=== PATIENT | female | born 1960 | race Caucasian/White ===

== ENCOUNTER 2020-09-05 13:20 | Outpatient (REF) | payer OTHER, SELFPAY ==
[2020-09-05 13:47] LABS: COVID-19 Test Negative (Negative)
== END 2020-09-05 13:21 | disposition home or self-care (01) ==
LOC: HO.LAB 13:20
PROVIDERS: PCP Nurse Practitioner Family; Visit Provider Internal Medicine
DX: Z20.828 Contact with and (suspected) exposure to other viral communicable diseases (principal)
CPT/HCPCS: 87635

== ENCOUNTER 2020-09-11 11:42 | Outpatient (REF) | payer OTHER, SELFPAY ==
[2020-09-11 12:28] LABS: COVID-19 Test Negative (Negative)
== END 2020-09-11 11:43 | disposition home or self-care (01) ==
LOC: HO.LAB 11:42
PROVIDERS: PCP Nurse Practitioner Family; Visit Provider Internal Medicine
DX: Z20.828 Contact with and (suspected) exposure to other viral communicable diseases (principal)
CPT/HCPCS: 87635

== ENCOUNTER 2020-12-15 09:42 | Outpatient (REF) | payer OTHER, SELFPAY ==
[2020-12-15 09:59] LABS: COVID-19 Test Negative (Negative); IDNOW Serial# 55D5AD1C
== END 2020-12-15 09:43 | disposition home or self-care (01) ==
LOC: HO.EMPCOV 09:42
PROVIDERS: Visit Provider Internal Medicine
DX: Z20.822 Contact with and (suspected) exposure to COVID-19 (principal)
CPT/HCPCS: 36415; 87635; C9803

== ENCOUNTER 2021-01-01 16:02 | Outpatient (REF) | payer OTHER, SELFPAY ==
--- NOTE | ~2021-01-01 | MM_ITS ---
EXAMINATION: MM SCREENING DIGITAL BREAST TOMOSYNTHESIS, BILATERAL CLINICAL INFORMATION: Screening. Asymptomatic. The lifetime risk of breast cancer based on the Tyrer-Cuzick Model is 7%. COMPARISON: Mammography: 11/01/2019, 09/06/2018, 08/16/2017, 03/04/2016 TECHNIQUE: Digital breast tomosynthesis is performed in both the craniocaudal and mediolateral oblique views along with computer-aided detection (CAD). Synthesized 2D images are generated from the tomosynthesis. FINDINGS: There are scattered areas of fibroglandular density (ACR BI-RADS breast composition Category b). There are no significant masses, abnormal calcifications, or other abnormalities. Fine fibronodular pattern is similar to prior exams. No developing density. The axilla and skin contours are unremarkable. MM/MM tomosynthesis screening BI IMPRESSION: No mammographic evidence of malignancy. ASSESSMENT: BI-RADS 1: Negative RECOMMENDATION: Routine annual mammography screening. This patient's information was entered into a reminder system with a target due date for their next mammogram.
== END 2021-01-01 16:03 | disposition home or self-care (01) ==
LOC: HO.MAMMO 16:02
PROVIDERS: PCP Nurse Practitioner Family; Visit Provider Nurse Practitioner Family
DX: Z12.31 Encounter for screening mammogram for malignant neoplasm of breast (principal)
CPT/HCPCS: 77063; 77067

== ENCOUNTER → 2021-01-12 10:56 | Outpatient (BNVA) | payer OTHER, SELFPAY | PROVIDERS: PCP Nurse Practitioner Family; Visit Provider Internal Medicine Endocrinology, Diabetes & Metabolism ==

== ENCOUNTER 2021-01-27 16:35 | Outpatient (REF) | payer OTHER, SELFPAY ==
--- NOTE | ~2021-01-27 | US_ITS ---
EXAMINATION: US SOFT TISSUE NECK CLINICAL INFORMATION: History of malignant neoplasm of thyroid gland. Status post total thyroidectomy. Assess residual tissue and lymphadenopathy. COMPARISON: None. TECHNIQUE: Ultrasound of the neck soft tissues is performed with high- frequency greer-scale imaging and color Doppler. FINDINGS: THYROID BED: Prior thyroidectomy. No residual thyroid tissue demonstrated in the thyroid bed. No cystic or solid nodules demonstrated in the thyroid bed. RIGHT NECK SOFT TISSUES: Scattered architecturally normal nodes are present. The nodes show normal fatty hilus, normal cortical thickness, and no cystic change or calcification. No abnormal color flow. The largest nodes are as follows: Level right level 4: 2.0 x 0.5 x 1.0 cm. Normal jamir architecture. Level right level 5A: 1.2 x 0.4 x 1.0 cm. Normal jamir architecture. Level right level 5B: 1.9 x 0.4 x 0.83 cm. Normal jamir architecture. LEFT NECK SOFT TISSUES: Scattered architecturally normal nodes are present. The nodes show normal fatty hilus, normal cortical thickness, and no cystic change or calcification. No abnormal color flow. The largest nodes are as follows: Level left level 2: 1.0 x 0.4 x 0.83 cm. Normal jamir architecture. Level left level 4: 1.5 x 0.3 x 1.0 cm. Irregular margins. Absent central echogenicity at Abnormal jamir architecture. US/US soft tiss head and/or neck IMPRESSION: 1. No residual thyroid tissue is seen. There are normal bilateral neck lymph nodes except for one atypical-appearing lymph node which has absent central echogenic medulla. However, it appears to be normal size. 2. If clinically indicated further evaluation of the neck soft tissues and nodes may be performed with CT soft tissue neck with intravenous contrast.
== END 2021-01-27 16:36 | disposition home or self-care (01) ==
LOC: HO.US 16:35
PROVIDERS: Visit Provider Internal Medicine Endocrinology, Diabetes & Metabolism
DX: C73 Malignant neoplasm of thyroid gland (principal)
CPT/HCPCS: 76536

== ENCOUNTER 2021-02-27 07:59 | Outpatient (REF) | payer OTHER, SELFPAY ==
--- NOTE | ~2021-02-27 | XR_ITS ---
EXAMINATION: XR knee LT 2V, XR knee standing BI CLINICAL INFORMATION: Reason for Exam M25.562 - Pain in left knee COMPARISON: None available at the time of this dictation. TECHNIQUE: Bilateral frontal standing, left lateral and patella sunrise view. FINDINGS: BONES: No fracture or dislocation is present. JOINTS: Mild narrowing of joint spaces especially medial compartments suggest early degenerative osteoarthritis. There is mild lateral subluxation of the left patella. SOFT TISSUE: Normal XR/XR knee standing BI IMPRESSION: Mild degenerative osteoarthritis. Mild lateral subluxation of the patella.
--- NOTE | ~2021-02-27 | XR_ITS ---
EXAMINATION: XR knee LT 2V, XR knee standing BI CLINICAL INFORMATION: Reason for Exam M25.562 - Pain in left knee COMPARISON: None available at the time of this dictation. TECHNIQUE: Bilateral frontal standing, left lateral and patella sunrise view. FINDINGS: BONES: No fracture or dislocation is present. JOINTS: Mild narrowing of joint spaces especially medial compartments suggest early degenerative osteoarthritis. There is mild lateral subluxation of the left patella. SOFT TISSUE: Normal XR/XR knee LT 2V IMPRESSION: Mild degenerative osteoarthritis. Mild lateral subluxation of the patella.
== END 2021-02-27 08:00 | disposition home or self-care (01) ==
LOC: HO.HOSX 07:59
PROVIDERS: Visit Provider Orthopaedic Surgery
DX: M22.2X2 Patellofemoral disorders, left knee (principal); M70.62 Trochanteric bursitis, left hip
CPT/HCPCS: 73560; 73565; J1040

== ENCOUNTER 2021-04-21 08:12 | Outpatient (REF) | payer OTHER, SELFPAY ==
[2021-04-21 09:50] LABS: Hematocrit 46.5 % (37-47); Hemoglobin 15.5 g/dl (12.0-16.0); Mean Corpuscular HGB Conc 33.3 g/dl (31.0-35.0); Mean Corpuscular Hemoglobin 27.9 pg (27.0-33.0); Mean Corpuscular Volume 83.6 fL (80-98); Mean Platelet Volume 10.7 fL (9.4-12.3); Platelet Count 178 X10*3/uL (160-400); Red Blood Count 5.56 X10*6/uL (4.20-5.50); Red Cell Distribution Width 13.2 % (11.0-16.0); White Blood Count 9.2 X10*3/uL (4.8-10.8)
[2021-04-21 09:54] LABS: Estimated Average Glucose 126 mg/dL
[2021-04-21 10:06] LABS: Alanine Aminotransferase 26 U/L (0-31); Albumin Level 3.9 g/dL (3.5-5.0); Alkaline Phosphatase 82 U/L (39-117); Anion Gap 13 (12-20); Aspartate Amino Transferase 17 U/L (5-31); Bilirubin Total 0.6 mg/dL (0.0-1.0); Blood Urea Nitrogen 16 mg/dL (9-16); Calcium 9.3 mg/dL (8.4-10.2); Carbon Dioxide 25 mmol/L (22-29); Chloride 107 mmol/L (96-108); Cholesterol 214 mg/dL; Estimated Glomerular Filt Rate > 60; Glucose Fasting 122 mg/dL (60-99); HDL Cholesterol 36 mg/dL; LDL Cholesterol Calculated 141 mg/dl; Potassium 4.2 mmol/L (3.3-5.1); Sodium 141 mmol/L (135-145); Total Protein 6.2 g/dL (6.5-8.0); Triglycerides 187 mg/dL
[2021-04-21 10:17] LABS: Free T4 (Free Thyroxine) 1.41 ng/dL (0.71-1.85); Thyroid Stimulating Hormone 0.13 uIU/mL (0.32-4.0)
[2021-04-21 10:31] LABS: Vitamin B12 291 pg/mL (200-900)
[2021-04-22 18:31] LABS: LDL Cholesterol Direct 157 mg/dL (<100)
[2021-04-25 05:17] LABS: Thyroglobulin Antibody <1 IU/mL (<=1); Thyroglobulin Level <0.1 ng/mL
== END 2021-04-21 08:13 | disposition home or self-care (01) ==
LOC: HO.LAB 08:12
PROVIDERS: PCP Nurse Practitioner Family; Visit Provider Internal Medicine Endocrinology, Diabetes & Metabolism
DX: E11.65 Type 2 diabetes mellitus with hyperglycemia (principal); C73 Malignant neoplasm of thyroid gland
CPT/HCPCS: 36415; 80053; 80061; 82043; 82306; 82607; 83036; 83721; 84432; 84439; 84443; 85027; 86800

== ENCOUNTER 2021-04-29 16:00 | Outpatient (RCR) | payer OTHER, SELFPAY ==
--- NOTE | 2021-04-08 17:18 | MHC.PT.EP ---
[facility] [place] Office [place] Office [place] Office [address] [phone] F: [phone] F: [phone] F: [phone] F: [phone] Physical Therapy Plan of Care Date of Evaluation: Date of Surgery: NA Diagnosis: Patellofemoral disorder of L knee and hip Assessment: Milli is a 60 year old female referred to PT for patellofemoral disorder,L knee . Pt has h/o chronic hip pain for 10 years and knee pain for over 6 weeks. She denies any recent trauma or fall. On PT examination she presented with 5/10 pain in L knee and hip, decreased L hip and knee strength, decreased ROM, altered posture, gait and patellar mobility. She would benefit from skilled PT to address the aforementioned impairments to increase tolerance to standing, walking, stair negotiation and ADLs like cleaning, getting in and out of care and sleeping. Frequency and Duration: The patient will be seen 2/week for 6 weeks. Short Term Goals: 1. Pt will have 50% decrease in pain which will help her sleep through the night in 2 weeks. 2. Pt will be able to move her knee through fill range of motion with a pain no more than 2/10 which will ease her ability to get into the car in 3 weeks. Assisted Goals: 1. Pt will demonstrate an increase in muscle strength by 1 grade which will help improve her tolerance to standing, walking and stair negotiation in 5 weeks. 2. Pt will be independent with all HEPs for symptom management and maintenance following d/c in 6 weeks. Treatment Plan: Modalities to reduce pain, spasms and effusion. Manual therapy to restore motion and function. Therapeutic exercise to improve strength and flexibility. Neuromuscular re-education for posture and balance. Therapeutic activities to return to functional activities of daily living. Electronically signed by: Yaa Vanessa PT DPT Please sign and return to therapist. Thank you for your referral.
--- NOTE | 2021-04-29 17:02 | MHC.PT.DC ---
[facility] [place] Office [place] Office [place] Office [address] Tiana Anthony 140 [facility] [phone] F: [phone] F: [phone] F: [phone] F: [phone] Physical Therapy Discharge Report Diagnosis: Patellofemoral disorder of L knee and hip Date of Surgery: NA Date of Evaluation: 04/08/21 Date of Discharge: 04/29/21 Treatments to Date: 2 Cancellations to Date: 0 No Shows to Date: 0 Discharge Status: Patient Elected to Stop Discharge Summary: 04/29/21- Guadalupe has completed 2 PT visits. She arrived to her second visit stating she was very sore and had a lot of pain. Per Milli the 2 exercises she was given in her eval 3 weeks back- LAQ and IT band stretch was making her pain worse. Supine quad exercises and seated hamstring exercises were therefore trialed. She did not want to perform more than 10 reps of each exercises stating I am done . She was unable to tolerate exercises in sitting, standing or supine lying After a few exercises she sat up frustrated stating PT has not been helping her and she believes she needs to have a MRI done before continuing PT. Something is wrong with my knee and I might need surgery is what pt stated at the end of the session. Guadalupe is not motivated to trial PT. This was her second visit and she does not wish to come any more. She has therefore been discharged from therapy today and was advised to follow up with ortho. Pt educated to return to therapy when she is able to participate in therapy. Electronically signed by: Yaa Vanessa PT DPT Please sign and return to therapist. Thank you for your referral.
== END 2021-04-29 17:07 | disposition other institution (70) ==
LOC: HO.PT 16:00
PROVIDERS: PCP Nurse Practitioner Family; Visit Provider Orthopaedic Surgery
DX: M22.2X2 Patellofemoral disorders, left knee (principal)
CPT/HCPCS: 97110; 97112; 97161

== ENCOUNTER → 2021-05-08 08:02 | Outpatient (BNVA) | payer OTHER, SELFPAY | PROVIDERS: PCP Nurse Practitioner Family; Visit Provider Orthopaedic Surgery ==

== ENCOUNTER 2021-05-14 09:28 | Outpatient (REF) | payer OTHER, SELFPAY ==
[2021-05-14 14:07] LABS: Free T4 (Free Thyroxine) 1.34 ng/dL (0.71-1.85); Thyroid Stimulating Hormone 0.08 uIU/mL (0.32-4.0)
== END 2021-05-14 09:29 | disposition home or self-care (01) ==
LOC: HO.LAB 09:28
PROVIDERS: PCP Nurse Practitioner Family; Visit Provider Internal Medicine Endocrinology, Diabetes & Metabolism
DX: E89.0 Postprocedural hypothyroidism (principal)
CPT/HCPCS: 36415; 84439; 84443

== ENCOUNTER 2021-05-21 07:29 | Day surgery (SDC) | payer OTHER, SELFPAY ==
[2021-05-13 14:56] VITALS: BMI 42.3
--- NOTE | 2021-05-20 08:30 | HO.ANESPROP2 ---
Documented by User: Mary Lou Grace 05/20/21 08:35 HPI - Anesthesia Eval Consult details Narrative: 60yo F for Left Knee Arthroscopy Lateral Retinacular *Mult med allergies* PMFSH Active Problems Active Problems: All Active Problems (Updated 05/13/21 @ 14:56 by Nan Preciado) Bronchitis with acute wheezing (Acute) Cat bite (Acute) Patellofemoral pain syndrome of left knee (Acute) Trochanteric bursitis, left hip (Acute) Dyslipidemia (Acute) Morbid obesity (Acute) Vitamin D deficiency (Acute) Primary thyroid cancer (Acute) Diabetes type 2, uncontrolled (Acute) Post-surgical hypothyroidism (Acute) Past Medical History Medical History COVID-19 vaccine series completed Diabetes type 2, uncontrolled Dyslipidemia History of lupus Morbid obesity LILLI (obstructive sleep apnea) Post-surgical hypothyroidism Primary thyroid cancer Vitamin D deficiency Family History Family History Father Diabetes Hypertension Mother Hypertension Thyroid disease Bile duct carcinoma Surgical History Surgical History History of carpal tunnel release of both wrists History of foot surgery History of thumb surgery Hx of arthroscopy of right knee Hx of cholecystectomy Hx of colonoscopy Hx of thyroidectomy Social History Social History Are you a primary hearing care practitioner to a significant other at home: No Do you presently have visiting nurse or other home services: No Patient Tobacco Use Status: Former Tobacco user Quit Date: 5 years ago- occasionally has 1 from Tobacco use type: Cigarette Second Hand Smoke Exposure: Yes Use of substances other than those prescribed or required for medical reasons: No Have you been hit, kicked, punched, or otherwise hurt by someone within the past year? If so, by whom?: No Are you DNR?: No Advance Directives: No Advance Directives Information Provided: No Advance Directives on File: No Recently lost weight without trying: No Eating poorly because of decreased appetite: No Nutrition Risks: No Nutritional Risk Current occupational status: employed Current occupation: 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 Meds Allergies Allergy/AdvReac Type Severity Reaction Status Date / Time vancomycin [Vancomycin] Allergy Intermediate SWELLING/HIVES/THROAT Verified 05/13/21 14:37 CLOSING SENSATION codeine [Codeine] Allergy Mild HIVES Verified 05/13/21 14:37 Penicillins Allergy Mild HIVES Verified 05/13/21 14:37 prednisone [Prednisone] Allergy Mild RASH,DIFF. Verified 05/13/21 14:37 BREATHING propoxyphene [From Darvon] Allergy Mild FELT LIKE Verified 05/13/21 14:37 CHEST CLOSING UP / HIVES Sulfa (Sulfonamide Allergy Mild HIVES Verified 05/13/21 14:37 Antibiotics) [Sulfa (Sulfonamides)] dexamethasone Allergy Unknown muscle Verified 05/13/21 14:37 aches hydroxychloroquine Allergy Unknown hair loss Verified 05/13/21 14:37 [Plaquenil] moxifloxacin [From AVELOX] Allergy Unknown PINS AND Verified 05/13/21 14:37 NEEDLE FEET AND PALMS- SWELLING oxycodone [Percocet] Allergy Unknown Unknown Verified 05/13/21 14:37 Exam Exam Date and Time: May 20, 2021 0830 Height,Weight and Vital Signs: Height 5 ft 7 in Weight 122.47 kg Pertinent Lab Results Pertinent Lab Results: Laboratory Tests 04/21/21 04/21/21 08:45 08:45 WBC 9.2 Hgb 15.5 Hct 46.5 Plt Count 178 Sodium 141 Potassium 4.2 Chloride 107 Carbon Dioxide 25 BUN 16 Creatinine 0.75 Assessment and Plan Assessment Anesthesia Assessment: Chart Reviewed Documented by User: Nancy Xiao 05/21/21 09:17 [facility] Past Medical History Medical History COVID-19 vaccine series completed Diabetes type 2, uncontrolled Dyslipidemia History of lupus Morbid obesity LILLI (obstructive sleep apnea) Post-surgical hypothyroidism Primary thyroid cancer Vitamin D deficiency Family History Family History Father Diabetes Hypertension Mother Hypertension Thyroid disease Bile duct carcinoma Surgical History Surgical History History of carpal tunnel release of both wrists History of foot surgery History of thumb surgery Hx of arthroscopy of right knee Hx of cholecystectomy Hx of colonoscopy Hx of thyroidectomy Social History Social History Are you a primary hearing care practitioner to a significant other at home: No Do you presently have visiting nurse or other home services: No Patient Tobacco Use Status: Former Tobacco user Quit Date: 5 years ago- occasionally has 1 from Tobacco use type: Cigarette Second Hand Smoke Exposure: Yes Use of substances other than those prescribed or required for medical reasons: No Have you been hit, kicked, punched, or otherwise hurt by someone within the past year? 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 Verified 05/13/21 14:37 BREATHING propoxyphene [From Darvon] Allergy Mild FELT LIKE Verified 05/13/21 14:37 CHEST CLOSING UP / HIVES Sulfa (Sulfonamide Allergy Mild HIVES Verified 05/13/21 14:37 Antibiotics) [Sulfa (Sulfonamides)] dexamethasone Allergy Unknown muscle Verified 05/13/21 14:37 aches hydroxychloroquine Allergy Unknown hair loss Verified 05/13/21 14:37 [Plaquenil] moxifloxacin [From AVELOX] Allergy Unknown PINS AND Verified 05/13/21 14:37 NEEDLE FEET AND PALMS- SWELLING oxycodone [Percocet] Allergy Unknown Unknown Verified 05/13/21 14:37 Exam Airway Mallampati Class: II TM Dist: >3cm Neck ROM: Full Assessment and Plan Assessment Anesthesia Assessment: Anesthesia Plan Discussed and Chart Reviewed Final Anesthetic Review NPO: Yes ASA Class: III Final Preanesthetic Review: No Changes in Pt Med Stat, Meds/Allgs Chart Reviewed, Consent Obtained/Reviewed and Anes Risks/Benef Reviewed Patient Risk: Intermediate Procedure Risk: Low Assessment/Block/Sedation in SS: Assess/Block/Sedation-SS Anesthetic Plan Anesthetic Plan: GA Disposition: Standard PACU
[2021-05-21] VITALS (11 sets, daily range): BP systolic 113–171; BP diastolic 58–80; PULSE 67–86; RESP 16; TEMP 36.1–36.9; O2SAT 93–98
--- NOTE | 2021-05-21 07:23 | MHC.SHP ---
Pre-Procedural Eval Section A Date of Service: 05/21/21 Changes since office visit: No Cold of Flu in the past 2 weeks, No New Medical Problems, No Changes in Medication and No Patient answered all questions The History & Physical has been completed within 30 days and I have reviewed it.: Yes Section B Chief Complaint: Patellofemoral Disorders, Left Knee Allergies: Allergies Allergy/AdvReac Type Severity Reaction Status Date / Time vancomycin [Vancomycin] Allergy Intermediate SWELLING/HIVES/THROAT Verified 05/13/21 14:37 CLOSING SENSATION codeine [Codeine] Allergy Mild HIVES Verified 05/13/21 14:37 Penicillins Allergy Mild HIVES Verified 05/13/21 14:37 prednisone [Prednisone] Allergy Mild RASH,DIFF. Verified 05/13/21 14:37 BREATHING propoxyphene [From Darvon] Allergy Mild FELT LIKE Verified 05/13/21 14:37 CHEST CLOSING UP / HIVES Sulfa (Sulfonamide Allergy Mild HIVES Verified 05/13/21 14:37 Antibiotics) [Sulfa (Sulfonamides)] dexamethasone Allergy Unknown muscle Verified 05/13/21 14:37 aches hydroxychloroquine Allergy Unknown hair loss Verified 05/13/21 14:37 [Plaquenil] moxifloxacin [From AVELOX] Allergy Unknown PINS AND Verified 05/13/21 14:37 NEEDLE FEET AND PALMS- SWELLING oxycodone [Percocet] Allergy Unknown Unknown Verified 05/13/21 14:37 Plan I have reviewed the history and physical and performed a pertinent physical examination on my patient. No changes have occurred unless specified.
[2021-05-21 08:07] LABS: Glucose, Whole Blood 144 mg/dL (60-115)
[2021-05-21] MEDS: Lactated Ringers 1,000 ML 100 ML IVCONT (08:12)
--- NOTE | 2021-05-21 10:10 | P.OP_ITS ---
Operative Note Operative Note Date of Service: 05/21/21 Narrative: ARTHROSCOPIC SURGERY NOTE SURGEON: Dr Payne ([place]) Instr[employer]: none PREOP DIAGNOSIS: patellofemoral pain syndrome left knee POSTOP DIAGNOSIS: same with lateral meniscal tear left knee OPERATIVE PROCEDURE: 1. partial lateral meniscectomy left knee 2. Arthroscopic lateral retinacular release left knee CLINICAL NOTE: this lady is a on the problem patellofemoral syndrome involving her left knee. Her investigation could she demonstrated that she had a patellar malalignment with lateral tilt and translation. Therefore after explaining the risks benefits and alternatives and answering all her questions it was mutually agreed upon to carry out the following procedure MOTION: Full range of motion STABILITY: Cruciate and collateral ligaments intact OPERATIVE DETAILS PREPARATION: GA, STANDARD TECHNIQUE, tourniquet E to 300 mm of mercury for 17 minutes SURGICAL TIME-OUT: Patient identified; procedure confirmed; site confirmed. Medical and allergy history reviewed. No preoperative antibiotics. No DVT prophylaxis. All other items discussed and agreed upon. INCISIONS: Superolateral, inferolateral, inferomedial stab incisions SYNOVIUM: Normal SYNOVIAL FLUID: Clear MEDIAL COMPARTMENT: medial meniscus , tibial and femoral articular surfaces all stable and intact INTERCONDYLAR NOTCH: ACL visualized palpated intact. PCL intact. LATERAL COMPARTMENT: There was complex inner edge tearing of the middle to posterior horn Of the meniscus. This was resected using power shaver. The tibial and femoral articular surfaces popliteal tendon were intact. ANTERIOR COMPARTMENT: Medial lateral gutters clear suprapatellar pouch clear the patella demonstrated some grade 2-3 wear on the lateral facet. The femoral sulcus was intact. At this point using the ArthroCare a lateral retinacular release was carried out. This was successfully performed CLOSURE: 30 cc of 0.25% Marcaine with epinephrine injected in the knee. Steri- Strips and sterile dressing then applied. RECOMMENDATIONS: 1)Knee placed in brace locked straight to be worn in this manner at all times. May fully weightbear. 2)Resume activities as tolerated 3)Discharge today with prescription for analgesic 4)Follow up in the office in 10-14 days
[2021-05-21] MEDS: ondansetron HCL 4 MG/2 ML VIAL IVPUSH (11:03)
[2021-05-21] MEDS: fentaNYL citrate/PF 100 MCG/2 ML VIAL 50 MCG IVPUSH (11:07)
[2021-05-21] MEDS: HYDROmorphone HCl 2 MG TABLET PO (11:41)
== END 2021-05-21 12:43 | disposition home or self-care (01) ==
PROVIDERS: PCP Nurse Practitioner Family; Visit Provider Orthopaedic Surgery
PROC: (CPT 29870; principal; 2021-05-21 09:20)
DX: M22.2X2 Patellofemoral disorders, left knee (principal); M22.42 Chondromalacia patellae, left knee; S83.272A Complex tear of lateral meniscus, current injury, left knee, initial encounter; X58.XXXA Exposure to other specified factors, initial encounter; Y93.9 Activity, unspecified; Y92.9 Unspecified place or not applicable; Y99.8 Other external cause status; E11.9 Type 2 diabetes mellitus without complications; E55.9 Vitamin D deficiency, unspecified; E78.5 Hyperlipidemia, unspecified; E89.0 Postprocedural hypothyroidism; Z85.850 Personal history of malignant neoplasm of thyroid; Z79.84 Long term (current) use of oral hypoglycemic drugs; Z79.899 Other long term (current) drug therapy; F17.200 Nicotine dependence, unspecified, uncomplicated; Z88.0 Allergy status to penicillin; Z88.1 Allergy status to other antibiotic agents; Z88.2 Allergy status to sulfonamides; Z88.8 Allergy status to other drugs, medicaments and biological substances
CPT/HCPCS: 29881; 29873; 82947; J0131; J2250; J2405; J3010

== ENCOUNTER → 2021-06-02 10:18 | Outpatient (BNVA) | payer OTHER, SELFPAY | PROVIDERS: Visit Provider Physician Assistant ==

== ENCOUNTER → 2021-06-30 10:30 | Outpatient (BNVA) | payer OTHER, SELFPAY | PROVIDERS: Visit Provider Orthopaedic Surgery ==

== ENCOUNTER 2021-07-13 10:42 | Outpatient (REF) | payer OTHER, SELFPAY ==
[2021-07-13 13:56] LABS: Free T4 (Free Thyroxine) 1.11 ng/dL (0.71-1.85); Thyroid Stimulating Hormone 9.71 uIU/mL (0.32-4.0)
== END 2021-07-13 10:43 | disposition home or self-care (01) ==
LOC: HO.LAB 10:42
PROVIDERS: PCP Nurse Practitioner Family; Visit Provider Internal Medicine Endocrinology, Diabetes & Metabolism
DX: E89.0 Postprocedural hypothyroidism (principal)
CPT/HCPCS: 36415; 84439; 84443

== ENCOUNTER → 2021-07-27 13:32 | Outpatient (BNVA) | payer OTHER, SELFPAY | PROVIDERS: Visit Provider Physician Assistant ==

== ENCOUNTER → 2021-08-14 10:28 | Outpatient (BNVA) | payer OTHER, SELFPAY | PROVIDERS: Visit Provider Orthopaedic Surgery ==

== ENCOUNTER 2021-08-17 11:00 | Outpatient (RCR) | payer OTHER, SELFPAY ==
--- NOTE | 2021-07-13 12:45 | MHC.PT.EP ---
[facility] [place] Office [place] Office [place] Office [address] Tiana Anthony [address] [phone] F: [phone] F: [phone] F: [phone] F: [phone] Physical Therapy Plan of Care Date of Evaluation: Date of Surgery: 05/21/21 L LAT RETINACULAR RELEASE AND LAT MENISCECTOMY Diagnosis: PATELLOFEMORAL DISORDERS L KNEE Assessment: Pt IS 60 YO F REFERRED TO PT FROM ORTHO S/P L LATERAL RETINACULAR RELEASE AND MENISCECTOMY ON 05/21/21. PER ORTHO ORDER, NWB ROM FOR WEEK 1 THEN LE STRENGTHENING FOR PROGRESSION IN UNLOCKING BRACE FOR GT. TO SEE ORTHO 07/28 FOR FU WITH POSSIBLE RTW. PRESENTS WITH LIMITED L KNEE ROM AND DECREASED L LE STRENGTH WITH PAIN AND LIMITED GT. IS OOW (MRI HERE AT [facility] [place]). Pt WITH L GLUT PAIN ALSO (?COMPENSETORY FROM GT PATTERN). GOOD PT CANDIDATE TO ADDRESS THESE ISSUES. Frequency and Duration: The patient will be seen 2X/WK X 6 WKS Short Term Goals: 1. I HEP WITH DC EX PLAN 2. L KNEE ROM 0-120 3. RTW Prison Goals: 1. L KNEE ROM 0-130 2. NORMALIZED GT WITHOUT BRACE 3. L LE STRENGTH AT LEAST 4/5 T/O 4. DECREASED L KNEE PAIN AT LEAST 50% WITH ADLS Treatment Plan: Modalities to reduce pain, spasms and effusion. Manual therapy to restore motion and function. Therapeutic exercise to improve strength and flexibility. Neuromuscular re-education for posture and balance. Therapeutic activities to return to functional activities of daily living. Electronically signed by: KEN LOZADA PT Please sign and return to therapist. Thank you for your referral.
--- NOTE | 2021-09-18 10:53 | MHC.PT.DC ---
[facility] [place] Office [place] Office [place] Office [address] Tiana Anthony [address] [phone] F: [phone] F: [phone] F: [phone] F: [phone] Physical Therapy Discharge Report Diagnosis: S/P L LATERAL RETINACULAR RELEASE 05/21/21 Date of Surgery: 05/21/21 L LAT RETINACULAR RELEASE AND LAT MENISCECTOMY Date of Evaluation: 07/13/21 Date of Discharge: 09/18/21 Treatments to Date: 9 Cancellations to Date: 4 No Shows to Date: Discharge Status: Improved Function Independent with HEP Patient Elected to Stop Discharge Summary: PER ASSESSMENT AT LAST SESSION ON 08/17/21:CHALLENGED WITH PROP WORK. Pt TO START BACK TO [place] [place] DURING HER LUNCH, SO APPTS WILL BE SHORTENED. FOCUS ON FUNCTIONAL ACTIVITY/PROP WORK (LUNGES STEPS ETC) SPOKE WITH Pt ON 09/18/21 AND SHE AGREES WITH DC FROM PT. SAYS WORKING ON EXS AT HOME. FU WITH ORTHO IF NEEDED [ End ] Electronically signed by: KEN LOZADA PT Please sign and return to therapist. Thank you for your referral.
== END 2021-09-18 10:53 | disposition home or self-care (01) ==
LOC: HO.PT 11:00
PROVIDERS: Visit Provider Orthopaedic Surgery
DX: M22.2X2 Patellofemoral disorders, left knee (principal)
CPT/HCPCS: 97110; 97140; 97162; 97530

== ENCOUNTER 2021-08-26 09:38 | Outpatient (REF) | payer OTHER, SELFPAY ==
[2021-08-26 10:54] LABS: Free T4 (Free Thyroxine) 1.21 ng/dL (0.71-1.85); Thyroid Stimulating Hormone 1.66 uIU/mL (0.32-4.0)
[2021-08-27 08:27] LABS: Thyroglobulin 0.2 ng/mL; Thyroglobulin Antibodies <1 IU/mL (< or = 1)
[2021-08-27 20:27] LABS: Triiodothyronine T3 Total 97 ng/dL (76-181)
== END 2021-08-26 09:39 | disposition home or self-care (01) ==
LOC: HO.LAB 09:38
PROVIDERS: PCP Nurse Practitioner Family; Visit Provider Internal Medicine
DX: C73 Malignant neoplasm of thyroid gland (principal)
CPT/HCPCS: 36415; 84432; 84439; 84443; 84480; 86800

== ENCOUNTER → 2021-10-26 15:11 | Outpatient (BNVA) | payer OTHER, SELFPAY | PROVIDERS: PCP Nurse Practitioner Family; Visit Provider Physician Assistant ==

== ENCOUNTER 2021-10-27 08:59 | Outpatient (REF) | payer OTHER, SELFPAY ==
--- NOTE | ~2021-10-27 | MR_ITS ---
EXAMINATION: MR KNEE WITHOUT CONTRAST, LEFT CLINICAL INFORMATION: Unilateral primary osteoarthritis of the left knee. COMPARISON: 02/27/2021 TECHNIQUE: MRI of the knee without contrast was performed using routine sequences on a high-field scanner. FINDINGS: MENISCI: Medial Meniscus: Mild undersurface fraying at the posterior horn. No tears. Lateral Meniscus: A horizontal undersurface flap tear is present at the posterior horn and body with peripheral extrusion of an undersurface flap toward the meniscotibial recess. There is significant associated free edge fraying at the posterior horn. Degenerative intrasubstance signal is present in the anterior horn. LIGAMENTS: Cruciate: Intact. Collateral: Intact. EXTENSOR MECHANISM: Intact. ARTICULAR CARTILAGE/BONE: Patellofemoral Compartment: At the superior third of the patellar articular surface, there is a broad area of moderate nonuniform articular cartilage loss measuring 2.2 x 1.2 cm with full-thickness chondral fissuring and delamination as well as underlying articular cortical irregularity, marginal osteophytes, and subchondral edema. Trochlear cartilage appears relatively well preserved by comparison. Medial Compartment: There is a chronic subarticular infarct at the medial femoral condyle posteriorly, deep to the posterior nonweightbearing surface. There is mild chondral fissuring and surface irregularity at the overlying articular cartilage without significant osteochondral fragmentation. Weightbearing surfaces are unremarkable. Patchy signal abnormalities in the tibial plateau also likely correspond to chronic changes of a prior medullary infarct. Lateral Compartment: Tiny marginal osteophytes. Articular cartilage appears relatively well preserved. JOINT FLUID AND BURSAE: Moderate-sized joint effusion. Trace Styles's cyst. MR/MR knee LT wo con IMPRESSION: 1. Horizontal undersurface flap tear at the junction of the posterior horn and body of the lateral meniscus. 2. Mild patellofemoral compartment osteoarthritis, characterized primarily by trochlear chondromalacia. 3. 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 4. Moderate-sized joint effusion and trace Styles's cyst.
== END 2021-10-27 09:00 | disposition home or self-care (01) ==
LOC: HO.MRI 08:59
PROVIDERS: Visit Provider Physician Assistant
DX: M17.12 Unilateral primary osteoarthritis, left knee (principal); M25.462 Effusion, left knee
CPT/HCPCS: 73721

== ENCOUNTER 2022-01-19 08:12 | Outpatient (REF) | payer OTHER, SELFPAY ==
--- NOTE | ~2022-01-19 | MM_ITS ---
EXAMINATION: MM SCREENING DIGITAL BREAST TOMOSYNTHESIS, BILATERAL CLINICAL INFORMATION: Screening. Asymptomatic. The lifetime risk of breast cancer based on the Tyrer-Cuzick Model is 7%. COMPARISON: Mammography: 01/01/2021, 11/01/2019, 09/06/2018 TECHNIQUE: Digital breast tomosynthesis is performed in both the craniocaudal and mediolateral oblique views along with computer-aided detection (CAD). Synthesized 2D images are generated from the tomosynthesis. FINDINGS: There are scattered areas of fibroglandular density (ACR BI-RADS breast composition Category b). There are no significant masses, abnormal calcifications, or other abnormalities. Parenchymal pattern is similar to prior studies. There are no significant changes. MM/MM tomosynthesis screening BI IMPRESSION: No mammographic evidence of malignancy. ASSESSMENT: BI-RADS 1: Negative RECOMMENDATION: Routine annual mammography screening. This patient's information was entered into a reminder system with a target due date for their next mammogram.
== END 2022-01-19 08:13 | disposition home or self-care (01) ==
LOC: HO.MAMMO 08:12
PROVIDERS: PCP Nurse Practitioner Family; Visit Provider Nurse Practitioner Family
DX: Z12.31 Encounter for screening mammogram for malignant neoplasm of breast (principal)
CPT/HCPCS: 77063; 77067

== ENCOUNTER → 2022-03-30 08:02 | Outpatient (BNVA) | payer OTHER, SELFPAY | PROVIDERS: PCP Nurse Practitioner Family; Visit Provider Internal Medicine Rheumatology | DX: M25.50 Pain in unspecified joint (principal) ==

== ENCOUNTER → 2022-04-13 14:01 | Outpatient (BNVA) | payer OTHER, SELFPAY | PROVIDERS: PCP Nurse Practitioner Family; Visit Provider Internal Medicine Endocrinology, Diabetes & Metabolism | DX: E11.9 Type 2 diabetes mellitus without complications (principal); C73 Malignant neoplasm of thyroid gland; Z79.84 Long term (current) use of oral hypoglycemic drugs | CPT/HCPCS: 82947; 83036 ==

== ENCOUNTER 2022-04-15 10:49 | Outpatient (REF) | payer OTHER, SELFPAY ==
[2022-04-15 11:42] LABS: MANUAL DIFF FLAG NO
[2022-04-15 12:57] LABS: Basophils Absolute Auto 0.1 X10*3/uL (0.0-0.2); Basophils Percent Auto 0.7 % (0-2); Eosinophils Absolute Auto 0.2 X10*3/uL (0.0-0.4); Eosinophils Percent Auto 2.6 % (0-4); Hematocrit 46.5 % (37.0-47.0); Hemoglobin 15.8 g/dl (12.0-16.0); Imm Gran Abs Auto 0.02 X10*3/uL (0.00-0.03); Imm Gran Pct Auto 0.3 % (0.0-0.4); Lymphocytes Absolute Auto 1.8 X10*3/uL (1.2-4.9); Lymphocytes Percent Auto 24.8 % (20-40); Mean Corpuscular Volume 85.3 fL (80.0-98.0); Mean Platelet Volume 10.8 fL (9.4-12.3); Monocytes Absolute Auto 0.4 X10*3/uL (0.1-1.2); Monocytes Percent Auto 5.5 % (2-11); Neutrophils Absolute Auto 4.7 x10*3/uL (2.0-8.3); Neutrophils Percent Auto 66.1 % (45-73); Platelet Count 185 X10*3/uL (160-400); Red Blood Count 5.45 X10*6/uL (4.20-5.50); Red Cell Distribution Width 13.3 % (11.0-16.0); White Blood Count 7.1 X10*3/uL (4.8-10.8)
[2022-04-15 13:24] LABS: Anion Gap 12 (12-20); Blood Urea Nitrogen 13 mg/dL (9-16); C Reactive Protein 0.83 mg/dL (< or = 0.50); Calcium 9.7 mg/dL (8.4-10.2); Carbon Dioxide 26 mmol/L (22-29); Chloride 106 mmol/L (96-108); Estimated Glomerular Filt Rate > 60; Glucose Random 114 mg/dL (60-115); Potassium 4.5 mmol/L (3.3-5.1); Sodium 139 mmol/L (135-145)
[2022-04-15 13:34] LABS: Thyroid Stimulating Hormone 2.17 uIU/mL (0.32-4.0)
[2022-04-15 13:38] LABS: Erythrocyte Sedimentation Rate 4 MM/HR (0-20)
[2022-04-15 13:47] LABS: Appearance Urine CLEAR; Color Urine YELLOW; Glucose Urine UA NEG (NEG); Leukocyte Esterase Urine NEG (NEG); Nitrite Urine NEG (NEG); PH 5.5 (5.0-8.0); Urine Blood NEG (NEG); Urine Ketones NEG (NEG); Urine Protein NEG (NEG-TRACE)
[2022-04-15 13:52] LABS: Creatinine Urine 80.13 mg/dL; Microalbum/Creatinine Ratio Ur 6.2 ug/mg cr
[2022-04-17 01:42] LABS: Thyroglobulin <0.1 ng/mL
== END 2022-04-15 10:50 | disposition home or self-care (01) ==
LOC: HO.LAB 10:49
PROVIDERS: PCP Nurse Practitioner Family; Referring Provider Internal Medicine Endocrinology, Diabetes & Metabolism; Visit Provider Internal Medicine Rheumatology
DX: C73 Malignant neoplasm of thyroid gland (principal); E11.9 Type 2 diabetes mellitus without complications; R76.8 Other specified abnormal immunological findings in serum; M25.50 Pain in unspecified joint
CPT/HCPCS: 36415; 80048; 81003; 82043; 84432; 84439; 84443; 85025; 85652; 86140

== ENCOUNTER 2022-04-23 10:22 | Outpatient (REF) | payer OTHER, SELFPAY ==
--- NOTE | ~2022-04-23 | XR_ITS ---
EXAMINATION: XR HIP, LEFT CLINICAL INFORMATION: Pain COMPARISON: None TECHNIQUE: Two views of the left hip. FINDINGS: Bone alignment is normal. No fracture or dislocation is seen. There are small acetabular osteophytes. There is soft tissue calcification or ossification adjacent to the superior lateral left hip joint. There is a faint soft tissue calcification adjacent to the greater trochanter. XR/XR hip LT min 2V IMPRESSION: Mild degenerative changes.
== END 2022-04-23 10:23 | disposition home or self-care (01) ==
LOC: HO.XRAY 10:22
PROVIDERS: Visit Provider Internal Medicine Rheumatology
DX: M25.50 Pain in unspecified joint (principal); R76.8 Other specified abnormal immunological findings in serum
CPT/HCPCS: 73502

== ENCOUNTER 2022-09-13 13:01 | Outpatient (REF) | payer OTHER, SELFPAY ==
--- NOTE | ~2022-09-13 | US_ITS ---
EXAMINATION: US SOFT TISSUE NECK CLINICAL INFORMATION: Status post total thyroidectomy. COMPARISON: 01/27/2021 and 01/24/2018. TECHNIQUE: Ultrasound of the neck soft tissues is performed with high- frequency greer-scale imaging and color Doppler. FINDINGS: THYROID BED: Prior thyroidectomy. No residual thyroid tissue demonstrated in the thyroid bed. No cystic or solid nodules demonstrated in the thyroid bed. RIGHT NECK SOFT TISSUES: Scattered architecturally normal nodes are present. The nodes show normal fatty hilus, normal cortical thickness without lobulation, and no cystic change or calcification. No abnormal color flow. The largest nodes are as follows: Level 2: 0.9 x 0.5 x 0.6 cm. Normal jamir architecture. Level 3: 1.1 x 0.5 x 0.7 cm. Normal jamir architecture. Level 5A: 1.0 x 0.5 x 0.7 cm. Normal jamir architecture. Level 5B: 1.1 x 0.5 x 0.9 cm. Normal jamir architecture. LEFT NECK SOFT TISSUES: Scattered architecturally normal nodes are present. The nodes show normal fatty hilus, normal cortical thickness, and no cystic change or calcification. No abnormal color flow. The largest nodes are as follows: Level 2: 0.4 x 0.4 x 0.6 cm. Normal jamir architecture. Level 5B: 1.4 x 0.5 x 1.1 cm. Normal jamir architecture. Level 1B: 0.6 x 0.4 x 1.0 cm. Normal jamir architecture. US/US soft tiss head and/or neck IMPRESSION: Status post total thyroidectomy without abnormality seen within the thyroid bed and with normal-appearing neck lymph nodes as described.
== END 2022-09-13 13:02 | disposition home or self-care (01) ==
LOC: HO.US 13:01
PROVIDERS: PCP Nurse Practitioner Family; Visit Provider Internal Medicine Endocrinology, Diabetes & Metabolism
DX: C73 Malignant neoplasm of thyroid gland (principal); E89.0 Postprocedural hypothyroidism
CPT/HCPCS: 76536

== ENCOUNTER 2022-11-05 08:01 | Outpatient (REF) | payer OTHER, SELFPAY ==
[2022-11-05 08:13] LABS: MANUAL DIFF FLAG NO
[2022-11-05 08:55] LABS: Basophils Absolute Auto 0.1 X10*3/uL (0.0-0.2); Basophils Percent Auto 0.8 % (0-2); Eosinophils Absolute Auto 0.2 X10*3/uL (0.0-0.4); Eosinophils Percent Auto 2.3 % (0-4); Hematocrit 49.7 % (37.0-47.0); Hemoglobin 16.3 g/dl (12.0-16.0); Imm Gran Abs Auto 0.04 X10*3/uL (0.00-0.03); Imm Gran Pct Auto 0.5 % (0.0-0.4); Lymphocytes Percent Auto 24.8 % (20-40); Mean Corpuscular HGB Conc 32.8 g/dl (31.0-35.0); Mean Corpuscular Hemoglobin 27.9 pg (27.0-33.0); Mean Corpuscular Volume 85.1 fL (80.0-98.0); Monocytes Absolute Auto 0.5 X10*3/uL (0.1-1.2); Monocytes Percent Auto 5.7 % (2-11); Neutrophils Absolute Auto 5.2 x10*3/uL (2.0-8.3); Neutrophils Percent Auto 65.9 % (45-73); Platelet Count 192 X10*3/uL (160-400); Red Blood Count 5.84 X10*6/uL (4.20-5.50); Red Cell Distribution Width 13.5 % (11.0-16.0); White Blood Count 7.9 X10*3/uL (4.8-10.8)
[2022-11-05 09:47] LABS: Alanine Aminotransferase 25 U/L (0-31); Albumin Level 4.2 g/dL (3.5-5.0); Alkaline Phosphatase 77 U/L (39-117); Anion Gap 17 (12-20); Aspartate Amino Transferase 15 U/L (5-31); Bilirubin Total 0.4 mg/dL (0.0-1.0); Blood Urea Nitrogen 17 mg/dL (9-16); Calcium 9.7 mg/dL (8.4-10.2); Carbon Dioxide 23 mmol/L (22-29); Chloride 107 mmol/L (96-108); Cholesterol 228 mg/dL; Estimated Glomerular Filt Rate > 60; Glucose Fasting 128 mg/dL (60-99); HDL Cholesterol 39 mg/dL; LDL Cholesterol Calculated 158 mg/dl; Magnesium 1.8 mg/dL (1.6-2.6); Potassium 4.7 mmol/L (3.3-5.1); Sodium 142 mmol/L (135-145); TSH reflex Free T4 5.15 uIU/mL (0.32-4.0); Total Protein 6.6 g/dL (6.5-8.0); Triglycerides 157 mg/dL
[2022-11-05 10:01] LABS: Folate 9.7 ng/mL (> or = 4.0); Vitamin B12 338 pg/mL (200-900)
[2022-11-05 10:50] LABS: Free T4 (Free Thyroxine) 1.23 ng/dL (0.71-1.85)
[2022-11-05 14:15] LABS: Appearance Urine Cloudy; Color Urine Yellow; Glucose Urine UA Negative (Negative); Leukocyte Esterase Urine Trace (Negative); Nitrite Urine Negative (Negative); PH 5.5 (5.0-9.0); Specific Gravity - Urine 1.025 (1.005-1.025); UMIC TRIGGER UACC YES; Urine Blood Negative (Negative); Urine Ketones Negative (Negative); Urine Protein Negative (Neg-Trace)
[2022-11-05 14:21] LABS: Bacteria Urine 3+ (None Seen); RBC Urine 0-2 /HPF (0-2); WBC Urine 0-5 /HPF (0-5)
== END 2022-11-05 08:02 | disposition home or self-care (01) ==
LOC: HO.US 08:01
PROVIDERS: PCP Nurse Practitioner Family; Visit Provider Nurse Practitioner Family
DX: M79.661 Pain in right lower leg (principal); M79.662 Pain in left lower leg; R25.2 Cramp and spasm
CPT/HCPCS: 36415; 80053; 80061; 81001; 82607; 82746; 83735; 84439; 84443; 85025; 93970

== ENCOUNTER 2022-11-19 13:07 | Outpatient (REF) | payer OTHER, SELFPAY ==
--- NOTE | ~2022-11-19 | US_ITS ---
EXAMINATION: ULTRASOUND ARTERIAL DUPLEX LOWER EXTREMITY BILATERAL CLINICAL INFORMATION: Peripheral vascular disease. COMPARISON: None TECHNIQUE: Duplex Doppler interrogation of the bilateral lower extremities showed normal tri and biphasic arterial waveforms. Arterial peak systolic velocities are as follows: FINDINGS: Right: Common femoral: 227 cm/sec Profunda femoral: 102 cm/sec Superficial femoral proximal: 22 cm/sec Superficial femoral mid: No detectable arterial waveforms. Superficial femoral distal: 32 cm/sec Popliteal: 59 cm/sec. Peroneal: 21 cm/sec Posterior tibial (prox/mid/distal): 12/75/64cm/sec Left: Common femoral: 167 cm/sec Profunda femoral: 106 cm/sec Superficial femoral proximal: 9 cm/sec Superficial femoral mid: 54 cm/sec. Superficial femoral distal: 45 cm/sec Popliteal: 67 cm/sec. Posterior tibial (prox/mid/distal): 53/52/37cm/sec US/US arterial duplex LE BI IMPRESSION: 1. No detectable arterial waveforms in the mid right superficial femoral artery suggesting high-grade stenosis of this arterial segment. Arterial waveforms are detected distal to this segment suggesting reconstitution. Generalized diminished central waveforms in the superficial femoral arteries bilaterally.
== END 2022-11-19 13:08 | disposition home or self-care (01) ==
LOC: HO.US 13:07
PROVIDERS: Visit Provider Nurse Practitioner Family
DX: I73.9 Peripheral vascular disease, unspecified (principal)
CPT/HCPCS: 93925

== ENCOUNTER → 2022-12-02 13:14 | Outpatient (BNVA) | payer OTHER, SELFPAY | PROVIDERS: PCP Nurse Practitioner Family; Visit Provider Surgery Vascular Surgery | DX: Z13.89 Encounter for screening for other disorder (principal) ==

== ENCOUNTER 2022-12-10 08:32 | Outpatient (REF) | payer OTHER, SELFPAY ==
--- NOTE | ~2022-12-10 | CT_ITS ---
EXAMINATION: CTA ABDOMEN, PELVIS AND LOWER EXTREMITY RUNOFF WITH CONTRAST HISTORY: Peripheral vascular disease. DESCRIPTION: Routine abdominal aorta and lower extremity runoff CTA protocol with contrast was performed. 350 mL of Omnipaque was administered. 3D POSTPROCESSING: Multiple 3-D angiographic images were processed from the initial data set by the [facility] under concurrent physician supervision. This CT examination was performed using dose optimization techniques as appropriate, variously including the following: *Automated exposure control *Adjustment of mA and/or kV according to patient size (this includes techniques or standardized protocols for targeted exams where dose is matched to indication/reason for exam; i.e. extremities or head) *Use of iterative reconstruction technique DLP: 953 mGy-cm. COMPARISON: Arterial duplex 11/19/2022. FINDINGS: VASCULAR: ABDOMINAL AORTA: [id number] atherosclerotic disease in the infrarenal aorta without evidence of aneurysm, dissection or significant stenosis. RIGHT LOWER EXTREMITY: Common Iliac Artery: Mild disease without significant stenosis. Internal Iliac Artery: Mild disease but patent. External Iliac Artery: Normal. Common Femoral Artery: There is calcified and noncalcified plaque present without significant stenosis. Profunda Femoral Artery: Widely patent. Superficial Femoral Artery: Very faint opacification and poorly evaluated. No significant calcific plaque is present. Popliteal Artery: No plaque is present. Poorly opacified. Tibioperoneal Trunk: Poorly opacified and not adequately evaluated. Posterior Tibial Artery: Poorly opacified and not adequately evaluated. Peroneal Artery: Poorly opacified and not adequately evaluated. Anterior Tibial Artery: Poorly opacified and not adequately evaluated. LEFT LOWER EXTREMITY: Common Iliac Artery: Mild disease without significant stenosis. Internal Iliac Artery: Mild disease but patent. External Iliac Artery: Mild calcific plaque without stenosis. Common Femoral Artery: There is calcified and noncalcified plaque present without significant stenosis. Profunda Femoral Artery: Widely patent. Superficial Femoral Artery: Moderate disease is present especially at the level of the adductor canal with areas of tight stenosis. Popliteal Artery: No stenosis seen. Tibioperoneal Trunk: Patent. Posterior Tibial Artery: Not optimally opacified but the vessel appears to be patent. Peroneal Artery: Poorly opacified and not adequately evaluated. Anterior Tibial Artery: Patent without significant stenosis. CELIOMESENTERIC ARTERIES: All patent. RENAL ARTERIES: 2 renal arteries present on each side which are patent. NONVASCULAR: LUNG BASES: The visualized lung bases are unremarkable. LIVER, GALLBLADDER AND BILIARY TREE: The liver is normal in size, shape, and attenuation. No focal hepatic lesion or biliary ductal dilatation is present. Status post cholecystectomy. PANCREAS: Unremarkable. SPLEEN: Unremarkable. ADRENAL GLANDS: Unremarkable. KIDNEYS AND URETERS: The kidneys are normal in size, shape, and attenuation. No hydronephrosis, hydroureter, or calculi seen. No perinephric stranding. BLADDER: Unremarkable. GASTROINTESTINAL TRACT: The small and large bowel are unremarkable aside from colonic diverticula without diverticulitis. The appendix is unremarkable. ABDOMINAL WALL: No significant hernia is appreciated. LYMPH NODES: No retroperitoneal lymphadenopathy. PELVIC VISCERA: The uterus and adnexa are unremarkable. OSSEOUS STRUCTURES: Mild degenerative changes are present. No bony destructive lesions. CT/CT angio abd aorta runoff IMPRESSION: 1. No evidence of aortoiliac inflow disease. 2. On the right, the SFA is poorly opacified and cannot be adequately evaluated as are the runoff vessels in the calf. 3. On the left, there is moderate disease at the adductor canal with three-vessel runoff as described above. 4. Nonvascular findings significant for cholecystectomy, colonic diverticulosis and other findings described above.
[2022-12-10] MEDS: iohexoL 350 MG/ML 100 ML INFUS..BTL 85 ML IV (11:49)
[2022-12-27 11:07] LABS: Creatinine POC 0.9 mg/dL (0.5-1.4); GFR POC > 60
== END 2022-12-10 08:33 | disposition home or self-care (01) ==
LOC: HO.CT 08:32
PROVIDERS: PCP Nurse Practitioner Family; Visit Provider Surgery Vascular Surgery
DX: I70.213 Atherosclerosis of native arteries of extremities with intermittent claudication, bilateral legs (principal)
CPT/HCPCS: 75635; 82565; Q9967

== ENCOUNTER → 2022-12-21 10:52 | Outpatient (BNVA) | payer OTHER, SELFPAY | PROVIDERS: PCP Nurse Practitioner Family; Visit Provider Surgery Vascular Surgery | DX: Z13.89 Encounter for screening for other disorder (principal) ==

== ENCOUNTER 2023-01-05 06:09 | Day surgery (SDC) | payer OTHER, SELFPAY ==
[2023-01-05] VITALS (17 sets, daily range): BP systolic 77–146; BP diastolic 38–69; PULSE 70–87; RESP 16–20; TEMP 36.3; O2SAT 95–98; BMI 44.0
[2023-01-05 06:41] LABS: MANUAL DIFF FLAG NO
[2023-01-05 06:52] LABS: Basophils Percent Auto 0.4 % (0-2); Eosinophils Percent Auto 0.2 % (0-4); Hematocrit 48.5 % (37.0-47.0); Hemoglobin 16.3 g/dl (12.0-16.0); Imm Gran Abs Auto 0.05 X10*3/uL (0.00-0.03); Imm Gran Pct Auto 0.5 % (0.0-0.4); Lymphocytes Percent Auto 10.8 % (20-40); Mean Corpuscular HGB Conc 33.6 g/dl (31.0-35.0); Mean Corpuscular Hemoglobin 28.2 pg (27.0-33.0); Mean Corpuscular Volume 83.8 fL (80.0-98.0); Mean Platelet Volume 10.5 fL (9.4-12.3); Monocytes Absolute Auto 0.4 X10*3/uL (0.1-1.2); Monocytes Percent Auto 4.2 % (2-11); Neutrophils Absolute Auto 7.8 x10*3/uL (2.0-8.3); Neutrophils Percent Auto 83.9 % (45-73); Platelet Count 241 X10*3/uL (160-400); Red Blood Count 5.79 X10*6/uL (4.20-5.50); Red Cell Distribution Width 12.9 % (11.0-16.0); White Blood Count 9.3 X10*3/uL (4.8-10.8)
[2023-01-05 06:53] LABS: Glucose, Whole Blood 164 mg/dL (60-115)
[2023-01-05 06:57] LABS: Blood Urea Nitrogen 15 mg/dL (9-16); Estimated Glomerular Filt Rate > 60
[2023-01-05] MEDS: 0.9 % Sodium Chloride 1,000 ML 100 ML IVCONT (07:14)
--- NOTE | 2023-01-05 09:47 | W.PM.OPN ---
Operative Note Operative Note Date of Service: 01/05/23 Narrative: Angiogram report from [facility] Preoperative diagnosis: Atherosclerosis of left lower extremity with activity limiting claudication Postoperative diagnosis: Same Procedure: 1. Ultrasound-guided right common femoral access 2. Aortogram with left lower extremity runoff 3. Left SFA atherectomy and plasty Surgeon:Gil Tan M.D., FACS, RPVI Registered Nurse Hh Case Manager:None Anesthesia: Local with moderate conscious sedation. Total intraservice moderate sedation time was 70 minutes. I monitored the patient's level of consciousness and physiologic status continuously throughout the procedure. Specimens:none Drains:none Estimated blood loss: Less than 10 ml Implant: Medtronic Impact DCB 6 x 120 Indications: 62-year-old female with a history of severe activity limiting claudication now presents for endovascular intervention. The patient has signed the informed consent after reviewing risks, complications, benefits, and alternatives previously discussed with the patient. The patient was given the opportunity to ask any additional questions or voice any concerns. All questions were answered to the patient's satisfaction. Procedure in detail: Patient was brought to the angiography suite prior to which a time-out was called for patient identification and site verification. Bilateral groins were prepped and draped in the standard surgical fashion. Under ultrasound guidance right common femoral was punctured with micro puncture needle and wire. Subsequently a precision 4 Sammarinese sheath was then placed. Bentson wire was advanced to the level of the aorta. 4 Sammarinese Flush catheter was brought up and parked at the level of the renal arteries. Aortogram was then undertaken. Catheter was brought down to the level of the iliac bifurcation. Iliacs were subsequently imaged. Catheter was then brought in up and over to the left side SFA. Runoff study was then undertaken. There was a proximal SFA high-grade stenosis. At this time 8000 units of systemic heparin was administered after 5 minutes of circulation time up and over 6 Sammarinese sheath was then placed. Once this was accomplished we then was easily able to traverse this lesion with an 035 glidewire Advantage. Once across we used a now be cross catheter to confirmed true lumen. We then exchanged out for 6 Sammarinese spider wire. Over this we performed a Hawk 1 atherectomy in the proximal left SFA. Multiple unidirectional passes were then undertaken. Once this was accomplished it was recognized there was residual stenosis. We then brought in a 6 x 120 drug coated balloon. This was brought into position in under 3 minutes and insufflated for 3 minutes in duration. Completion angiogram demonstrated excellent result. Catheter wire sheath was brought back to the ipsilateral side. StarClose closure device was then deployed. Patient tolerated the procedure well returned to recovery with stable vitals. Interpretation of films: 1. Ultrasound demonstrates appropriate femoral puncture. Image of which was saved. 2. Aortogram demonstrates appropriate caliber aorta. Minimal disease. Appropriate take-off of the renals. 3. Iliac images demonstrate small in caliber no significant disease. Mild to moderate disease at the aortic horn 4. Left Leg Common femoral artery: No significant disease Profundus Femoris: No significant disease Superficial femoral artery: Origin was patent but in the proximal 1/3 high-grade stenosis. Immediate reconstitution good flow through the rest of the SFA Popliteal artery (p1,p2,p3): Patent Anterior tibial artery: Patent and dominant runoff Peroneal artery: Patent but diminutive Posterior tibial artery: Patent Dorsalis pedis/plantar arch: Incomplete Conclusion: 1. Successful left leg atherectomy and plasty 2. Anticoagulation status: Will require 6 months of aspirin and Plavix This note is constructed using voice recognition software. While every effort has been made to ensure accuracy, railway signal operator errors may have been included. Thank you for allowing me to participate in the care of your patient. Yours sincerely, Gil Tan MD, FACS, R.P.V.I.
[2023-01-05] MEDS: Clopidogrel Bisulfate 300 MG TABLET PO (10:06)
[2023-01-05 11:50] LABS: Glucose, Whole Blood 178 mg/dL (60-115)
[2023-01-05] MEDS: Morphine Sulfate 4 MG/ML CARTRIDGE IVPUSH (13:04)
== END 2023-01-05 13:50 | disposition home or self-care (01) ==
PROVIDERS: PCP Nurse Practitioner Family; Visit Provider Surgery Vascular Surgery
DX: E11.51 Type 2 diabetes mellitus with diabetic peripheral angiopathy without gangrene (principal); E11.65 Type 2 diabetes mellitus with hyperglycemia; I70.212 Atherosclerosis of native arteries of extremities with intermittent claudication, left leg; R76.0 Raised antibody titer; M35.3 Polymyalgia rheumatica; G47.33 Obstructive sleep apnea (adult) (pediatric); M32.9 Systemic lupus erythematosus, unspecified; E66.01 Morbid (severe) obesity due to excess calories; Z68.41 Body mass index [BMI] 40.0-44.9, adult; C73 Malignant neoplasm of thyroid gland; E89.0 Postprocedural hypothyroidism; E78.5 Hyperlipidemia, unspecified; E55.9 Vitamin D deficiency, unspecified; Z79.84 Long term (current) use of oral hypoglycemic drugs; Z79.899 Other long term (current) drug therapy; Z88.0 Allergy status to penicillin; Z88.1 Allergy status to other antibiotic agents; Z88.2 Allergy status to sulfonamides; Z88.8 Allergy status to other drugs, medicaments and biological substances; Z98.890 Other specified postprocedural states; Z87.891 Personal history of nicotine dependence
CPT/HCPCS: 36415; 37225; 76937; 82565; 82947; 84520; 85025; 99152; 99153; C1714; C1725; C1760; C1769; C1884; C1887; J1643; J2250; J2270; J3010; Q9967

== ENCOUNTER 2023-01-19 10:42 | Outpatient (REF) | payer OTHER, SELFPAY ==
[2023-01-19 11:35] LABS: MANUAL DIFF FLAG NO
[2023-01-19 12:12] LABS: Basophils Absolute Auto 0.1 X10*3/uL (0.0-0.2); Eosinophils Absolute Auto 0.3 X10*3/uL (0.0-0.4); Eosinophils Percent Auto 3.5 % (0-4); Hematocrit 43.5 % (37.0-47.0); Hemoglobin 14.6 g/dl (12.0-16.0); Imm Gran Abs Auto 0.03 X10*3/uL (0.00-0.03); Imm Gran Pct Auto 0.4 % (0.0-0.4); Lymphocytes Absolute Auto 1.9 X10*3/uL (1.2-4.9); Mean Corpuscular HGB Conc 33.6 g/dl (31.0-35.0); Mean Corpuscular Hemoglobin 28.6 pg (27.0-33.0); Mean Corpuscular Volume 85.1 fL (80.0-98.0); Mean Platelet Volume 10.4 fL (9.4-12.3); Monocytes Absolute Auto 0.4 X10*3/uL (0.1-1.2); Monocytes Percent Auto 4.9 % (2-11); Neutrophils Percent Auto 65.2 % (45-73); Platelet Count 209 X10*3/uL (160-400); Red Blood Count 5.11 X10*6/uL (4.20-5.50); Red Cell Distribution Width 13.5 % (11.0-16.0); White Blood Count 7.7 X10*3/uL (4.8-10.8)
[2023-01-19 12:37] LABS: Blood Urea Nitrogen 19 mg/dL (9-16)
[2023-01-19 12:53] LABS: Free T4 (Free Thyroxine) 1.24 ng/dL (0.71-1.85)
== END 2023-01-19 10:43 | disposition home or self-care (01) ==
LOC: HO.LAB 10:42
PROVIDERS: PCP Nurse Practitioner Family; Visit Provider Internal Medicine Endocrinology, Diabetes & Metabolism
DX: E89.0 Postprocedural hypothyroidism (principal); D75.1 Secondary polycythemia; I73.9 Peripheral vascular disease, unspecified
CPT/HCPCS: 36415; 84439; 84443; 84520; 85025

== ENCOUNTER → 2023-01-20 14:41 | Outpatient (BNVA) | payer OTHER, SELFPAY | PROVIDERS: PCP Nurse Practitioner Family; Visit Provider Surgery Vascular Surgery | DX: Z13.89 Encounter for screening for other disorder (principal) ==

== ENCOUNTER 2023-01-25 07:55 | Outpatient (REF) | payer OTHER, SELFPAY ==
--- NOTE | ~2023-01-25 | MM_ITS ---
EXAMINATION: MM SCREENING DIGITAL BREAST TOMOSYNTHESIS, BILATERAL CLINICAL INFORMATION: Screening. Asymptomatic. The lifetime risk of breast cancer based on the Tyrer-Cuzick Model is 7.4%. COMPARISON: Mammography: January 19, 2022 and studies dating back to March 04, 2016 TECHNIQUE: Digital breast tomosynthesis is performed in both the craniocaudal and mediolateral oblique views along with computer-aided detection (CAD). Synthesized 2D images are generated from the tomosynthesis. FINDINGS: There are scattered areas of fibroglandular density (ACR BI-RADS breast composition Category b). There are no significant masses, abnormal calcifications, or other abnormalities. MM/MM tomosynthesis screening BI IMPRESSION: No significant changes from prior exam. ASSESSMENT: BI-RADS 1: Negative RECOMMENDATION: Routine annual mammography screening. This patient's information was entered into a reminder system with a target due date for their next mammogram.
== END 2023-01-25 07:56 | disposition home or self-care (01) ==
LOC: HO.MAMMO 07:55
PROVIDERS: PCP Nurse Practitioner Family; Visit Provider Nurse Practitioner Family
DX: Z12.31 Encounter for screening mammogram for malignant neoplasm of breast (principal)
CPT/HCPCS: 77063; 77067

== ENCOUNTER → 2023-02-08 09:00 | Outpatient (BNVA) | payer OTHER, SELFPAY | PROVIDERS: PCP Nurse Practitioner Family; Visit Provider Surgery Vascular Surgery | DX: Z13.89 Encounter for screening for other disorder (principal) ==

== ENCOUNTER → 2023-03-08 16:15 | Outpatient (BNVA) | payer OTHER, SELFPAY | PROVIDERS: PCP Nurse Practitioner Family; Visit Provider Internal Medicine Endocrinology, Diabetes & Metabolism | DX: C73 Malignant neoplasm of thyroid gland (principal) ==

== ENCOUNTER 2023-06-21 08:23 | Outpatient (REF) | payer OTHER, SELFPAY ==
--- NOTE | ~2023-06-21 | US_ITS ---
EXAMINATION: NONINVASIVE ASSESSMENT OF THE ARTERIES OF BOTH LOWER EXTREMITIES WITH PVR EXAM AND BILATERAL LOWER EXTREMITY DUPLEX Lisa Ko MD CLINICAL INFORMATION: Peripheral vascular disease TECHNIQUE: Ankle pulse volume recordings, ankle pressure measurements and ankle brachial indices were obtained of the lower extremity arterial system bilaterally in addition to duplex Doppler techniques with wave form analysis and measurement of velocities in the common femoral, profunda femoral, superficial femoral, popliteal and tibial arteries. The study was performed only at rest. COMPARISON: Arterial duplex ultrasound 11/19/2022 FINDINGS: a) AT REST: RIGHT LE. The right ankle-brachial index is: 0.70 * >0.97-1.25 = normal - no significant arterial disease * 0.75-0.96 = mild peripheral arterial disease * 0.5-0.74 = moderate peripheral arterial disease * <0.50 = severe peripheral arterial disease 2. Right ankle pressure: Abnormal 3. Right ankle PVR waveform: Abnormal 4. Right direct duplex Doppler findings: Common femoral artery: 204 cm/s, Multiphasic Profunda femoris artery: 277 cm/s, Multiphasic Superficial femoral artery (proximal): Occluded Superficial femoral artery (mid): Occluded Superficial femoral artery (distal): 48 cm/s, monophasic Proximal Popliteal artery: 35 cm/s, monophasic Mid posterior tibial artery: 41 cm/s, monophasic LEFT LE. The left ankle-brachial index is: 1.06 * >0.97-1.25 = normal - no significant arterial disease * 0.75-0.96 = mild peripheral arterial disease * 0.5-0.74 = moderate peripheral arterial disease * <0.50 = severe peripheral arterial disease 2. Left ankle pressure: Normal 3. Left ankle PVR waveform: Abnormal 4. Left direct duplex Doppler findings: Common femoral artery: 148 cm/s, Multiphasic Profunda femoris artery: 80 cm/s, monophasic Superficial femoral artery (proximal): 76 cm/s, Multiphasic Superficial femoral artery (mid): 215 cm/s, Multiphasic Superficial femoral artery (distal): 110 cm/s, Multiphasic Proximal Popliteal artery: 66 cm/s, Multiphasic Mid posterior tibial artery: 65 cm/s, Multiphasic US/US arterial duplex LE BI IMPRESSION: RIGHT LEG: Evidence of moderate peripheral arterial disease with occlusion of the proximal and mid superficial femoral artery. The distal SFA is reconstituted via collaterals and there is monophasic flow throughout the right lower extremity. LEFT LEG: Mild peripheral arterial disease with multiphasic flow throughout the left lower extremity.
== END 2023-06-21 08:24 | disposition home or self-care (01) ==
LOC: HO.US 08:23
PROVIDERS: PCP Nurse Practitioner Family; Visit Provider Surgery Vascular Surgery
DX: I70.213 Atherosclerosis of native arteries of extremities with intermittent claudication, bilateral legs (principal)
CPT/HCPCS: 93923; 93925

== ENCOUNTER 2023-09-12 09:42 | Outpatient (AMB) | payer OTHER, SELFPAY ==
[2023-09-12 09:49] VITALS: BP 144/72; PULSE 95; O2SAT 98; BMI 42.9
--- NOTE | 2023-09-12 09:49 | MHC.PC.OV ---
Vital Signs 09/12/23 09:49 Height 5 ft 6 in Weight 266 lb BMI 42.9 BP 144/72 H Blood Pressure Location Lt brachial Position Sitting Pulse 95 Pulse Source Pulse Oximeter Pulse Oximetry (%) 98 Oxygen Delivery Method Room Air Intake Visit Reasons: Follow up Allergies moxifloxacin [From AVELOX] Allergy (Severe, Verified 09/12/23 09:49) PINS AND NEEDLE FEET AND PALMS- SWELLING oxycodone [Percocet] Allergy (Intermediate, Verified 09/12/23 09:49) Vomiting vancomycin [Vancomycin] Allergy (Intermediate, Verified 09/12/23 09:49) SWELLING/HIVES/THROAT CLOSING SENSATION codeine [Codeine] Allergy (Mild, Verified 09/12/23 09:49) HIVES Penicillins Allergy (Mild, Verified 09/12/23 09:49) HIVES propoxyphene [From Darvon] Allergy (Mild, Verified 09/12/23 09:49) FELT LIKE CHEST CLOSING UP / HIVES Sulfa (Sulfonamide Antibiotics) [Sulfa (Sulfonamides)] Allergy (Mild, Verified 09/12/23 09:49) HIVES dexamethasone Adverse Reaction (Intermediate, Verified 09/12/23 09:49) muscle aches hydroxychloroquine [Plaquenil] Adverse Reaction (Mild, Verified 09/12/23 09:49) hair loss Iodinated Contrast Media [IV Contrast Dye] Adverse Reaction (Verified 09/12/23 09:49) Hives Medication List - Last Reconciled 09/12/23 by Christian Robertson, TELEPHONE AD TAKER-BC albuterol sulfate 90 mcg/actuation 2 puffs inhalation Q4-6H PRN amoxicillin-pot clavulanate 875-125 mg 1 tab PO BID 10 days aspirin 325 mg PO DAILY levothyroxine 200 mcg PO DAILY metformin ER 500 mg PO DAILY naproxen sodium (Aleve) 440 mg PO DAILY PRN OneTouch Verio Meter (blood-glucose meter) TID testing NS tramadol 50 mg PO BID PRN 10 days Tobacco use date assessed: 09/12/23 Dental Screening Dental Screen Date: 09/12/23 Did you have a dental visit in the last 12 months?: Yes Did you have a dental problem in the last 6 months where you did not have access to dental care?: No Was dental information given to patient?: Patient has dentist HPI Follow up HPI Details Pt is a diabetic. Due for A1C and microalbumin. Denies polyuria, polydipsia, and neuropathy. Pt denies any signs and symptoms of hypoglycemia and does know how to correct it. Pt needs a new meter and supplies, will send. Pt c/o cough, congestion, and intermittent fever for 2 weeks. Pt has taken COVID tests at home and they were negative. Will swab for COVID/flu/RSV. Will also order chest XR. Denies chills, chest pain, and shortness of breath. Will send prednisone and augmentin (penicillin allergy listed, though pt reports this is old and she does not have a reaction anymore). [facility] Medical History (Updated 09/12/23 @ 10:08 by ANITRA Rojas) SLE (systemic lupus erythematosus) PMR (polymyalgia rheumatica) Osteoarthritis of knees, bilateral Lichen planus Psoriasis Polyarthralgia NEELAM positive COVID-19 vaccine series completed History of lupus LILLI (obstructive sleep apnea) Dyslipidemia Morbid obesity Vitamin D deficiency Primary thyroid cancer Diabetes type 2, uncontrolled Post-surgical hypothyroidism Surgical History History of carpal tunnel release of both wrists History of foot surgery History of medial meniscus repair of left knee History of thumb surgery Hx of arthroscopy of right knee Hx of cholecystectomy Hx of colonoscopy Hx of knee surgery Hx of thyroidectomy Hx of vascular surgery Family History Father Diabetes Hypertension Mother Hypertension Thyroid disease Bile duct carcinoma Social History Housing: House Are you a primary healthcare administration internship to a significant other at home: No Do you presently have visiting nurse or other home services: No Patient Tobacco Use Status: Current someday Tobacco user Tobacco use type: Cigarette Cigarettes Per Day: 1 Years Smoked: 5 years ago e-Cigarette/Vaping Use: Never Used Second Hand Smoke Exposure: Yes Current occupational status: employed 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 How often do you have a drink containing alcohol?: Monthly or less 2. How many drinks containing alcohol do you have on a typical day when you are drinking?: 1 or 2 3. How often do you have six or more drinks on one occasion?: Never Total Score: 1 JADYN-7 AMB Questionnaire JADYN-7 Date JADYN - 7 assessed: 11/03/22 Source: Developed by Drs. Jef Cardona, Priscilla Stallings, Tito Lyons and colleagues, with an educational srinath from [employer]. Review of Systems Const Reports as per HPI Physical exam (Primary Care) Vital Signs: Last Vital Signs Pulse 95 09/12/23 09:49 BP 144/72 H 09/12/23 09:49 Pulse Ox 98 09/12/23 09:49 Oxygen Delivery Method Room Air 09/12/23 09:49 BMI result Body Mass Index 42.9 Tobacco/Smoking Status: Tobacco use Status Tobacco use date assessed 09/12/23 09/12/23 09:54 Patient Tobacco Use Status Current someday Tobacco 09/12/23 09:54 Tobacco use type Cigarette 09/12/23 09:54 e-Cigarette/Vaping Use Never Used 09/12/23 09:54 Thrive Assessment: Date of Thrive Assessment Date Thrive assessed 11/03/22 09/12/23 09:54 Const General: cooperative Nutritional Appearance: obese morbidly obese Orientation/consciousness: patient oriented x3 Resp Other: lungs fairly clear Effort & Inspection: normal respiratory effort and Actively coughing Cardio Rate: regular rate Rhythm: regular rhythm Heart sounds: S1 normal heart sound present and S2 normal heart sound present Neuro General: patient oriented x3 Extrem Other: bilat feet: + sensation with use of monofilament Psych Appearance: grossly normal Mental Status: mental status grossly normal Speech and movement: Normal speech and movement present Affect: normal affect Attitude: cooperative Thought process: Normal thought process present Thought content: Normal thought content present Insight: Good insight present (Psych) Judgement: Good judgement present (Psych) Assessment and Plan Assessment & Plan (1) Respiratory illness: Code(s): J98.9 - Respiratory disorder, unspecified Plan: Swabbed for COVID/flu/RSV, chest XR ordered, augmentin sent (2) Diabetes: Code(s): E11.9 - Type 2 diabetes mellitus without complications Plan: Labs ordered Plan The patient agreed to the use of a curator medical museum for this encounter. Scribed for Christian Robertson, TELEPHONE AD TAKER- by Maryjane Valdivia, curator medical museum, on 09/12/2023 at 10:00 EST. Orders: Orders Complete Blood Count Auto Diff Today E11.9 - Type 2 diabetes mellitus without complications Comprehensive [place]. Panel Fast Today E11.9 - Type 2 diabetes mellitus without complications TSH reflex Free T4 Today E11.9 - Type 2 diabetes mellitus without complications Hemoglobin A1c Today E11.9 - Type 2 diabetes mellitus without complications XR chest 2V Today J98.9 - Respiratory disorder, unspecified UA CC w/rflx Micro + Cult Today E11.9 - Type 2 diabetes mellitus without complications Microalbumin, Random (w Creat) Today E11.9 - Type 2 diabetes mellitus without complications SARS-CoV2/FLU/RSV Today J98.9 - Respiratory disorder, unspecified Medications: New amoxicillin-pot clavulanate 875-125 mg 1 tab PO BID 10 days 20 tabs 0RF prednisone 50 mg PO DAILY 6 days 6 tabs 0RF ibuprofen 800 mg PO BID 30 days PRN 60 tabs 0RF fever or pain Refilled tramadol 50 mg PO BID 10 days PRN 20 tabs 0RF pain albuterol sulfate 90 mcg/actuation 2 puffs inhalation Q4-6H PRN 6.7 grams 3RF shortness of breath or wheezing J40 - Bronchitis, not specified as acute or chronic, R05 - Cough Coding Level of Care Code Est Pt Level 3 (39886) Diagnoses Respiratory illness J98.9 Diabetes E11.9
== END 2023-09-12 10:18 | disposition home or self-care (01) ==
PROVIDERS: PCP Nurse Practitioner Family; Visit Provider Nurse Practitioner Family
DX: J98.9 Respiratory disorder, unspecified (principal); E11.9 Type 2 diabetes mellitus without complications
CPT/HCPCS: 99213

== ENCOUNTER 2023-09-12 10:22 | Outpatient (REF) | payer OTHER, SELFPAY ==
--- NOTE | ~2023-09-12 | XR_ITS ---
EXAMINATION: XR CHEST CLINICAL INFORMATION: Respiratory disorder COMPARISON: Previous chest x-ray December 2018 TECHNIQUE: 2 views of the chest were obtained. FINDINGS: The cardiac and mediastinal contours are normal. The lungs are clear. No pleural effusion or pneumothorax. Degenerative changes of the spine. Surgical clips in the lower midline neck XR/XR chest 2V IMPRESSION: No evidence for acute disease in the chest.
[2023-09-12 12:58] LABS: Influenza A PCR NEGATIVE (Negative); Influenza B PCR NEGATIVE (Negative); Resp Syncy Virus RNA Qual PCR NEGATIVE (Negative); SARS COV2 PCR INHOUSE NEGATIVE (Negative)
== END 2023-09-12 10:23 | disposition home or self-care (01) ==
LOC: HO.HMGCX 10:22
PROVIDERS: PCP Nurse Practitioner Family; Visit Provider Nurse Practitioner Family
DX: Z11.52 Encounter for screening for COVID-19 (principal); Z20.822 Contact with and (suspected) exposure to COVID-19; J98.9 Respiratory disorder, unspecified
CPT/HCPCS: 0241U; 71046

== ENCOUNTER 2024-01-17 13:14 | Outpatient (AMB) | payer OTHER, SELFPAY ==
[2024-01-17 13:15] VITALS: BP 170/100; PULSE 81; TEMP 36.4; O2SAT 99; BMI 41.5
--- NOTE | 2024-01-17 13:15 | MHC.OFFWIV ---
Intake Vital Signs 01/17/24 13:15 Height 5 ft 6 in Weight 257 lb BMI 41.5 BP 170/100 H Blood Pressure Location Lt brachial Position Sitting Pulse 81 Pulse Source Pulse Oximeter Temp 97.6 F Temp Source Temporal Artery Scan Pulse Oximetry (%) 99 Oxygen Delivery Method Room Air Intake Visit Reasons: EP dizzy heart palpitations Intake Note: pt is here today for dizzy heart palpitations started yesterday Patient Tobacco Use Status: Current someday Tobacco user Allergies moxifloxacin [From AVELOX] Allergy (Severe, Verified 01/17/24 13:16) PINS AND NEEDLE FEET AND PALMS- SWELLING oxycodone [Percocet] Allergy (Intermediate, Verified 01/17/24 13:16) Vomiting vancomycin [Vancomycin] Allergy (Intermediate, Verified 01/17/24 13:16) SWELLING/HIVES/THROAT CLOSING SENSATION codeine [Codeine] Allergy (Mild, Verified 01/17/24 13:16) HIVES Penicillins Allergy (Mild, Verified 01/17/24 13:16) HIVES propoxyphene [From Darvon] Allergy (Mild, Verified 01/17/24 13:16) FELT LIKE CHEST CLOSING UP / HIVES Sulfa (Sulfonamide Antibiotics) [Sulfa (Sulfonamides)] Allergy (Mild, Verified 01/17/24 13:16) HIVES dexamethasone Adverse Reaction (Intermediate, Verified 01/17/24 13:16) muscle aches hydroxychloroquine [Plaquenil] Adverse Reaction (Mild, Verified 01/17/24 13:16) hair loss Iodinated Contrast Media [IV Contrast Dye] Adverse Reaction (Verified 01/17/24 13:16) Hives Do you need a note to return to daycare/school/sports/work: No HPI EP dizzy heart palpitations HPI Details 63 yr old female presents to the office for a sick visit. Patient is reporting sx of dizziness since yesterday. Constantly present , worse with changing posture. No LOC. Sx present even while sleeping when changing position. To day she reports palpitations. They are regular and fast. Again, no chest pain or shortness of breath. Family member brought her to the clinic. [facility] Medical History SLE (systemic lupus erythematosus) PMR (polymyalgia rheumatica) Osteoarthritis of knees, bilateral Lichen planus Psoriasis Polyarthralgia NEELAM positive COVID-19 vaccine series completed History of lupus LILLI (obstructive sleep apnea) Dyslipidemia Morbid obesity Vitamin D deficiency Primary thyroid cancer Diabetes type 2, uncontrolled Post-surgical hypothyroidism Surgical History Hx of vascular surgery Hx of knee surgery History of medial meniscus repair of left knee History of thumb surgery History of foot surgery Hx of colonoscopy Hx of arthroscopy of right knee Hx of thyroidectomy Hx of cholecystectomy History of carpal tunnel release of both wrists Family History Father Diabetes Hypertension Mother Hypertension Thyroid disease Bile duct carcinoma Social History Housing: House Are you a primary healthcare or medical to a significant other at home: No Do you presently have visiting nurse or other home services: No Patient Tobacco Use Status: Current someday Tobacco user Tobacco use type: Cigarette Cigarettes Per Day: 1 Years Smoked: 5 years ago e-Cigarette/Vaping Use: Never Used Second Hand Smoke Exposure: Yes Current occupational status: employed Current [place] [employer] 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 Cognitive needs: No Hearing needs: No Vision needs: No Physical Exam Vital Signs: Last Vital Signs Temp 97.6 F 01/17/24 13:15 Pulse 81 01/17/24 13:15 BP 170/100 H 01/17/24 13:15 Pulse Ox 99 01/17/24 13:15 Oxygen Delivery Method Room Air 01/17/24 13:15 BMI result Body Mass Index 41.5 Const Other: Anxious General: cooperative and healthy appearing Nutritional Appearance: well nourished Orientation/consciousness: patient oriented x3 Limitations: no limitations HEENT Head: Yes normal to inspection Eyes Other: Minimal horizontal nystagmus General: appearance normal, both eyes and all related structures Neck Neck: Yes normal visual inspection Chest Chest palpation & inspection: normal palpation of entire chest wall Resp Effort & Inspection: normal respiratory effort Neuro General: patient oriented x3 Office Procedures EKG Details: NSR 38101-[id number], Complete Results AMB Fasting Glucose AMB Fasting Glucose 107 mg/dL Last Edit by Delmy Randhawa on 01/17/24 14:09 Results Reviewed Results Reviewed: Laboratory Last Values Fast Glucose (Clinic) 107 mg/dL 01/17/24 14:07 Assessment & Plan Assessment & Plan (1) Palpitations: Code(s): R00.2 - Palpitations Plan: EKG was unremarkable. Her BP has been consistently elevated. BS was in range. Mostly her sx are due to labrynthitis and hypertension. Norvasc has been started. If sx do not improve to follow up with her PCP Orders: Orders AMB EKG-In Office 01/17/24 R00.2 - Palpitations Medications: New meclizine 25 mg PO DAILY PRN 30 tabs 0RF motion sickness amlodipine 5 mg PO DAILY 30 tabs 1RF Coding Level of Care Code Est Pt Level 4 (15518) Diagnoses Palpitations R00.2 CPT Codes EKG - CPT: 29439-Fciyxphoeicehrxro, Complete ([id number])
== END 2024-01-17 14:35 | disposition home or self-care (01) ==
PROVIDERS: PCP Nurse Practitioner Family; Visit Provider Internal Medicine
DX: R00.2 Palpitations (principal)
CPT/HCPCS: 93000; 99214

== ENCOUNTER → 2024-02-03 08:00 | Outpatient (BNV) | payer OTHER, SELFPAY | PROVIDERS: PCP Nurse Practitioner Family; Visit Provider Radiology Diagnostic Radiology | DX: Z12.31 Encounter for screening mammogram for malignant neoplasm of breast (principal) | CPT/HCPCS: 77063; 77067 ==

== ENCOUNTER 2024-02-03 08:02 | Outpatient (REF) | payer OTHER, SELFPAY ==
--- NOTE | ~2024-02-03 | MM_ITS ---
EXAMINATION: BONE DENSITOMETRY CLINICAL INDICATION: Vitamin D deficiency, unspecified. COMPARISON: Baseline BD dated 09/22/2018. TECHNIQUE: Using a NORCAT DXA System (software version: 13.1) manufactured by [employer], dual-energy x-ray absorptiometry was performed of the lumbar spine and left hip. The images are of good technical quality. Summary results are attached. FINDINGS: AP SPINE L1-L4: Current: BMD 1.251 g/cm2, Z-score 0.8, T-score 0.6, normal, 4.2% increase from baseline (<5% change is not significant). Baseline: BMD 1.201 g/cm2. LEFT FEMUR, NECK: Current: BMD 1.025 g/cm2, Z-score 0.5, T-score -0.1, normal. Baseline: BMD 1.071 g/cm2. LEFT FEMUR, TOTAL: Current: BMD 1.203 g/cm2, Z-score 1.8, T-score 1.6, normal, 3.1% decrease from baseline (<5% change is not significant). Baseline: BMD 1.242 g/cm2. IDENTIFIED RISK FACTORS: Menopause. Chronic glucocorticoids. HISTORY OF FRACTURE: None listed. MEDICATIONS: None listed. MM/XR DEXA axial skeleton IMPRESSION: 1. DIAGNOSIS: Normal bone density based on the lowest T-score value of -0.1 in the femoral neck applying World Health Organization criteria. 2. 10-YEAR FRACTURE RISK PREDICTION, FRAX: According to the guidelines, FRAX calculation should only be performed on patients in the osteopenia bone density category.?Therefore, FRAX was not performed on this patient.? 3. Treatment Recommendations: NOF guidelines recommend consideration for treatment in postmenopausal women and men age 50 and older presenting with the following: -A hip or vertebral (clinical or morphometric) fracture. -T-score less than or equal to -2.5 at the femoral neck or spine after appropriate evaluation to exclude secondary causes. -Low bone mass at the hip or spine and a 10-year fracture probability by FRAX of greater than or equal to 3% for hip fracture or greater than or equal to 20% for major osteoporotic fracture based on the [place] adapted WHO algorithm. 4. Other Recommendations: All treatment decisions require clinical judgment and consideration of individual patient factors, including patient preferences, comorbidities, previous drug use, risk factors not captured in the FRAX model (e.g. frailty, falls, vitamin D deficiency, increased bone turnover, interval significant decline in bone density) and possible under or overestimation of fracture risk by FRAX. FUTURE SCAN RECOMMENDATION: People with diagnosed cases of osteoporosis or at high risk for fracture should have regular bone mineral density tests. For patients eligible for Medicare, routine testing is allowed once every 2 years. The testing frequency can be increased to one year for patients who have rapidly progressing disease, those who are receiving or discontinuing medical therapy to restore bone mass, or have additional risk factors.
--- NOTE | ~2024-02-03 | MM_ITS ---
EXAMINATION: MM SCREENING DIGITAL BREAST TOMOSYNTHESIS, BILATERAL CLINICAL INFORMATION: Screening. Asymptomatic. Patient has history of right benign breast excisional biopsy at age 27. COMPARISON: Mammography: 01/25/2023, 01/19/2022, and dating back to 03/04/2016. TECHNIQUE: Digital breast tomosynthesis is performed in both the craniocaudal and mediolateral oblique views along with computer-aided detection (CAD). Synthesized 2D images are generated from the tomosynthesis. FINDINGS: There are scattered areas of fibroglandular density (ACR BI-RADS breast composition Category b). There are no suspicious masses, suspicious grouped calcifications, or areas of architectural distortion in either breast. There are a minor dystrophic calcifications in both breasts. The parenchymal pattern is stable from prior exams. There are no skin or axillary abnormalities. MM/MM tomosynthesis screening BI IMPRESSION: No mammographic evidence of malignancy. ASSESSMENT: BI-RADS BI-RADS 1 - Negative RECOMMENDATION: Routine annual mammography screening. 1 year F/U This examination should not preclude the clinical evaluation of a suspicious palpable abnormality. This patient's information was entered into a reminder system with a target due date for their next mammogram.
== END 2024-02-03 08:03 | disposition home or self-care (01) ==
LOC: HO.MAMMO 08:02
PROVIDERS: PCP Nurse Practitioner Family; Visit Provider Nurse Practitioner Family
DX: Z12.31 Encounter for screening mammogram for malignant neoplasm of breast (principal); Z13.820 Encounter for screening for osteoporosis; Z78.0 Asymptomatic menopausal state; E55.9 Vitamin D deficiency, unspecified
CPT/HCPCS: 77063; 77067; 77080

== ENCOUNTER 2024-03-15 07:38 | Outpatient (REF) | payer OTHER, SELFPAY ==
[2024-03-15 07:52] LABS: MANUAL DIFF FLAG NO
[2024-03-15 08:22] LABS: Basophils Percent Auto 0.6 % (0-2); Eosinophils Absolute Auto 0.1 X10*3/uL (0.0-0.4); Eosinophils Percent Auto 1.9 % (0-4); Hematocrit 48.9 % (37.0-47.0); Hemoglobin 16.6 g/dl (12.0-16.0); Imm Gran Abs Auto 0.02 X10*3/uL (0.00-0.03); Imm Gran Pct Auto 0.4 % (0.0-0.4); Lymphocytes Absolute Auto 0.9 X10*3/uL (1.2-4.9); Mean Corpuscular HGB Conc 33.9 g/dl (31.0-35.0); Mean Corpuscular Hemoglobin 27.7 pg (27.0-33.0); Mean Corpuscular Volume 81.6 fL (80.0-98.0); Mean Platelet Volume 10.6 fL (9.4-12.3); Monocytes Absolute Auto 0.4 X10*3/uL (0.1-1.2); Monocytes Percent Auto 8.6 % (2-11); Neutrophils Absolute Auto 3.7 x10*3/uL (2.0-8.3); Neutrophils Percent Auto 71.5 % (45-73); Platelet Count 162 X10*3/uL (160-400); Red Blood Count 5.99 X10*6/uL (4.20-5.50); Red Cell Distribution Width 13.1 % (11.0-16.0); White Blood Count 5.1 X10*3/uL (4.8-10.8)
[2024-03-15 08:36] LABS: Estimated Average Glucose 120 mg/dL; Hemoglobin A1c % 5.8 % (<6.0)
[2024-03-15 09:08] LABS: TSH reflex Free T4 0.27 uIU/mL (0.32-4.0); Thyroid Stimulating Hormone 0.27 uIU/mL (0.32-4.0)
[2024-03-15 09:14] LABS: Free T4 (Free Thyroxine) 1.51 ng/dL (0.71-1.85)
[2024-03-15 09:20] LABS: Alanine Aminotransferase 26 U/L (0-31); Albumin Level 4.2 g/dL (3.5-5.0); Alkaline Phosphatase 80 U/L (39-117); Anion Gap 16 (12-20); Aspartate Amino Transferase 18 U/L (5-31); Bilirubin Total 0.5 mg/dL (0.0-1.0); Blood Urea Nitrogen 11 mg/dL (9-16); Calcium 9.9 mg/dL (8.4-10.2); Carbon Dioxide 21 mmol/L (22-29); Chloride 106 mmol/L (96-108); Estimated Glomerular Filt Rate > 60; Glucose Fasting 135 mg/dL (60-99); Potassium 3.8 mmol/L (3.3-5.1); Sodium 139 mmol/L (135-145); Total Protein 7.2 g/dL (6.5-8.0)
[2024-03-15 09:46] LABS: Appearance Urine Cloudy; Color Urine Dark Yellow; Glucose Urine UA Negative (Negative); Leukocyte Esterase Urine Trace (Negative); Nitrite Urine Negative (Negative); PH 5.5 (5.0-9.0); Specific Gravity - Urine 1.025 (1.005-1.025); UMIC TRIGGER UACC YES; Urine Blood Negative (Negative); Urine Ketones Trace mg/dL (Negative); Urine Protein 100 (2+) mg/dL (Neg-Trace)
[2024-03-15 10:00] LABS: Bacteria Urine 2+ (None Seen); Hyaline Casts Urine 0-2 /LPF (0-2); RBC Urine 0-2 /HPF (0-2); WBC Urine 0-5 /HPF (0-5)
[2024-03-15 10:13] LABS: Microalbum/Creatinine Ratio Ur 51.1 ug/mg cr (<30)
[2024-03-21 04:08] LABS: Thyroglobulin Antibody <1 IU/mL (<=1); Thyroglobulin Level <0.1 ng/mL
== END 2024-03-15 07:39 | disposition home or self-care (01) ==
LOC: HO.LAB 07:38
PROVIDERS: Absent Provider Internal Medicine Endocrinology, Diabetes & Metabolism; PCP Nurse Practitioner Family; Visit Provider Nurse Practitioner Family
DX: E11.9 Type 2 diabetes mellitus without complications (principal); E55.9 Vitamin D deficiency, unspecified; C73 Malignant neoplasm of thyroid gland
CPT/HCPCS: 36415; 80053; 81001; 82043; 82306; 82570; 83036; 84432; 84439; 84443; 85025; 86800

== ENCOUNTER 2024-03-20 07:57 | Outpatient (AMB) | payer OTHER, SELFPAY ==
--- NOTE | 2024-03-20 08:01 | A.OFFPC_ITS ---
Vital Signs 03/20/24 08:04 Height 5 ft 6 in Weight 254 lb BMI 41.0 BP 130/80 Blood Pressure Location Rt brachial Position Sitting Pulse 78 Pulse Source Pulse Oximeter Pulse Oximetry (%) 98 Oxygen Delivery Method Room Air Intake Visit Reasons: PE Intake Note: patient here for physical exam last colon: 2019 due 2024 Mammo: 2023 due 2024 Allergies moxifloxacin [From AVELOX] Allergy (Severe, Verified 03/20/24 09:07) PINS AND NEEDLE FEET AND PALMS- SWELLING oxycodone [Percocet] Allergy (Intermediate, Verified 03/20/24 09:07) Vomiting vancomycin [Vancomycin] Allergy (Intermediate, Verified 03/20/24 09:07) SWELLING/HIVES/THROAT CLOSING SENSATION codeine [Codeine] Allergy (Mild, Verified 03/20/24 09:07) HIVES Penicillins Allergy (Mild, Verified 03/20/24 09:07) HIVES propoxyphene [From Darvon] Allergy (Mild, Verified 03/20/24 09:07) FELT LIKE CHEST CLOSING UP / HIVES Sulfa (Sulfonamide Antibiotics) [Sulfa (Sulfonamides)] Allergy (Mild, Verified 03/20/24 09:07) HIVES dexamethasone Adverse Reaction (Intermediate, Verified 03/20/24 09:07) muscle aches hydroxychloroquine [Plaquenil] Adverse Reaction (Mild, Verified 03/20/24 09:07) hair loss Iodinated Contrast Media [IV Contrast Dye] Adverse Reaction (Verified 03/20/24 09:07) Hives Medication List - Last Reconciled 03/20/24 by MARIE Rojas- albuterol sulfate 90 mcg/actuation 2 puffs inhalation Q4-6H PRN amlodipine 5 mg PO DAILY azithromycin For 250 mg dose pack: take 500 mg today (day 1), then 250 mg for 4 days (days 2-5) PO cholecalciferol (vitamin D3) 50 mcg PO DAILY ibuprofen 800 mg PO BID PRN 30 days lancets (OneTouch Delica Plus Lancet) Test blood sugar 3 times per day levothyroxine 200 mcg PO DAILY losartan 25 mg PO DAILY 90 days metformin ER 500 mg PO DAILY naproxen sodium (Aleve) 440 mg PO DAILY PRN OneTouch Verio Flex meter (blood-glucose meter) As directed NS OneTouch Verio Meter (blood-glucose meter) TID testing NS OneTouch Verio test strips (blood sugar diagnostic) Test blood sugar 3 times per day NS Tobacco use date assessed: 03/20/24 Dental Screening Dental Screen Date: 03/20/24 Did you have a dental visit in the last 12 months?: Yes Did you have a dental problem in the last 6 months where you did not have access to dental care?: No Was dental information given to patient?: Patient has dentist HPI PE HPI Details Pt is here for a PE. Labs were already performed. Colon screen is up to date. Mammo is up to date. Bone density is up to date. Pt is a diabetic. Last A1C was 5.8, microalbumin is up to date. Denies polyuria, polydipsia, and neuropathy. Will start low-dose losartan for renal protection. Microalbuminuria noted, will refer to nephrology. Pt denies any signs and symptoms of hypoglycemia and does know how to correct it. Pt is following up with endo due to thyroid cancer. Pt has a hx of erythrocytosis. She saw hematology for this back in 2019, pt apparently never followed up. This was believed to be due to p. vera or smoking. Pt hasn't smoked in quite some time, will think about a low dose CT scan (smoked up to pack a day at one point). Pt is following up with rheumatology. ongoing aches and pains, tramadol does help, especially on the really bad days, will send a new script. Pt reports cold symptoms for several weeks. She does have a left ear effusion. Will send azithromycin. She does report some chest tightness. She describes this as burning. Will order echo and stress test. Will do an EKG in office. [facility] Medical History SLE (systemic lupus erythematosus) PMR (polymyalgia rheumatica) Osteoarthritis of knees, bilateral Lichen planus Psoriasis Polyarthralgia NEELAM positive COVID-19 vaccine series completed History of lupus LILLI (obstructive sleep apnea) Dyslipidemia Morbid obesity Vitamin D deficiency Primary thyroid cancer Diabetes type 2, uncontrolled Post-surgical hypothyroidism Surgical History Hx of vascular surgery Hx of knee surgery History of medial meniscus repair of left knee History of thumb surgery History of foot surgery Hx of colonoscopy Hx of arthroscopy of right knee Hx of thyroidectomy Hx of cholecystectomy History of carpal tunnel release of both wrists Family History Father Diabetes Hypertension Mother Hypertension Thyroid disease Bile duct carcinoma Social History Housing: House Are you a primary care process manager to a significant other at home: No Do you presently have visiting nurse or other home services: No Patient Tobacco Use Status: Former Tobacco user Quit Date: 5 years ago- occasionally has 1 from Tobacco use type: Cigarette Cigarettes Per Day: 1 Years Smoked: 5 years ago e-Cigarette/Vaping Use: Never Used Second Hand Smoke Exposure: Yes Current occupational status: employed 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 How often do you have a drink containing alcohol?: Never 3. How often do you have six or more drinks on one occasion?: Never Total Score: 0 Score Reviewed/Action Taken: No JADYN-7 AMB Questionnaire JADYN-7 Date JADYN - 7 assessed: 11/03/22 Source: Developed by Drs. Jef Cardona, Priscilla Stallings, Tito Lyons and colleagues, with an educational srinath from [employer]. Review of Systems Const Denies chills and Denies fever(s) Eyes Denies blurry vision ENT Denies vertigo, Denies dizziness and Denies sore throat Card Reports chest pain, Denies diaphoresis, Denies dyspnea and Denies dyspnea on exertion Resp Denies dyspnea, Denies dyspnea on exertion and Denies wheezing GI Denies abdominal pain, Denies melena, Denies hematochezia, Denies constipation, Denies diarrhea and Denies loose stools Denies hematuria Musc Denies numbness and Denies tingling Skin/Breast Denies lesions Neuro Denies vertigo, Denies dizziness, Denies numbness and Denies tingling Psych Denies anxiety, Denies depression, Denies homicidal ideation, Denies suicidal ideation and Denies other (substance abuse) Aller/Immun Denies wheezing Physical exam (Primary Care) Vital Signs: Last Vital Signs Pulse 78 03/20/24 08:04 BP 130/80 03/20/24 08:04 Pulse Ox 98 03/20/24 08:04 Oxygen Delivery Method Room Air 03/20/24 08:04 BMI result Body Mass Index 41.0 Tobacco/Smoking Status: Tobacco use Status Tobacco use date assessed 03/20/24 03/20/24 08:08 Patient Tobacco Use Status Former Tobacco user 03/20/24 08:08 Tobacco use type Cigarette 03/20/24 08:01 e-Cigarette/Vaping Use Never Used 03/20/24 08:01 Thrive Assessment: Date of Thrive Assessment Date Thrive assessed 11/03/22 03/20/24 08:01 Const General: cooperative Nutritional Appearance: obese morbidly obese Orientation/consciousness: patient oriented x3 HENMT Other: left ear effusion Head: Yes normal to inspection, Yes normocephalic and Yes atraumatic Eyes General: appearance normal, both eyes and all related structures Alignment and Position: alignment normal and position normal Neck Neck: Yes normal visual inspection and Yes no lymphadenopathy Thyroid: Thyroid normal Resp Effort & Inspection: normal respiratory effort Auscultation: clear to auscultation bilaterally and diminished lung sounds Cardio Rate: regular rate Rhythm: regular rhythm Heart sounds: S1 normal heart sound present, S2 normal heart sound present and no murmurs GI Palpation (GI): Soft to palpation and nontender Auscultation: normal bowel sounds Skin Rashes: no rashes Neuro General: patient oriented x3, moves all extremities, no focal motor deficits and deep tendon reflexes 2+ bilaterally Romberg Test: Negative Psych Appearance: grossly normal Mental Status: mental status grossly normal Speech and movement: Normal speech and movement present Affect: normal affect Attitude: cooperative Thought process: Normal thought process present Thought content: Normal thought content present Insight: Good insight present (Psych) Judgement: Good judgement present (Psych) Assessment and Plan Assessment & Plan (1) Erythrocytosis: Code(s): D75.1 - Secondary polycythemia Plan: Labs ordered, referred back to hematology (2) Chest discomfort: Code(s): R07.89 - Other chest pain Plan: EKG done in office, echo and stress test ordered (3) Microalbuminuria: Code(s): R80.9 - Proteinuria, unspecified Plan: Referred to nephrology, started arb (4) Chest discomfort: Code(s): R07.89 - Other chest pain Plan: EKG is office was NSR. with get a stress test and echo (5) Encounter for routine adult physical exam with abnormal findings: Code(s): Z00.01 - Encounter for general adult medical examination with abnormal findings Plan The patient agreed to the use of a internist medical doctor md for this encounter. Scribed for MARIE Reyes-BC by Maryjane Valdivia internist medical doctor md, on 03/20/2024 at 08:10 EST. Orders: Orders CA stress test Today R07.89 - Other chest pain AMB EKG-In Office Today R07.89 - Other chest pain Lipid Panel Today E78.5 - Hyperlipidemia, unspecified Comprehensive [place]. Panel Fast Today E11.9 - Type 2 diabetes mellitus without complications NM cardiolite stress test Today R07.89 - Other chest pain CA echo transthoracic complete Today R07.89 - Other chest pain Referrals Nephrology Referral R80.9 - Proteinuria, unspecified Hematology & Oncology Referral D75.1 - Secondary polycythemia Medications: New losartan 25 mg PO DAILY 90 days 90 tabs 0RF tramadol 50 mg PO DAILY 20 days PRN 20 tabs 0RF pain azithromycin For 250 mg dose pack: take 500 mg today (day 1), then 250 mg for 4 days (days 2-5) PO 6 tabs 0RF Coding Level of Care Code Est Pt Prev Care 40-64y(65472) Diagnoses Erythrocytosis D75.1 Chest discomfort R07.89 Microalbuminuria R80.9 Encounter for routine adult physical exam with abnormal findings Z00.01
[2024-03-20 08:04] VITALS: BP 130/80; PULSE 78; O2SAT 98; BMI 41.0
== END 2024-03-20 08:53 | disposition home or self-care (01) ==
LOC: HO.HMGC 07:57
PROVIDERS: PCP Nurse Practitioner Family; Visit Provider Nurse Practitioner Family
DX: Z00.01 Encounter for general adult medical examination with abnormal findings (principal); D75.1 Secondary polycythemia; R07.89 Other chest pain; R80.9 Proteinuria, unspecified
CPT/HCPCS: 93000; 99214; 99396

== ENCOUNTER 2024-03-26 15:34 | Outpatient (AMB) | payer OTHER, SELFPAY ==
--- NOTE | 2024-03-26 15:41 | A.OFFVIS_ITS ---
Vital Signs 03/26/24 15:43 Height 5 ft 6 in Weight 255 lb 4.725 oz BMI 41.2 BP 154/70 H Blood Pressure Location Rt brachial Position Sitting Pulse 74 Pulse Oximetry (%) 96 Oxygen Delivery Method Room Air Intake Visit Reasons: joint pain Intake Note: Patient last seen by Dr Rodriguez 03/30/22 presents today with complaints of joint pain and swelling Worse in knees, hands, and hips. 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 Required: No Accompanied by: Self / Same As Patient Allergies moxifloxacin [From AVELOX] Allergy (Severe, Verified 03/26/24 15:44) PINS AND NEEDLE FEET AND PALMS- SWELLING oxycodone [Percocet] Allergy (Intermediate, Verified 03/26/24 15:44) Vomiting vancomycin [Vancomycin] Allergy (Intermediate, Verified 03/26/24 15:44) SWELLING/HIVES/THROAT CLOSING SENSATION codeine [Codeine] Allergy (Mild, Verified 03/26/24 15:44) HIVES Penicillins Allergy (Mild, Verified 03/26/24 15:44) HIVES propoxyphene [From Darvon] Allergy (Mild, Verified 03/26/24 15:44) FELT LIKE CHEST CLOSING UP / HIVES Sulfa (Sulfonamide Antibiotics) [Sulfa (Sulfonamides)] Allergy (Mild, Verified 03/26/24 15:44) HIVES dexamethasone Adverse Reaction (Intermediate, Verified 03/26/24 15:44) muscle aches hydroxychloroquine [Plaquenil] Adverse Reaction (Mild, Verified 03/26/24 15:44) hair loss Iodinated Contrast Media [IV Contrast Dye] Adverse Reaction (Verified 03/26/24 15:44) Hives Medication List - Last Reconciled 03/26/24 by Arie Foley MD albuterol sulfate 90 mcg/actuation 2 puffs inhalation Q4-6H PRN amlodipine 5 mg PO DAILY cholecalciferol (vitamin D3) 50 mcg PO DAILY lancets (OneTouch Delica Plus Lancet) Test blood sugar 3 times per day levothyroxine 200 mcg PO DAILY losartan 25 mg PO DAILY 90 days metformin ER 500 mg PO DAILY naproxen sodium (Aleve) 440 mg PO DAILY PRN OneTouch Verio Flex meter (blood-glucose meter) As directed NS OneTouch Verio Meter (blood-glucose meter) TID testing NS OneTouch Verio test strips (blood sugar diagnostic) Test blood sugar 3 times per day NS tramadol 50 mg PO DAILY PRN 20 days HPI Comments Details: This is a 63-year-old female who presents for evaluation multiple joint pain. Stated that he was evaluated before by multiple digging machine operator. She states that Dr. Kenny told her she has a four-month inflammatory arthritis such as lupus or PMR. Was not hydroxychloroquine for approximately 1 year which was not helpful except for hair loss. She took dexamethasone which was quite helpful for approximately 3 months but she stopped it due to weight gain and crampy muscular pain. She does not recall being on any other DMARDs. She was evaluated by Dr. Rodriguez 03/2022 and name not to have an inflammatory arthritis. She has a positive NEELAM. She stated that she has biopsy proven psoriasis. Uses creams as needed for her psoriasis. He states that he has pain and swelling in her hands, especially the right ring finger which does and locks in the morning. It improves with hot water. She takes a hot shower every day. Morning stiffness improved after about 45 minutes. She also complains of bilateral ankle pain and swelling, today her left ankle is worse. Started on amlodipine 2 months ago but the ankle swelling predates that. She does not believe that the ankle swelling worsened when she was started on amlodipine. She also states that she had left patellar rupture which was atraumatic. She is also s/p meniscus repair right knee. Her right knee is generally better than her left knee. She takes naproxen 440 mg daily for her generalized joint pains. She also takes tramadol about once weekly. [facility] Medical History SLE (systemic lupus erythematosus) PMR (polymyalgia rheumatica) Osteoarthritis of knees, bilateral Lichen planus Psoriasis Polyarthralgia NEELAM positive COVID-19 vaccine series completed History of lupus LILLI (obstructive sleep apnea) Dyslipidemia Morbid obesity Vitamin D deficiency Primary thyroid cancer Diabetes type 2, uncontrolled Post-surgical hypothyroidism Surgical History Hx of vascular surgery Hx of knee surgery History of medial meniscus repair of left knee History of thumb surgery History of foot surgery Hx of colonoscopy Hx of arthroscopy of right knee Hx of thyroidectomy Hx of cholecystectomy History of carpal tunnel release of both wrists Family History Father Diabetes Hypertension Colon cancer Mother Hypertension Thyroid disease Bile duct carcinoma Social History Housing: House Are you a primary health care liaison to a significant other at home: No Do you presently have visiting nurse or other home services: No Patient Tobacco Use Status: Former Tobacco user Quit Date: 5 years ago- occasionally has 1 from Tobacco use type: Cigarette Cigarettes Per Day: 1 Years Smoked: 5 years ago e-Cigarette/Vaping Use: Never Used Second Hand Smoke Exposure: Yes Current occupational status: employed 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[place], [place]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 Cognitive needs: No Hearing needs: No Vision needs: No Review of Systems Musc Reports arthralgias and Reports joint swelling Skin/Breast Reports lesions and Reports rash Physical Exam Vital Signs: Last Vital Signs Pulse 74 03/26/24 15:43 BP 154/70 H 03/26/24 15:43 Pulse Ox 96 03/26/24 15:43 Oxygen Delivery Method Room Air 03/26/24 15:43 BMI result Body Mass Index 41.2 Const General: cooperative, healthy appearing and comfortable Nutritional Appearance: obese morbidly obese Orientation/consciousness: patient oriented x3 Limitations: no limitations HEENT Head: Yes normocephalic and Yes atraumatic Mouth: moist mucous membranes Resp Effort & Inspection: normal respiratory effort and able to speak in complete sentences Auscultation: clear to auscultation bilaterally Cardio Rate: regular rate Rhythm: regular rhythm Neuro General: patient oriented x3 Extrem Other: Right wrist tenderness and pain with flexion and extension Right 4th MCP and PIP tenderness Normal range of motion of elbows bilaterally Positive empty can test and Speed's test on the right Left ankle swelling, minimal warmth and tenderness Assessment & Plan Assessment & Plan (1) Polyarthralgia: Code(s): M25.50 - Pain in unspecified joint Category: Medical Plan: This is a 63-year-old female who presents for evaluation of polyarthralgia. Patient has seen a number of rheumatologists in the past. There was suspicion of lupus. She has history of a positive NEELAM with negative ANH, she was on hydroxychloroquine for 1 year without much improvement. She took dexamethasone for 3 months for suspected PMR with improvement of her arthritic symptoms but she developed multiple side effects such as weight gain and muscle cramping. On exam there is some suspicion of inflammatory arthritis. Will repeat comprehensive serology for underlying autoimmune rheumatic disease. Check x- rays of involved joints. Follow-up in 5-6 weeks Plan I spent 47 minutes reviewing patient's chart, evaluating patient, ordering diagnostic workup, counseling patient and documenting in the chart Orders: Orders Complement C3 Today M32.9 - Systemic lupus erythematosus, unspecified DNA Double Stranded-Crithidia Today M32.9 - Systemic lupus erythematosus, unspecified Erythrocyte Sedimentation Rate Today M32.9 - Systemic lupus erythematosus, unspecified Sjogren's Antibodies Today M32.9 - Systemic lupus erythematosus, unspecified Beta-2 Glycoprotein Antibody Today D68.61 - Antiphospholipid syndrome Cardiolipin Antibodies Today D68.61 - Antiphospholipid syndrome Scleroderma 12 Panel Today M34.9 - Systemic sclerosis, unspecified Complete Blood Count Auto Diff Today M32.9 - Systemic lupus erythematosus, unspecified Immunofixation Pnl, Serum Today M32.9 - Systemic lupus erythematosus, unspecifi ed Protein Electrophoresis, Serum Today M32.9 - Systemic lupus erythematosus, unspecified T Spot TB Today Z11.7 - Encounter for testing for latent tuberculosis infection XR foot LT min 3V Today M25.50 - Pain in unspecified joint XR hand wrist RT Today M25.50 - Pain in unspecified joint XR elbow LT min 3V Today M25.50 - Pain in unspecified joint XR elbow RT min 3V Today M25.50 - Pain in unspecified joint NEELAM Reflex Titer and Pattern Today M32.9 - Systemic lupus erythematosus, unspecified Anti Extractable Nuclear Ag Today M32.9 - Systemic lupus erythematosus, unspecified Anti DNA DS Antibody Today M32.9 - Systemic lupus erythematosus, unspecified Complement C4 Today M32.9 - Systemic lupus erythematosus, unspecified C Reactive Protein Today M32.9 - Systemic lupus erythematosus, unspecified Protein Creatinine Ratio, Ur Today M32.9 - Systemic lupus erythematosus, unspe cified UA w Microscopic Today M32.9 - Systemic lupus erythematosus, unspecified Lupus Anticoagulant Panel Today D68.61 - Antiphospholipid syndrome HLA B27 Today M45.9 - Ankylosing spondylitis of unspecified sites in spine Comprehensive Met. Panel Today M32.9 - Systemic lupus erythematosus, u nspecified Angiotensin Converting Enzyme Today M32.9 - Systemic lupus erythematosus, unspecified Creatine Kinase Total Today M32.9 - Systemic lupus erythematosus, unspecified Hepatitis A,B,C Profile Today Z11.59 - Encounter for screening for other viral diseases XR ankle LT min 3V Today M25.50 - Pain in unspecified joint XR ankle RT min 3V Today M25.50 - Pain in unspecified joint XR foot RT min 3V Today M25.50 - Pain in unspecified joint XR hand wrist LT Today M25.50 - Pain in unspecified joint XR shoulder LT min 2V Today M25.50 - Pain in unspecified joint XR shoulder RT min 2V Today M25.50 - Pain in unspecified joint Coding Level of Care Code Est Pt Level 4 (03163) Diagnoses Polyarthralgia M25.50
[2024-03-26 15:43] VITALS: BP 154/70; PULSE 74; O2SAT 96; BMI 41.2
== END 2024-03-26 16:20 | disposition home or self-care (01) ==
PROVIDERS: PCP Nurse Practitioner Family; Visit Provider Student in an Organized Health Care Education/Training Program
DX: M25.50 Pain in unspecified joint (principal)
CPT/HCPCS: 99214

== ENCOUNTER → 2024-03-26 15:34 | Outpatient (BNVA) | payer OTHER, SELFPAY | PROVIDERS: PCP Nurse Practitioner Family; Visit Provider Student in an Organized Health Care Education/Training Program ==

== ENCOUNTER → 2024-04-02 08:06 | Outpatient (REF) | payer OTHER, SELFPAY ==
--- NOTE | 2024-04-02 08:10 | CA_ITS ---
Transthoracic Echocardiogram Patient (Last, First, Middle): Gudaalupe Hook, Gender: Female Date of : 1960 Age: 63 Procedure Date: 04/02/2024 Procedure Type: Transthoracic Echocardiogram Location: OP Height: 167.64 cm Weight: 114.76 kg BSA: 2.21 m2 Heart Rate: bpm BP: 130 / 80 mmHg Auto Electrical Technician: LEVI Referring MD: Christian Robertson [facility] Symptoms: R07.89 - Other chest pain Study Quality: Fair ECG Rhythm: Sinus Conclusions: - The left ventricular systolic function is normal. The visually estimated ejection fraction is between 60-65%. - There is moderate septal asymmetric hypertrophy. - There is moderate mitral annular calcification. - There is mild dilatation of the ascending aorta measuring 3.70 cm. Findings Procedure Information The patient declines contrast. Left Ventricle Normal left ventricular cavity size. There is mildly increased left ventricular wall thickness. The left ventricular systolic function is normal. The visually estimated ejection fraction is between 60-65%. There is no evidence of regional wall motion abnormalities. Evidence suggests grade I (mild) diastolic dysfunction. There is moderate septal asymmetric hypertrophy. Right Ventricle Normal right ventricular cavity size and systolic function. Atria Both atria are normal in size. Aortic Valve There is a normal trileaflet aortic valve. There is mild calcification of the aortic valve. There is no aortic valve stenosis. There is no aortic valve regurgitation. Mitral Valve There is moderate mitral annular calcification. There is trace mitral valve regurgitation. There is no mitral valve stenosis. Pulmonic Valve The pulmonic valve is likely normal. Tricuspid Valve There is trace tricuspid valve regurgitation. There is no evidence of pulmonary hypertension. Great Vessels There is mild dilatation of the ascending aorta measuring 3.70 cm. Venous The inferior vena cava is normal in size and collapses greater than 50% with inspiration. Pericardium/Pleural There is no evidence of pericardial effusion. Prior Study Comparison Changes noted compared to prior study dated: 01/12/2019. Increase in ascending aortic size. Measurements 2D Linear Measurements IVSd: 1.27 0.6-0.9/0.6-1.0 cm LVIDd: 3.91 3.9-5.3/4.2-5.9 cm LVIDd Index: 1.77 2.4-3.2/2.2-3.1 cm/m2 LVIDs: 2.23 2.0-3.6 cm LVPWd: 1.09 0.7-1.1 cm LA Diam: 4.20 2.7-3.8/3.0-4.0 cm LAIDs Index: 1.90 1.5-2.3 cm/m2 LV Mass: 194.18 67-162/88-224 g LV Mass Index: 87.87 43-95/49-115 g/m2 LVOT Diam: 2.00 3.0+(-)1.3 cm Mitral Valve MV Pk E: 0.87 MV PK A: 1.08 MV Decel Time: 226.00 E/A: 0.80 E'Lateral: 8.27 E'Medial: 7.40 E/E' Med: 11.70 E/E' Lat: 10.50 PHT: 66.00 MVA PHT: 3.33 Decel Yellow Medicine: 3.84 Aortic Valve AoV Pk Richie: 1.58 AoV Mn Richie: 1.07 AoV VTI: 0.36 AoV Pk Grad: 10.00 Aov Mn Grad: 5.00 SHU Cont.VTI: 2.01 LVOT LVOT Pk Richie: 1.25 LVOT Mn Richie: 0.77 LVOT VTI: 0.23 LVOT Pk Grad: 6.00 LVOT Mn Grad: 3.00 LVOT Diam: 2.00 LVOT Area: 3.14 Diastolic Function MV Pk E: 0.87 MV Pk A: 1.08 E/A: 0.80 E'Medial: 7.40 E/E' Med: 11.70 E' Laterial: 8.27 E/E' Lat: 10.50 Right Ventricle TAPSE (mm): 26.70 TVS' Richie: 13.60 Tricuspid Valve RA Press: 3.00 Great Vessels Aorta Sinus of Valsalva: 3.21 2.0-3.[address] [place]: 2.81 1.7-3.4 cm Ao Asc: 3.70 2.1-3.4 cm Updated in Other Vendor System with Status of Final Aries Phillips MD electronically signed on 04/02/2024 10:14:56 AM with status of Final
== END ==
LOC: HO.CARD 08:06
PROVIDERS: PCP Nurse Practitioner Family; Visit Provider Nurse Practitioner Family
DX: R07.89 Other chest pain (principal)
CPT/HCPCS: 93306

== ENCOUNTER → 2024-04-02 08:10 | Outpatient (BNV) | payer OTHER, SELFPAY | PROVIDERS: PCP Nurse Practitioner Family; Visit Provider Internal Medicine | DX: I34.81 Nonrheumatic mitral (valve) annulus calcification (principal); I35.8 Other nonrheumatic aortic valve disorders | CPT/HCPCS: 93306 ==

== ENCOUNTER → 2024-04-05 08:16 | Outpatient (BNV) | payer OTHER, SELFPAY | PROVIDERS: PCP Nurse Practitioner Family; Referring Provider Nurse Practitioner Family; Visit Provider Internal Medicine Medical Oncology | DX: D75.0 Familial erythrocytosis (principal) | CPT/HCPCS: 99204; 99213 ==

== ENCOUNTER 2024-04-05 08:50 | Outpatient (REF) | payer OTHER, SELFPAY ==
[2024-04-05 10:44] LABS: MANUAL DIFF FLAG NO
[2024-04-05 10:53] LABS: Alanine Aminotransferase 23 U/L (0-31); Albumin Level 4.3 g/dL (3.5-5.0); Alkaline Phosphatase 76 U/L (39-117); Anion Gap 15 (12-20); Aspartate Amino Transferase 16 U/L (5-31); Bilirubin Total 0.5 mg/dL (0.0-1.0); Blood Urea Nitrogen 12 mg/dL (9-16); C Reactive Protein 0.62 mg/dL (< or = 0.50); Calcium 10.1 mg/dL (8.4-10.2); Carbon Dioxide 24 mmol/L (22-29); Chloride 107 mmol/L (96-108); Estimated Glomerular Filt Rate > 60; Glucose Random 112 mg/dL (60-115); Potassium 4.3 mmol/L (3.3-5.1); Sodium 142 mmol/L (135-145); Total Protein 7.2 g/dL (6.5-8.0)
[2024-04-05 11:05] LABS: HBS Num1 70.67 mIU/mL (0-7.99); HBsAGNum1 0.23 S/CO (0.00-0.99); Hepatitis B Core Antibody Nonreactive (Nonreactive); Hepatitis B Surface Antigen Negative (Negative); ~HepC Num1 0.06 S/CO (0.00-0.79); ~Hepatitis A Antibody IgM Nonreactive (Nonreactive); ~Hepatitis B Surface Antibody REACTIVE (Nonreactive); ~Hepatitis C Antibody Nonreactive (Nonreactive)
[2024-04-05 11:13] LABS: Appearance Urine Clear; Color Urine Yellow; Glucose Urine UA Negative (Negative); Leukocyte Esterase Urine Trace (Negative); Nitrite Urine Negative (Negative); PH 5.5 (5.0-9.0); UMIC TRIGGER UA YES; Urine Blood Negative (Negative); Urine Ketones Negative (Negative); Urine Protein Negative (Neg-Trace)
[2024-04-05 11:15] LABS: Bacteria Urine Trace (None Seen); Hyaline Casts Urine 0-2 /LPF (0-2); RBC Urine 0-2 /HPF (0-2); WBC Urine 0-5 /HPF (0-5)
[2024-04-05 11:46] LABS: Erythrocyte Sedimentation Rate 5 MM/HR (0-20)
[2024-04-05 11:58] LABS: Creatinine Urine 121.22 mg/dL; Protein/Creatinine Ratio, Ur 0.07 (<0.2); Total Protein Urine Random 9 mg/dL (<12)
[2024-04-05 22:32] LABS: Basophils Absolute Auto 0.1 X10*3/uL (0.0-0.2); Basophils Percent Auto 1.1 % (0-2); Eosinophils Absolute Auto 0.2 X10*3/uL (0.0-0.4); Eosinophils Percent Auto 2.2 % (0-4); Hematocrit 47.9 % (37.0-47.0); Hemoglobin 16.4 g/dl (12.0-16.0); Imm Gran Abs Auto 0.02 X10*3/uL (0.00-0.03); Imm Gran Pct Auto 0.3 % (0.0-0.4); Lymphocytes Absolute Auto 1.7 X10*3/uL (1.2-4.9); Lymphocytes Percent Auto 23.4 % (20-40); Mean Corpuscular HGB Conc 34.2 g/dl (31.0-35.0); Mean Corpuscular Hemoglobin 27.9 pg (27.0-33.0); Mean Corpuscular Volume 81.6 fL (80.0-98.0); Mean Platelet Volume 10.8 fL (9.4-12.3); Monocytes Absolute Auto 0.4 X10*3/uL (0.1-1.2); Monocytes Percent Auto 5.6 % (2-11); Neutrophils Absolute Auto 4.9 x10*3/uL (2.0-8.3); Neutrophils Percent Auto 67.4 % (45-73); Platelet Count 227 X10*3/uL (160-400); Red Blood Count 5.87 X10*6/uL (4.20-5.50); Red Cell Distribution Width 13.3 % (11.0-16.0); White Blood Count 7.3 X10*3/uL (4.8-10.8)
[2024-04-06 14:54] LABS: Anti DNA DS Antibody <1 IU/mL; Antibody to SS-A Antigen <1.0 NEG AI (<1.0 NEG); Antibody to SS-B Antigen <1.0 NEG AI (<1.0 NEG); SM/Ribonucleoprotein Ab <1.0 NEG AI (<1.0 NEG); Smith Protein <1.0 NEG AI (<1.0 NEG)
[2024-04-06 19:13] LABS: Complement C3 162 mg/dL (83-193)
[2024-04-06 21:09] LABS: Cardiolipin IgG Ab 2.4 GPL-U/mL
[2024-04-06 22:28] LABS: Prot Elec - Albumin 4.2 g/dL (3.8-4.8); Prot Elec - Alpha1 0.3 g/dL (0.2-0.3); Prot Elec - Alpha2 0.8 g/dL (0.5-0.9); Prot Elec - Beta 1 0.4 g/dL (0.4-0.6); Prot Elec - Beta 2 0.3 g/dL (0.2-0.5); Prot Elec - Gamma 0.7 g/dL (0.8-1.7); Prot Elec - Total Protein 6.7 g/dL (6.1-8.1)
[2024-04-08 03:49] LABS: TS Negative Control Passed; TS Panel A 0; TS Panel B 0; TS Positive Control Passed; TSpotTB Negative (Negative)
[2024-04-09 04:15] LABS: Angiotensin Converting Enzyme 46 U/L (9-67)
[2024-04-10 14:48] LABS: IgA 78 mg/dL (70-320); IgG 733 mg/dL (600-1540); IgM 153 mg/dL (50-300)
[2024-04-10 15:28] LABS: Anti Nuclear Antibody Screen POSITIVE (NEGATIVE)
[2024-04-11 07:43] LABS: PTT (LAC) Screen 40 sec (<=40)
[2024-04-11 14:13] LABS: DNAds, Crithidia Antibody Negative (Negative)
[2024-04-12 04:59] LABS: Beta-2 Glycoprotein IgA 9.7 U/mL (<20.0); Beta-2 Glycoprotein IgG 5.6 U/mL (<20.0)
[2024-04-12 17:33] LABS: HLA B27 Negative (Negative)
[2024-04-17 12:09] LABS: Centromere Protein A Ab <11 SI (<11); Centromere Protein B Ab <11 SI (<11); Fibrillarin Ab <11 SI (<11); PM SCL 100 Ab <11 SI (<11); PM SCL 75 Ab <11 SI (<11); RNA Polymerase III RP11 Ab <11 SI (<11); RNA Polymerase III RP155 Ab <11 SI (<11); SCL-70 Extractable Nuclear Ab <11 SI (<11); Th-To Ab <11 SI (<11); U1 SNRNP RNP 70KD <11 SI (<11); U1 SNRNP RNP A <11 SI (<11); U1 SNRNP RNP C <11 SI (<11)
== END 2024-04-05 08:51 | disposition home or self-care (01) ==
LOC: HO.LAB 08:50
PROVIDERS: PCP Family Medicine; Visit Provider Student in an Organized Health Care Education/Training Program
DX: Z11.7 Encounter for testing for latent tuberculosis infection (principal); Z11.59 Encounter for screening for other viral diseases; M32.9 Systemic lupus erythematosus, unspecified; D68.61 Antiphospholipid syndrome; M45.9 Ankylosing spondylitis of unspecified sites in spine; M34.9 Systemic sclerosis, unspecified; Z72.89 Other problems related to lifestyle
CPT/HCPCS: 36415; 80053; 81001; 82164; 82550; 82570; 82784; 84156; 84165; 84182; 85025; 85597; 85598; 85613; 85652; 85730; 86038; 86039; 86140; 86146; 86147; 86160; 86225; 86235; 86255; 86334; 86481; 86704; 86706; 86709; 86803; 86812; 87340

== ENCOUNTER → 2024-04-10 10:01 | Outpatient (REF) | payer OTHER, SELFPAY ==
--- NOTE | ~2024-04-10 | NM_ITS ---
Lexiscan Myocardial perfusion study Indication: Chest pain, for coronary disease and ischemia Technique: The patient was brought in for a Lexiscan perfusion study on 04/10/2024 and was injected 0.4 mg of Lexiscan intravenously. Within a minute of this injection 40 mCi of sestamibi was given intravenously. Images were obtained using the SPECT gamma camera interlaced with the gating device. Images were obtained in supine position. Resting perfusion study was performed on 04/12/2024. Patient was administered 30 mCi of sestamibi intravenously at rest. Images were then obtained in supine position. Images were processed with the software and compared side to side in short axis, horizontal long axis and vertical long axis views. Findings: Raw acquisition reviewed. Stress perfusion shows mildly reduced tracer uptake along the inferior wall. There is improvement with CT attenuation correction suggestive of diaphragmatic attenuation artifact. The gated study shows normal LV systolic function with calculated LVEF of 59%. LV cavity is normal in size. The gated study shows normal wall thickening and contraction of segments. Resting study shows mildly reduced tracer uptake along the inferior wall. There is improvement with CT attenuation correction suggestive of diaphragmatic attenuation artifact. Gating at rest reveals normal wall motion with ejection fraction at 55%. The findings are consistent with fixed inferior perfusion defect. No clear reversible defects. NM/NM cardiolite stress test Impression: 1. Myocardial perfusion imaging study shows probably normal myocardial perfusion. 2. Gated LVEF is 59% during stress and 55% during rest. 3. Transient ischemic dilatation not present. EKG component of the test reported separately.
--- NOTE | 2024-04-10 10:05 | CA_ITS ---
Acquisition Time: 2024-04-10 10:32:10 Total Exercise Time: 00:01:53 Test Indications: CHEST DISCOMFORT Medications: Protocol: SANTINO Max HR: 115 BPM 72% of Pred: 158 BPM Max BP: 160/080 mmHG Max Work Load: 4.3 METS Exercise stress test exercise 1 min 53 sec of Santino protocol 72% , with request to stop due to hip pain, withoiut anginal symptoms, without arrhythmais, with normotensive reponse to exercise, with nondiagnsoitic EKGs. Test changed to pharmacoligical stress test with Lexiscan injeciton while sitting and kicking her legs, without anginal symptoms, without arrhythmias, with normotensive response to injeciton, with nondiagnoisitic EKGs. Aminophylline 75mg IVP given to reverse Lexiscan. Nuclear images pending. Test reviewed with Dr. Phillips. Referred By: Christian Robertson Overread By: Sarai Abraham
== END ==
LOC: HO.CARD 10:01
PROVIDERS: PCP Nurse Practitioner Family; Visit Provider Nurse Practitioner Family
DX: R07.89 Other chest pain (principal)
CPT/HCPCS: 78452; 93017; A9500; J0280; J2785

== ENCOUNTER → 2024-04-10 10:05 | Outpatient (BNV) | payer OTHER, SELFPAY | PROVIDERS: PCP Nurse Practitioner Family; Visit Provider Nurse Practitioner | DX: R07.9 Chest pain, unspecified (principal) | CPT/HCPCS: 78452; 93016; 93018 ==

== ENCOUNTER 2024-04-17 08:10 | Outpatient (REF) | payer OTHER, SELFPAY | END 2024-04-17 08:11 | disposition home or self-care (01) | LOC: HO.BBR 08:10 | PROVIDERS: PCP Nurse Practitioner Family; Visit Provider Internal Medicine Medical Oncology | DX: D75.1 Secondary polycythemia (principal) | CPT/HCPCS: 85014; 85018; 99195 ==

== ENCOUNTER 2024-04-18 15:05 | Outpatient (AMB) | payer OTHER, SELFPAY ==
--- NOTE | 2024-04-18 15:10 | HO.NEPHOV_ITS ---
Vital Signs 04/18/24 15:11 Height 5 ft 6 in Weight 251 lb 6 oz BMI 40.6 BP 150/68 H Blood Pressure Location Lt brachial Position Sitting Pulse 81 Pulse Source Pulse Oximeter Pulse Oximetry (%) 97 Oxygen Delivery Method Room Air Intake Visit Reasons: Proteinuria/ LVM Ward Nurse Required: No Accompanied by: Self / Same As Patient Allergies moxifloxacin [From AVELOX] Allergy (Severe, Verified 04/18/24 15:14) PINS AND NEEDLE FEET AND PALMS- SWELLING oxycodone [Percocet] Allergy (Intermediate, Verified 04/18/24 15:14) Vomiting vancomycin [Vancomycin] Allergy (Intermediate, Verified 04/18/24 15:14) SWELLING/HIVES/THROAT CLOSING SENSATION codeine [Codeine] Allergy (Mild, Verified 04/18/24 15:14) HIVES Penicillins Allergy (Mild, Verified 04/18/24 15:14) HIVES propoxyphene [From Darvon] Allergy (Mild, Verified 04/18/24 15:14) FELT LIKE CHEST CLOSING UP / HIVES Sulfa (Sulfonamide Antibiotics) [Sulfa (Sulfonamides)] Allergy (Mild, Verified 04/18/24 15:14) HIVES dexamethasone Adverse Reaction (Intermediate, Verified 04/18/24 15:14) muscle aches hydroxychloroquine [Plaquenil] Adverse Reaction (Mild, Verified 04/18/24 15:14) hair loss Iodinated Contrast Media [IV Contrast Dye] Adverse Reaction (Verified 04/18/24 15:14) Hives HPI Comments Details: I had the delight of seeing Milli who is a 63-year-old female, 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 She has history of polyarthralgia and had been evaluated by multiple structural steel painter. She was on hydroxychloroquine for approximately 1 year which was not helpful as per the patient. She took dexamethasone which was quite helpful for approximately 3 months but she stopped it due to weight gain and crampy muscular pain. She does not recall being on any other DMARDs. She has a positive NEELAM. She states that he has pain and swelling in her hands, especially the right ring finger which does and locks in the morning. It improves with hot water. She takes a hot shower every day. Morning stiffness improves after about 45 minutes. She also complains of bilateral ankle pain and swelling, today her left ankle is worse. Started on amlodipine 2 months ago but the ankle swelling predates that. She does not believe that the ankle swelling worsened when she was started on amlodipine. She takes naproxen 440 mg daily for her generalized joint pains. She also takes tramadol about once weekly.Pt is a diabetic. Last A1C was 5.8. Recently she was found to have some proteinuria but does not have any retinopathy. She has history of thyroid cancer. Pt is following up with rheumatology. Her renal functions have been normal. She recently had been s tarted on losartan which she discontinued due to subjective cramps she has been having. [facility] Medical History (Updated 04/19/24 @ 07:18 by Italo Sanchez MD) Ascending aorta dilatation SLE (systemic lupus erythematosus) PMR (polymyalgia rheumatica) Osteoarthritis of knees, bilateral Lichen planus Psoriasis Polyarthralgia NEELAM positive COVID-19 vaccine series completed History of lupus LILLI (obstructive sleep apnea) Dyslipidemia Morbid obesity Vitamin D deficiency Primary thyroid cancer Diabetes type 2, uncontrolled Post-surgical hypothyroidism Surgical History Hx of vascular surgery Hx of knee surgery History of medial meniscus repair of left knee History of thumb surgery History of foot surgery Hx of colonoscopy Hx of arthroscopy of right knee Hx of thyroidectomy Hx of cholecystectomy History of carpal tunnel release of both wrists Family History Father Diabetes Hypertension Colon cancer Mother Hypertension Thyroid disease Bile duct carcinoma Social History Housing: House Are you a primary career technical education teacher to a significant other at home: No Do you presently have visiting nurse or other home services: No Patient Tobacco Use Status: Former Tobacco user Tobacco use type: Cigarette Years Smoked: 5 years ago e-Cigarette/Vaping Use: Never Used Second Hand Smoke Exposure: Yes service: No Current occupational status: employed 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 Cognitive needs: No Hearing needs: No Vision needs: No Physical Exam Vital Signs: Last Vital Signs Pulse 81 04/18/24 15:11 BP 150/68 H 04/18/24 15:11 Pulse Ox 97 04/18/24 15:11 Oxygen Delivery Method Room Air 04/18/24 15:11 BMI result Body Mass Index 40.6 Const General: comfortable and no acute distress Orientation/consciousness: patient oriented x3 HEENT Head: Yes normocephalic Mouth: Normal oral and palatal mucosa present Eyes EOM: EOMs intact bilaterally Neck Neck: Yes supple Resp Auscultation: clear to auscultation bilaterally Cardio Jugular venous distension: no JVD Rate: regular rate GI Palpation (GI): Soft to palpation Auscultation: normal bowel sounds General: Yes no CVA tenderness Back/Spine/Pelvis Back: no CVA tenderness Skin General skin exam: no rashes or lesions noted Neuro General: patient oriented x3 and moves all extremities Results Reviewed Nephrology Results: Hgb 16.4 g/dl (12.0-16.0) H 04/05/24 WBC 7.3 X10*3/uL (4.8-10.8) 04/05/24 Plt Count 227 X10*3/uL (160-400) 04/05/24 Sodium 142 mmol/L (135-145) 04/05/24 Potassium 4.3 mmol/L (3.3-5.1) 04/05/24 Chloride 107 mmol/L (96-108) 04/05/24 Carbon Dioxide 24 mmol/L (22-29) 04/05/24 BUN 12 mg/dL (9-16) 04/05/24 Creatinine 0.70 mg/dL (0.5-1.4) 04/05/24 Calcium 10.1 mg/dL (8.4-10.2) 04/05/24 Urine Protein Negative mg/dL (Neg-Trace) 04/05/24 Urine Creatinine 121.22 mg/dL 04/05/24 Protein/Creatinin Ratio 0.07 (<0.2) 04/05/24 Assessment & Plan Assessment & Plan (1) Proteinuria: Code(s): R80.9 - Proteinuria, unspecified Category: Medical Qualifiers: Proteinuria type: unspecified Qualified Code(s): R80.9 - Proteinuria, unspecified (2) Ascending aorta dilatation: Code(s): I77.810 - Thoracic aortic ectasia Category: Medical (3) HTN (hypertension): Code(s): I10 - Essential (primary) hypertension Category: Medical Qualifiers: Hypertension type: primary hypertension Qualified Code(s): I10 - Essential (primary) hypertension Plan Milli has incidental finding of mild proteinuria. She has rheumatological disorder as well as diabetes, high BMI, vascular disease. She regularly takes nonsteroidal anti-inflammatories. Her renal functions are normal. She was prescribed losartan which she discontinued due to cramping feelings in her legs. She is on amlodipine which is keeping her blood pressure at goal. I ordered a 24 hour urine collection for protein. If she has significant protein in the 24 hour urine collection I will investigate it further. If her edema persists we may have to switch her from amlodipine as some of her lower extremity swelling is also contributed by her vascular issues. She should lose weight and cut back sodium in the diet. I had not make any medication changes today. More than 50% time utilized to discuss all these issues. Answered all questions & follow-up appointment given Orders: Orders Protein, 24 Hr Urine Group 04/18/24 R80.9 - Proteinuria, unspecified Coding Level of Care Code New Pt Level 4 (95349) Diagnoses Proteinuria, unspecified type R80.9 Proteinuria type: unspecified Ascending aorta dilatation I77.810 Primary hypertension I10 Hypertension type: primary hypertension
[2024-04-18 15:11] VITALS: BP 150/68; PULSE 81; O2SAT 97; BMI 40.6
== END 2024-04-18 15:38 | disposition home or self-care (01) ==
PROVIDERS: PCP Nurse Practitioner Family; Referring Provider Nurse Practitioner Family; Visit Provider Internal Medicine Nephrology
DX: R80.9 Proteinuria, unspecified (principal); I77.810 Thoracic aortic ectasia; I10 Essential (primary) hypertension
CPT/HCPCS: 99204

== ENCOUNTER → 2024-04-18 15:05 | Outpatient (BNVA) | payer OTHER, SELFPAY | PROVIDERS: PCP Nurse Practitioner Family; Referring Provider Nurse Practitioner Family; Visit Provider Internal Medicine Nephrology ==

== ENCOUNTER 2024-04-19 16:08 | Outpatient (AMB) | payer OTHER, SELFPAY ==
--- NOTE | 2024-04-19 16:11 | MHC.OFFVIS ---
Vital Signs 04/19/24 16:12 Height 5 ft 6 in Weight 253 lb 8.505 oz BMI 40.9 BP 144/60 H Blood Pressure Location Lt brachial Position Sitting Pulse 80 Pulse Source Pulse Oximeter Intake Visit Reasons: f/u thyroid cancer-lvm Intake Note: Patient present today for Thyroid cancer follow up visit. 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 Accompanied by: Self / Same As Patient Allergies moxifloxacin [From AVELOX] Allergy (Severe, Verified 04/19/24 16:14) PINS AND NEEDLE FEET AND PALMS- SWELLING oxycodone [Percocet] Allergy (Intermediate, Verified 04/19/24 16:14) Vomiting vancomycin [Vancomycin] Allergy (Intermediate, Verified 04/19/24 16:14) SWELLING/HIVES/THROAT CLOSING SENSATION codeine [Codeine] Allergy (Mild, Verified 04/19/24 16:14) HIVES Penicillins Allergy (Mild, Verified 04/19/24 16:14) HIVES propoxyphene [From Darvon] Allergy (Mild, Verified 04/19/24 16:14) FELT LIKE CHEST CLOSING UP / HIVES Sulfa (Sulfonamide Antibiotics) [Sulfa (Sulfonamides)] Allergy (Mild, Verified 04/19/24 16:14) HIVES dexamethasone Adverse Reaction (Intermediate, Verified 04/19/24 16:14) muscle aches hydroxychloroquine [Plaquenil] Adverse Reaction (Mild, Verified 04/19/24 16:14) hair loss Iodinated Contrast Media [IV Contrast Dye] Adverse Reaction (Verified 04/19/24 16:14) Hives Medication List - Last Reconciled 04/19/24 by Jef Palomino MD albuterol sulfate 90 mcg/actuation 2 puffs inhalation Q4-6H PRN amlodipine 5 mg PO DAILY cholecalciferol (vitamin D3) 50 mcg PO DAILY lancets (OneTouch Delica Plus Lancet) Test blood sugar 3 times per day levothyroxine 200 mcg PO DAILY metformin ER 500 mg PO DAILY OneTouch Verio Flex meter (blood-glucose meter) As directed NS OneTouch Verio Meter (blood-glucose meter) TID testing NS OneTouch Verio test strips (blood sugar diagnostic) Test blood sugar 3 times per day NS tramadol 50 mg PO DAILY PRN 20 days HPI Comments Details: 63 yo female today for fup visit, she was last seen on01/12/21 for PTC post surgical hypothyroidism. For diabetes she is on metformin 500 mg at night only. denies nervousness, no insomnia, weight stable, heat intolerance, sweating. She has very rarely nocturia, denies polydipsia, denies polyuria. 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 She has other PMH of non-positional vertigo, IBS, vitamin D deficiency, obesity, SLE. She had US guided FNA on 06/05/15. The left lobe nodule cytology was FLUS, She had total thyroidectomy on 09/02/15, surgery was performed by Dr. Caruso. 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 The tumor measured 1.38 cm in greatest dimension. tumor present in right lobe, Capsular invasion Is Absent. Lymphovascular invasion is absent. There is no extrathyroidal extension identified. She was been fup By Dr Sellers, last seen 04/18/17 She has had negative antibodies and TG level less than 1. She is currently on LT 4 200 mcg daily. 100 % compliant, good method of administration. 01/24/18 US neck, no residual tissue or LN. 12/06/18 TSH 1.57 miu/ml Vit D 29.5 ng/dl. Last year, thyroid ultrasound showed except for abnormal left level 4. Last year, thyroglobulin was detectabbut low aboratory Tests. repeat neck ultrasound showed normal lymph nodes 07/13/19 07/13/19 07/13/19 08:23 09:30 10:30 Hgb Hct Sodium Potassium BUN Creatinine Est GFR (Non-Af Amer) POC Glucose Random Glucose Fasting Glucose Glucose 1 Hour 317 Glucose 2 Hour 295 Estimat Average Glucose 160 Hemoglobin A1c 7.2 Calcium AST ALT Albumin Triglycerides Cholesterol LDL Cholesterol Direct LDL Cholesterol, Calc HDL Cholesterol Vitamin B12 Free T4 Thyroglobulin TSH 3rd Generation Ur Random Microalbumin Microalb/Creat Ratio Thyroglobulin Antibody 08/30/19 08/30/19 08/30/19 08:04 08:10 08:10 Hgb Hct Sodium Potassium BUN Creatinine Est GFR (Non-Af Amer) POC Glucose Random Glucose Fasting Glucose Glucose 1 Hour Glucose 2 Hour Estimat Average Glucose Hemoglobin A1c Calcium AST ALT Albumin Triglycerides 195 D Cholesterol 224 LDL Cholesterol Direct LDL Cholesterol, Calc 146 HDL Cholesterol 39 D Vitamin B12 322 Free T4 Thyroglobulin TSH 3rd Generation Ur Random Microalbumin 8.0 Microalb/Creat Ratio 6.4 Thyroglobulin Antibody 08/30/19 09/13/19 09/13/19 08:10 08:20 08:20 Hgb 15.9 Hct 48.0 H Sodium Potassium BUN Creatinine Est GFR (Non-Af Amer) POC Glucose Random Glucose 144 H D Fasting Glucose Glucose 1 Hour Glucose 2 Hour Estimat Average Glucose Hemoglobin A1c Calcium AST 19 ALT 32 H Albumin 4.1 Triglycerides Cholesterol LDL Cholesterol Direct 172 H LDL Cholesterol, Calc HDL Cholesterol Vitamin B12 Free T4 Thyroglobulin TSH 3rd Generation Ur Random Microalbumin Microalb/Creat Ratio Thyroglobulin Antibody 12/20/19 12/20/19 01/04/20 09:06 09:06 09:05 Hgb Hct Sodium 139 Potassium 4.6 BUN 17 H Creatinine 0.73 Est GFR (Non-Af Amer) > 60 POC Glucose 157 H Random Glucose Fasting Glucose 114 H D Glucose 1 Hour Glucose 2 Hour Estimat Average Glucose Hemoglobin A1c Calcium 9.2 AST ALT Albumin Triglycerides Cholesterol LDL Cholesterol Direct LDL Cholesterol, Calc HDL Cholesterol Vitamin B12 Free T4 1.23 Thyroglobulin <0.1 TSH 3rd Generation 0.68 Ur Random Microalbumin Microalb/Creat Ratio Thyroglobulin Antibody <1 PFSH Medical History (Updated 04/19/24 @ 07:18 by Italo Sanchez MD) Ascending aorta dilatation SLE (systemic lupus erythematosus) PMR (polymyalgia rheumatica) Osteoarthritis of knees, bilateral Lichen planus Psoriasis Polyarthralgia NEELAM positive COVID-19 vaccine series completed History of lupus LILLI (obstructive sleep apnea) Dyslipidemia Morbid obesity Vitamin D deficiency Primary thyroid cancer Diabetes type 2, uncontrolled Post-surgical hypothyroidism Surgical History Hx of vascular surgery Hx of knee surgery History of medial meniscus repair of left knee History of thumb surgery History of foot surgery Hx of colonoscopy Hx of arthroscopy of right knee Hx of thyroidectomy Hx of cholecystectomy History of carpal tunnel release of both wrists Family History Father Diabetes Hypertension Colon cancer Mother Hypertension Thyroid disease Bile duct carcinoma Social History (Reviewed 04/19/24 @ 16:14 by CAS Mann Housing: House Are you a primary career development associate to a significant other at home: No Do you presently have visiting nurse or other home services: No Patient Tobacco Use Status: Former Tobacco user Tobacco use type: Cigarette Years Smoked: 5 years ago e-Cigarette/Vaping Use: Never Used Second Hand Smoke Exposure: Yes service: No Current occupational status: employed Current occupation: [employer] 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 Cognitive needs: No Hearing needs: No Vision needs: No Physical Exam Vital Signs: BMI result Body Mass Index 40.9 Const Other: healed scar status post thyroidectomy . there is no cervical adenopathy palpated Assessment & Plan Assessment & Plan (1) Primary thyroid cancer: Code(s): C73 - Malignant neoplasm of thyroid gland Category: Medical Plan: Status post total thyroidectomy with radioactive iodine therapy. Currently be replaced on 200 mcg levothyroxine. Neck ultrasound last year showed abnormal left level 3 lymph node repeat ultrasound showed normal lymph nodes. thyroglobulin levels undetectable. Patient appears to be clinically euthyroid but has a slightly suppressed TSH level Plan is to decrease levothyroxine to 175 mcg and change to branded Synthroid recheck TSH and free T4 in 6 weeks Orders: Orders Free T4 (Free Thyroxine) 6 Weeks C73 - Malignant neoplasm of thyroid gland Thyroid Stimulating Hormone 6 Weeks C73 - Malignant neoplasm of thyroid gland Medications: New Synthroid (levothyroxine) 175 mcg PO DAILY 30 tabs 5RF NS Discontinued levothyroxine Discontinued Reason: Doctor's Order 200 mcg PO DAILY 30 tabs 5RF Coding Level of Care Code Est Pt Level 3 (90954) Diagnoses Primary thyroid cancer C73
[2024-04-19 16:12] VITALS: BP 144/60; PULSE 80; BMI 40.9
== END 2024-04-19 16:32 | disposition home or self-care (01) ==
PROVIDERS: PCP Nurse Practitioner Family; Visit Provider Internal Medicine Endocrinology, Diabetes & Metabolism
DX: C73 Malignant neoplasm of thyroid gland (principal)
CPT/HCPCS: 99213

== ENCOUNTER → 2024-04-19 16:08 | Outpatient (BNVA) | payer OTHER, SELFPAY | PROVIDERS: PCP Nurse Practitioner Family; Visit Provider Internal Medicine Endocrinology, Diabetes & Metabolism ==

== ENCOUNTER 2024-04-30 15:41 | Outpatient (REF) | payer OTHER, SELFPAY ==
--- NOTE | ~2024-04-30 | XR_ITS ---
EXAMINATION: XR ANKLE, LEFT CLINICAL INFORMATION: Pain in left ankle COMPARISON: None available. TECHNIQUE: AP, lateral, and mortise views of the left ankle. FINDINGS: No fracture. Alignment is anatomic. No erosions. Joint spaces are maintained. Soft tissues are normal. XR/XR ankle LT min 3V IMPRESSION: Normal left ankle.
--- NOTE | ~2024-04-30 | XR_ITS ---
EXAMINATION: XR HAND/WRIST, LEFT CLINICAL INFORMATION: Left hand COMPARISON: 04/05/2017 TECHNIQUE: PA, lateral, and oblique views of the left hand and wrist. FINDINGS: Patient is status post surgical resection of left trapezium with hardware in place. There is no evidence of fractures or osseous destruction or evidence of osteoarthritis soft tissues are unremarkable. XR/XR hand wrist LT IMPRESSION: No acute abnormalities in the right hand
--- NOTE | ~2024-04-30 | XR_ITS ---
EXAMINATION: XR FOOT, RIGHT CLINICAL INFORMATION: Pain COMPARISON: None available. TECHNIQUE: AP, lateral, and oblique views of the right foot. FINDINGS: The bones and soft tissues are normal. No fracture. Alignment is anatomic. Joint spaces are maintained. There is small posterior calcaneal spur XR/XR foot RT min 3V IMPRESSION: Normal right foot.
--- NOTE | ~2024-04-30 | XR_ITS ---
EXAMINATION: XR SHOULDER, RIGHT CLINICAL INFORMATION: Right shoulder pain COMPARISON: None available. TECHNIQUE: AP external rotation, Grashey, scapular Y, and axillary views of the right shoulder. FINDINGS: The bones and soft tissues are normal. No fracture. Glenohumeral and acromioclavicular alignment is anatomic with normal joint space. No abnormal soft tissue calcifications. XR/XR shoulder RT min 2V IMPRESSION: Normal right shoulder.
--- NOTE | ~2024-04-30 | XR_ITS ---
EXAMINATION: XR ELBOW, RIGHT CLINICAL INFORMATION: Right elbow pain COMPARISON: None available. TECHNIQUE: AP, lateral, and oblique views of the right elbow. FINDINGS: There is minimal marginal spurring. The medial and lateral epicondyles suggestive for chronic epicondylitis. There is no fracture seen there is no joint effusion or soft tissue abnormalities. XR/XR elbow RT min 3V IMPRESSION: Most likely chronic medial and lateral epicondylitis
--- NOTE | ~2024-04-30 | XR_ITS ---
EXAMINATION: XR ELBOW, LEFT CLINICAL INFORMATION: Elbow pain COMPARISON: None available. TECHNIQUE: AP, lateral, and oblique views of the left elbow. FINDINGS: The bones and soft tissues are normal. No fracture or joint effusion. Alignment is anatomic. Joint spaces are maintained. XR/XR elbow LT min 3V IMPRESSION: Normal left elbow.
--- NOTE | ~2024-04-30 | XR_ITS ---
EXAMINATION: XR CHEST CLINICAL INFORMATION: Chest COMPARISON: 09/12/2023 TECHNIQUE: 2 views of the chest were obtained. FINDINGS: There is shallow inspiration with low lung volume bilaterally but no infiltrates nodules or pleural effusions seen.. Cardiomediastinal silhouette is normal and osseous structures are unremarkable XR/XR chest 2V IMPRESSION: No active cardiopulmonary disease
--- NOTE | ~2024-04-30 | XR_ITS ---
EXAMINATION: XR FOOT, LEFT CLINICAL INFORMATION: Pain in left foot COMPARISON: None available. TECHNIQUE: AP, lateral, and oblique views of the left foot. FINDINGS: There is flattening and deformity of second distal metadiaphysis of proximal phalanx of second toe suggestive for Freiberg's infraction and mild narrowing of interphalangeal joint. There is small posterior calcaneal spurring. 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
--- NOTE | ~2024-04-30 | XR_ITS ---
EXAMINATION: XR ANKLE, RIGHT CLINICAL INFORMATION: Pain in the right ankle COMPARISON: None available. TECHNIQUE: AP, lateral, and mortise views of the right ankle. FINDINGS: No fracture. Alignment is anatomic. No erosions. Joint spaces are maintained. Soft tissues are normal. XR/XR ankle RT min 3V IMPRESSION: Normal right ankle.
--- NOTE | ~2024-04-30 | XR_ITS ---
EXAMINATION: XR HAND/WRIST, RIGHT CLINICAL INFORMATION: Right hand pain COMPARISON: 02/03/2017 TECHNIQUE: PA, lateral, and oblique views of the right hand and wrist. FINDINGS: The bones and soft tissues are normal. No fracture. Alignment is anatomic. Joint spaces are maintained. No erosions or soft tissue calcifications. XR/XR hand wrist RT IMPRESSION: Normal radiographs of the hand and wrist.
--- NOTE | ~2024-04-30 | XR_ITS ---
EXAMINATION: XR SHOULDER, LEFT CLINICAL INFORMATION: Left shoulder pain COMPARISON: None available. TECHNIQUE: AP external rotation, Grashey, scapular Y, and axillary views of the left shoulder. FINDINGS: The bones and soft tissues are normal. No fracture. Glenohumeral and acromioclavicular alignment is anatomic with normal joint space. No abnormal soft tissue calcifications. XR/XR shoulder LT min 2V IMPRESSION: Normal left shoulder.
== END 2024-04-30 15:42 | disposition home or self-care (01) ==
LOC: HO.XRAY 15:41
PROVIDERS: Visit Provider Student in an Organized Health Care Education/Training Program
DX: R07.89 Other chest pain (principal); M79.642 Pain in left hand; M79.641 Pain in right hand; M79.672 Pain in left foot; M79.671 Pain in right foot; M25.512 Pain in left shoulder; M25.511 Pain in right shoulder; M25.522 Pain in left elbow; M25.521 Pain in right elbow; M25.532 Pain in left wrist; M25.531 Pain in right wrist; M25.572 Pain in left ankle and joints of left foot; M25.571 Pain in right ankle and joints of right foot
CPT/HCPCS: 71046; 73030; 73080; 73110; 73130; 73610; 73630

== ENCOUNTER 2024-06-06 08:03 | Outpatient (REF) | payer OTHER, SELFPAY | END 2024-06-06 08:04 | disposition home or self-care (01) | LOC: HO.BBR 08:03 | PROVIDERS: PCP Nurse Practitioner Family; Visit Provider Internal Medicine Medical Oncology | DX: D75.1 Secondary polycythemia (principal) | CPT/HCPCS: 85018; 99195 ==

== ENCOUNTER 2024-06-12 09:00 | Outpatient (REF) | payer OTHER, SELFPAY ==
--- NOTE | ~2024-06-12 | CT_ITS ---
EXAMINATION: CT CHEST WITHOUT CONTRAST CLINICAL INFORMATION: 63-year-old female, Nicotine dependence, chest discomfort with burning. COMPARISON: No prior recent chest CT available. Chest CT dated 11/05/2008. Chest x-ray 04/30/2024 TECHNIQUE: Multidetector volumetric CT imaging of the chest was done. Axial MIP volume rendering provided. Sagittal and coronal reformatted images were obtained. This CT examination was performed using dose optimization techniques as appropriate, variously including the following: *Automated exposure control *Adjustment of mA and/or kV according to patient size (this includes techniques or standardized protocols for targeted exams where dose is matched to indication/reason for exam; i.e. extremities or head) *Use of iterative reconstruction technique DLP: 203 mGy-cm FINDINGS: PULMONARY NODULES: -There are a few tiny scattered calcified granulomata. -There is a 2 mm nodule in the superior left upper lobe, lateral aspect (series 5, image 136). -There are no suspicious lung nodules identified. LUNGS: -There is mild to moderate predominantly paraseptal emphysema. -Mild subpleural reticular changes are present in both lower lobes, most likely dependent microatelectasis although early interstitial lung disease is not excluded. No consolidations or groundglass opacities. Mild mosaic attenuation in the lower lobe distribution, most likely air trapping. -Small airways demonstrate mild thickening throughout suggesting chronic bronchitis. No bronchiectasis or endobronchial filling defects. The trachea and main bronchi are patent. MEDIASTINUM: -Thyroid gland has been removed. -Aorta is normal in caliber with mild calcification. Two-vessel branching pattern. -Main pulmonary artery is normal in caliber. -No abnormal lymphadenopathy is present in the mediastinum or hilar regions. -Heart size is normal. There are heavy mitral annular calcifications. There is no pericardial effusion. -Esophagus is normal in appearance. CORONARY ARTERY CALCIFICATION: Moderate to heavy three-vessel coronary calcification is present. PLEURA: There is no pleural effusion. No pleural mass or thickening. AXILLA/CHEST WALL: No lymphadenopathy or masses. UPPER ABDOMEN: -There is hepatomegaly. There is no discrete focal abnormality on this noncontrast examination. Numerous surgical clips are seen in the gallbladder fossa. -The spleen is normal in size. -The pancreas, adrenal glands, and imaged bowel structures appear normal. OSSEOUS STRUCTURES: No suspicious lytic or blastic bone lesions. Mild to moderate degenerative changes throughout the thoracic spine, with anterior flowing disc osteophytes spanning T4-T11, findings suggestive of DISH. Minimal wedging of T11 is noted, which appears chronic. CT/CT chest wo IV con IMPRESSION: 1. No definite active pulmonary disease. Mild to moderate paraseptal emphysematous changes present. Subpleural reticular changes in the lower lobes dependently most likely is related to minor dependent atelectasis. If there is suspicion for early interstitial lung disease, high-resolution scan with prone imaging should be considered. 2. No suspicious pulmonary nodules identified. 2 mm nodule in the superior left upper lobe lateral aspect. One-year follow-up is suggested as per Fleischner guidelines. 3. Diffuse mild small airway thickening suggestive of chronic bronchitis. 4. Hepatomegaly incidentally noted. Cholecystectomy. 5. The thyroid is surgically absent. 6. Findings suggestive of DISH involving the thoracic spine. 7. Additional ancillary findings as discussed in the body of the report. Fleischner guidelines were followed.
== END 2024-06-12 09:01 | disposition home or self-care (01) ==
LOC: HO.CT 09:00
PROVIDERS: PCP Nurse Practitioner Family; Visit Provider Nurse Practitioner Family
DX: R07.89 Other chest pain (principal); F17.200 Nicotine dependence, unspecified, uncomplicated
CPT/HCPCS: 71250

== ENCOUNTER → 2024-06-12 09:02 | Outpatient (BNV) | payer OTHER, SELFPAY | PROVIDERS: PCP Nurse Practitioner Family; Visit Provider Radiology Diagnostic Radiology | DX: R07.89 Other chest pain (principal) | CPT/HCPCS: 71250 ==

== ENCOUNTER 2024-06-27 07:47 | Outpatient (AMB) | payer OTHER, SELFPAY ==
--- NOTE | 2024-06-27 07:11 | A.OFFPC_ITS ---
Intake Visit Reasons: [id number] Allergies moxifloxacin [From AVELOX] Allergy (Severe, Verified 04/19/24 16:14) PINS AND NEEDLE FEET AND PALMS- SWELLING oxycodone [Percocet] Allergy (Intermediate, Verified 04/19/24 16:14) Vomiting vancomycin [Vancomycin] Allergy (Intermediate, Verified 04/19/24 16:14) SWELLING/HIVES/THROAT CLOSING SENSATION codeine [Codeine] Allergy (Mild, Verified 04/19/24 16:14) HIVES Penicillins Allergy (Mild, Verified 04/19/24 16:14) HIVES propoxyphene [From Darvon] Allergy (Mild, Verified 04/19/24 16:14) FELT LIKE CHEST CLOSING UP / HIVES Sulfa (Sulfonamide Antibiotics) [Sulfa (Sulfonamides)] Allergy (Mild, Verified 04/19/24 16:14) HIVES dexamethasone Adverse Reaction (Intermediate, Verified 04/19/24 16:14) muscle aches hydroxychloroquine [Plaquenil] Adverse Reaction (Mild, Verified 04/19/24 16:14) hair loss Iodinated Contrast Media [IV Contrast Dye] Adverse Reaction (Verified 04/19/24 16:14) Hives Tobacco use date assessed: 03/20/24 Dental Screening Dental Screen Date: 03/20/24 HPI [id number] HPI Details Pt had a recent chest CT which showed no definite active pulmonary disease. Mild to moderate paraseptal emphysematous changes present. Subpleural reticular changes in the lower lobes dependently most likely is related to minor dependent atelectasis. If there is suspicion for early interstitial lung disease, high-resolution scan with prone imaging should be considered. No suspicious pulmonary nodules identified. 2 mm nodule in the superior left upper lobe lateral aspect. One-year follow-up is suggested as per Fleischner guidelines. Diffuse mild small airway thickening suggestive of chronic bronchitis. Will refer to pulmonology. Pt does report a cough (non productive) with pain to her right lower lobe area. Pt did smoke for quite some time, started in teens-twentys, off and on, up to a pack a day. Denies fever, chills, and shortness of breath. [facility] Medical History (Updated 06/27/24 @ 07:26 by MARIE Rojas-) Ascending aorta dilatation SLE (systemic lupus erythematosus) PMR (polymyalgia rheumatica) Osteoarthritis of knees, bilateral Lichen planus Psoriasis Polyarthralgia NEELAM positive COVID-19 vaccine series completed History of lupus LILLI (obstructive sleep apnea) Dyslipidemia Morbid obesity Vitamin D deficiency Primary thyroid cancer Diabetes type 2, uncontrolled Post-surgical hypothyroidism Surgical History Hx of vascular surgery Hx of knee surgery History of medial meniscus repair of left knee History of thumb surgery History of foot surgery Hx of colonoscopy Hx of arthroscopy of right knee Hx of thyroidectomy Hx of cholecystectomy History of carpal tunnel release of both wrists Family History Father Diabetes Hypertension Colon cancer Mother Hypertension Thyroid disease Bile duct carcinoma Social History Housing: House Are you a primary career guidance counselor to a significant other at home: No Do you presently have visiting nurse or other home services: No Patient Tobacco Use Status: Former Tobacco user Tobacco use type: Cigarette Years Smoked: 5 years ago e-Cigarette/Vaping Use: Never Used Second Hand Smoke Exposure: Yes service: No Current occupational status: employed 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 Jef Cardona, Priscilla Stallings, Tito Lyons and colleagues, with an educational srinath from [employer]. Review of Systems Const Reports as per HPI Physical exam (Primary Care) Tobacco/Smoking Status: Tobacco use Status Tobacco use date assessed 03/20/24 06/27/24 07:11 Patient Tobacco Use Status Former Tobacco user 06/27/24 07:11 Tobacco use type Cigarette 06/27/24 07:11 e-Cigarette/Vaping Use Never Used 06/27/24 07:11 Thrive Assessment: Date of Thrive Assessment Date Thrive assessed 11/03/22 06/27/24 07:11 Const General: cooperative Orientation/consciousness: patient oriented x3 Neuro General: patient oriented x3 Psych Appearance: grossly normal Mental Status: mental status grossly normal Speech and movement: Clear speech present Affect: normal affect Attitude: cooperative Thought process: Normal thought process present Thought content: Normal thought content present Insight: Good insight present (Psych) Judgement: Good judgement present (Psych) Telehealth Telehealth Telehealth Platform: [email or web address] Location of provider rendering services: practice address Location of patient: address on file Patient Identification confirmed using: Name, : Yes Telehealth method: video Patient verbally consented to treatment: Yes Patient verbally consented to billing insurance company: Yes Patient informed of any privacy concerns related to visit: Yes Minutes spent on Phone/Video with Pt.: 10 Assessment and Plan Assessment & Plan (1) Interstitial lung disease: Code(s): J84.9 - Interstitial pulmonary disease, unspecified Plan: Referred to pulmonology (2) Respiratory illness: Code(s): J98.9 - Respiratory disorder, unspecified Plan: Referred to pulmonology (3) Cough: Code(s): R05.9 - Cough, unspecified Plan: Referred to pulmonology Plan The patient agreed to the use of a director global medical affairs for this encounter. Scribed for ANITRA Reyes by Maryjane Valdivia director global medical affairs, on 06/27/2024 at 07:10 EST. Orders: Referrals Pulmonology Referral J84.9 - Interstitial pulmonary disease, unspecified Coding Level of Care Code Tele Est Pt Level 3 (25961) Diagnoses Interstitial lung disease J84.9 Respiratory illness J98.9 Cough R05.9
== END 2024-06-27 07:52 | disposition home or self-care (01) ==
LOC: HO.HMGC 07:47
PROVIDERS: PCP Nurse Practitioner Family; Visit Provider Nurse Practitioner Family
DX: J84.9 Interstitial pulmonary disease, unspecified (principal); J98.9 Respiratory disorder, unspecified; R05.9 Cough, unspecified
CPT/HCPCS: 99213

== ENCOUNTER 2024-07-11 08:02 | Outpatient (REF) | payer OTHER, SELFPAY | END 2024-07-11 08:03 | disposition home or self-care (01) | LOC: HO.BBR 08:02 | PROVIDERS: PCP Nurse Practitioner Family; Visit Provider Internal Medicine Medical Oncology | DX: D75.1 Secondary polycythemia (principal) | CPT/HCPCS: 85018; 99195 ==

== ENCOUNTER 2024-07-19 08:27 | Emergency (ER) | payer OTHER, SELFPAY ==
--- NOTE | 2024-07-19 | ECG_ITS ---
Test Reason : cp Blood Pressure : / mmHG Vent. Rate : 066 BPM Atrial Rate : 066 BPM P-R Int : 170 ms QRS Dur : 098 ms QT Int : 402 ms P-R-T Axes : 040 034 068 degrees QTc Int : 421 ms Normal sinus rhythm ST elevation consider inferior injury or acute infarct ACUTE ME / STEMI Consider right ventricular involvement in acute inferior infarct Abnormal ECG When compared with ECG of 08-JAN-2019 15:05, ST more elevated in Inferior leads Referred By: Generic ED Physician Electronically Signed By:SHIRA BARNES
[2024-07-19 08:40] VITALS: BMI 43.2
[2024-07-19 08:43] VITALS: BMI 40.6
--- NOTE | 2024-07-19 08:43 | ED_ITS ---
HPI - Chest Pain General Stated Complaint: [id number] Time Seen by Provider: 07/19/24 08:37 Source: patient and old records reviewed Mode of arrival: ambulatory Limitations: no limitations History of Present Illness ED Provider: NONI MACK narrative: 64 yo female with PMH of lupus, HTN, DM, hypothyroidism, mild ascending aorta dilations 3.7 on ECHO in March 2024, stress test in 2023 - nondiagnostic EKG, not on blood thinners notes on and off upper chest pain at rest for 4 months. Last night worse and different. She felt more pressure across the chest no radiation into the back. She was short of breath with nausea and sweats. She states it won't go away. She has no known CAD or no prior cath. She took no medications prior to arrival. She has taken aleve in the past when she has this pain but today was much worse. MD complaint: chest pain Onset (ago): day(s) (started last night making dinner) Timing of current episode: constant and increasing Prior episodes: Yes Onset: during rest Pain location: substernal, left chest and right chest Pain radiation: none Severity: moderate Quality: other (pressure) Relieving factors: nothing Exacerbating factors: exertion and movement Associated symptoms: nausea, diaphoresis and dyspnea Treatment prior to arrival: none Related Data Previous Rx's ?Medication ?Instructions ?Recorded OneTouch Verio Meter #1 ea 11/03/22 (blood-glucose meter) albuterol sulfate 90 mcg/actuation 2 puff inhalation Q4-6H PRN 09/12/23 aerosol inhaler shortness of breath or wheezing #6.7 grams OneTouch Verio Flex meter #1 ea 09/23/23 (blood-glucose meter) OneTouch Verio test strips (blood #300 ea 09/23/23 sugar diagnostic) lancets 33 gauge (OneTouch Delica #300 ea 09/23/23 Plus Lancet) cholecalciferol (vitamin D3) 50 50 mcg PO DAILY #30 caps 03/15/24 mcg (2,000 unit) capsule Unithroid 175 mcg tablet 175 mcg PO DAILY #30 tabs 04/25/24 (levothyroxine) lorazepam 0.5 mg tablet 0.5 mg PO DAILY PRN anxiety 2 days 05/02/24 #2 tabs amlodipine 5 mg tablet 5 mg PO DAILY #90 tabs 05/25/24 metformin 500 mg tablet,extended 500 mg PO DAILY #90 tabs 05/29/24 release 24 hr tramadol 50 mg tablet 50 mg PO DAILY PRN pain 20 days 07/02/24 #20 tabs Allergies Allergy/AdvReac Type Severity Reaction Status Date / Time moxifloxacin [From AVELOX] Allergy Severe PINS AND Verified 07/19/24 08:43 NEEDLE FEET AND PALMS- SWELLING oxycodone [Percocet] Allergy Intermediate Vomiting Verified 07/19/24 08:43 vancomycin [Vancomycin] Allergy Intermediate SWELLING/HIVES/THROAT Verified 07/19/24 08:43 CLOSING SENSATION codeine [Codeine] Allergy Mild HIVES Verified 07/19/24 08:43 Penicillins Allergy Mild HIVES Verified 07/19/24 08:43 propoxyphene [From Darvon] Allergy Mild FELT LIKE Verified 07/19/24 08:43 CHEST CLOSING UP / HIVES Sulfa (Sulfonamide Allergy Mild HIVES Verified 07/19/24 08:43 Antibiotics) [Sulfa (Sulfonamides)] dexamethasone AdvReac Intermediate muscle Verified 07/19/24 08:43 aches hydroxychloroquine AdvReac Mild hair loss Verified 07/19/24 08:43 [Plaquenil] Iodinated Contrast Media AdvReac Hives Verified 07/19/24 08:43 [IV Contrast Dye] Review of Systems Review of Systems: Constitutional : No Weight loss, No Fever, No Chills, pos sweats ENT/Mouth : No sore throat, No Rhinorrhea Eyes: No Eye Pain, No Swelling Cardiovascular : pos Chest Pain, pos SOB, no Dyspnea on Exertion, No Orthopnea, No Edema, No Palpitations Respiratory : No Cough, No Sputum Gastrointestinal : pos Nausea, No Vomiting, No Diarrhea, No abdominal Pain, No Hematochezia, No Melena Genitourinary : No Dysuria, No Urinary Frequency Musculoskeletal : No joint pain, No Myalgias, No Joint Swelling Skin : No Skin Lesions, No rash Neuro : No Weakness, No Numbness, No Dizziness, No Headache All other systems reviewed and are negative [facility] Past Medical History Attestation statement: The following information was validated with the patient. Source: old records reviewed Medical History Ascending aorta dilatation SLE (systemic lupus erythematosus) PMR (polymyalgia rheumatica) Osteoarthritis of knees, bilateral Lichen planus Psoriasis Polyarthralgia NEELAM positive COVID-19 vaccine series completed History of lupus LILLI (obstructive sleep apnea) Dyslipidemia Morbid obesity Vitamin D deficiency Primary thyroid cancer Diabetes type 2, uncontrolled Post-surgical hypothyroidism Surgical History Hx of vascular surgery Hx of knee surgery History of medial meniscus repair of left knee History of thumb surgery History of foot surgery Hx of colonoscopy Hx of arthroscopy of right knee Hx of thyroidectomy Hx of cholecystectomy History of carpal tunnel release of both wrists Family History Family History Father Diabetes Hypertension Colon cancer Mother Hypertension Thyroid disease Bile duct carcinoma Social History Social History Housing: House Are you a primary pet caretaker to a significant other at home: No Do you presently have visiting nurse or other home services: No Patient Tobacco Use Status: Former Tobacco user Tobacco use type: Cigarette Years Smoked: 5 years ago e-Cigarette/Vaping Use: Never Used Second Hand Smoke Exposure: Yes service: No Current occupational status: employed 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 Oriented X3. In pain moderate acute distress. Eyes: Pupils equal, round and reactive to light. ENT: Pharynx normal. Neck: Normal inspection. Neck supple. CVS: Normal heart rate and rhythm. Pulses normal. Respiratory: No respiratory distress. Breath sounds normal. Abdomen: Soft and nontender. Skin: Skin warm and clammy pale skin color. Normal skin turgor. Extremities: No lower extremity edema. Neuro: Oriented X 3. No motor deficit. No sensory deficit. Course Course Course Narrative: call for ambulance [id number] call for interventional cardiology on accepted under Dr. Ge 854am discussed with fellow Medical Decision Making Medical Decision Making MDM Narrative: 64 yo female with PMH of lupus, HTN, DM, hypothyroidism, mild ascending aorta dilations 3.7 on ECHO in March 2024, stress test in 2023 here with chest pain, dyspnea, diaphoresis - stat call to STEMI standby on arrival and IR cardiology - start on aspirin, statin, heparin, brilinta - IVF, IV fentanyl for pain - STEMI Differential Diagnosis Differential Diagnoses: The differential diagnosis associated with the presentation includes STEMI no tearing of pain pulses intact doubt dissection Admission/Observation Consideration of admission/observation: Escalation of care including admission/observation 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 Independent Interpretation I performed an independent interpretation of an: EKG Interpretation: Rate: 66 Rhythm: NSR [place]: Normal P waves. Normal DAVIN. Normal QRS complex. ST T wave : qTC: prior studies: The study has been interpreted contemporaneously by me. . Independent Historian Clinical information obtained from an independent historian. History obtained from or confirmed by: Spouse External Record Review External record reviewed: Office record Discharge Plan Discharge Clinical Impression: ST elevation (STEMI) myocardial infarction Patient Disposition: er [facility] Hospital Transfer Details: [facility] Prescriptions: No Action (DME) blood-glucose meter [OneTouch Verio Flex meter] Misc See Rx Instructions .Route Qty: 1 0RF Rx Instructions: As directed (DME) lancets [OneTouch Delica Plus Lancet] 33 gauge misc See Rx Instructions .Route Qty: 300 1RF Rx Instructions: Test blood sugar 3 times per day (DME) OneTouch Verio test strips Strip See Rx Instructions .Route Qty: 300 1RF Rx Instructions: Test blood sugar 3 times per day cholecalciferol (vitamin D3) 50 mcg (2,000 unit) capsule 50 mcg PO DAILY Qty: 30 4RF levothyroxine [Unithroid] 175 mcg tablet 175 mcg PO DAILY Qty: 30 5RF lorazepam 0.5 mg tablet 0.5 mg PO DAILY PRN (Reason: anxiety) 2 Days Qty: 2 0RF amlodipine 5 mg tablet 5 mg PO DAILY Qty: 90 1RF metformin 500 mg tablet extended release 24 hr 500 mg PO DAILY Qty: 90 1RF tramadol 50 mg tablet 50 mg PO DAILY PRN (Reason: pain) 20 Days Qty: 20 0RF (DME) blood-glucose meter [OneTouch Verio Meter] Misc See Rx Instructions .Route Qty: 1 0RF Rx Instructions: TID testing albuterol sulfate 90 mcg/actuation HFA aerosol inhaler 2 puff inhalation Q4-6H PRN (Reason: shortness of breath or wheezing) Qty: 6.7 3RF Print Language: Polish
[2024-07-19] MEDS: 0.9 % Sodium Chloride 500 ML IV (08:44)
[2024-07-19] MEDS: Ticagrelor 90 MG TABLET 180 MG PO (08:45)
[2024-07-19] MEDS: Aspirin 81 MG TAB.CHEW 324 MG PO (08:45)
[2024-07-19] MEDS: Atorvastatin Calcium 80 MG TABLET PO (08:46)
[2024-07-19] MEDS: Heparin Sodium,Porcine 5,000 UNIT/ML VIAL 4000 UNIT IVPUSH (08:46)
[2024-07-19 08:48] LABS: MANUAL DIFF FLAG NO
[2024-07-19] MEDS: fentaNYL citrate/PF 100 MCG/2 ML VIAL 50 MCG IVPUSH ×2 (08:48→09:16)
[2024-07-19 08:50] VITALS: BP 147/48; PULSE 67; RESP 13; TEMP 36.4; O2SAT 99
[2024-07-19] MEDS: ondansetron HCL 4 MG/2 ML VIAL IVPUSH (08:53)
[2024-07-19 08:54] VITALS: BP 138/50; PULSE 68; RESP 15; O2SAT 100
[2024-07-19 08:57] LABS: Basophils Absolute Auto 0.1 X10*3/uL (0.0-0.2); Basophils Percent Auto 0.8 % (0-2); Eosinophils Absolute Auto 0.2 X10*3/uL (0.0-0.4); Hematocrit 43.3 % (37.0-47.0); Hemoglobin 14.4 g/dl (12.0-16.0); Imm Gran Abs Auto 0.04 X10*3/uL (0.00-0.03); Imm Gran Pct Auto 0.4 % (0.0-0.4); Lymphocytes Absolute Auto 2.5 X10*3/uL (1.2-4.9); Lymphocytes Percent Auto 24.5 % (20-40); Mean Corpuscular HGB Conc 33.3 g/dl (31.0-35.0); Mean Corpuscular Hemoglobin 26.2 pg (27.0-33.0); Mean Corpuscular Volume 78.7 fL (80.0-98.0); Mean Platelet Volume 9.7 fL (9.4-12.3); Monocytes Absolute Auto 0.6 X10*3/uL (0.1-1.2); Monocytes Percent Auto 5.7 % (2-11); Neutrophils Absolute Auto 6.7 x10*3/uL (2.0-8.3); Neutrophils Percent Auto 66.6 % (45-73); Platelet Count 282 X10*3/uL (160-400); Red Cell Distribution Width 13.6 % (11.0-16.0); White Blood Count 10.1 X10*3/uL (4.8-10.8)
[2024-07-19 08:58] LABS: INTERNATIONAL NORM RATIO 0.9 (0.9-1.1)
--- NOTE | 2024-07-19 09:01 | PC.NURSE ---
Samaria on scene to take pt to [facility]
[2024-07-19 09:02] VITALS: BP 153/63; PULSE 64; RESP 13; O2SAT 100
[2024-07-19 09:09] LABS: Alanine Aminotransferase 24 U/L (0-31); Albumin Level 4.1 g/dL (3.5-5.0); Alkaline Phosphatase 80 U/L (39-117); Anion Gap 14 (12-20); Aspartate Amino Transferase 17 U/L (5-31); Bilirubin Direct 0.1 mg/dL (0.0-0.5); Bilirubin Total 0.4 mg/dL (0.0-1.0); Blood Urea Nitrogen 12 mg/dL (9-16); Calcium 10.2 mg/dL (8.4-10.2); Carbon Dioxide 22 mmol/L (22-29); Chloride 108 mmol/L (96-108); Creatinine Clr Calc Pharmacy 92.3; Estimated Glomerular Filt Rate > 60; Glucose Random 172 mg/dL (60-115); Sodium 140 mmol/L (135-145); Total Protein 6.9 g/dL (6.5-8.0)
--- NOTE | 2024-07-19 09:10 | PC.NURSE ---
0910 ryder leaving to [facility]
[2024-07-19] MEDS: 0.9 % Sodium Chloride 1,000 ML 999 ML IV (09:17)
[2024-07-19 09:18] VITALS: BP 153/63; PULSE 64; RESP 13; TEMP 36.4; O2SAT 100
[2024-07-19 09:19] LABS: Troponin-I High Sensitivity 62.2 ng/L (<3.5-17.0)
[2024-07-19 09:22] LABS: COVID-19 Test Negative (Negative); IDNOW Serial# 152EDE1D
== END 2024-07-19 09:19 | disposition short-term general hospital (02) ==
PROVIDERS: Emergency Provider Emergency Medicine; PCP Nurse Practitioner Family
DX: I21.3 ST elevation (STEMI) myocardial infarction of unspecified site (principal); R06.02 Shortness of breath; Z11.52 Encounter for screening for COVID-19; E11.9 Type 2 diabetes mellitus without complications; I10 Essential (primary) hypertension; E78.5 Hyperlipidemia, unspecified; Z87.891 Personal history of nicotine dependence; Z79.84 Long term (current) use of oral hypoglycemic drugs; Z79.899 Other long term (current) drug therapy
CPT/HCPCS: 36415; 80048; 80076; 83735; 84484; 85025; 85610; 87635; 93005; 96374; 96375; 96376; 99285; J1644; J2405; J3010

== ENCOUNTER 2024-07-26 10:25 | Outpatient (AMB) | payer OTHER, SELFPAY ==
--- NOTE | 2024-07-26 10:26 | MHC.PC.OV ---
Vital Signs 07/26/24 10:27 Height 5 ft 6 in Weight 249 lb 2 oz BMI 40.2 BP 130/80 Blood Pressure Location Rt brachial Position Sitting Pulse 78 Pulse Source Pulse Oximeter Pulse Oximetry (%) 98 Oxygen Delivery Method Room Air Intake Visit Reasons: ED follow up Heart attack Intake Note: pt is here for ED follow up regarding heart attack Hourly Shift Required: No Accompanied by: Self / Same As Patient Allergies moxifloxacin [From AVELOX] Allergy (Severe, Verified 07/26/24 14:44) PINS AND NEEDLE FEET AND PALMS- SWELLING oxycodone [Percocet] Allergy (Intermediate, Verified 07/26/24 14:44) Vomiting vancomycin [Vancomycin] Allergy (Intermediate, Verified 07/26/24 14:44) SWELLING/HIVES/THROAT CLOSING SENSATION codeine [Codeine] Allergy (Mild, Verified 07/26/24 14:44) HIVES Penicillins Allergy (Mild, Verified 07/26/24 14:44) HIVES propoxyphene [From Darvon] Allergy (Mild, Verified 07/26/24 14:44) FELT LIKE CHEST CLOSING UP / HIVES Sulfa (Sulfonamide Antibiotics) [Sulfa (Sulfonamides)] Allergy (Mild, Verified 07/26/24 14:44) HIVES dexamethasone Adverse Reaction (Intermediate, Verified 07/26/24 14:44) muscle aches hydroxychloroquine [Plaquenil] Adverse Reaction (Mild, Verified 07/26/24 14:44) hair loss Iodinated Contrast Media [IV Contrast Dye] Adverse Reaction (Verified 07/26/24 14:44) Hives Medication List - Last Reconciled 07/26/24 by MARIE Rojas-DANIEL albuterol sulfate 90 mcg/actuation 2 puffs inhalation Q4-6H PRN aspirin (Adult Low Dose Aspirin) 81 mg PO DAILY atorvastatin 40 mg PO DAILY carvedilol 3.125 mg PO BID cholecalciferol (vitamin D3) 50 mcg PO DAILY lancets (RevstrTouch Delica Plus Lancet) Test blood sugar 3 times per day lorazepam 0.5 mg PO DAILY PRN 2 days metformin ER 500 mg PO DAILY OneTouch Verio Flex meter (blood-glucose meter) As directed NS OneTouch Verio Meter (blood-glucose meter) TID testing NS OneTouch Verio test strips (blood sugar diagnostic) Test blood sugar 3 times per day NS ticagrelor 60 mg PO BID tramadol 50 mg PO DAILY PRN 20 days Unithroid (levothyroxine) 175 mcg PO DAILY NS Tobacco use date assessed: 03/20/24 Dental Screening Dental Screen Date: 03/20/24 HPI ED follow up Heart attack HPI Details Pt was seen in the ER on 07/19 c/o chest pain. EKG showed acute STEMI. She was transferred to [facility]. Pt underwent a cardiac cath on 07/19 and RORY to mid and ditsal RCA as well as mid LAD. Repeat EKGs were reassuring. Pt was monitored on telemetry and did not have concerning signs or symptoms. Pt reports doing better today. She does report some residual weakness. She is following up with cardiology on 07/30. Pt reports intermittent chest flutters. Will do an EKG in office. Denies chest pain, shortness of breath, and dizziness. Pt will be starting cardiac rehab as well. She should not be working currently. [facility] Medical History Ascending aorta dilatation SLE (systemic lupus erythematosus) PMR (polymyalgia rheumatica) Osteoarthritis of knees, bilateral Lichen planus Psoriasis Polyarthralgia NEELAM positive COVID-19 vaccine series completed History of lupus LILLI (obstructive sleep apnea) Dyslipidemia Morbid obesity Vitamin D deficiency Primary thyroid cancer Diabetes type 2, uncontrolled Post-surgical hypothyroidism Surgical History Hx of vascular surgery Hx of knee surgery History of medial meniscus repair of left knee History of thumb surgery History of foot surgery Hx of colonoscopy Hx of arthroscopy of right knee Hx of thyroidectomy Hx of cholecystectomy History of carpal tunnel release of both wrists Family History Father Diabetes Hypertension Colon cancer Mother Hypertension Thyroid disease Bile duct carcinoma Social History Housing: House Are you a primary group care worker to a significant other at home: No Do you presently have visiting nurse or other home services: No Patient Tobacco Use Status: Former Tobacco user Tobacco use type: Cigarette Years Smoked: 5 years ago e-Cigarette/Vaping Use: Never Used Second Hand Smoke Exposure: Yes service: No Current occupational status: employed 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 [id number] - PHQ-9 Billing: Patient declined-do not bill Source: Developed by Drs. Jef Cardona, Priscilla Stallings, Tito Lyons and colleagues, with an educational srinath from [employer]. Thrive Questionnaire Date Thrive assessed: 07/26/24 I am a: Patient What is your living situation today?: I have a steady place to live Within the past 12 months, did the food you bought not last and you didn't have the money to get more?: Never true Within the past 12 months, did you worry whether your food would run out before you got money to buy more?: Never true Do you have trouble paying for medicines?: No Do you have trouble getting transportation to medical appointments?: No Do you have trouble paying your heating and electricity bill?: No Do you have trouble taking care of your child, family member or friend?: No Do you have trouble with day-to-day activities such as bathing, preparing meals, shopping, managing finances, etc.?: No Are you currently unemployed and looking for a job?: No Are you interested in more education?: No Please select the resources that you would like help with: None Currently or been in a relationship where the following occur: No concerns reported THRIVE Score: 0 JADYN-7 AMB Questionnaire JADYN-7 Date JADYN - 7 assessed: 07/26/24 Source: Developed by Drs. Jef Cardona, Priscilla Stallings, Tito Lyons and colleagues, with an educational srinath from [employer]. JADYN-7 Assessment Billing JADYN-7 Assessment Tool: pt declined-do not bill Review of Systems Const Reports as per HPI Physical exam (Primary Care) Vital Signs: Last Vital Signs Pulse 78 07/26/24 10:27 BP 130/80 07/26/24 10:27 Pulse Ox 98 07/26/24 10:27 Oxygen Delivery Method Room Air 07/26/24 10:27 BMI result Body Mass Index 40.2 Tobacco/Smoking Status: Tobacco use Status Tobacco use date assessed 03/20/24 07/26/24 10:32 Patient Tobacco Use Status Former Tobacco user 07/26/24 10:32 Tobacco use type Cigarette 07/26/24 10:32 e-Cigarette/Vaping Use Never Used 07/26/24 10:32 Thrive Assessment: Date of Thrive Assessment Date Thrive assessed 07/26/24 07/26/24 10:32 Currently or been in a relationship where the following occur: No concerns reported Const General: cooperative Nutritional Appearance: obese morbidly obese Orientation/consciousness: patient oriented x3 Resp Other: lungs fairly clear Effort & Inspection: normal respiratory effort Cardio Rate: regular rate Rhythm: regular rhythm Heart sounds: S1 normal heart sound present, S2 normal heart sound present and Murmur heart sound present systolic (faint) Neuro General: patient oriented x3 Extrem Right lower extremity: no edema Left lower extremity: no edema Psych Appearance: grossly normal Mental Status: mental status grossly normal Speech and movement: Normal speech and movement present Affect: normal affect Attitude: cooperative Thought process: Normal thought process present Thought content: Normal thought content present Insight: Good insight present (Psych) Judgement: Good judgement present (Psych) Assessment and Plan Assessment & Plan (1) S/P coronary artery stent placement: Code(s): Z95.5 - Presence of coronary angioplasty implant and graft (2) ST elevation (STEMI) myocardial infarction: Code(s): I21.3 - ST elevation (STEMI) myocardial infarction of unspecified site Qualifiers: Involved coronary artery: unspecified coronary artery Qualified Code(s): I21.3 - ST elevation (STEMI) myocardial infarction of unspecified site Plan: following up with cardiology in 4 days. Doing well overall, taking all meds as prescribed. Plan The patient agreed to the use of a medical records assistant for this encounter. Scribed for ANITRA Reyes by Maryjane Valdivia medical records assistant, on 07/26/2024 at 10:40 EST. Medications: New trazodone 50 mg PO BEDTIME PRN 30 tabs 0RF sleep Coding Level of Care Code Est Pt Level 3 (74791) Diagnoses S/P coronary artery stent placement Z95.5 ST elevation (STEMI) myocardial infarction I21.3 Involved coronary artery: unspecified coronary artery
[2024-07-26 10:27] VITALS: BP 130/80; PULSE 78; O2SAT 98; BMI 40.2
== END 2024-07-26 11:26 | disposition home or self-care (01) ==
PROVIDERS: PCP Nurse Practitioner Family; Visit Provider Nurse Practitioner Family
DX: I25.2 Old myocardial infarction (principal); Z95.5 Presence of coronary angioplasty implant and graft
CPT/HCPCS: 99213

== ENCOUNTER 2024-07-30 13:58 | Outpatient (AMB) | payer OTHER, SELFPAY ==
--- NOTE | 2024-07-30 14:00 | A.OFFVIS_ITS ---
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/ [place] Allergies moxifloxacin [From AVELOX] Allergy (Severe, Verified 07/26/24 14:44) PINS AND NEEDLE FEET AND PALMS- SWELLING oxycodone [Percocet] Allergy (Intermediate, Verified 07/26/24 14:44) Vomiting vancomycin [Vancomycin] Allergy (Intermediate, Verified 07/26/24 14:44) SWELLING/HIVES/THROAT CLOSING SENSATION codeine [Codeine] Allergy (Mild, Verified 07/26/24 14:44) HIVES Penicillins Allergy (Mild, Verified 07/26/24 14:44) HIVES propoxyphene [From Darvon] Allergy (Mild, Verified 07/26/24 14:44) FELT LIKE CHEST CLOSING UP / HIVES Sulfa (Sulfonamide Antibiotics) [Sulfa (Sulfonamides)] Allergy (Mild, Verified 07/26/24 14:44) HIVES dexamethasone Adverse Reaction (Intermediate, Verified 07/26/24 14:44) muscle aches hydroxychloroquine [Plaquenil] Adverse Reaction (Mild, Verified 07/26/24 14:44) hair loss Iodinated Contrast Media [IV Contrast Dye] Adverse Reaction (Verified 07/26/24 14:44) Hives Medication List - Last Reconciled 07/30/24 by Aries Phillips MD albuterol sulfate 90 mcg/actuation 2 puffs inhalation Q4-6H PRN aspirin (Adult Low Dose Aspirin) 81 mg PO DAILY atorvastatin 40 mg PO DAILY carvedilol 3.125 mg PO BID lancets ([employer] InternationalTouch Delica Plus Lancet) Test blood sugar 3 times per day lorazepam 0.5 mg PO DAILY PRN 2 days metformin ER 500 mg PO DAILY OneTouch Verio Flex meter (blood-glucose meter) As directed NS OneTouch Verio Meter (blood-glucose meter) TID testing NS OneTouch Verio test strips (blood sugar diagnostic) Test blood sugar 3 times per day NS ticagrelor (Brilinta) 90 mg PO BID trazodone 50 mg PO BEDTIME PRN Unithroid (levothyroxine) 175 mcg PO DAILY NS HPI Comments Details: Guadalupe is here for cardiology consultation. She recently came to [place] ER with chest discomfort. Found to have inferior STEMI. Then sent to [facility]- underwent PCI to RCA/LAD. After that, she states she is essentially back to normal self. Otherwise, she states she has had chest pains for the last few months but she related that to taking NSAIDs. She thought it was something esophageal in nature. Any case, after the hospitalization, she states she is feeling fine. No further chest pains. History of obesity, diabetes, hypertension. [facility] Medical History Ascending aorta dilatation SLE (systemic lupus erythematosus) PMR (polymyalgia rheumatica) Osteoarthritis of knees, bilateral Lichen planus Psoriasis Polyarthralgia NEELAM positive COVID-19 vaccine series completed History of lupus LILLI (obstructive sleep apnea) Dyslipidemia Morbid obesity Vitamin D deficiency Primary thyroid cancer Diabetes type 2, uncontrolled Post-surgical hypothyroidism Surgical History Hx of vascular surgery Hx of knee surgery History of medial meniscus repair of left knee History of thumb surgery History of foot surgery Hx of colonoscopy Hx of arthroscopy of right knee Hx of thyroidectomy Hx of cholecystectomy History of carpal tunnel release of both wrists Family History Father Diabetes Hypertension Colon cancer Mother Hypertension Thyroid disease Bile duct carcinoma Social History (Updated 07/30/24 @ 14:06 by Oliva Shepard) Housing: House Are you a primary career services officer to a significant other at home: No Do you presently have visiting nurse or other home services: No Alcohol intake: never Patient Tobacco Use Status: Former Tobacco user Tobacco use type: Cigarette Years Smoked: 5 years ago e-Cigarette/Vaping Use: Never Used Second Hand Smoke Exposure: Yes service: No Current occupational status: employed 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 Cognitive needs: No Hearing needs: No Vision needs: No Review of Systems Const Denies weakness ENT Denies dizziness Card Denies chest pain, Denies chest pain with activity, Denies syncope, Denies rapid heart rate, Denies pedal edema, Denies edema, Denies leg edema, Denies lightheadedness, Reports palpitations, Reports dyspnea, Reports dyspnea on exertion and Denies orthopnea Resp Denies cough, Reports dyspnea and Reports dyspnea on exertion GI Denies hematochezia and Denies change in stool character Musc Denies abnormal gait, Denies muscle cramps, Denies muscle weakness, Denies numbness, Denies radiating pain into limb and Denies tingling Neuro Denies abnormal gait, Denies dizziness, Denies syncope, Denies numbness, Denies tingling and Denies weakness Endo Reports palpitations Physical Exam Vital Signs: Last Vital Signs Pulse 80 07/30/24 14:01 BP 138/62 07/30/24 14:01 BMI result Body Mass Index 39.8 Const General: comfortable and no acute distress Orientation/consciousness: patient oriented x3 HEENT Other: Unremarkable Head: Yes normal to inspection Neck Neck: Yes normal visual inspection Chest Chest palpation & inspection: normal inspection of the chest Resp Auscultation: clear to auscultation bilaterally Cardio Palpation: normal PMI Heart sounds: S1 normal heart sound present, S2 normal heart sound present, no gallops, no murmurs and no rubs GI Palpation (GI): Soft to palpation Back/Spine/Pelvis Other: unremarkable Skin General skin exam: no rashes or lesions noted Neuro General: patient oriented x3 Extrem General: Yes normal to inspection Psych Mental Status: mental status grossly normal Assessment & Plan Assessment & Plan (1) Atherosclerotic cardiovascular disease: Code(s): I25.10 - Atherosclerotic heart disease of [place] coronary artery without angina pectoris Category: Medical (2) ST elevation myocardial infarction (STEMI) of inferior wall: Code(s): I21.19 - ST elevation (STEMI) myocardial infarction involving other coronary artery of inferior wall Category: Medical Plan Recent EKG shows evidence of inferior STEMI. ST-elevation inferior leads. Echocardiogram with LVEF of 60-65%; basal inferior/inferolateral akinesis. Moderate mitral annular calcification. Cardiac catheterization showed acute thrombotic occlusion of the mid RCA; severe mid LAD stenosis. Status post PCI of RCA as culprit for STEMI and PCI of severe LAD with drug-eluting stents. Continue dual antiplatelet therapy. Aspirin/ticagrelor. Continue beta-blockers and statins. Check lipids in a few weeks' time. If still abnormal, we can go up on the atorvastatin dose to 80 mg daily. Otherwise, recommend cardiac rehabilitation. She states there is already an order from [facility]. Follow-up in 2-3 months or so. Orders: Orders Lipid Panel 2 Months E78.5 - Hyperlipidemia, unspecified Liver Panel 2 Months I25.10 - Atherosclerotic heart disease of [place] coronary artery without angina pectoris Coding Level of Care Code New Pt Level 4 (44811) Diagnoses Atherosclerotic cardiovascular disease I25.10 ST elevation myocardial infarction (STEMI) of inferior wall I21.19
[2024-07-30 14:01] VITALS: BP 138/62; PULSE 80; BMI 39.8
== END 2024-07-30 14:32 | disposition home or self-care (01) ==
PROVIDERS: PCP Nurse Practitioner Family; Visit Provider Internal Medicine
DX: I21.19 ST elevation (STEMI) myocardial infarction involving other coronary artery of inferior wall (principal); I25.10 Atherosclerotic heart disease of native coronary artery without angina pectoris
CPT/HCPCS: 99214

== ENCOUNTER → 2024-07-30 13:58 | Outpatient (BNVA) | payer OTHER, SELFPAY | PROVIDERS: PCP Nurse Practitioner Family; Visit Provider Internal Medicine ==

== ENCOUNTER 2024-08-22 10:00 | Outpatient (RCR) | payer OTHER, SELFPAY | END 2024-09-12 13:56 | disposition home or self-care (01) | LOC: HO.CR 10:00 | PROVIDERS: PCP Nurse Practitioner Family; Visit Provider Internal Medicine | DX: Z95.5 Presence of coronary angioplasty implant and graft (principal) | CPT/HCPCS: 93798 ==

== ENCOUNTER 2024-08-25 21:50 | Observation (INO) | payer OTHER, SELFPAY ==
--- NOTE | 2024-08-25 21:51 | ECG_ITS ---
Test Reason : PALPITATIONS Blood Pressure : / mmHG Vent. Rate : 139 BPM Atrial Rate : 000 BPM P-R Int : 000 ms QRS Dur : 090 ms QT Int : 306 ms P-R-T Axes : 000 020 -27 degrees QTc Int : 465 ms Atrial fibrillation with rapid ventricular response Possible Inferior infarct , age undetermined Abnormal ECG When compared with ECG of 19-JUL-2024 08:29, Atrial fibrillation has replaced Sinus rhythm Vent. rate has increased BY 73 BPM Borderline criteria for Inferior infarct are now Present ST now depressed in Anterolateral leads T wave inversion now evident in Inferior leads Referred By: Generic ED Physician Electronically Signed By:EMILIANA ALDRIDGE MD
[2024-08-25 22:01] VITALS: BP 100/52; PULSE 137; RESP 18; TEMP 36.6; O2SAT 98; BMI 38.7
--- NOTE | 2024-08-25 22:16 | ED.ARRPALP ---
HPI - Arrhythmia/Palpitations General Chief Complaint: Arrhythmia/Palpitations Stated Complaint: chest pain Time Seen by Provider: 08/25/24 22:13 Source: patient Mode of arrival: ambulatory Limitations: no limitations History of Present Illness ED Provider: papi MACK narrative: Patient's history of coronary artery disease status post PCI to RCA/LAD 07/19/2024 on Brilinta with history of diabetes and history of lupus comes here for sudden onset of palpitation episode prior to arrival was feeling lightheaded heart rate was very rapid then when she came to the ER it was in 140s patient has denied any chest pain no recent intake of caffeine never had similar symptoms in the past Related Data Home Medications ?Medication ?Instructions ?Recorded ?Confirmed aspirin 81 mg tablet,delayed 81 mg PO DAILY 07/26/24 07/30/24 release (Adult Low Dose Aspirin) atorvastatin 40 mg tablet 40 mg PO DAILY 07/26/24 07/30/24 carvedilol 3.125 mg tablet 3.125 mg PO BID 07/26/24 07/30/24 ticagrelor 90 mg tablet (Brilinta) 90 mg PO BID 07/30/24 07/30/24 Previous Rx's ?Medication ?Instructions ?Recorded OneTouch Verio Meter #1 ea 11/03/22 (blood-glucose meter) albuterol sulfate 90 mcg/actuation 2 puff inhalation Q4-6H PRN 09/12/23 aerosol inhaler shortness of breath or wheezing #6.7 grams OneTouch Verio Flex meter #1 ea 09/23/23 (blood-glucose meter) OneTouch Verio test strips (blood #300 ea 09/23/23 sugar diagnostic) lancets 33 gauge (OneTouch Delica #300 ea 09/23/23 Plus Lancet) Unithroid 175 mcg tablet 175 mcg PO DAILY #30 tabs 04/25/24 (levothyroxine) lorazepam 0.5 mg tablet 0.5 mg PO DAILY PRN anxiety 2 days 05/02/24 #2 tabs metformin 500 mg tablet,extended 500 mg PO DAILY #90 tabs 05/29/24 release 24 hr trazodone 50 mg tablet 50 mg PO BEDTIME PRN sleep #30 tabs 07/26/24 Allergies Allergy/AdvReac Type Severity Reaction Status Date / Time moxifloxacin [From AVELOX] Allergy Severe PINS AND Verified 08/25/24 22:03 NEEDLE FEET AND PALMS- SWELLING oxycodone [Percocet] Allergy Intermediate Vomiting Verified 08/25/24 22:03 vancomycin [Vancomycin] Allergy Intermediate SWELLING/HIVES/THROAT Verified 08/25/24 22:03 CLOSING SENSATION codeine [Codeine] Allergy Mild HIVES Verified 08/25/24 22:03 Penicillins Allergy Mild HIVES Verified 08/25/24 22:03 propoxyphene [From Darvon] Allergy Mild FELT LIKE Verified 08/25/24 22:03 CHEST CLOSING UP / HIVES Sulfa (Sulfonamide Allergy Mild HIVES Verified 08/25/24 22:03 Antibiotics) [Sulfa (Sulfonamides)] dexamethasone AdvReac Intermediate muscle Verified 08/25/24 22:03 aches hydroxychloroquine AdvReac Mild hair loss Verified 08/25/24 22:03 [Plaquenil] Iodinated Contrast Media AdvReac Hives Verified 08/25/24 22:03 [IV Contrast Dye] Review of Systems Review of Systems: Yes all other systems are reviewed and are negative PMFSH Past Medical History Medical History Ascending aorta dilatation SLE (systemic lupus erythematosus) PMR (polymyalgia rheumatica) Osteoarthritis of knees, bilateral Lichen planus Psoriasis Polyarthralgia NEELAM positive COVID-19 vaccine series completed History of lupus LILLI (obstructive sleep apnea) Dyslipidemia Morbid obesity Vitamin D deficiency Primary thyroid cancer Diabetes type 2, uncontrolled Post-surgical hypothyroidism Surgical History Hx of vascular surgery Hx of knee surgery History of medial meniscus repair of left knee History of thumb surgery History of foot surgery Hx of colonoscopy Hx of arthroscopy of right knee Hx of thyroidectomy Hx of cholecystectomy History of carpal tunnel release of both wrists Family History Family History Father Diabetes Hypertension Colon cancer Mother Hypertension Thyroid disease Bile duct carcinoma Social History Social History Housing: House Are you a primary career technical education instructor to a significant other at home: No Do you presently have visiting nurse or other home services: No Alcohol intake: never Patient Tobacco Use Status: Former Tobacco user Tobacco use type: Cigarette Years Smoked: 5 years ago e-Cigarette/Vaping Use: Never Used Second Hand Smoke Exposure: Yes service: No Current occupational status: employed 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 Oriented X3. No acute distress. Eyes: No pallor or icterus ENT: Pharynx normal. Oral Mucosa moist Neck: Normal inspection. Neck supple. CVS: Irregularly irregular rapid heart rate no murmur. Pulses normal. Respiratory: No respiratory distress. Equal air entry bilateral, no wheezing/rales/rhonchi Abdomen: Soft and nontender. Bowel sounds are present, no mass palpable, no CVA tenderness Skin: Skin warm and dry. Normal skin color. Normal skin turgor. Extremities: No lower extremity edema. No calf tenderness Neuro: Oriented X 3. No motor deficit. Medications Administered Generic Name Dose Route Start Last Admin Trade Name Freq PRN Reason Stop Dose Admin Enoxaparin Sodium 40 mg 08/26/24 02:00 08/26/24 02:22 Enoxaparin Sodium 40 Mg/0.4 Ml Syringe SUBCUT Not Given Q24H BRADEN Discontinued Medications Generic Name Dose Route Start Last Admin Trade Name Freq PRN Reason Stop Dose Admin Diltiazem HCl 10 mg 08/25/24 22:17 08/25/24 22:19 Diltiazem Hcl 50 Mg/10 Ml Vial IVPUSH 08/25/24 22:18 10 mg STAT STA Administration Diltiazem HCl 10 mg 08/25/24 23:11 08/25/24 23:14 Diltiazem Hcl 50 Mg/10 Ml Vial IVPUSH 08/25/24 23:12 10 mg STAT STA Administration Sodium Chloride 1,000 mls @ 999 mls/hr 08/26/24 00:45 08/26/24 01:52 Ns IV 08/26/24 01:45 Infused .Q1H1M BRADEN Infusion Medical Decision Making Medical Decision Making [facility] Narrative: Patient has new onset AFib with rapid ventricular rate will admit to hospitalist service patient is on Brilinta and aspirin started on Cardizem rate control At 03:00 patient felt better analytical lead showed normal sinus rhythm already admitted to the service Differential Diagnosis Differential Diagnoses: The differential diagnosis associated with the presentation includes SVT/AFib/atrial flutter Admission/Observation Consideration of admission/observation: Escalation of care including admission/observation considered Consult Healthcare Provider Management of the patient was discussed with: Hospitalist Lab Data [facility] Lab Attestation statement: I reviewed the patient's lab results. 08/26/24 06:53 08/25/24 22:16 Labs: Lab Results 08/25/24 Range/Units 22:16 WBC 8.2 (4.8-10.8) X10*3/uL RBC 5.01 (4.20-5.50) X10*6/uL Hgb 12.6 (12.0-16.0) g/dl Hct 37.9 (37.0-47.0) % MCV 75.6 L (80.0-98.0) fL MCH 25.1 L (27.0-33.0) pg MCHC 33.2 (31.0-35.0) g/dl RDW 14.5 (11.0-16.0) % Plt Count 225 (160-400) X10*3/uL MPV 9.7 (9.4-12.3) fL Immature Gran % (Auto) 0.1 (0.0-0.4) % Neut % (Auto) 65.7 (45-73) % Lymph % (Auto) 25.5 (20-40) % [place] % (Auto) 5.9 (2-11) % Eos % (Auto) 2.1 (0-4) % Baso % (Auto) 0.7 (0-2) % Lymph # (Auto) 2.1 (1.2-4.9) X10*3/uL [place] # (Auto) 0.5 (0.1-1.2) X10*3/uL Eos # (Auto) 0.2 (0.0-0.4) X10*3/uL Baso # (Auto) 0.1 (0.0-0.2) X10*3/uL Abs Immat Gran (auto) 0.01 (0.00-0.03) X10*3/uL Absolute Neuts (auto) 5.4 (2.0-8.3) x10*3/uL Absolute Nucleated RBC 0.000 (0.0-0.012) X10*3/uL Nucleated RBC % (auto) 0.0 (0.0-0.2) /100WBC Sodium 141 (135-145) mmol/L Potassium 3.7 (3.3-5.1) mmol/L Chloride 109 H (96-108) mmol/L Carbon Dioxide 22 (22-29) mmol/L Anion Gap 14 (12-20) BUN 13 (9-16) mg/dL Creatinine 0.82 (0.5-1.4) mg/dL Estim Creat Clear Calc 87.6 Estimated GFR > 60 Random Glucose 138 H (60-115) mg/dL Calcium 9.8 (8.4-10.2) mg/dL Troponin I High Sens 7.4 D (<3.5-17.0) ng/L Independent Interpretation I performed an independent interpretation of an: EKG Interpretation: Atrial fibrillation with ventricular rate of [address]-T changes no acute ischemia Discharge Plan Discharge Clinical Impression: Atrial fibrillation with rapid ventricular response Patient Disposition: Admitted As Inpatient Interventions: Admission Worksheet (ED) Last Done: 08/26/24 02:14 Discharge Date/Time: 08/26/24 03:44
[2024-08-25 22:19] VITALS: BP 118/84; PULSE 145
[2024-08-25] MEDS: dilTIAZem HCL 50 MG/10 ML VIAL 10 MG IVPUSH ×2 (22:19→23:14)
[2024-08-25 22:21] VITALS: BP 117/79; PULSE 113; RESP 15; O2SAT 97
[2024-08-25 22:22] LABS: Basophils Absolute Auto 0.1 X10*3/uL (0.0-0.2); Basophils Percent Auto 0.7 % (0-2); Eosinophils Absolute Auto 0.2 X10*3/uL (0.0-0.4); Eosinophils Percent Auto 2.1 % (0-4); Hematocrit 37.9 % (37.0-47.0); Hemoglobin 12.6 g/dl (12.0-16.0); Imm Gran Abs Auto 0.01 X10*3/uL (0.00-0.03); Imm Gran Pct Auto 0.1 % (0.0-0.4); Lymphocytes Absolute Auto 2.1 X10*3/uL (1.2-4.9); Lymphocytes Percent Auto 25.5 % (20-40); MANUAL DIFF FLAG NO; Mean Corpuscular HGB Conc 33.2 g/dl (31.0-35.0); Mean Corpuscular Hemoglobin 25.1 pg (27.0-33.0); Mean Corpuscular Volume 75.6 fL (80.0-98.0); Mean Platelet Volume 9.7 fL (9.4-12.3); Monocytes Absolute Auto 0.5 X10*3/uL (0.1-1.2); Monocytes Percent Auto 5.9 % (2-11); Neutrophils Absolute Auto 5.4 x10*3/uL (2.0-8.3); Neutrophils Percent Auto 65.7 % (45-73); Platelet Count 225 X10*3/uL (160-400); Red Blood Count 5.01 X10*6/uL (4.20-5.50); Red Cell Distribution Width 14.5 % (11.0-16.0); White Blood Count 8.2 X10*3/uL (4.8-10.8)
[2024-08-25 22:23] VITALS: PULSE 104; RESP 13; O2SAT 98
--- NOTE | 2024-08-25 22:34 | PC.NURSE ---
this rn assumed care of pt, pt brought from waiting room to room. pt reporting onset of sudden heart palpitations, reports hx of a heart attack 2 weeks ago. pt on arrival into room, pt in rapid afib on tele, 130-140s. pt denies chest pain. called to bedside, pt medicated per jan, pt heart rate decreased to 115/120bpm. pt refused IV in upper arm, 22G placed in left hand.
[2024-08-25 22:40] LABS: Anion Gap 14 (12-20); Blood Urea Nitrogen 13 mg/dL (9-16); Calcium 9.8 mg/dL (8.4-10.2); Carbon Dioxide 22 mmol/L (22-29); Chloride 109 mmol/L (96-108); Creatinine Clr Calc Pharmacy 87.6; Estimated Glomerular Filt Rate > 60; Glucose Random 138 mg/dL (60-115); Potassium 3.7 mmol/L (3.3-5.1); Sodium 141 mmol/L (135-145)
[2024-08-25 22:42] LABS: Troponin-I High Sensitivity 7.4 ng/L (<3.5-17.0)
[2024-08-25 23:14] VITALS: BP 113/53; PULSE 114
--- NOTE | 2024-08-25 23:16 | PC.NURSE ---
pt heart rate noted to be 115-125bpm. pt given second dose of medication. pt noted to be 91-94bpm
[2024-08-26] MEDS: 0.9 % Sodium Chloride 1,000 ML 999 ML IV (00:48)
[2024-08-26 01:07] VITALS: BP 94/54; PULSE 88; RESP 16; O2SAT 98
--- NOTE | 2024-08-26 01:39 | P.HPHOSP_ITS ---
History of Present Illness Date of Service: 08/26/24 Chief Complaint: Palpitations This is a 64-year-old female with pertinent history of CAD status post stent x4, iatrogenic hypothyroidism, SLE, polymyalgia rheumatica, LILLI not on CPAP, [id number] diabetes mellitus who presents to the emergency department for evaluation of palpitations. Patient states she had sudden onset of palpitations while she was getting ready to go to bed. She was resting at the time of palpitations. This has never happened before. It lasted till the patient came to the ER. She is compliant with her thyroid supplementation. No chest pain or shortness of breath. Patient underwent a stent placement on July 19 and has been on dual antiplatelet therapy since. No fever, chills, abdominal pain, nausea, vomiting, changes in urinary or bowel habits. In the emergency department, patient was found to be in AFib with RVR and given IV diltiazem. [facility] Medical History Ascending aorta dilatation SLE (systemic lupus erythematosus) PMR (polymyalgia rheumatica) Osteoarthritis of knees, bilateral Lichen planus Psoriasis Polyarthralgia NEELAM positive COVID-19 vaccine series completed History of lupus LILLI (obstructive sleep apnea) Dyslipidemia Morbid obesity Vitamin D deficiency Primary thyroid cancer Diabetes type 2, uncontrolled Post-surgical hypothyroidism Family History Father Diabetes Hypertension Colon cancer Mother Hypertension Thyroid disease Bile duct carcinoma Surgical History Hx of vascular surgery Hx of knee surgery History of medial meniscus repair of left knee History of thumb surgery History of foot surgery Hx of colonoscopy Hx of arthroscopy of right knee Hx of thyroidectomy Hx of cholecystectomy History of carpal tunnel release of both wrists Social History Housing: House Are you a primary auto care center manager to a significant other at home: No Do you presently have visiting nurse or other home services: No Alcohol intake: never Patient Tobacco Use Status: Former Tobacco user Tobacco use type: Cigarette Years Smoked: 5 years ago Smoked in Last 30 Days: No e-Cigarette/Vaping Use: Never Used Second Hand Smoke Exposure: Yes Use of substances other than those prescribed or required for medical reasons: No Advance Directives: No Advance Directives Information Provided: No Patient : No service: No Current occupational status: employed Current occupation: [employer] 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 Cognitive needs: No Hearing needs: No Vision needs: No Meds Allergies Allergy/AdvReac Type Severity Reaction Status Date / Time moxifloxacin [From AVELOX] Allergy Severe PINS AND Verified 08/25/24 22:03 NEEDLE FEET AND PALMS- SWELLING oxycodone [Percocet] Allergy Intermediate Vomiting Verified 08/25/24 22:03 vancomycin [Vancomycin] Allergy Intermediate SWELLING/HIVES/THROAT Verified 08/25/24 22:03 CLOSING SENSATION codeine [Codeine] Allergy Mild HIVES Verified 08/25/24 22:03 Penicillins Allergy Mild HIVES Verified 08/25/24 22:03 propoxyphene [From Darvon] Allergy Mild FELT LIKE Verified 08/25/24 22:03 CHEST CLOSING UP / HIVES Sulfa (Sulfonamide Allergy Mild HIVES Verified 08/25/24 22:03 Antibiotics) [Sulfa (Sulfonamides)] dexamethasone AdvReac Intermediate muscle Verified 08/25/24 22:03 aches hydroxychloroquine AdvReac Mild hair loss Verified 08/25/24 22:03 [Plaquenil] Iodinated Contrast Media AdvReac Hives Verified 08/25/24 22:03 [IV Contrast Dye] Active Medications: Current Medications Acetaminophen (Acetaminophen 325 Mg Tablet) 650 mg PO Q6H PRN PRN Reason: Pain, Mild (Pain Scale 1-3), fever or headache Calcium Carbonate (Calcium Carbonate 750 Mg Tab.Chew) 750 mg PO Q4H PRN PRN Reason: Heartburn Enoxaparin Sodium (Enoxaparin Sodium 40 Mg/0.4 Ml Syringe) 40 mg SUBCUT Q24H BRADEN Sodium Chloride (Ns) 1,000 mls @ 999 mls/hr IV .Q1H1M BRADEN Stop: 08/26/24 01:45 Last Admin: 08/26/24 00:48 Dose: 999 mls/hr Diltiazem HCl 125 mg/ Sodium (Chloride) 125 mls @ 0 mls/hr IVCONT .Q0M BRADEN; Protocol Magnesium Hydroxide (Milk Of Magnesia 30 Ml Oral.Susp) 30 ml PO DAILY PRN PRN Reason: Constipation Melatonin (Melatonin 3 Mg Tablet) 6 mg PO BEDTIME PRN PRN Reason: Insomnia Ondansetron HCl (Ondansetron Hcl 4 Mg/2 Ml Vial) 4 mg IVPUSH Q8H PRN PRN Reason: Nausea and Vomiting Sodium Chloride (0.9 % Sodium Chloride Flush 3 Ml Syringe) [facility] Medications ?Medication ?Instructions ?Recorded ?Confirmed ?Last Taken ?Type aspirin 81 mg tablet,delayed 81 mg PO DAILY 07/26/24 07/30/24 Unknown History release (Adult Low Dose Aspirin) atorvastatin 40 mg tablet 40 mg PO DAILY 07/26/24 07/30/24 Unknown History carvedilol 3.125 mg tablet 3.125 mg PO BID 07/26/24 07/30/24 Unknown History ticagrelor 90 mg tablet (Brilinta) 90 mg PO BID 07/30/24 07/30/24 Unknown History Physical Exam 2 Vital Signs and Narrative: Vital Signs: Last Vital Signs Temp 97.8 F 08/25/24 22:01 Pulse 88 08/26/24 01:07 Resp 16 08/26/24 01:07 BP 94/54 L 08/26/24 01:07 Pulse Ox 98 08/26/24 01:07 O2 Del Method Room Air 08/26/24 01:07 BMI result Body Mass Index 38.7 Middle-aged female lying in bed in no distress Neck supple, no JVD Irregularly irregular, S1-S2 heard Regular breath sounds bilaterally, no wheezing or crackles appreciated Abdomen soft nontender, no guarding, no rigidity Patient is awake, alert and oriented to self, place, time and person ; no focal motor deficit Psych: Normal mood No pedal edema Results Labs 08/25/24 22:16 08/25/24 22:16 Labs: Laboratory Results - last 24 hr 08/25/24 22:16 MCV 75.6 L MCH 25.1 L MCHC 33.2 RDW 14.5 Plt Count 225 MPV 9.7 Immature Gran % (Auto) 0.1 Neut % (Auto) 65.7 Lymph % (Auto) 25.5 [place] % (Auto) 5.9 Eos % (Auto) 2.1 Baso % (Auto) 0.7 Lymph # (Auto) 2.1 [place] # (Auto) 0.5 Eos # (Auto) 0.2 Baso # (Auto) 0.1 Abs Immat Gran (auto) 0.01 Absolute Neuts (auto) 5.4 Absolute Nucleated RBC 0.000 Nucleated RBC % (auto) 0.0 Anion Gap 14 Estim Creat Clear Calc 87.6 Estimated GFR > 60 Random Glucose 138 H Calcium 9.8 Troponin I High Sens 7.4 D Assessment and Plan (1) Atrial fibrillation with RVR: Status: Acute Plan This is a 64-year-old female with pertinent history of CAD status post stent x4, iatrogenic hypothyroidism, SLE, polymyalgia rheumatica, LILLI not on CPAP, [id number] diabetes mellitus who presents to the emergency department for evaluation of palpitations. #. AFib with RVR: New onset. Will admit patient with cardiac monitoring. Obtaining TSH and echocardiogram. Rate controlled with IV diltiazem in the ER. Appreciate cardiology. Chads Vasc score 3, will benefit from anticoagulation #. CAD status post stent: On dual antiplatelet therapy and high-intensity statin #. Iatrogenic hypothyroidism: On thyroid supplementation #. Pag-[id number] diabetes mellitus: Initiating Accu-Cheks with sliding scale insulin before meals and at bedtime #. Obesity: Counseled regarding diet and exercise Med rec pending DVT prophylaxis: Lovenox Full code Quality Stroke Does the patient have a stroke diagnosis?: No VTE Prior VTE?: No VTE Risk Level:: Medical - moderate - high VTE Device Contraindication: Treatment Not Indicated VTE Drug Contraindication: N/A - Med Ordered
--- NOTE | 2024-08-26 03:24 | ECG_ITS ---
Test Reason : REPEAT Blood Pressure : / mmHG Vent. Rate : 075 BPM Atrial Rate : 075 BPM P-R Int : 160 ms QRS Dur : 088 ms QT Int : 374 ms P-R-T Axes : 052 006 008 degrees QTc Int : 417 ms Normal sinus rhythm Inferior infarct (cited on or before 19-JUL-2024) Abnormal ECG When compared with ECG of 25-AUG-2024 21:51, Sinus rhythm has replaced Atrial fibrillation Vent. rate has decreased BY [address] elevation has replaced ST depression in Lateral leads Referred By: Justice Torres Electronically Signed By:EMILIANA ALDRIDGE MD
[2024-08-26 03:52] VITALS: BMI 40.7
[2024-08-26 04:00] VITALS: BP 107/57; PULSE 70; RESP 20; TEMP 36.4; O2SAT 99
[2024-08-26 07:18] LABS: MANUAL DIFF FLAG NO
[2024-08-26 07:40] LABS: Basophils Percent Auto 0.6 % (0-2); Eosinophils Absolute Auto 0.1 X10*3/uL (0.0-0.4); Eosinophils Percent Auto 2.6 % (0-4); Hematocrit 34.2 % (37.0-47.0); Imm Gran Abs Auto 0.02 X10*3/uL (0.00-0.03); Imm Gran Pct Auto 0.4 % (0.0-0.4); Lymphocytes Absolute Auto 1.6 X10*3/uL (1.2-4.9); Lymphocytes Percent Auto 29.1 % (20-40); Mean Corpuscular HGB Conc 32.2 g/dl (31.0-35.0); Mean Corpuscular Hemoglobin 24.9 pg (27.0-33.0); Mean Corpuscular Volume 77.6 fL (80.0-98.0); Mean Platelet Volume 10.1 fL (9.4-12.3); Monocytes Absolute Auto 0.3 X10*3/uL (0.1-1.2); Monocytes Percent Auto 6.3 % (2-11); Neutrophils Absolute Auto 3.3 x10*3/uL (2.0-8.3); Platelet Count 174 X10*3/uL (160-400); Red Blood Count 4.41 X10*6/uL (4.20-5.50); Red Cell Distribution Width 14.5 % (11.0-16.0); White Blood Count 5.4 X10*3/uL (4.8-10.8)
[2024-08-26 07:57] LABS: Anion Gap 13 (12-20); Blood Urea Nitrogen 14 mg/dL (9-16); Calcium 8.8 mg/dL (8.4-10.2); Carbon Dioxide 23 mmol/L (22-29); Chloride 110 mmol/L (96-108); Creatinine Clr Calc Pharmacy 110.2; Estimated Glomerular Filt Rate > 60; Glucose Random 107 mg/dL (60-115); Potassium 3.8 mmol/L (3.3-5.1); Sodium 142 mmol/L (135-145)
[2024-08-26 08:00] VITALS: BP 122/58; PULSE 75; RESP 16; TEMP 36.2; O2SAT 99
[2024-08-26 08:05] LABS: Thyroid Stimulating Hormone 0.99 uIU/mL (0.32-4.0)
--- NOTE | 2024-08-26 08:19 | PHA.MEDREC ---
Pharmacy Consult ? Medication Reconciliation Pharmacy has completed the medication reconciliation. Spoke with patient to confirm medications. Pt is no longer on the albuterol inhaler.
[2024-08-26] MEDS: 0.9 % Sodium Chloride Flush 3 ML SYRINGE IVFLUSH (08:23)
[2024-08-26 08:26] LABS: Glucose, Whole Blood 112 mg/dL (60-115)
[2024-08-26] MEDS: Atorvastatin Calcium 40 MG TABLET PO (08:59)
[2024-08-26] MEDS: Aspirin Enteric Coated 81 MG TABLET.DR PO (08:59)
[2024-08-26] MEDS: carvediloL 3.125 MG TABLET PO (09:00)
[2024-08-26] MEDS: Levothyroxine Sodium 175 MCG TABLET PO (09:00)
[2024-08-26] MEDS: Apixaban 5 MG TABLET PO (09:01)
[2024-08-26] MEDS: Ticagrelor 90 MG TABLET PO (09:01)
--- NOTE | 2024-08-26 09:39 | P.PNIM_ITS ---
Subjective Subjective Date of Service: 08/26/24 Interval History: palpitations resolved Physical Exam 2 Vital Signs: Vital Signs: Last Vital Signs Temp 97.2 F 08/26/24 08:00 Pulse 75 08/26/24 08:00 Resp 16 08/26/24 08:00 BP 122/58 L 08/26/24 08:00 Pulse Ox 99 08/26/24 08:00 O2 Del Method Room Air 08/26/24 08:00 BMI result Body Mass Index 40.7 General: AO X 3, no acute distress Resp: CTA bilateral, no accessory muscles used CVS: S1,S2,RRR GI: soft, non tender, non distended Neuro: motor grossly intact, alert Psych: appropriate affect, appropriate insight Objective Data Active Medications Acetaminophen (Acetaminophen 325 Mg Tablet) 650 mg PO Q6H PRN PRN Reason: Pain, Mild (Pain Scale 1-3), fever or headache Apixaban (Apixaban 5 Mg Tablet) 5 mg PO BID [facility] Last Admin: 08/26/24 09:01 Dose: 5 mg Documented By: TOH Aspirin (Aspirin Enteric Coated 81 Mg Tablet.Dr) 81 mg PO DAILY [facility] Last Admin: 08/26/24 08:59 Dose: 81 mg Documented By: THO Atorvastatin Calcium (Atorvastatin Calcium 40 Mg Tablet) 40 mg PO DAILY [facility] Last Admin: 08/26/24 08:59 Dose: 40 mg Documented By: THO Calcium Carbonate (Calcium Carbonate 750 Mg Tab.Chew) 750 mg PO Q4H PRN PRN Reason: Heartburn Carvedilol (Carvedilol 3.125 Mg Tablet) 3.125 mg PO BID [facility]; Protocol Last Admin: 08/26/24 09:00 Dose: 3.125 mg Documented By: THO Glucose (Glucose Gel 15 Gm Gel..Gram.) 15 gm PO Q15M PRN; Protocol PRN Reason: per Hypoglycemia Standing Ord. Diltiazem HCl 125 mg/ Sodium (Chloride) 125 mls @ 0 mls/hr IVCONT .Q0M [facility]; Protocol Dextrose (D10) 250 mls @ 750 mls/hr IV Q15M PRN; Protocol PRN Reason: per Hypoglycemia Standing Ord. Insulin Human Lispro (Insulin Lispro 100 Unit/Ml 3 Ml Vial) 0 unit SUBCUT QIDACHS [facility]; Protocol Last Admin: 08/26/24 08:22 Dose: Not Given Documented By: THO Non-Admin Reason: poc= 112 Levothyroxine Sodium (Levothyroxine Sodium 175 Mcg Tablet) 175 mcg PO DAILY@0600 [facility] Last Admin: 08/26/24 09:00 Dose: 175 mcg Documented By: THO Lorazepam (Lorazepam 0.5 Mg Tablet) 0.5 mg PO DAILY PRN PRN Reason: anxiety Magnesium Hydroxide (Milk Of Magnesia 30 Ml Oral.Susp) 30 ml PO DAILY PRN PRN Reason: Constipation Melatonin (Melatonin 3 Mg Tablet) 6 mg PO BEDTIME PRN PRN Reason: Insomnia Ondansetron HCl (Ondansetron Hcl 4 Mg/2 Ml Vial) 4 mg IVPUSH Q8H PRN PRN Reason: Nausea and Vomiting Sodium Chloride (0.9 % Sodium Chloride Flush 3 Ml Syringe) 3 ml IVFLUSH QSHIFT [facility] Last Admin: 08/26/24 08:23 Dose: 3 ml Documented By: THO Ticagrelor (Ticagrelor 90 Mg Tablet) 90 mg PO BID [facility] Last Admin: 08/26/24 09:01 Dose: 90 mg Documented By: THO Trazodone HCl (Trazodone Hcl 50 Mg Tablet) 50 mg PO BEDTIME PRN PRN Reason: sleep Labs 08/26/24 06:53 08/26/24 06:53 Labs: Laboratory Results - last 24 hr 08/25/24 08/26/24 08/26/24 22:16 06:53 06:53 MCV 75.6 L 77.6 L MCH 25.1 L 24.9 L MCHC 33.2 32.2 RDW 14.5 14.5 Plt Count 225 174 MPV 9.7 10.1 Immature Gran % (Auto) 0.1 0.4 Neut % (Auto) 65.7 61.0 Lymph % (Auto) 25.5 29.1 [place] % (Auto) 5.9 6.3 Eos % (Auto) 2.1 2.6 Baso % (Auto) 0.7 0.6 Lymph # (Auto) 2.1 1.6 [place] # (Auto) 0.5 0.3 Eos # (Auto) 0.2 0.1 Baso # (Auto) 0.1 0.0 Abs Immat Gran (auto) 0.01 0.02 Absolute Neuts (auto) 5.4 3.3 Absolute Nucleated RBC 0.000 0.000 Nucleated RBC % (auto) 0.0 0.0 Anion Gap 14 13 Estim Creat Clear Calc 87.6 110.2 Estimated GFR > 60 > 60 POC Glucose Random Glucose 138 H 107 Calcium 9.8 8.8 D Troponin I High Sens 7.4 D TSH 0.99 Cancelled 08/26/24 08:11 MCV MCH MCHC RDW Plt Count MPV Immature Gran % (Auto) Neut % (Auto) Lymph % (Auto) [place] % (Auto) Eos % (Auto) Baso % (Auto) Lymph # (Auto) [place] # (Auto) Eos # (Auto) Baso # (Auto) Abs Immat Gran (auto) Absolute Neuts (auto) Absolute Nucleated RBC Nucleated RBC % (auto) Anion Gap Estim Creat Clear Calc Estimated GFR POC Glucose 112 Random Glucose Calcium Troponin I High Sens TSH Assessment and Plan (1) Atrial fibrillation with rapid ventricular response: Status: Acute Plan 64F PMH coronary disease status post STEMI 08/03/2024 with stent placement, thyroid CA status post thyroidectomy, SLE, PMR, LILLI not on CPAP, diabetes presented with palpitations found to be in AFib with RVR New onset AFib with RVR Now in normal sinus rhythm, continue carvedilol, started on Eliquis, follow up Cardiology Coronary artery disease Dual antiplatelet, statin Post thyroidectomy hypothyroidism Continue with levothyroxine Diabetes Insulin sliding scale Obesity Weight loss recommended DVT prophylaxis with Eliquis Full Code reason for continued hospitalization: Cardio eval Quality Stroke Does the patient have a stroke diagnosis?: No VTE Prior VTE?: No VTE Risk Level:: Medical - moderate - high VTE Device Contraindication: Treatment Not Indicated VTE Drug Contraindication: N/A - Med Ordered
--- NOTE | 2024-08-26 11:13 | P.DS_ITS ---
DS: Providers Provider Date of Service: 08/26/24 Date of admission: 08/26/24 01:33 Date of discharge: 08/26/24 Primary care physician: JONATHAN HernandezP- Consults: 08/26/24 01:38 Consult to Cardiology Routine Consulting Provider: [facility] [place] [facility] [place] [facility] Reason for consultation: new onset aib Has provider been notified: Yes DS: Diagnosis Discharge Diagnosis (1) Atrial fibrillation with rapid ventricular response: Status: Acute DS: Summary Hospital Course Hospital Course: from initial hpi: 64-year-old female with pertinent history of CAD status post stent x4, iatrogenic hypothyroidism, SLE, polymyalgia rheumatica, LILLI not on CPAP, [id number] diabetes mellitus who presents to the emergency department for evaluation of palpitations. Patient states she had sudden onset of palpitations while she was getting ready to go to bed. She was resting at the time of palpitations. This has never happened before. It lasted till the patient came to the ER. She is compliant with her thyroid supplementation. No chest pain or shortness of breath. Patient underwent a stent placement on July 19 and has been on dual antiplatelet therapy since. No fever, chills, abdominal pain, nausea, vomiting, changes in urinary or bowel habits. In the emergency department, patient was found to be in AFib with RVR and given IV diltiazem. hospital course: Patient was admitted for new onset atrial fibrillation with rapid ventricular response. Was initially put on diltiazem infusion and converted to normal sinus rhythm. Patient was seen by Cardiology who recommended increasing carvedilol to 6.25 mg b.i.d. and starting on apixaban. Her aspirin was discontinued. For coronary disease aspirin discontinued as mentioned will continue on Brilinta and apixaban started, will continue on statin. For post thyroidectomy hypothyroidism was continued on thyroid supplement, for diabetes was continued on insulin sliding scale. For obesity weight loss recommended. Patient is feeling better will be discharged home Time Attestation Discharge Coordination Time (in mins): 35 Quality: Safe Use of Opioids Does Pt have an Active Cancer Diagnosis on the Problem List?: No Quality: Stroke Does the patient have a stroke diagnosis?: No Physical Exam Vital Signs: Vital Signs: Last Vital Signs Temp 97.2 F 08/26/24 08:00 Pulse 75 08/26/24 08:00 Resp 16 08/26/24 08:00 BP 122/58 L 08/26/24 08:00 Pulse Ox 99 08/26/24 08:00 O2 Del Method Room Air 08/26/24 08:00 BMI result Body Mass Index 40.7 General: AO X 3, no acute distress Resp: CTA bilateral, no accessory muscles used CVS: S1,S2,RRR GI: soft, non tender, non distended Neuro: motor grossly intact, alert Psych: appropriate affect, appropriate insight DS: Data Data Completed and Pending Labs on day of discharge: Laboratory Results - last 24 hr 08/25/24 08/26/24 08/26/24 22:16 06:53 06:53 WBC 8.2 5.4 RBC 5.01 4.41 Hgb 12.6 11.0 L Hct 37.9 34.2 L MCV 75.6 L 77.6 L MCH 25.1 L 24.9 L MCHC 33.2 32.2 RDW 14.5 14.5 Plt Count 225 174 MPV 9.7 10.1 Immature Gran % (Auto) 0.1 0.4 Neut % (Auto) 65.7 61.0 Lymph % (Auto) 25.5 29.1 [place] % (Auto) 5.9 6.3 Eos % (Auto) 2.1 2.6 Baso % (Auto) 0.7 0.6 Lymph # (Auto) 2.1 1.6 [place] # (Auto) 0.5 0.3 Eos # (Auto) 0.2 0.1 Baso # (Auto) 0.1 0.0 Abs Immat Gran (auto) 0.01 0.02 Absolute Neuts (auto) 5.4 3.3 Absolute Nucleated RBC 0.000 0.000 Nucleated RBC % (auto) 0.0 0.0 Sodium 141 142 Potassium 3.7 3.8 Chloride 109 H 110 H Carbon Dioxide 22 23 Anion Gap 14 13 BUN 13 14 Creatinine 0.82 0.67 Estim Creat Clear Calc 87.6 110.2 Estimated GFR > 60 > 60 POC Glucose Random Glucose 138 H 107 Calcium 9.8 8.8 D Troponin I High Sens 7.4 D TSH 0.99 Cancelled 08/26/24 08:11 WBC RBC Hgb Hct MCV MCH MCHC RDW Plt Count MPV Immature Gran % (Auto) Neut % (Auto) Lymph % (Auto) [place] % (Auto) Eos % (Auto) Baso % (Auto) Lymph # (Auto) [place] # (Auto) Eos # (Auto) Baso # (Auto) Abs Immat Gran (auto) Absolute Neuts (auto) Absolute Nucleated RBC Nucleated RBC % (auto) Sodium Potassium Chloride Carbon Dioxide Anion Gap BUN Creatinine Estim Creat Clear Calc Estimated GFR POC Glucose 112 Random Glucose Calcium Troponin I High Sens TSH Discharge Plan Discharge Anticipated Discharge Date/Time: 08/26/24 11:05 Patient Disposition: Home, Self-Care Discharge Diagnosis: afib rvr Referrals: Christian Robertson, NURSING TECH-BC [Primary Care Provider] - 1 Week Discharge Medications: New Eliquis 5 mg Tablet 5 mg PO BID Qty: 180 0RF carvedilol 6.25 mg tablet 6.25 mg PO BID Qty: 180 0RF Rx Instructions: must administer with a meal/food Continued (DME) blood-glucose meter [OneTouch Verio Flex meter] Mis See Rx Instructions .Route Qty: 1 0RF Rx Instructions: As directed (DME) lancets [OneTouch Delica Plus Lancet] 33 gauge [facility] See Rx Instructions .Route Qty: 300 1RF Rx Instructions: Test blood sugar 3 times per day (DME) OneTouch Verio test strips Strip See Rx Instructions .Route Qty: 300 1RF Rx Instructions: Test blood sugar 3 times per day lorazepam 0.5 mg tablet 0.5 mg PO DAILY PRN (Reason: anxiety) 2 Days Qty: 2 0RF metformin 500 mg tablet extended release 24 hr 500 mg PO DAILY Qty: 90 1RF levothyroxine [Unithroid] 175 mcg tablet 175 mcg PO DAILY@0600 (DME) blood-glucose meter [OneTouch Verio Meter] [facility] See Rx Instructions .Route Qty: 1 0RF Rx Instructions: TID testing atorvastatin 40 mg tablet 40 mg PO DAILY trazodone 50 mg tablet 50 mg PO BEDTIME PRN (Reason: sleep) Qty: 30 0RF Brilinta 90 mg tablet 90 mg PO BID Discontinued aspirin [Adult Low Dose Aspirin] 81 mg tablet,delayed release (DR/EC) 81 mg PO DAILY carvedilol 3.125 mg tablet 3.125 mg PO BID Rx Instructions: must administer with a meal/food Discharge Orders: Discharge Order (Routine); Ordered 08/26/24 Ordered By: Todd Yuan Diet: Advance to usual diet Activity on Discharge: As tolerated Stand Alone Forms: Patient Portal Discharge page Print Language: Panamanian Care Plan Goals: Recovery Health Concerns: New AFib Plan of Treatment: Increase carvedilol to 6.25 mg twice daily, started on apixaban 5 mg twice daily, aspirin discontinued Assessment: See above
--- NOTE | 2024-08-26 11:13 | P.CONCA_ITS ---
History of Present Illness History of Present Illness Date of Service: 08/26/24 Requesting physician: Todd Yuan Consult reason: atrial fibrillation Chief complaint: palpitations Narrative: I was consulted to see Guadalupe in cardiology consultation today for new onset atrial fibrillation. She is a pleasant 63-year-old female with prior history of lupus, hypertension, recent inferior STEMI status post RCA and LAD drug-eluting stent. [facility]ocardiogram at [facility] showed preserved LV ejection fraction of 60 65% with basal inferior inferolateral wall motion abnormality persistent post stenting. Patient has been doing well and participate in cardiac rehab. Yesterday was in his usual state of health with no clear triggers started developing symptoms of palpitations while she was resting. Symptoms then persisted and she presented emergency room where she was noted to be in atrial fibrillation rapid ventricular response. She was then treated with rate control and converted back to sinus rhythm. Since then she has remained in sinus rhythm. Troponins are negative. Post EKG inferior Q-waves are noted with some ST elevation most likely suggestive of inferior basal aneurysmal change post [place]. she had no associated symptoms of lightheadedness, chest pain, shortness of breath. Many years ago she was told that she has sleep apnea but never received machine as per her. Review of Systems 2 Constitutional: Constitutional: Reports no additional constitutional complaints Cardiovascular: Cardiovascular: Denies chest pain, Denies leg edema, Denies lightheadedness, Denies Loss of Consciousness, Reports palpitations and Denies dyspnea Respiratory: Respiratory: Reports no additional respiratory complaints and Denies dyspnea Gastrointestinal: Gastrointestinal: Reports no additional gastrointestinal complaints Genitourinary: Genitourinary: Reports no additional female genitourinary complaints Musculoskeletal: Musculoskeletal: Reports no additional musculoskeletal complaints Neurologic: Reports system reviewed and no additional complaints, except as documented Psychiatric: Psychiatric: Reports anxiety Endocrine: Endocrine: Reports palpitations [facility] Past Medical History Medical History (Updated 08/26/24 @ 11:20 by Kimani Puente MD) Atrial fibrillation with RVR Ascending aorta dilatation SLE (systemic lupus erythematosus) PMR (polymyalgia rheumatica) Osteoarthritis of knees, bilateral Lichen planus Psoriasis Polyarthralgia NEELAM positive COVID-19 vaccine series completed History of lupus LILLI (obstructive sleep apnea) Dyslipidemia Morbid obesity Vitamin D deficiency Primary thyroid cancer Diabetes type 2, uncontrolled Post-surgical hypothyroidism Family History Family History Father Diabetes Hypertension Colon cancer Mother Hypertension Thyroid disease Bile duct carcinoma Surgical History Surgical History Hx of vascular surgery Hx of knee surgery History of medial meniscus repair of left knee History of thumb surgery History of foot surgery Hx of colonoscopy Hx of arthroscopy of right knee Hx of thyroidectomy Hx of cholecystectomy History of carpal tunnel release of both wrists Social History Social History Housing: House Are you a primary healthcare liaison to a significant other at home: No Do you presently have visiting nurse or other home services: No Alcohol intake: never Patient Tobacco Use Status: Former Tobacco user Tobacco use type: Cigarette Years Smoked: 5 years ago e-Cigarette/Vaping Use: Never Used Second Hand Smoke Exposure: Yes service: No Current occupational status: employed Current occupation: 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 Cognitive needs: No Hearing needs: No Vision needs: No Meds Allergies Allergy/AdvReac Type Severity Reaction Status Date / Time moxifloxacin [From AVELOX] Allergy Severe PINS AND Verified 08/25/24 22:03 NEEDLE FEET AND PALMS- SWELLING oxycodone [Percocet] Allergy Intermediate Vomiting Verified 08/25/24 22:03 vancomycin [Vancomycin] Allergy Intermediate SWELLING/HIVES/THROAT Verified 08/25/24 22:03 CLOSING SENSATION codeine [Codeine] Allergy Mild HIVES Verified 08/25/24 22:03 Penicillins Allergy Mild HIVES Verified 08/25/24 22:03 propoxyphene [From Darvon] Allergy Mild FELT LIKE Verified 08/25/24 22:03 CHEST CLOSING UP / HIVES Sulfa (Sulfonamide Allergy Mild HIVES Verified 08/25/24 22:03 Antibiotics) [Sulfa (Sulfonamides)] dexamethasone AdvReac Intermediate muscle Verified 08/25/24 22:03 aches hydroxychloroquine AdvReac Mild hair loss Verified 08/25/24 22:03 [Plaquenil] Iodinated Contrast Media AdvReac Hives Verified 08/25/24 22:03 [IV Contrast Dye] Active Medications: Current Medications Acetaminophen (Acetaminophen 325 Mg Tablet) 650 mg PO Q6H PRN PRN Reason: Pain, Mild (Pain Scale 1-3), fever or headache Apixaban (Apixaban 5 Mg Tablet) 5 mg PO BID [facility] Last Admin: 08/26/24 09:01 Dose: 5 mg Aspirin (Aspirin Enteric Coated 81 Mg Tablet.) 81 mg PO DAILY [facility] Last Admin: 08/26/24 08:59 Dose: 81 mg Atorvastatin Calcium (Atorvastatin Calcium 40 Mg Tablet) 40 mg PO DAILY [facility] Last Admin: 08/26/24 08:59 Dose: 40 mg Calcium Carbonate (Calcium Carbonate 750 Mg Tab.Chew) 750 mg PO Q4H PRN PRN Reason: Heartburn Carvedilol (Carvedilol 3.125 Mg Tablet) 3.125 mg PO BID [facility]; Protocol Last Admin: 08/26/24 09:00 Dose: 3.125 mg Glucose (Glucose Gel 15 Gm Gel..Gram.) 15 gm PO Q15M PRN; Protocol PRN Reason: per Hypoglycemia Standing Ord. Dextrose (D10) 250 mls @ 750 mls/hr IV Q15M PRN; Protocol PRN Reason: per Hypoglycemia Standing Ord. Insulin Human Lispro (Insulin Lispro 100 Unit/Ml 3 Ml Vial) 0 unit SUBCUT QIDACHS [facility]; Protocol Last Admin: 08/26/24 08:22 Dose: Not Given Levothyroxine Sodium (Levothyroxine Sodium 175 Mcg Tablet) 175 mcg PO DAILY@0600 [facility] Last Admin: 08/26/24 09:00 Dose: 175 mcg Lorazepam (Lorazepam 0.5 Mg Tablet) 0.5 mg PO DAILY PRN PRN Reason: anxiety Magnesium Hydroxide (Milk Of Magnesia 30 Ml Oral.Susp) 30 ml PO DAILY PRN PRN Reason: Constipation Melatonin (Melatonin 3 Mg Tablet) 6 mg PO BEDTIME PRN PRN Reason: Insomnia Ondansetron HCl (Ondansetron Hcl 4 Mg/2 Ml Vial) 4 mg IVPUSH Q8H PRN PRN Reason: Nausea and Vomiting Sodium Chloride (0.9 % Sodium Chloride Flush 3 Ml Syringe) 3 ml IVFLUSH QSHIFT [facility] Last Admin: 08/26/24 08:23 Dose: 3 ml Ticagrelor (Ticagrelor 90 Mg Tablet) 90 mg PO BID [facility] Last Admin: 08/26/24 09:01 Dose: 90 mg Trazodone HCl (Trazodone Hcl 50 Mg Tablet) 50 mg PO BEDTIME PRN PRN Reason: sleep Home Medications ?Medication ?Instructions ?Recorded ?Confirmed ?Last Taken ?Type atorvastatin 40 mg tablet 40 mg PO DAILY 07/26/24 08/26/24 08/25/24 History ticagrelor 90 mg tablet (Brilinta) 90 mg PO BID 07/30/24 08/26/24 08/25/24 History levothyroxine 175 mcg tablet 175 mcg PO DAILY@0600 08/26/24 08/26/24 08/25/24 History (Unithroid) Physical Exam 2 Vital Signs: Vital Signs: Last Vital Signs Temp 97.2 F 08/26/24 08:00 Pulse 75 08/26/24 08:00 Resp 16 08/26/24 08:00 BP 122/58 L 08/26/24 08:00 Pulse Ox 99 08/26/24 08:00 O2 Del Method Room Air 08/26/24 08:00 BMI result Body Mass Index 40.7 Const: General: cooperative, comfortable, no acute distress, alert, awake and Physically active Nutritional Appearance: obese Orientation/consciousness: patient oriented x3 Limitations: no limitations HEENT: Head: Yes normocephalic and Yes atraumatic Neck: Neck: Yes trachea midline, Yes supple and Yes no JVD Resp: Effort & Inspection: normal respiratory effort Auscultation: clear to auscultation bilaterally Cardio: Jugular venous distension: no JVD Palpation: normal PMI Rate: r egular rate Rhythm: regular rhythm Heart sounds: S1 normal heart sound present, S2 normal heart sound present, no click, no gallops, no murmurs and no rubs GI: Auscultation: normal bowel sounds Skin: General skin exam: no rashes or lesions noted Neuro: General: patient oriented x3 and no focal motor deficits Extrem: General: Yes no clubbing, cyanosis or edema Objective Labs and Meds 08/26/24 06:53 08/26/24 06:53 Lab results: Laboratory Results - last 24 hr 08/25/24 08/26/24 08/26/24 22:16 06:53 06:53 WBC 8.2 5.4 RBC 5.01 4.41 Hgb 12.6 11.0 L Hct 37.9 34.2 L MCV 75.6 L 77.6 L MCH 25.1 L 24.9 L MCHC 33.2 32.2 RDW 14.5 14.5 Plt Count 225 174 MPV 9.7 10.1 Immature Gran % (Auto) 0.1 0.4 Neut % (Auto) 65.7 61.0 Lymph % (Auto) 25.5 29.1 [place] % (Auto) 5.9 6.3 Eos % (Auto) 2.1 2.6 Baso % (Auto) 0.7 0.6 Lymph # (Auto) 2.1 1.6 [place] # (Auto) 0.5 0.3 Eos # (Auto) 0.2 0.1 Baso # (Auto) 0.1 0.0 Abs Immat Gran (auto) 0.01 0.02 Absolute Neuts (auto) 5.4 3.3 Absolute Nucleated RBC 0.000 0.000 Nucleated RBC % (auto) 0.0 0.0 Sodium 141 142 Potassium 3.7 3.8 Chloride 109 H 110 H Carbon Dioxide 22 23 Anion Gap 14 13 BUN 13 14 Creatinine 0.82 0.67 Estim Creat Clear Calc 87.6 110.2 Estimated GFR > 60 > 60 POC Glucose Random Glucose 138 H 107 Calcium 9.8 8.8 D Troponin I High Sens 7.4 D TSH 0.99 Cancelled 08/26/24 08:11 WBC RBC Hgb Hct MCV MCH MCHC RDW Plt Count MPV Immature Gran % (Auto) Neut % (Auto) Lymph % (Auto) [place] % (Auto) Eos % (Auto) Baso % (Auto) Lymph # (Auto) [place] # (Auto) Eos # (Auto) Baso # (Auto) Abs Immat Gran (auto) Absolute Neuts (auto) Absolute Nucleated RBC Nucleated RBC % (auto) Sodium Potassium Chloride Carbon Dioxide Anion Gap BUN Creatinine Estim Creat Clear Calc Estimated GFR POC Glucose 112 Random Glucose Calcium Troponin I High Sens TSH Assessment and Plan (1) Paroxysmal atrial fibrillation: Status: Acute New onset symptomatic paroxysmal atrial fibrillation without any signs of cardiac decompensation or myocardial ischemia. Patient has converted to sinus rhythm with rate control. For now I had a very detailed discussion about management of atrial fibrillation. For now will managed with increasing carvedilol therapy. Have also advised her to invest in home EKG sensor that will help us manage her atrial fibrillation she was increasing burden. I would also start her on Eliquis 5 mg b.i.d. given her CHADSVASc score of 4. Would stop aspirin to avoid triple therapy, see below avoidance of stimulants was discussed. At stress mitigation strategies were discussed. Participate in aggressive weight loss program was discussed. She will require repeat workup for sleep apnea and that may need to be treated if she has significant sleep apnea. (2) CAD (coronary artery disease): Status: Acute CAD with recent inferior STEMI with no evidence of acute myocardial ischemia. She had recent drug-eluting stent to LAD and RCA. However given new onset atrial fibrillation need for oral anticoagulation therapy will stop aspirin to avoid triple therapy and reduce bleeding risk. Continue high-intensity statin therapy. Continue aggressive blood pressure control which is currently well optimized. Continue aggressive diabetes management goal hemoglobin A1c less than 7%. Continue to participate in phase 2 cardiac rehabilitation. Patient can be discharged home and will set up for follow-up in the near future. Procedures Date of Service Date of Service: 08/26/24
--- NOTE | 2024-08-26 13:20 | MHC.CM.PN ---
ASHISH 08/26. Pt self-care, lives at home with her and son. Pts son will transport her home. PCP: Dr. Christian Robertson
== END 2024-08-26 13:54 | disposition home or self-care (01) ==
LOC: HO.ED 22:32 → HO.EDOVER 08-26 01:42 → HO.IMC 08-26 02:25
PROVIDERS: Admitting Provider Student in an Organized Health Care Education/Training Program; Emergency Provider Internal Medicine; PCP Nurse Practitioner Family; Visit Provider Internal Medicine
DX: I48.20 Chronic atrial fibrillation, unspecified (principal); I25.10 Atherosclerotic heart disease of native coronary artery without angina pectoris; R00.2 Palpitations; M32.9 Systemic lupus erythematosus, unspecified; R42 Dizziness and giddiness; E03.2 Hypothyroidism due to medicaments and other exogenous substances; M35.3 Polymyalgia rheumatica; G47.33 Obstructive sleep apnea (adult) (pediatric); E11.9 Type 2 diabetes mellitus without complications; Z79.899 Other long term (current) drug therapy; Z79.4 Long term (current) use of insulin; Z99.89 Dependence on other enabling machines and devices; E66.9 Obesity, unspecified; Z68.38 Body mass index [BMI] 38.0-38.9, adult
CPT/HCPCS: 36415; 80048; 82947; 84443; 84484; 85025; 93005; 96361; 96374; 96376; 99222; 99285

== ENCOUNTER → 2024-08-25 21:51 | Outpatient (BNV) | payer OTHER, SELFPAY | PROVIDERS: Admitting Provider Student in an Organized Health Care Education/Training Program; Emergency Provider Internal Medicine; PCP Nurse Practitioner Family; Visit Provider Internal Medicine Cardiovascular Disease | DX: R94.31 Abnormal electrocardiogram [ECG] [EKG] (principal); I48.91 Unspecified atrial fibrillation | CPT/HCPCS: 93010 ==

== ENCOUNTER → 2024-08-26 01:33 | Outpatient (BNV) | payer OTHER, SELFPAY | PROVIDERS: Admitting Provider Student in an Organized Health Care Education/Training Program; Emergency Provider Internal Medicine; PCP Nurse Practitioner Family; Visit Provider Internal Medicine Cardiovascular Disease | DX: I48.0 Paroxysmal atrial fibrillation (principal); I25.10 Atherosclerotic heart disease of native coronary artery without angina pectoris | CPT/HCPCS: 93010; 99222 ==

== ENCOUNTER → 2024-08-26 01:33 | Outpatient (BNV) | payer OTHER, SELFPAY | PROVIDERS: Admitting Provider Student in an Organized Health Care Education/Training Program; Emergency Provider Internal Medicine; PCP Nurse Practitioner Family; Visit Provider Student in an Organized Health Care Education/Training Program | DX: I48.91 Unspecified atrial fibrillation (principal) | CPT/HCPCS: 99239; 99499 ==

== ENCOUNTER → 2024-08-29 11:33 | Outpatient (REF) | payer OTHER, SELFPAY ==
--- NOTE | 2024-08-29 11:35 | HM_ITS ---
* Total monitoring time 7 days. * Underlying rhythm is sinus with an average rate of 75/Min. * Rare supraventricular and ventricular ectopy. * No significant pauses or high-grade AV blocks. * No patient markers or diary events. MTDD
== END ==
LOC: HO.CARD 11:33
PROVIDERS: PCP Nurse Practitioner Family; Visit Provider Internal Medicine
DX: I48.0 Paroxysmal atrial fibrillation (principal)
CPT/HCPCS: 93242

== ENCOUNTER → 2024-08-29 11:35 | Outpatient (BNV) | payer OTHER, SELFPAY | PROVIDERS: PCP Nurse Practitioner Family; Visit Provider Internal Medicine | DX: I47.10 Supraventricular tachycardia, unspecified (principal) | CPT/HCPCS: 93244 ==

== ENCOUNTER 2024-09-04 09:04 | Outpatient (AMB) | payer OTHER, SELFPAY ==
[2024-09-04 09:07] VITALS: BP 138/82; PULSE 78; O2SAT 98; BMI 39.9
--- NOTE | 2024-09-04 09:07 | MHC.PC.OV ---
Vital Signs 09/04/24 09:07 Height 5 ft 6 in Weight 247 lb BMI 39.9 BP 138/82 Blood Pressure Location Rt brachial Position Sitting Pulse 78 Pulse Source Pulse Oximeter Pulse Oximetry (%) 98 Oxygen Delivery Method Room Air Intake Visit Reasons: 1.5m follow up Intake Note: pt is here for 1/5 month follow up Can Line Operator Required: No Accompanied by: Self / Same As Patient Allergies moxifloxacin [From AVELOX] Allergy (Severe, Verified 09/04/24 12:12) PINS AND NEEDLE FEET AND PALMS- SWELLING oxycodone [Percocet] Allergy (Intermediate, Verified 09/04/24 12:12) Vomiting vancomycin [Vancomycin] Allergy (Intermediate, Verified 09/04/24 12:12) SWELLING/HIVES/THROAT CLOSING SENSATION codeine [Codeine] Allergy (Mild, Verified 09/04/24 12:12) HIVES Penicillins Allergy (Mild, Verified 09/04/24 12:12) HIVES propoxyphene [From Darvon] Allergy (Mild, Verified 09/04/24 12:12) FELT LIKE CHEST CLOSING UP / HIVES Sulfa (Sulfonamide Antibiotics) [Sulfa (Sulfonamides)] Allergy (Mild, Verified 09/04/24 12:12) HIVES dexamethasone Adverse Reaction (Intermediate, Verified 09/04/24 12:12) muscle aches hydroxychloroquine [Plaquenil] Adverse Reaction (Mild, Verified 09/04/24 12:12) hair loss Iodinated Contrast Media [IV Contrast Dye] Adverse Reaction (Verified 09/04/24 12:12) Hives Medication List - Last Reconciled 09/04/24 by MARIE Rojas-BC apixaban (Eliquis) 5 mg PO BID atorvastatin 40 mg PO DAILY carvedilol 6.25 mg PO BID lancets (OneTouch Delica Plus Lancet) Test blood sugar 3 times per day levothyroxine (Unithroid) 175 mcg PO DAILY@0600 lorazepam 0.5 mg PO DAILY PRN 2 days metformin ER 500 mg PO DAILY OneTouch Verio Flex meter (blood-glucose meter) As directed NS OneTouch Verio Meter (blood-glucose meter) TID testing NS OneTouch Verio test strips (blood sugar diagnostic) Test blood sugar 3 times per day NS ticagrelor (Brilinta) 90 mg PO BID trazodone 50 mg PO BEDTIME PRN Tobacco use date assessed: 03/20/24 Dental Screening Dental Screen Date: 03/20/24 HPI 1.5m follow up HPI Details Pt was seen in the ER on 08/25 c/o palpitations. EKG showed new onset afib with RVR. Pt was given IV diltiazem and admitted. She was seen by cardiology who recommended increasing carvedilol to 6.25mg bid and starting apixaban. Pt's aspirin was stopped. She will be following up with cardiology and pulmonology. Pt currently has a holter monitor on currently (1 week total). She also has a sleep study scheduled. Pt reports some shortness of breath in the morning. Encouraged pt to speak with cardiology about this when she turns in her holter monitor, and to follow up with pulmonary. Denies fever, chills, and chest pain. [facility] Medical History Atrial fibrillation with RVR Ascending aorta dilatation SLE (systemic lupus erythematosus) PMR (polymyalgia rheumatica) Osteoarthritis of knees, bilateral Lichen planus Psoriasis Polyarthralgia NEELAM positive COVID-19 vaccine series completed History of lupus LILLI (obstructive sleep apnea) Dyslipidemia Morbid obesity Vitamin D deficiency Primary thyroid cancer Diabetes type 2, uncontrolled Post-surgical hypothyroidism Surgical History Hx of vascular surgery Hx of knee surgery History of medial meniscus repair of left knee History of thumb surgery History of foot surgery Hx of colonoscopy Hx of arthroscopy of right knee Hx of thyroidectomy Hx of cholecystectomy History of carpal tunnel release of both wrists Family History Father Diabetes Hypertension Colon cancer Mother Hypertension Thyroid disease Bile duct carcinoma Social History Housing: House Are you a primary child care aide to a significant other at home: No Do you presently have visiting nurse or other home services: No Alcohol intake: never Patient Tobacco Use Status: Former Tobacco user Tobacco use type: Cigarette Years Smoked: 5 years ago e-Cigarette/Vaping Use: Never Used Second Hand Smoke Exposure: Yes service: No Current occupational status: employed 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 1. Little interest or pleasure in doing things: not at all 2. Feeling down, depressed, or hopeless: not at all 3. Trouble falling or staying asleep, or sleeping too much: not at all 4. Feeling tired or having little energy: several days 5. Poor appetite or overeating: not at all 6. Feeling bad about yourself - or that you are a failure or have let yourself or your family down: not at all 7. Trouble concentrating on things, such as reading the newspaper or watching television: not at all 8. Moving or speaking so slowly that other people could have noticed. Or the opposite - being so fidgety or restless that you have been moving around a lot more than usual: not at all 9. Thoughts that you would be better off or of hurting yourself in some way: not at all Total score: 1 Depression Screening Interpretation: Negative Depression Screening Done: Yes 24090 - PHQ-9 Billing: Yes Source: Developed by Drs. Jef Cardona, Priscilla Stallings, Tito Lyons and colleagues, with an educational srinath from [employer]. Thrive Questionnaire Date Thrive assessed: 09/04/24 I am a: Patient What is your living situation today?: I have a steady place to live Within the past 12 months, did the food you bought not last and you didn't have the money to get more?: Never true Within the past 12 months, did you worry whether your food would run out before you got money to buy more?: Never true Do you have trouble paying for medicines?: No Do you have trouble getting transportation to medical appointments?: No Do you have trouble paying your heating and electricity bill?: No Do you have trouble taking care of your child, family member or friend?: No Do you have trouble with day-to-day activities such as bathing, preparing meals, shopping, managing finances, etc.?: No Are you currently unemployed and looking for a job?: No Are you interested in more education?: No Please select the resources that you would like help with: None Currently or been in a relationship where the following occur: No concerns reported THRIVE Score: 0 AUDIT C Alcohol Use Questionnaire (AUDIT-C) 1. How often do you have a drink containing alcohol?: Never 3. How often do you have six or more drinks on one occasion?: Never Total Score: 0 Score Reviewed/Action Taken: Yes JADYN-7 AMB Questionnaire JADYN-7 Date JADYN - 7 assessed: 09/04/24 Feeling nervous, anxious, or on edge: 0 = Not at all Not being able to stop or control worryin = Not at all Worrying too much about different things: 0 = Not at all Trouble relaxin = Not at all Being so restless that it is hard to sit still: 0 = Not at all Becoming easily annoyed or irritable: 0 = Not at all Feeling afraid as if something awful might happen: 0 = Not at all Total JADYN-7 score (0-4 normal; 5-9 mild; 10-14 moderate; 15-21 severe): 0 Source: Developed by Drs. Jef Cardona, Priscilla Stallings, Tito Lyons and colleagues, with an educational srinath from [employer]. JADYN-7 Assessment Billing JADYN-7 Assessment Tool: JADYN-7 Assessment 85858 Review of Systems Const Reports as per HPI Physical exam (Primary Care) Vital Signs: Last Vital Signs Pulse 78 09/04/24 09:07 BP 138/82 09/04/24 09:07 Pulse Ox 98 09/04/24 09:07 Oxygen Delivery Method Room Air 09/04/24 09:07 BMI result Body Mass Index 39.9 Tobacco/Smoking Status: Tobacco use Status Tobacco use date assessed 03/20/24 09/04/24 09:08 Patient Tobacco Use Status Former Tobacco user 09/04/24 09:08 Tobacco use type Cigarette 09/04/24 09:08 e-Cigarette/Vaping Use Never Used 09/04/24 09:08 PHQ-9: PHQ-9 Score PHQ-9: Total score 1 09/04/24 12:05 Depression Screening Interpretation: Negative Thrive Assessment: Date of Thrive Assessment Date Thrive assessed 09/04/24 09/04/24 09:08 Currently or been in a relationship where the following occur: No concerns reported Const General: cooperative Nutritional Appearance: obese Orientation/consciousness: patient oriented x3 Resp Effort & Inspection: normal respiratory effort Auscultation: clear to auscultation bilaterally Cardio Rate: regular rate Rhythm: regular rhythm Heart sounds: S1 normal heart sound present and S2 normal heart sound present Neuro General: patient oriented x3 Psych Appearance: grossly normal Mental Status: mental status grossly normal Speech and movement: Normal speech and movement present Affect: normal affect Attitude: cooperative Thought process: Normal thought process present Thought content: Normal thought content present Insight: Good insight present (Psych) Judgement: Good judgement present (Psych) Coding Level of Care Code Est Pt Level 3 (74523) Diagnoses S/P coronary artery stent placement Z95.5 ST elevation myocardial infarction (STEMI) of inferior wall I21.19 Atrial fibrillation with rapid ventricular response I48.91 CAD (coronary artery disease) I25.10 Atherosclerotic cardiovascular disease I25.10 Additional Codes JADYN-7 Assessment Billing - JADYN-7 Assessment Tool: JADYN-7 Assessment 81139 ([id number]) Assessment & Plan Assessment & Plan (1) S/P coronary artery stent placement: Code(s): Z95.5 - Presence of coronary angioplasty implant and graft Category: Surgical Plan: Following up with cardiology (2) ST elevation myocardial infarction (STEMI) of inferior wall: Code(s): I21.19 - ST elevation (STEMI) myocardial infarction involving other coronary artery of inferior wall Category: Medical Plan: Following up with cardiology (3) Atrial fibrillation with rapid ventricular response: Comment: Currently to sinus rhythm with rate control Code(s): I48.91 - Unspecified atrial fibrillation Category: Medical Plan: Following up with cardiology, on laly clinton BB (4) CAD (coronary artery disease): Code(s): I25.10 - Atherosclerotic heart disease of [place] coronary artery without angina pectoris Category: Medical Plan: Following up with cardiology (5) Atherosclerotic cardiovascular disease: Code(s): I25.10 - Atherosclerotic heart disease of [place] coronary artery without angina pectoris Category: Medical Plan: Following up with cardiology Plan The patient agreed to the use of a medical videographer for this encounter. Scribed for ANITRA Reyes by nicolette Quintana scribe, on 09/04/2024 at 09:40 EST. Orders: Orders Comprehensive [place]. Panel Fast Today I21.19 - ST elevation (STEMI) myocardial infarction involving other coronary artery of inferior wall, I48.91 - Unspecified atrial fibrillation, Z95.5 - Presence of coronary angioplasty implant and graft UA CC w/rflx Micro + Cult Today I21.19 - ST elevation (STEMI) myocardial infarction involving other coronary artery of inferior wall, I48.91 - Unspecified atrial fibrillation, Z95.5 - Presence of coronary angioplasty implant and graft Lipid Panel Today I21.19 - ST elevation (STEMI) myocardial infarction involving other coronary artery of inferior wall, I48.91 - Unspecified atrial fibrillation, Z95.5 - Presence of coronary angioplasty implant and graft Magnesium Today I21.19 - ST elevation (STEMI) myocardial infarction involving other coronary artery of inferior wall, I48.91 - Unspecified atrial fibrillation, Z95.5 - Presence of coronary angioplasty implant and graft Hemoglobin A1c Today I21.19 - ST elevation (STEMI) myocardial infarction involving other coronary artery of inferior wall, I48.91 - Unspecified atrial fibrillation, Z95.5 - Presence of coronary angioplasty implant and graft US carotid duplex BI Today I25.10 - Atherosclerotic heart disease of [place] coronary artery without angina pectoris Complete Blood Count Auto Diff Today I21.19 - ST elevation (STEMI) myocardial infarction involving other coronary artery of inferior wall, I48.91 - Unspecified atrial fibrillation, Z95.5 - Presence of coronary angioplasty implant and graft TSH reflex Free T4 Today I21.19 - ST elevation (STEMI) myocardial infarction involving other coronary artery of inferior wall, I48.91 - Unspecified atrial fibrillation, Z95.5 - Presence of coronary angioplasty implant and graft
== END 2024-09-04 10:13 | disposition home or self-care (01) ==
PROVIDERS: PCP Nurse Practitioner Family; Visit Provider Nurse Practitioner Family
DX: Z95.5 Presence of coronary angioplasty implant and graft (principal); I21.19 ST elevation (STEMI) myocardial infarction involving other coronary artery of inferior wall; I48.91 Unspecified atrial fibrillation; I25.10 Atherosclerotic heart disease of native coronary artery without angina pectoris

== ENCOUNTER → 2024-09-04 09:04 | Outpatient (BNVA) | payer OTHER, SELFPAY | PROVIDERS: PCP Nurse Practitioner Family; Visit Provider Nurse Practitioner Family | DX: I21.19 ST elevation (STEMI) myocardial infarction involving other coronary artery of inferior wall (principal); I48.91 Unspecified atrial fibrillation; I25.10 Atherosclerotic heart disease of native coronary artery without angina pectoris; Z79.01 Long term (current) use of anticoagulants; Z95.5 Presence of coronary angioplasty implant and graft | CPT/HCPCS: 96127 ==

== ENCOUNTER → 2024-09-06 20:30 | Outpatient (REF) | payer OTHER, SELFPAY | LOC: HO.SL 20:30 | PROVIDERS: PCP Nurse Practitioner Family; Visit Provider Nurse Practitioner Family | DX: I48.0 Paroxysmal atrial fibrillation (principal); G47.33 Obstructive sleep apnea (adult) (pediatric); R06.83 Snoring | CPT/HCPCS: 95810 ==

== ENCOUNTER → 2024-09-06 21:46 | Outpatient (BNV) | payer OTHER, SELFPAY | PROVIDERS: PCP Nurse Practitioner Family; Visit Provider Internal Medicine | DX: G47.33 Obstructive sleep apnea (adult) (pediatric) (principal) | CPT/HCPCS: 95810 ==

== ENCOUNTER 2024-09-07 06:46 | Outpatient (REF) | payer OTHER, SELFPAY ==
[2024-09-07 07:06] LABS: MANUAL DIFF FLAG NO
[2024-09-07 07:47] LABS: Appearance Urine Clear; Color Urine Yellow; Glucose Urine UA Negative (Negative); Leukocyte Esterase Urine Negative (Negative); Nitrite Urine Negative (Negative); PH 5.5 (5.0-9.0); Specific Gravity - Urine 1.015 (1.005-1.025); Urine Blood Negative (Negative); Urine Ketones Negative (Negative); Urine Protein Negative (Neg-Trace)
[2024-09-07 07:51] LABS: Basophils Absolute Auto 0.1 X10*3/uL (0.0-0.2); Basophils Percent Auto 0.8 % (0-2); Eosinophils Absolute Auto 0.2 X10*3/uL (0.0-0.4); Eosinophils Percent Auto 2.6 % (0-4); Hematocrit 39.1 % (37.0-47.0); Hemoglobin 12.3 g/dl (12.0-16.0); Imm Gran Abs Auto 0.03 X10*3/uL (0.00-0.03); Imm Gran Pct Auto 0.5 % (0.0-0.4); Lymphocytes Absolute Auto 1.4 X10*3/uL (1.2-4.9); Lymphocytes Percent Auto 21.8 % (20-40); Mean Corpuscular HGB Conc 31.5 g/dl (31.0-35.0); Mean Corpuscular Hemoglobin 24.4 pg (27.0-33.0); Mean Corpuscular Volume 77.6 fL (80.0-98.0); Mean Platelet Volume 10.4 fL (9.4-12.3); Monocytes Absolute Auto 0.4 X10*3/uL (0.1-1.2); Monocytes Percent Auto 5.3 % (2-11); Neutrophils Absolute Auto 4.5 x10*3/uL (2.0-8.3); Platelet Count 224 X10*3/uL (160-400); Red Blood Count 5.04 X10*6/uL (4.20-5.50); Red Cell Distribution Width 14.8 % (11.0-16.0); White Blood Count 6.6 X10*3/uL (4.8-10.8)
[2024-09-07 07:58] LABS: Estimated Average Glucose 117 mg/dL; Hemoglobin A1C 125.5743 umol/L; Hemoglobin A1c % 5.7 % (<6.0); Total Hemoglobin (HGBA1C) 3202.9263 umol/L
[2024-09-07 08:21] LABS: Alanine Aminotransferase 24 U/L (0-31); Albumin Level 3.8 g/dL (3.5-5.0); Alkaline Phosphatase 91 U/L (39-117); Anion Gap 12 (12-20); Aspartate Amino Transferase 20 U/L (5-31); Bilirubin Total 0.4 mg/dL (0.0-1.0); Blood Urea Nitrogen 13 mg/dL (9-16); Calcium 9.7 mg/dL (8.4-10.2); Carbon Dioxide 24 mmol/L (22-29); Chloride 108 mmol/L (96-108); Cholesterol 107 mg/dL (<200); Estimated Glomerular Filt Rate > 60; Glucose Fasting 111 mg/dL (60-99); HDL Cholesterol 36 mg/dL (>40); LDL Cholesterol Calculated 53 mg/dL (<100); Magnesium 1.8 mg/dL (1.6-2.6); Sodium 140 mmol/L (135-145); Total Protein 6.4 g/dL (6.5-8.0); Triglycerides 91 mg/dL (<150)
[2024-09-07 08:40] LABS: Thyroid Stimulating Hormone 1.17 uIU/mL (0.32-4.0); Vitamin D 25-OH Total 28.6 ng/mL (>30)
== END 2024-09-07 06:47 | disposition home or self-care (01) ==
LOC: HO.LAB 06:46
PROVIDERS: Internal Medicine Endocrinology, Diabetes & Metabolism; PCP Nurse Practitioner Family; Visit Provider Nurse Practitioner Family
DX: E55.9 Vitamin D deficiency, unspecified (principal); C73 Malignant neoplasm of thyroid gland; E11.9 Type 2 diabetes mellitus without complications; E78.5 Hyperlipidemia, unspecified; Z95.5 Presence of coronary angioplasty implant and graft; I21.19 ST elevation (STEMI) myocardial infarction involving other coronary artery of inferior wall; I48.91 Unspecified atrial fibrillation
CPT/HCPCS: 36415; 80053; 80061; 81003; 82306; 83036; 83735; 84439; 84443; 85025

== ENCOUNTER 2024-09-10 14:28 | Outpatient (REF) | payer OTHER, SELFPAY ==
--- NOTE | ~2024-09-10 | US_ITS ---
EXAMINATION: US EXTRACRANIAL CAROTID DUPLEX, BILATERAL CLINICAL INFORMATION: Atherosclerotic heart disease COMPARISON: Carotid duplex January 14, 2015 TECHNIQUE: Real-time ultrasound and Doppler techniques (integrating B-mode 2-D vascular images, Doppler spectral analysis and color-flow Doppler imaging) were utilized to interrogate the extracranial carotid arteries, the vertebral arteries and proximal subclavian arteries bilaterally. The degree of stenosis is determined by criteria similar to NASCET. FINDINGS: Right Side: 1. There is no atherosclerotic plaque seen in the bifurcation/proximal ICA region. 2. The common carotid artery PSV proximally is 95.1 cm/s and distally 78.9 cm/s. 3. The proximal internal carotid artery velocities are 63.9 cm/s systolic and 12.2 cm/s diastolic. 4. The proximal external carotid artery PSV is 128 cm/s. 5. The vertebral artery shows antegrade flow. 6. The subclavian artery waveforms are normal. Left Side: 1. There is mild atherosclerotic plaque seen in the bifurcation/proximal ICA region. 2. The common carotid artery PSV proximally is 102 cm/s and distally 67.5 cm/s. 3. The proximal internal carotid artery velocities are 83.9 cm/s systolic and 24.9 cm/s diastolic. 4. The proximal external carotid artery PSV is 105 cm/s. 5. The vertebral artery shows antegrade flow. 6. The subclavian artery waveforms are normal. US/US carotid duplex BI IMPRESSION: 1. RIGHT: Normal right internal carotid artery without atherosclerotic plaque or hemodynamically significant stenosis. 2. LEFT: Minimal, non-hemodynamically significant stenosis of the proximal left internal carotid artery corresponding to a 0-49% stenosis by velocity criteria. Electronically signed by: Miguel Craft MD 09/10/2024 03:46 PM EDT
== END 2024-09-10 14:29 | disposition home or self-care (01) ==
LOC: HO.US 14:28
PROVIDERS: PCP Nurse Practitioner Family; Visit Provider Nurse Practitioner Family
DX: I25.10 Atherosclerotic heart disease of native coronary artery without angina pectoris (principal); I65.22 Occlusion and stenosis of left carotid artery
CPT/HCPCS: 93880

== ENCOUNTER 2024-09-14 14:57 | Outpatient (AMB) | payer OTHER, SELFPAY ==
--- NOTE | 2024-09-14 15:07 | MHC.OFFVIS ---
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 Allergies moxifloxacin [From AVELOX] Allergy (Severe, Verified 09/14/24 15:13) PINS AND NEEDLE FEET AND PALMS- SWELLING oxycodone [Percocet] Allergy (Intermediate, Verified 09/14/24 15:13) Vomiting vancomycin [Vancomycin] Allergy (Intermediate, Verified 09/14/24 15:13) SWELLING/HIVES/THROAT CLOSING SENSATION codeine [Codeine] Allergy (Mild, Verified 09/14/24 15:13) HIVES Penicillins Allergy (Mild, Verified 09/14/24 15:13) HIVES propoxyphene [From Darvon] Allergy (Mild, Verified 09/14/24 15:13) FELT LIKE CHEST CLOSING UP / HIVES Sulfa (Sulfonamide Antibiotics) [Sulfa (Sulfonamides)] Allergy (Mild, Verified 09/14/24 15:13) HIVES dexamethasone Adverse Reaction (Intermediate, Verified 09/14/24 15:13) muscle aches hydroxychloroquine [Plaquenil] Adverse Reaction (Mild, Verified 09/14/24 15:13) hair loss Iodinated Contrast Media [IV Contrast Dye] Adverse Reaction (Verified 09/14/24 15:13) Hives HPI Comments Details: The patient is here for pulmonary evaluation. the patient is a 64 year woman with known history of lupus who apparently was in usual state health until recently started developing substernal chest discomfort. Initially she thought was related to her reflux. but, her symptoms worsened she was taken to the hospital. The ER she was found to have myocardial infarction. She was transferred to [facility] where she underwent a percutaneous coronary intervention placing 4 stents. Least from a cardiac standpoint the patient is feeling better. Back in May the patient did have a CT scan of the chest further addressing the abnormal symptoms she was having. I did personally review the CT scan with the patient. It does demonstrate some peripheral base reticular opacity suggesting pneumonitis or interstitial lung disease in the periphery. No evidence of any significant pulmonary fibrosis appreciated. She also has a minimal paraseptal emphysema. Patient feels otherwise okay denies any significant shortness of breath or any cough. Denies any wheezing. Although, since she had recent a Holter monitor placed she started developing or breaking out with a rash. The rash to her is very consistent with her lupus flares. She is requesting some prednisone for her rash. She does follow-up with Rheumatology. I did talk to the patient about the fact that the interstitial lung disease could be related to her underlying connective tissue disease. Specially if he is active. Prednisone also help her interstitial lung disease. At some point the patient needs to undergo additional blood work to further address the abnormal findings on CT scan. I am hopeful that do not progressive. It is reassuring that she feels well, without any dyspnea or cough. Will continue to monitor closely. [facility] Medical History (Updated 09/16/24 @ 19:42 by Epifanio Farfan MD) Pneumonitis Atrial fibrillation with RVR Ascending aorta dilatation SLE (systemic lupus erythematosus) PMR (polymyalgia rheumatica) Osteoarthritis of knees, bilateral Lichen planus Psoriasis Polyarthralgia NEELAM positive COVID-19 vaccine series completed History of lupus LILLI (obstructive sleep apnea) Dyslipidemia Morbid obesity Vitamin D deficiency Primary thyroid cancer Diabetes type 2, uncontrolled Post-surgical hypothyroidism Surgical History Hx of vascular surgery Hx of knee surgery History of medial meniscus repair of left knee History of thumb surgery History of foot surgery Hx of colonoscopy Hx of arthroscopy of right knee Hx of thyroidectomy Hx of cholecystectomy History of carpal tunnel release of both wrists Family History Father Diabetes Hypertension Colon cancer Mother Hypertension Thyroid disease Bile duct carcinoma Social History Housing: House Are you a primary respiratory care practitioner to a significant other at home: No Do you presently have visiting nurse or other home services: No Alcohol intake: never Patient Tobacco Use Status: Former Tobacco user Tobacco use type: Cigarette Years Smoked: 5 years ago e-Cigarette/Vaping Use: Never Used Second Hand Smoke Exposure: Yes service: No Current occupational status: employed Current occupation: [employer] [place] 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 Cognitive needs: No Hearing needs: No Vision needs: No Review of Systems Const Denies fever(s) and Denies headache(s) Eyes Reports no additional complaints ENT Denies headache(s) Card Denies chest pain, Denies dyspnea and Denies dyspnea on exertion Resp Denies cough, Denies dyspnea, Denies dyspnea on exertion and Denies wheezing GI Denies abdominal pain Musc Reports no additional complaints Skin/Breast Reports rash Neuro Denies headache(s) Gil/Lymph Reports no additional complaints Aller/Immun Denies wheezing Physical Exam Vital Signs: Last Vital Signs Pulse 78 09/14/24 15:08 BP 142/64 H 09/14/24 15:08 Pulse Ox 99 09/14/24 15:08 Oxygen Delivery Method Room Air 09/14/24 15:08 BMI result Body Mass Index 40.0 Const General: comfortable Orientation/consciousness: patient oriented x3 HEENT Head: Yes normocephalic Neck Neck: Yes supple Chest Chest palpation & inspection: normal inspection of the chest Resp Effort & Inspection: normal respiratory effort Auscultation: rales and diminished lung sounds Cardio Heart sounds: S1 normal heart sound present and S2 normal heart sound present GI Palpation (GI): Soft to palpation Skin Rashes: rashes noted (papular rash diffuse) Neuro General: patient oriented x3 Extrem General: Yes no clubbing, cyanosis or edema Results Reviewed Results Reviewed: [place] [address] CT Scan Report Signed Patient: Guadalupe Hook MR#: [id number] : 1960 Acct:[id number] Age/Sex: 63 / F ADM Date: 06/12/24 Loc: HO.CT Attending Dr: Christian WILSON Ordering Physician: Christian Robertson Date of Service: 06/12/24 Procedure(s): CT chest wo IV con Accession Number(s): [id number] cc: Christian Robertson~ EXAMINATION: CT CHEST WITHOUT CONTRAST CLINICAL INFORMATION: 63-year-old female, Nicotine dependence, chest discomfort with burning. COMPARISON: No prior recent chest CT available. Chest CT dated 11/05/2008. Chest x-ray 04/30/2024 TECHNIQUE: Multidetector volumetric CT imaging of the chest was done. Axial MIP volume rendering provided. Sagittal and coronal reformatted images were obtained. This CT examination was performed using dose optimization techniques as appropriate, variously including the following: *Automated exposure control *Adjustment of mA and/or kV according to patient size (this includes techniques or standardized protocols for targeted exams where dose is matched to indication/reason for exam; i.e. extremities or head) *Use of iterative reconstruction technique DLP: 203 mGy-cm FINDINGS: PULMONARY NODULES: -There are a few tiny scattered calcified granulomata. -There is a 2 mm nodule in the superior left upper lobe, lateral aspect (series 5, image 136). -There are no suspicious lung nodules identified. LUNGS: -There is mild to moderate predominantly paraseptal emphysema. -Mild subpleural reticular changes are present in both lower lobes, most likely dependent microatelectasis although early interstitial lung disease is not excluded. No consolidations or groundglass opacities. Mild mosaic attenuation in the lower lobe distribution, most likely air trapping. -Small airways demonstrate mild thickening throughout suggesting chronic bronchitis. No bronchiectasis or endobronchial filling defects. The trachea and main bronchi are patent. MEDIASTINUM: -Thyroid gland has been removed. -Aorta is normal in caliber with mild calcification. Two-vessel branching pattern. -Main pulmonary artery is normal in caliber. -No abnormal lymphadenopathy is present in the mediastinum or hilar regions. -Heart size is normal. There are heavy mitral annular calcifications. There is no pericardial effusion. -Esophagus is normal in appearance. CORONARY ARTERY CALCIFICATION: Moderate to heavy three-vessel coronary calcification is present. PLEURA: There is no pleural effusion. No pleural mass or thickening. AXILLA/CHEST WALL: No lymphadenopathy or masses. UPPER ABDOMEN: -There is hepatomegaly. There is no discrete focal abnormality on this noncontrast examination. Numerous surgical clips are seen in the gallbladder fossa. -The spleen is normal in size. -The pancreas, adrenal glands, and imaged bowel structures appear normal. OSSEOUS STRUCTURES: No suspicious lytic or blastic bone lesions. Mild to moderate degenerative changes throughout the thoracic spine, with anterior flowing disc osteophytes spanning T4-T11, findings suggestive of DISH. Minimal wedging of T11 is noted, which appears chronic. CT/CT chest wo IV con IMPRESSION: 1. No definite active pulmonary disease. Mild to moderate paraseptal emphysematous changes present. Subpleural reticular changes in the lower lobes dependently most likely is related to minor dependent atelectasis. If there is suspicion for early interstitial lung disease, high-resolution scan with prone imaging should be considered. 2. No suspicious pulmonary nodules identified. 2 mm nodule in the superior left upper lobe lateral aspect. One-year follow-up is suggested as per Fleischner guidelines. 3. Diffuse mild small airway thickening suggestive of chronic bronchitis. 4. Hepatomegaly incidentally noted. Cholecystectomy. 5. The thyroid is surgically absent. 6. Findings suggestive of DISH involving the thoracic spine. 7. Additional ancillary findings as discussed in the body of the report. Fleischner guidelines were followed. 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: Assessment & Plan Assessment & Plan (1) Interstitial lung disease: Code(s): J84.9 - Interstitial pulmonary disease, unspecified Category: Medical (2) NEELAM positive: Comment: 2018- :160, neg anti-ds DNA , ANH , sjogren's, C3 and C4 normal Code(s): R76.8 - Other specified abnormal immunological findings in serum Category: Medical (3) SLE (systemic lupus erythematosus): Code(s): M32.9 - Systemic lupus erythematosus, unspecified Category: Medical Qualifiers: Systemic lupus erythematosus type: unspecified Systemic lupus erythematosus organ involvement: unspecified Qualified Code(s): M32.9 - Systemic lupus erythematosus, unspecified Plan Bloodwork prednisone taper PFTs will need additoinal imaging studies to assess for progression F/U 2-3 months Orders: Orders Cyclic Citrullinated Peptide 09/14/24 J84.9 - Interstitial pulmonary disease, unspecified Complete Blood Count Auto Diff 09/14/24 J84.9 - Interstitial pulmonary disease, unspecified NEELAM Reflex Titer and Pattern 09/14/24 J84.9 - Interstitial pulmonary disease, unspecified Scleroderma 70 Antibody 09/14/24 J84.9 - Interstitial pulmonary disease, unspecified Hypersensitive Pneumonitis Prf 09/14/24 J84.9 - Interstitial pulmonary disease, unspecified, R91.8 - Other nonspecific abnormal finding of lung field PFT pulmonary function test Today J84.9 - Interstitial pulmonary disease, unspecified Anti DNA DS Antibody 09/14/24 J84.9 - Interstitial pulmonary disease, unspecified Erythrocyte Sedimentation Rate 09/14/24 J84.9 - Interstitial pulmonary disease, unspecified Medications: New prednisone PO daily; Take 2 tabs daily x 5 days, then 1 tablet daily x 5 days 10 days 15 tabs 0RF Coding Level of Care Code New Pt Level 4 (26378) Diagnoses Interstitial lung disease J84.9 NEELAM positive R76.8 Systemic lupus erythematosus, unspecified SLE type, unspecified organ involvement status M32.9 Systemic lupus erythematosus type: unspecified Systemic lupus erythematosus organ involvement: unspecified Time Spent (min) 40
[2024-09-14 15:08] VITALS: BP 142/64; PULSE 78; O2SAT 99; BMI 40.0
== END 2024-09-14 15:51 | disposition home or self-care (01) ==
LOC: HO.HPS 14:57
PROVIDERS: PCP Nurse Practitioner Family; Referring Provider Nurse Practitioner Family; Visit Provider Hospitalist
DX: J84.9 Interstitial pulmonary disease, unspecified (principal); R76.8 Other specified abnormal immunological findings in serum; M32.9 Systemic lupus erythematosus, unspecified
CPT/HCPCS: 99204

== ENCOUNTER → 2024-09-14 14:57 | Outpatient (BNVA) | payer OTHER, SELFPAY | PROVIDERS: PCP Nurse Practitioner Family; Referring Provider Nurse Practitioner Family; Visit Provider Hospitalist ==

== ENCOUNTER 2024-09-27 12:20 | Outpatient (AMB) | payer OTHER, SELFPAY ==
[2024-09-27 12:26] VITALS: BP 132/56; PULSE 85; O2SAT 98; BMI 39.7
--- NOTE | 2024-09-27 12:26 | MHC.PC.OV ---
Vital Signs 09/27/24 12:26 Height 5 ft 6 in Weight 246 lb BMI 39.7 BP 132/56 L Blood Pressure Location Rt brachial Position Sitting Pulse 85 Pulse Source Pulse Oximeter Pulse Oximetry (%) 98 Oxygen Delivery Method Room Air Intake Visit Reasons: 3 week follow up per Christian Fried moxifloxacin [From AVELOX] Allergy (Severe, Verified 09/27/24 17:27) PINS AND NEEDLE FEET AND PALMS- SWELLING oxycodone [Percocet] Allergy (Intermediate, Verified 09/27/24 17:27) Vomiting vancomycin [Vancomycin] Allergy (Intermediate, Verified 09/27/24 17:27) SWELLING/HIVES/THROAT CLOSING SENSATION codeine [Codeine] Allergy (Mild, Verified 09/27/24 17:27) HIVES Penicillins Allergy (Mild, Verified 09/27/24 17:27) HIVES propoxyphene [From Darvon] Allergy (Mild, Verified 09/27/24 17:27) FELT LIKE CHEST CLOSING UP / HIVES Sulfa (Sulfonamide Antibiotics) [Sulfa (Sulfonamides)] Allergy (Mild, Verified 09/27/24 17:27) HIVES dexamethasone Adverse Reaction (Intermediate, Verified 09/27/24 17:27) muscle aches hydroxychloroquine [Plaquenil] Adverse Reaction (Mild, Verified 09/27/24 17:27) hair loss Iodinated Contrast Media [IV Contrast Dye] Adverse Reaction (Verified 09/27/24 17:27) Hives Medication List - Last Reconciled 09/27/24 by Christian Robertson, [employer]- apixaban (Eliquis) 5 mg PO BID atorvastatin 40 mg PO DAILY carvedilol 6.25 mg PO BID lancets (BurstlyTouch Delica Plus Lancet) Test blood sugar 3 times per day lorazepam 0.5 mg PO DAILY PRN 2 days metformin ER 500 mg PO DAILY OneTouch Verio Flex meter (blood-glucose meter) As directed NS OneTouch Verio Meter (blood-glucose meter) TID testing NS OneTouch Verio test strips (blood sugar diagnostic) Test blood sugar 3 times per day NS ticagrelor (Brilinta) 90 mg PO BID trazodone 50 mg PO BEDTIME PRN Unithroid (levothyroxine) 175 mcg PO DAILY NS Tobacco use date assessed: 09/27/24 Dental Screening Dental Screen Date: 09/27/24 Did you have a dental visit in the last 12 months?: Yes Did you have a dental problem in the last 6 months where you did not have access to dental care?: No Was dental information given to patient?: Patient has dentist HPI 3 week follow up per Christian MACK Details Pt c/o ongoing shortness of breath only in the am for approx 5-10minutes. She reports, then it disipates, i'm then fine . Denies any CP, dizziness, GONG, orthopnea, palpitations, PND. She reports getting up during the middle of the night, i dont get it then . Recent holter returned, benign. Pt is seeing her [place] archeology professor on the . Pt is also seeing pulmonary. 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 Pt is currently also dealing with a lupus flare. [facility] Medical History Pneumonitis Atrial fibrillation with RVR Ascending aorta dilatation SLE (systemic lupus erythematosus) PMR (polymyalgia rheumatica) Osteoarthritis of knees, bilateral Lichen planus Psoriasis Polyarthralgia NEELAM positive COVID-19 vaccine series completed History of lupus LILLI (obstructive sleep apnea) Dyslipidemia Morbid obesity Vitamin D deficiency Primary thyroid cancer Diabetes type 2, uncontrolled Post-surgical hypothyroidism Surgical History Hx of vascular surgery Hx of knee surgery History of medial meniscus repair of left knee History of thumb surgery History of foot surgery Hx of colonoscopy Hx of arthroscopy of right knee Hx of thyroidectomy Hx of cholecystectomy History of carpal tunnel release of both wrists Family History Father Diabetes Hypertension Colon cancer Mother Hypertension Thyroid disease Bile duct carcinoma Social History Housing: House Are you a primary progressive care nurse to a significant other at home: No Do you presently have visiting nurse or other home services: No Alcohol intake: never Patient Tobacco Use Status: Former Tobacco user Tobacco use type: Cigarette Years Smoked: 5 years ago e-Cigarette/Vaping Use: Never Used Second Hand Smoke Exposure: Yes service: No Current occupational status: employed 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 Cognitive needs: No Hearing needs: No Vision needs: No Questionnaire Thrive Questionnaire Date Thrive assessed: 08/28/24 I am a: Patient What is your living situation today?: I have a steady place to live Within the past 12 months, did the food you bought not last and you didn't have the money to get more?: Never true Within the past 12 months, did you worry whether your food would run out before you got money to buy more?: Never true Do you have trouble paying for medicines?: No Do you have trouble getting transportation to medical appointments?: No Do you have trouble paying your heating and electricity bill?: No Do you have trouble taking care of your child, family member or friend?: No Do you have trouble with day-to-day activities such as bathing, preparing meals, shopping, managing finances, etc.?: No Are you currently unemployed and looking for a job?: No Are you interested in more education?: No Please select the resources that you would like help with: None Currently or been in a relationship where the following occur: No concerns reported THRIVE Score: 0 AUDIT C Alcohol Use Questionnaire (AUDIT-C) 1. How often do you have a drink containing alcohol?: Never 3. How often do you have six or more drinks on one occasion?: Never Total Score: 0 Score Reviewed/Action Taken: Yes JADYN-7 AMB Questionnaire JADYN-7 Date JADYN - 7 assessed: 09/04/24 Source: Developed by Drs. Jef Cardona, Priscilla Stallings, Tito Lyons and colleagues, with an educational srinath from [employer]. Review of Systems Const Reports as per HPI Physical exam (Primary Care) Vital Signs: Last Vital Signs Pulse 85 09/27/24 12:26 BP 132/56 L 09/27/24 12:26 Pulse Ox 98 09/27/24 12:26 Oxygen Delivery Method Room Air 09/27/24 12:26 BMI result Body Mass Index 39.7 Tobacco/Smoking Status: Tobacco use Status Tobacco use date assessed 09/27/24 09/27/24 12:29 Patient Tobacco Use Status Former Tobacco user 09/27/24 12:29 Tobacco use type Cigarette 09/27/24 12:29 e-Cigarette/Vaping Use Never Used 09/27/24 12:29 Thrive Assessment: Date of Thrive Assessment Date Thrive assessed 08/28/24 09/27/24 12:29 Currently or been in a relationship where the following occur: No concerns reported Const General: cooperative Nutritional Appearance: obese Orientation/consciousness: patient oriented x3 Resp Effort & Inspection: normal respiratory effort Auscultation: clear to auscultation bilaterally Cardio Rate: regular rate Rhythm: regular rhythm Heart sounds: S1 normal heart sound present and S2 normal heart sound present Neuro General: patient oriented x3 Psych Appearance: grossly normal Mental Status: mental status grossly normal Speech and movement: Normal speech and movement present Affect: normal affect Attitude: cooperative Thought process: Normal thought process present Thought content: Normal thought content present Insight: Good insight present (Psych) Judgement: Good judgement present (Psych) Coding Level of Care Code Est Pt Level 3 (67692) Diagnoses Systemic lupus erythematosus, unspecified SLE type, unspecified organ involvement status M32.9 Systemic lupus erythematosus organ involvement: unspecified Systemic lupus erythematosus type: unspecified ST elevation myocardial infarction (STEMI) of inferior wall I21.19 Atherosclerotic cardiovascular disease I25.10 Assessment & Plan Assessment & Plan (1) SLE (systemic lupus erythematosus): Code(s): M32.9 - Systemic lupus erythematosus, unspecified Category: Medical Qualifiers: Systemic lupus erythematosus organ involvement: unspecified Systemic lupus erythematosus type: unspecified Qualified Code(s): M32.9 - Systemic lupus erythematosus, unspecified Plan: seeing rheum (2) ST elevation myocardial infarction (STEMI) of inferior wall: Code(s): I21.19 - ST elevation (STEMI) myocardial infarction involving other coronary artery of inferior wall Category: Medical Plan: stable, no CP, no CP with exertion, dizziness, GONG. SOB when arising almost every morning, without any other symptoms, lasts up to 10 minutes. SOB does not stop her in her tracks. Following up with cardiology in a couple of weeks. Nows to go to the ER with any worsening symptoms. (3) Atherosclerotic cardiovascular disease: Code(s): I25.10 - Atherosclerotic heart disease of [place] coronary artery without angina pectoris Category: Medical Plan: on 2 blood thinners, recent Afib, holter was benign Plan The patient agreed to the use of a behavioral medical director for this encounter. Scribed for MARIE Reyes-BC by Maryjane Valdivia, behavioral medical director, on 09/27/2024 at 12:55 EST.
== END 2024-09-27 13:33 | disposition home or self-care (01) ==
PROVIDERS: PCP Nurse Practitioner Family; Visit Provider Nurse Practitioner Family
DX: M32.9 Systemic lupus erythematosus, unspecified (principal); I21.19 ST elevation (STEMI) myocardial infarction involving other coronary artery of inferior wall; I25.10 Atherosclerotic heart disease of native coronary artery without angina pectoris

== ENCOUNTER 2024-09-27 12:20 | Outpatient (REF) | payer OTHER, SELFPAY ==
[2024-09-27 14:00] LABS: MANUAL DIFF FLAG NO
[2024-09-27 14:50] LABS: Basophils Absolute Auto 0.1 X10*3/uL (0.0-0.2); Basophils Percent Auto 0.5 % (0-2); Eosinophils Absolute Auto 0.2 X10*3/uL (0.0-0.4); Eosinophils Percent Auto 2.2 % (0-4); Hematocrit 40.5 % (37.0-47.0); Hemoglobin 12.7 g/dl (12.0-16.0); Imm Gran Abs Auto 0.04 X10*3/uL (0.00-0.03); Imm Gran Pct Auto 0.4 % (0.0-0.4); Lymphocytes Absolute Auto 1.6 X10*3/uL (1.2-4.9); Lymphocytes Percent Auto 17.5 % (20-40); Mean Corpuscular HGB Conc 31.4 g/dl (31.0-35.0); Mean Corpuscular Hemoglobin 24.2 pg (27.0-33.0); Mean Corpuscular Volume 77.1 fL (80.0-98.0); Mean Platelet Volume 10.6 fL (9.4-12.3); Monocytes Absolute Auto 0.4 X10*3/uL (0.1-1.2); Monocytes Percent Auto 4.1 % (2-11); Neutrophils Absolute Auto 6.9 x10*3/uL (2.0-8.3); Neutrophils Percent Auto 75.3 % (45-73); Platelet Count 252 X10*3/uL (160-400); Red Blood Count 5.25 X10*6/uL (4.20-5.50); Red Cell Distribution Width 14.8 % (11.0-16.0); White Blood Count 9.2 X10*3/uL (4.8-10.8)
[2024-09-27 15:27] LABS: Erythrocyte Sedimentation Rate 16 MM/HR (0-20)
[2024-10-01 20:18] LABS: Anti DNA DS Antibody <1 IU/mL; Scleroderma 70 Antibody <1.0 NEG AI (<1.0 NEG)
[2024-10-01 21:43] LABS: Cyclic Citrullinated Peptide <16 UNITS
[2024-10-03 09:54] LABS: Anti Nuclear Antibody Pattern Nuclear, Nucleolar; Anti Nuclear Antibody Screen POSITIVE (NEGATIVE)
[2024-10-06 13:14] LABS: Asperg fumigatus Precip Abs NEGATIVE (NEGATIVE); Micropoly faeni Abs NEGATIVE (NEGATIVE); Pigeon serum Abs NEGATIVE (NEGATIVE); Saccharo pora viridis Abs NEGATIVE (NEGATIVE); Thermo candidus Abs NEGATIVE (NEGATIVE); Thermoa vulgaris #1 NEGATIVE (NEGATIVE)
== END 2024-09-27 12:21 | disposition home or self-care (01) ==
LOC: HO.LAB 12:20
PROVIDERS: Absent Provider Hospitalist; PCP Nurse Practitioner Family; Visit Provider Nurse Practitioner Family
DX: J84.9 Interstitial pulmonary disease, unspecified (principal); R91.8 Other nonspecific abnormal finding of lung field
CPT/HCPCS: 36415; 85025; 85652; 86038; 86039; 86200; 86225; 86235; 86331; 86606; 86609

== ENCOUNTER 2024-10-10 14:51 | Outpatient (AMB) | payer OTHER, SELFPAY ==
--- NOTE | 2024-10-10 14:53 | A.OFFVIS_ITS ---
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 Hand Required: No Accompanied by: Self / Same As Patient Allergies moxifloxacin [From AVELOX] Allergy (Severe, Verified 09/27/24 17:27) PINS AND NEEDLE FEET AND PALMS- SWELLING oxycodone [Percocet] Allergy (Intermediate, Verified 09/27/24 17:27) Vomiting vancomycin [Vancomycin] Allergy (Intermediate, Verified 09/27/24 17:27) SWELLING/HIVES/THROAT CLOSING SENSATION codeine [Codeine] Allergy (Mild, Verified 09/27/24 17:27) HIVES Penicillins Allergy (Mild, Verified 09/27/24 17:27) HIVES propoxyphene [From Darvon] Allergy (Mild, Verified 09/27/24 17:27) FELT LIKE CHEST CLOSING UP / HIVES Sulfa (Sulfonamide Antibiotics) [Sulfa (Sulfonamides)] Allergy (Mild, Verified 09/27/24 17:27) HIVES dexamethasone Adverse Reaction (Intermediate, Verified 09/27/24 17:27) muscle aches hydroxychloroquine [Plaquenil] Adverse Reaction (Mild, Verified 09/27/24 17:27) hair loss Iodinated Contrast Media [IV Contrast Dye] Adverse Reaction (Verified 09/27/24 17:27) Hives Medication List - Last Reconciled 10/10/24 by Aries Phillips MD apixaban (Eliquis) 5 mg PO BID atorvastatin 40 mg PO DAILY carvedilol 6.25 mg PO BID lancets (OneTouch Delica Plus Lancet) Test blood sugar 3 times per day lorazepam 0.5 mg PO DAILY PRN 2 days metformin ER 500 mg PO DAILY OneTouch Verio Flex meter (blood-glucose meter) As directed NS OneTouch Verio Meter (blood-glucose meter) TID testing NS OneTouch Verio test strips (blood sugar diagnostic) Test blood sugar 3 times per day NS ticagrelor (Brilinta) 90 mg PO BID trazodone 50 mg PO BEDTIME PRN Unithroid (levothyroxine) 175 mcg PO DAILY NS HPI Comments Details: Guadalupe returns for follow-up regarding her cardiac issues. To recall, she recently came to [place] [facility] with chest discomfort and diagnosed to have inferior STEMI. Sent to [facility]- underwent PCI to RCA/LAD. She was doing okay but she had a hospitalization to [place] with atrial fibrillation and rapid ventricular response. She converted to sinus rhythm and then her Coreg dose has been increased. She is also on anticoagulation. Overall, doing good. Would like to return back to work. History of obesity, diabetes, hypertension. [facility] Medical History Pneumonitis Atrial fibrillation with RVR Ascending aorta dilatation SLE (systemic lupus erythematosus) PMR (polymyalgia rheumatica) Osteoarthritis of knees, bilateral Lichen planus Psoriasis Polyarthralgia NEELAM positive COVID-19 vaccine series completed History of lupus LILLI (obstructive sleep apnea) Dyslipidemia Morbid obesity Vitamin D deficiency Primary thyroid cancer Diabetes type 2, uncontrolled Post-surgical hypothyroidism Surgical History Hx of vascular surgery Hx of knee surgery History of medial meniscus repair of left knee History of thumb surgery History of foot surgery Hx of colonoscopy Hx of arthroscopy of right knee Hx of thyroidectomy Hx of cholecystectomy History of carpal tunnel release of both wrists Family History Father Diabetes Hypertension Colon cancer Mother Hypertension Thyroid disease Bile duct carcinoma Social History Housing: House Are you a primary health care marketing manager to a significant other at home: No Do you presently have visiting nurse or other home services: No Alcohol intake: never Patient Tobacco Use Status: Former Tobacco user Tobacco use type: Cigarette Years Smoked: 5 years ago e-Cigarette/Vaping Use: Never Used Second Hand Smoke Exposure: Yes service: No Current occupational status: employed Current [place]: [employer] 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 Cognitive needs: No Hearing needs: No Vision needs: No Review of Systems Const Denies chills, Denies fatigue, Denies fever(s), Denies weight gain and Denies weight loss ENT Denies dizziness Card Denies chest pain, Reports pedal edema, Denies leg edema, Denies lightheadedness, Denies palpitations, Reports dyspnea, Denies dyspnea on exertion, Denies orthopnea and Denies other Resp Denies cough, Reports dyspnea and Denies dyspnea on exertion GI Denies hematochezia and Denies change in stool character Musc Denies abnormal gait, Denies muscle weakness, Denies numbness, Denies radiating pain into limb and Denies tingling Neuro Denies abnormal gait, Denies dizziness, Denies numbness and Denies tingling Endo Denies fatigue and Denies palpitations Physical Exam Vital Signs: Last Vital Signs Pulse 80 10/10/24 14:54 BP 154/70 H 10/10/24 14:54 BMI result Body Mass Index 39.6 Const General: comfortable and no acute distress Orientation/consciousness: patient oriented x3 HEENT Other: Unremarkable Head: Yes normal to inspection Neck Neck: Yes normal visual inspection Chest Chest palpation & inspection: normal inspection of the chest Resp Auscultation: clear to auscultation bilaterally Cardio Palpation: normal PMI Heart sounds: S1 normal heart sound present, S2 normal heart sound present, no gallops, no murmurs and no rubs GI Palpation (GI): Soft to palpation Back/Spine/Pelvis Other: unremarkable Skin General skin exam: no rashes or lesions noted Neuro General: patient oriented x3 Extrem General: Yes normal to inspection Psych Mental Status: mental status grossly normal Assessment & Plan Assessment & Plan (1) Atherosclerotic cardiovascular disease: Code(s): I25.10 - Atherosclerotic heart disease of [place] coronary artery without angina pectoris Category: Medical Plan: Recent EKG shows evidence of inferior STEMI. ST-elevation inferior leads. Echocardiogram with LVEF of 60-65%; basal inferior/inferolateral akinesis. Moderate mitral annular calcification. Cardiac catheterization showed acute thrombotic occlusion of the mid RCA; severe mid LAD stenosis. Status post PCI of RCA as culprit for STEMI and PCI of severe LAD with drug-eluting stents. She is free of angina. Continue Brilinta for 1 year. Aggressive risk factor modification. Continue statins. Last LDL cholesterol 53 mg/dL. (2) ST elevation myocardial infarction (STEMI) of inferior wall: Code(s): I21.19 - ST elevation (STEMI) myocardial infarction involving other coronary artery of inferior wall Category: Medical Plan: As above, recovered completely. Cardiac rehabilitation. (3) Paroxysmal atrial fibrillation: Code(s): I48.0 - Paroxysmal atrial fibrillation Category: Medical Plan: Holter shows underlying sinus rhythm without any atrial fibrillation. Beta- steve dose has been increased. Also on anticoagulation. Coding Level of Care Code Est Pt Level 4 (80939) Diagnoses Atherosclerotic cardiovascular disease I25.10 ST elevation myocardial infarction (STEMI) of inferior wall I21.19 Paroxysmal atrial fibrillation I48.0
[2024-10-10 14:54] VITALS: BP 154/70; PULSE 80; BMI 39.6
== END 2024-10-10 15:23 | disposition home or self-care (01) ==
PROVIDERS: PCP Nurse Practitioner Family; Visit Provider Internal Medicine
DX: I25.10 Atherosclerotic heart disease of native coronary artery without angina pectoris (principal); I21.19 ST elevation (STEMI) myocardial infarction involving other coronary artery of inferior wall; I48.0 Paroxysmal atrial fibrillation
CPT/HCPCS: 99214

== ENCOUNTER → 2024-10-10 14:51 | Outpatient (BNVA) | payer OTHER, SELFPAY | PROVIDERS: PCP Nurse Practitioner Family; Visit Provider Internal Medicine ==

== ENCOUNTER 2024-10-17 07:46 | Outpatient (AMB) | payer OTHER, SELFPAY ==
[2024-10-17 07:48] VITALS: BP 160/74; PULSE 88; O2SAT 97; BMI 39.9
--- NOTE | 2024-10-17 07:48 | MHC.PC.OV ---
Vital Signs 10/17/24 07:48 Height 5 ft 6 in Weight 247 lb BMI 39.9 BP 160/74 H Blood Pressure Location Rt brachial Position Sitting Pulse 88 Pulse Source Pulse Oximeter Pulse Oximetry (%) 97 Oxygen Delivery Method Room Air Intake Visit Reasons: 3 week follow up Intake Note: Pt is here today for her 3weeks f/u Allergies moxifloxacin [From AVELOX] Allergy (Severe, Verified 10/17/24 08:22) PINS AND NEEDLE FEET AND PALMS- SWELLING oxycodone [Percocet] Allergy (Intermediate, Verified 10/17/24 08:22) Vomiting vancomycin [Vancomycin] Allergy (Intermediate, Verified 10/17/24 08:22) SWELLING/HIVES/THROAT CLOSING SENSATION codeine [Codeine] Allergy (Mild, Verified 10/17/24 08:22) HIVES Penicillins Allergy (Mild, Verified 10/17/24 08:22) HIVES propoxyphene [From Darvon] Allergy (Mild, Verified 10/17/24 08:22) FELT LIKE CHEST CLOSING UP / HIVES Sulfa (Sulfonamide Antibiotics) [Sulfa (Sulfonamides)] Allergy (Mild, Verified 10/17/24 08:22) HIVES dexamethasone Adverse Reaction (Intermediate, Verified 10/17/24 08:22) muscle aches hydroxychloroquine [Plaquenil] Adverse Reaction (Mild, Verified 10/17/24 08:22) hair loss Iodinated Contrast Media [IV Contrast Dye] Adverse Reaction (Verified 10/17/24 08:22) Hives Medication List - Last Reconciled 10/17/24 by JONATHAN RojasP-BC apixaban (Eliquis) 5 mg PO BID atorvastatin 40 mg PO DAILY carvedilol 6.25 mg PO BID lancets (OneTouch Delica Plus Lancet) Test blood sugar 3 times per day lorazepam 0.5 mg PO DAILY PRN 2 days metformin ER 500 mg PO DAILY OneTouch Verio Flex meter (blood-glucose meter) As directed NS OneTouch Verio Meter (blood-glucose meter) TID testing NS OneTouch Verio test strips (blood sugar diagnostic) Test blood sugar 3 times per day NS ticagrelor (Brilinta) 90 mg PO BID trazodone 50 mg PO BEDTIME PRN Unithroid (levothyroxine) 175 mcg PO DAILY NS Tobacco use date assessed: 10/17/24 Dental Screening Dental Screen Date: 10/17/24 Did you have a dental visit in the last 12 months?: Yes Did you have a dental problem in the last 6 months where you did not have access to dental care?: Yes Was dental information given to patient?: Patient has dentist HPI 3 week follow up HPI Details History of Present Illness The patient is a 64-year-old female presenting with cramping in her feet and legs. She reported that the cramping started some time ago and has been persistent. She has not tried any medication for this issue, although it was suggested that magnesium might help alleviate the symptoms. Additionally, she has a history of positive NEELAM, although she has not been diagnosed with any specific condition related to this. Sleep disturbances, characterized by the ability to fall asleep but waking up after a few hours, have also been reported. The patient experiences sharp pains on the side of her head, which occurred before returning to work. This pain is described as a sharp, stabbing sensation that occurs intermittently (pointing to right temporal and parietal regions). Furthermore, she has a documented vitamin D deficiency, for which vitamin D supplementation has been recommended, but she has deferred consistent usage. Lastly, she has been diagnosed with sleep apnea, although symptoms are not severe. Pt is cleared to go back to work from my standpoint (recent stemi and afib) she was cleared by cardiology as well Social History Review of Systems - Neurological: Reports sharp, stabbing pain on the side of the head. - Musculoskeletal: Reports cramping in feet and legs. - Respiratory: Denies any symptoms apart from sleep apnea. - Psychiatric: Reports sleep disturbances and stress related to work. -denies any CP or SOB CN2-12 intact Physical Exam s1 s2 a+O lungs clear edema noted to BLE (L>R) Results Plan cont to follow up with cardiology, pulmonology, rheumatology, hematology CT scan ordered for head Patient was informed and verbally consented to the use of an ambient scribe for clinic note documentation during this visit. Discussion Notes Patient Instructions [facility] Medical History Pneumonitis Atrial fibrillation with RVR Ascending aorta dilatation SLE (systemic lupus erythematosus) PMR (polymyalgia rheumatica) Osteoarthritis of knees, bilateral Lichen planus Psoriasis Polyarthralgia NEELAM positive COVID-19 vaccine series completed History of lupus LILLI (obstructive sleep apnea) Dyslipidemia Morbid obesity Vitamin D deficiency Primary thyroid cancer Diabetes type 2, uncontrolled Post-surgical hypothyroidism Surgical History Hx of vascular surgery Hx of knee surgery History of medial meniscus repair of left knee History of thumb surgery History of foot surgery Hx of colonoscopy Hx of arthroscopy of right knee Hx of thyroidectomy Hx of cholecystectomy History of carpal tunnel release of both wrists Family History Father Diabetes Hypertension Colon cancer Mother Hypertension Thyroid disease Bile duct carcinoma Social History Housing: House Are you a primary managed care director to a significant other at home: No Do you presently have visiting nurse or other home services: No Alcohol intake: never Patient Tobacco Use Status: Former Tobacco user Tobacco use type: Cigarette Years Smoked: 5 years ago e-Cigarette/Vaping Use: Never Used Second Hand Smoke Exposure: Yes service: No Current occupational status: employed 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 Cognitive needs: No Hearing needs: No Vision needs: No Questionnaire Thrive Questionnaire Date Thrive assessed: 08/28/24 I am a: Patient What is your living situation today?: I have a steady place to live Within the past 12 months, did the food you bought not last and you didn't have the money to get more?: Never true Within the past 12 months, did you worry whether your food would run out before you got money to buy more?: Never true Do you have trouble paying for medicines?: No Do you have trouble getting transportation to medical appointments?: No Do you have trouble paying your heating and electricity bill?: No Do you have trouble taking care of your child, family member or friend?: No Do you have trouble with day-to-day activities such as bathing, preparing meals, shopping, managing finances, etc.?: No Are you currently unemployed and looking for a job?: No Are you interested in more education?: No Please select the resources that you would like help with: None Currently or been in a relationship where the following occur: No concerns reported THRIVE Score: 0 JADYN-7 AMB Questionnaire JADYN-7 Date JADYN - 7 assessed: 09/04/24 Source: Developed by Drs. Jef Cardona, Priscilla Stallings, Tito Lyons and colleagues, with an educational srinath from [employer]. Physical exam (Primary Care) Vital Signs: Last Vital Signs Pulse 88 10/17/24 07:48 BP 160/74 H 10/17/24 07:48 Pulse Ox 97 10/17/24 07:48 Oxygen Delivery Method Room Air 10/17/24 07:48 BMI result Body Mass Index 39.9 Tobacco/Smoking Status: Tobacco use Status Tobacco use date assessed 10/17/24 10/17/24 07:49 Patient Tobacco Use Status Former Tobacco user 10/17/24 07:49 Tobacco use type Cigarette 10/17/24 07:49 e-Cigarette/Vaping Use Never Used 10/17/24 07:49 Thrive Assessment: Date of Thrive Assessment Date Thrive assessed 08/28/24 10/17/24 07:49 Currently or been in a relationship where the following occur: No concerns reported Coding Level of Care Code Est Pt Level 3 (61851) Diagnoses Head pain R51.9 Assessment & Plan Assessment & Plan (1) Head pain: Code(s): R51.9 - Headache, unspecified Category: Medical Plan . Orders: Orders CT head/brain wo IV con Today R51.9 - Headache, unspecified
== END 2024-10-17 08:38 | disposition home or self-care (01) ==
PROVIDERS: PCP Nurse Practitioner Family; Visit Provider Nurse Practitioner Family
DX: R51.9 Headache, unspecified (principal)

== ENCOUNTER → 2024-10-17 07:46 | Outpatient (BNVA) | payer OTHER, SELFPAY | PROVIDERS: PCP Nurse Practitioner Family; Visit Provider Nurse Practitioner Family ==

== ENCOUNTER 2024-11-01 08:03 | Outpatient (REF) | payer OTHER, SELFPAY ==
--- NOTE | 2024-11-01 08:07 | PFT_ITS ---
Flows: FEV1: 96 % of predicted at 2.45 L FVC: 89 % of predicted at 2.93 L FEV1/FVC: 84 % Bronchodilator response: Not performed secondary to new onset AFib and patient complain of chest discomfort Volumes: Total lung capacity: 99 % of predicted at 5.37 L Residual volume: 91 % of predicted at 1.74 L Slow vital capacity: 103 % of predicted at 3.61 L Expiratory reserve volume: 75 % of predicted at 0.65 L Diffusion capacity: Mildly decreased Impression: No obstructive or restrictive ventilatory defect. Bronchodilator testing not performed secondary to recent onset of AFib and patient complaining of chest discomfort. Decreased diffusion capacity suggests emphysema. MTDD
[2024-11-01 10:34] VITALS: PULSE 98; O2SAT 98
== END 2024-11-01 08:04 | disposition home or self-care (01) ==
LOC: HO.RESP 08:03
PROVIDERS: PCP Nurse Practitioner Family; Visit Provider Hospitalist
DX: J84.9 Interstitial pulmonary disease, unspecified (principal)
CPT/HCPCS: 94010; 94640; 94727; 94729

== ENCOUNTER → 2024-11-01 08:07 | Outpatient (BNV) | payer OTHER, SELFPAY | PROVIDERS: PCP Nurse Practitioner Family; Visit Provider Internal Medicine Pulmonary Disease | DX: J84.9 Interstitial pulmonary disease, unspecified (principal) | CPT/HCPCS: 94060; 94727; 94729 ==

== ENCOUNTER 2024-11-03 11:25 | Emergency (ER) | payer OTHER, SELFPAY ==
--- NOTE | ~2024-11-03 | XR_ITS ---
EXAMINATION: XR CHEST CLINICAL INFORMATION: Chest pain, palpitations, rule out CHF, pneumonia COMPARISON: CT chest from 06/12/2024, chest radiograph from 04/30/2020 TECHNIQUE: 2 views of the chest were obtained. FINDINGS: Chronic emphysematous changes. No pneumothorax. Trachea is midline. Cardiac mediastinal silhouette is not enlarged. No large pleural effusion. Osseous structures are intact. Soft tissues are unremarkable. XR/XR chest 2V IMPRESSION: Chronic emphysematous changes. Electronically signed by: Shira Norris MD 11/03/2024 12:38 PM [facility]
--- NOTE | 2024-11-03 11:27 | ECG_ITS ---
Test Reason : CP Blood Pressure : / mmHG Vent. Rate : 088 BPM Atrial Rate : 088 BPM P-R Int : 152 ms QRS Dur : 084 ms QT Int : 338 ms P-R-T Axes : 053 010 031 degrees QTc Int : 408 ms Normal sinus rhythm Possible Inferior infarct (cited on or before 25-AUG-2024) Abnormal ECG When compared with ECG of 26-AUG-2024 03:23, No significant change was found Referred By: Generic ED Physician Electronically Signed By:BRANDON GARNER
[2024-11-03 11:45] VITALS: BP 152/73; PULSE 86; RESP 16; TEMP 36.4; O2SAT 98; BMI 39.3
--- NOTE | 2024-11-03 11:50 | PC.NURSE ---
Pt. is on registered nurse cardiac telemetry at this time.
--- NOTE | 2024-11-03 11:50 | ED.ARRPALP ---
HPI - Arrhythmia/Palpitations General Chief Complaint: Arrhythmia/Palpitations Stated Complaint: rapid heart beat Time Seen by Provider: 11/03/24 11:46 Source: patient Mode of arrival: ambulatory Limitations: no limitations History of Present Illness ED Provider: Dr. Deangelo Newman HPI narrative: 64-year-old female with NSTEMI 08/26/2024 secondary to acute thrombus mid RCA and RCA and mid LAD status post stenting at [facility], diabetes mellitus, hyperlipidemia, SLE, paroxysmal atrial fibrillation, interstitial lung disease, peripheral artery disease, hypothyroidism who presents emergency department for evaluation of intermittent chest heaviness and intermittent palpitations did patient states that she began to have fast and slow heart rates last night at around 18:30 hours. She states that she woke up from the heaviness in the center of her chest. She states this heaviness has been intermittent, last 15 minutes and she was had 5-6 episodes. The patient had no associated diaphoresis, lightheadedness, dizziness, neck, jaw, arm or back pain associated with her episodes of chest heaviness. Vomiting but did have intermittent nausea. She states that she continues to notice fluctuation in her heart rate ranging from 80-110 beats per minute. Patient states that she was not going to come to the emergency department but her son and insisted that she come in for evaluation. Patient states she has been having swelling in her left lower extremity greater than her right which has been going on for years. Obtain the following from the cardiology office note from 10/10/[address] Phillips. ?Recent EKG shows evidence of inferior STEMI. ST-elevation inferior leads. Echocardiogram with LVEF of 60-65%; basal inferior/inferolateral akinesis. Moderate mitral annular calcification. Cardiac catheterization showed acute thrombotic occlusion of the mid RCA; severe mid LAD stenosis. Status post PCI of RCA as culprit for STEMI and PCI of severe LAD with drug-eluting stents. She is free of angina the patient ? Related Data Home Medications ?Medication ?Instructions ?Recorded ?Confirmed atorvastatin 40 mg tablet 40 mg PO DAILY 07/26/24 10/17/24 ticagrelor 90 mg tablet (Brilinta) 90 mg PO BID 07/30/24 10/17/24 Previous Rx's ?Medication ?Instructions ?Recorded OneTouch Verio Meter #1 ea 11/03/22 (blood-glucose meter) OneTouch Verio Flex meter #1 ea 09/23/23 (blood-glucose meter) OneTouch Verio test strips (blood #300 ea 09/23/23 sugar diagnostic) lancets 33 gauge (OneTouch Delica #300 ea 09/23/23 Plus Lancet) lorazepam 0.5 mg tablet 0.5 mg PO DAILY PRN anxiety 2 days 05/02/24 #2 tabs metformin 500 mg tablet,extended 500 mg PO DAILY #90 tabs 05/29/24 release 24 hr trazodone 50 mg tablet 50 mg PO BEDTIME PRN sleep #30 tabs 07/26/24 apixaban 5 mg tablet (Eliquis) 5 mg PO BID #180 tabs 08/26/24 carvedilol 6.25 mg tablet 6.25 mg PO BID #180 tabs 08/26/24 Unithroid 175 mcg tablet 175 mcg PO DAILY #30 tabs 09/19/24 (levothyroxine) lorazepam 1 mg tablet (Ativan) 1 mg PO TID PRN anxiety #10 tabs 11/03/24 Allergies Allergy/AdvReac Type Severity Reaction Status Date / Time moxifloxacin [From AVELOX] Allergy Severe PINS AND Verified 11/03/24 11:49 NEEDLE FEET AND PALMS- SWELLING oxycodone [Percocet] Allergy Intermediate Vomiting Verified 11/03/24 11:49 vancomycin [Vancomycin] Allergy Intermediate SWELLING/HIVES/THROAT Verified 11/03/24 11:49 CLOSING SENSATION codeine [Codeine] Allergy Mild HIVES Verified 11/03/24 11:49 Penicillins Allergy Mild HIVES Verified 11/03/24 11:49 propoxyphene [From Darvon] Allergy Mild FELT LIKE Verified 11/03/24 11:49 CHEST CLOSING UP / HIVES Sulfa (Sulfonamide Allergy Mild HIVES Verified 11/03/24 11:49 Antibiotics) [Sulfa (Sulfonamides)] dexamethasone AdvReac Intermediate muscle Verified 11/03/24 11:49 aches hydroxychloroquine AdvReac Mild hair loss Verified 11/03/24 11:49 [Plaquenil] Iodinated Contrast Media AdvReac Hives Verified 11/03/24 11:49 [IV Contrast Dye] Review of Systems Review of Systems: Yes all other systems are reviewed and are negative [facility] Past Medical History [facility] Narrative: Social history: Patient continues to smoke 5-6 cigarettes per day on and off. She denies alcohol use. She denies tobacco use. She is in her is here in the emergency department. Her son who is a former accessibility lift technician at [employer] is also here in the emergency department with the patient Medical History Pneumonitis Atrial fibrillation with RVR Ascending aorta dilatation SLE (systemic lupus erythematosus) PMR (polymyalgia rheumatica) Osteoarthritis of knees, bilateral Lichen planus Psoriasis Polyarthralgia NEELAM positive COVID-19 vaccine series completed History of lupus LILLI (obstructive sleep apnea) Dyslipidemia Morbid obesity Vitamin D deficiency Primary thyroid cancer Diabetes type 2, uncontrolled Post-surgical hypothyroidism Surgical History Hx of vascular surgery Hx of knee surgery History of medial meniscus repair of left knee History of thumb surgery History of foot surgery Hx of colonoscopy Hx of arthroscopy of right knee Hx of thyroidectomy Hx of cholecystectomy History of carpal tunnel release of both wrists Family History Family History Father Diabetes Hypertension Colon cancer Mother Hypertension Thyroid disease Bile duct carcinoma Social History Social History Housing: House Are you a primary housekeeper caregiver to a significant other at home: No Do you presently have visiting nurse or other home services: No Alcohol intake: never Patient Tobacco Use Status: Former Tobacco user Tobacco use type: Cigarette Years Smoked: 5 years ago Smoked in Last 30 Days: Yes e-Cigarette/Vaping Use: Never Used Second Hand Smoke Exposure: Yes Use of substances other than those prescribed or required for medical reasons: No Advance Directives: No Advance Directives Information Provided: No Do you have a plan to hurt others: No Plan service: No Current occupational status: employed 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 Cognitive needs: No Hearing needs: No Vision needs: No Physical Exam Vital Signs: Vital Signs: Last Vital Signs Temp 97.9 F 11/03/24 15:01 Pulse 78 11/03/24 15:01 Resp 16 11/03/24 15:01 BP 111/66 11/03/24 15:01 Pulse Ox 98 11/03/24 15:01 O2 Del Method Room Air 11/03/24 15:01 BMI result Body Mass Index 39.3 Vital signs revealed an elevated blood pressure of 152/73 Exam: General: Awake, alert in no distress Head: Normocephalic, atraumatic EENT: PERRL, Lids normal, sclera normal, conjunctiva normal, nose normal , ears normal, throat without erythema or exudates Neck: Supple, no adenopathy Lung: breath sounds symmetric, no wheezing, rales or rhonchi Chest: symmetric movement, nontender Heart: regular rate and rhythm, normal S1, S2 no murmurs or rubs Abdomen: soft, non-tender, nondistended, normal bowel sounds Back: no vertebral tenderness, no CVAT Extremities: no deformities, moves all extremities symmetrically Neuro: Awake, alert, oriented, normal speech, cranial nerves intact, moves all extremities symmetrically Psych: Pleasant, cooperative Medical Decision Making Medical Decision Making MDM Narrative: 64-year-old female with NSTEMI 08/26/2024 secondary to acute thrombus mid RCA and RCA and mid LAD status post stenting of both artery at [facility], diabetes mellitus, hyperlipidemia, SLE, paroxysmal atrial fibrillation, interstitial lung disease, peripheral artery disease, hypothyroidism who presents emergency department for evaluation of intermittent chest heaviness lasting 15 minutes, proximally 5-6 episodes since 01:30 hours and intermittent palpitations since 18:30 hours yesterday. Patient had associated nausea with no other concerning symptoms. Vital signs revealed an elevated blood pressure. Physical examination was unremarkable Differential diagnosis: ?Includes but is not limited to myocardial ischemia, myocardial infarction, angina, palpitations, paroxysmal atrial fibrillation, hyperthyroidism, anemia, electrolyte abnormalities Following evaluation was ordered: CBC, BNP, liver panel, D-dimer, PT/INR, PTT, troponin now and 3 hour troponin, TSH with free T4, chest x-ray two view, EKG Patient was initially treated with the following: Cardiac monitoring, O2 saturation monitoring Course: 16:21 My interpretation patient's laboratory evaluation is as follows: CBC was normal. Glucose elevated 172. Times 0 troponin 13.1 and 3 hour troponin 8.8, this is reassuring and does not represent a greater than 50% change. Patient's D-dimer was below detectable limits. Chest x-ray revealed no acute disease. EKG was unchanged from the patient's previous EKG with no evidence for acute ischemia or infarction. At this time I do not have a clear etiology for the patient's chest heaviness but I do not think that it is related to your coronary artery disease. The patient does have paroxysmal atrial fibrillation but had no detectable arrhythmias while she was here in the emergency department over a 4 hour period. Also the patient is on Eliquis which reduces her risk of thrombotic stroke from paroxysmal atrial fibrillation. The patient may have a component of anxiety triggered by her chest pain and palpitations therefore she was prescribed Ativan 1 mg at night and 3 times a day as needed for anxiety, dispense 10 tablets. Patient was advised to follow-up with our cardiology group for re-evaluation determine if she needs any change in her medications. Admission/Observation Consideration of admission/observation: Escalation of care including admission/observation considered (Yes) Lab Data MDM Lab Attestation statement: I reviewed the patient's lab results. 11/03/24 11:58 11/03/24 11:58 Labs: Lab Results 11/03/24 11/03/24 11/03/24 Range/Units 11:58 12:11 15:00 WBC 7.0 (4.8-10.8) X10*3/uL RBC 5.27 (4.20-5.50) X10*6/uL Hgb 12.5 (12.0-16.0) g/dl Hct 39.1 (37.0-47.0) % MCV 74.2 L (80.0-98.0) fL MCH 23.7 L (27.0-33.0) pg MCHC 32.0 (31.0-35.0) g/dl RDW 15.7 (11.0-16.0) % Plt Count 248 (160-400) X10*3/uL MPV 9.8 (9.4-12.3) fL Immature Gran % (Auto) 0.3 (0.0-0.4) % Neut % (Auto) 68.2 (45-73) % Lymph % (Auto) 20.6 (20-40) % [place] % (Auto) 6.7 (2-11) % Eos % (Auto) 3.3 (0-4) % Baso % (Auto) 0.9 (0-2) % Lymph # (Auto) 1.4 (1.2-4.9) X10*3/uL [place] # (Auto) 0.5 (0.1-1.2) X10*3/uL Eos # (Auto) 0.2 (0.0-0.4) X10*3/uL Baso # (Auto) 0.1 (0.0-0.2) X10*3/uL Abs Immat Gran (auto) 0.02 (0.00-0.03) X10*3/uL Absolute Neuts (auto) 4.8 (2.0-8.3) x10*3/uL Absolute Nucleated RBC 0.000 (0.0-0.012) X10*3/uL Nucleated RBC % (auto) 0.0 (0.0-0.2) /100WBC PT 14.4 H (10.9-12.4) SEC INR 1.2 H (0.9-1.1) APTT 30.7 (26.0-36.8) SEC D-Dimer High Sensitivty < 150 NG/ML Sodium 140 (135-145) mmol/L Potassium 4.6 (3.3-5.1) mmol/L Chloride 110 H (96-108) mmol/L Carbon Dioxide 21 L (22-29) mmol/L Anion Gap 14 (12-20) BUN 16 (9-16) mg/dL Creatinine 0.78 (0.5-1.4) mg/dL Estim Creat Clear Calc 92.9 Estimated GFR > 60 Random Glucose 172 H (60-115) mg/dL Calcium 9.4 (8.4-10.2) mg/dL Total Bilirubin 0.4 (0.0-1.0) mg/dL Direct Bilirubin 0.2 (0.0-0.5) mg/dL AST 20 (5-31) U/L ALT 25 (0-31) U/L Alkaline Phosphatase 86 (39-117) U/L Troponin I High Sens 13.1 D 8.8 (<3.5-17.0) ng/L B-Natriuretic Peptide 69 (<100) pg/mL Total Protein 6.5 (6.5-8.0) g/dL Albumin 3.8 (3.5-5.0) g/dL TSH 0.63 (0.32-4.0) uIU/mL Independent Interpretation I performed an independent interpretation of an: EKG Interpretation: My independent interpretation patient's 12 EKG done at 11:36 hours is as follows: Normal sinus rhythm rate of 88, normal MA interval, normal QRS duration and QTC interval, less than [address] segment elevation in lead 2, Q-wave lead 2, 3 and AVF, inverted T-wave in V1, no ST segment depression, no PACs, no PVCs. Compared to EKG dated 08/26/2024 the Q-waves in 2, 3 and AVF are old, ST segment elevation lead to was present but more prominent on today's EKG, inverted T-wave in lead My independent interpretation patient's chest x-ray is as follows: No acute disease, no focal infiltrates, no CHF Radiology Impression Discussion of test interpretation with radiology: I have reviewed the radiologist's reading. Radiologist Impression: XR chest 2V IMPRESSION: Chronic emphysematous changes. Electronically signed by: Shira Norris MD 11/03/2024 12:38 PM [facility] [place] Dictated By: Shira Norris MD Independent Historian Clinical information obtained from an independent historian. History obtained from or confirmed by: Spouse and Other (Son) External Record Review External record reviewed: Inpatient record and Office record Prescription Management I considered prescription management with: Other (Anti anxiolytic-Ativan) Chronic Conditions Patient?s care impacted by: Diabetes Discharge Plan Discharge Clinical Impression: Chest pain, Palpitations Patient Disposition: Home, Self-Care Instructions: Heart Palpitations (ED) Additional Instructions: Your blood work today was unremarkable You had to troponin test done 3 hours apart which were normal which suggests that you chest heaviness is not due to a heart attack. This is reassuring. You are on the cardiac monitor technician while you were here in the emergency department and we did not detect any concerning arrhythmias. At this time I do not have a clear cause for the palpitations that you are experiencing. Continue taking your medications as prescribed. I want you to call our cardiology group on Tuesday morning to make a follow-up appointment for re-evaluation of your chest pain and your palpitations. Sometimes palpitations can make you anxious, cause you to release adrenal and and then make the palpitations worse. Therefore I am starting you on a medication for anxiety called Ativan. Take Ativan 1 mg pills, at night for anxiety and sleep. You can also take 1 pill every 6 hours (3 times a day) as needed for anxiety. ?This medication will make you sleepy, do not drive or work while taking this medication. ?This medication can be addicting, if your concerned about addiction you can ask the pharmacist for less medications or do not get the prescription filled. Follow-up with your doctor in 2 days. Please return to the emergency department if your symptoms get worse or if you develop any symptoms that are concerning to you. Prescriptions: New lorazepam [Ativan] 1 mg tablet 1 mg PO TID PRN (Reason: anxiety) Qty: 10 0RF Rx Instructions: Patient may request partial fill No Action (DME) blood-glucose meter [OneTouch Verio Flex meter] Misc See Rx Instructions .Route Qty: 1 0RF Rx Instructions: As directed (DME) lancets [OneTouch Delica Plus Lancet] 33 gauge misc See Rx Instructions .Route Qty: 300 1RF Rx Instructions: Test blood sugar 3 times per day (DME) OneTouch Verio test strips Strip See Rx Instructions .Route Qty: 300 1RF Rx Instructions: Test blood sugar 3 times per day lorazepam 0.5 mg tablet 0.5 mg PO DAILY PRN (Reason: anxiety) 2 Days Qty: 2 0RF metformin 500 mg tablet extended release 24 hr 500 mg PO DAILY Qty: 90 1RF levothyroxine [Unithroid] 175 mcg tablet 175 mcg PO DAILY Qty: 30 5RF Eliquis 5 mg Tablet 5 mg PO BID Qty: 180 0RF carvedilol 6.25 mg tablet 6.25 mg PO BID Qty: 180 0RF Rx Instructions: must administer with a meal/food (DME) blood-glucose meter [OneTouch Verio Meter] Misc See Rx Instructions .Route Qty: 1 0RF Rx Instructions: TID testing atorvastatin 40 mg tablet 40 mg PO DAILY trazodone 50 mg tablet 50 mg PO BEDTIME PRN (Reason: sleep) Qty: 30 0RF Brilinta 90 mg tablet 90 mg PO BID Referrals: Aries Phillips MD [Physician] - 2 weeks (Palpitations, chest heaviness. No a arrhythmias noted while on cardiac monitor technician in the emergency department. EKG unchanged from previous. Troponin negative x2 in ED.) Print Language: Citizen Of [place]
[2024-11-03 11:52] VITALS: BP 152/73; PULSE 86; PULSE 87; RESP 16; TEMP 36.4; O2SAT 98
[2024-11-03 12:03] LABS: MANUAL DIFF FLAG NO
[2024-11-03 12:05] LABS: Basophils Absolute Auto 0.1 X10*3/uL (0.0-0.2); Basophils Percent Auto 0.9 % (0-2); Eosinophils Absolute Auto 0.2 X10*3/uL (0.0-0.4); Eosinophils Percent Auto 3.3 % (0-4); Hematocrit 39.1 % (37.0-47.0); Hemoglobin 12.5 g/dl (12.0-16.0); Imm Gran Abs Auto 0.02 X10*3/uL (0.00-0.03); Imm Gran Pct Auto 0.3 % (0.0-0.4); Lymphocytes Absolute Auto 1.4 X10*3/uL (1.2-4.9); Lymphocytes Percent Auto 20.6 % (20-40); Mean Corpuscular Hemoglobin 23.7 pg (27.0-33.0); Mean Corpuscular Volume 74.2 fL (80.0-98.0); Mean Platelet Volume 9.8 fL (9.4-12.3); Monocytes Absolute Auto 0.5 X10*3/uL (0.1-1.2); Monocytes Percent Auto 6.7 % (2-11); Neutrophils Absolute Auto 4.8 x10*3/uL (2.0-8.3); Neutrophils Percent Auto 68.2 % (45-73); Platelet Count 248 X10*3/uL (160-400); Red Blood Count 5.27 X10*6/uL (4.20-5.50); Red Cell Distribution Width 15.7 % (11.0-16.0)
[2024-11-03 12:22] LABS: Anion Gap 14 (12-20); Blood Urea Nitrogen 16 mg/dL (9-16); Calcium 9.4 mg/dL (8.4-10.2); Carbon Dioxide 21 mmol/L (22-29); Chloride 110 mmol/L (96-108); Creatinine Clr Calc Pharmacy 92.9; Estimated Glomerular Filt Rate > 60; Glucose Random 172 mg/dL (60-115); Potassium 4.6 mmol/L (3.3-5.1); Sodium 140 mmol/L (135-145)
[2024-11-03 12:24] LABS: Troponin-I High Sensitivity 13.1 ng/L (<3.5-17.0)
[2024-11-03 12:34] LABS: INTERNATIONAL NORM RATIO 1.2 (0.9-1.1); Prothrombin Time 14.4 SEC (10.9-12.4)
[2024-11-03 12:37] LABS: Partial Thromboplastin Time 30.7 SEC (26.0-36.8)
[2024-11-03 12:39] LABS: D Dimer High Sensitivity < 150 NG/ML
[2024-11-03 12:44] LABS: Alanine Aminotransferase 25 U/L (0-31); Albumin Level 3.8 g/dL (3.5-5.0); Alkaline Phosphatase 86 U/L (39-117); Aspartate Amino Transferase 20 U/L (5-31); B Type Natriuretic Peptide 69 pg/mL (<100); Bilirubin Direct 0.2 mg/dL (0.0-0.5); Bilirubin Total 0.4 mg/dL (0.0-1.0); Total Protein 6.5 g/dL (6.5-8.0)
[2024-11-03 13:11] LABS: TSH reflex Free T4 0.63 uIU/mL (0.32-4.0)
[2024-11-03 13:15] VITALS: BP 123/63; PULSE 78; RESP 16; O2SAT 98
[2024-11-03 15:01] VITALS: BP 111/66; PULSE 78; RESP 16; TEMP 36.6; O2SAT 98
[2024-11-03 15:32] LABS: Troponin-I High Sensitivity 8.8 ng/L (<3.5-17.0)
[2024-11-03 16:29] VITALS: BP 110/60; PULSE 77; RESP 14; TEMP 36.8; O2SAT 98
== END 2024-11-03 16:29 | disposition home or self-care (01) ==
PROVIDERS: Emergency Provider Emergency Medicine Emergency Medical Services; PCP Nurse Practitioner Family
DX: R07.9 Chest pain, unspecified (principal); R00.2 Palpitations; E11.9 Type 2 diabetes mellitus without complications; I10 Essential (primary) hypertension; E78.5 Hyperlipidemia, unspecified; I48.0 Paroxysmal atrial fibrillation; E03.9 Hypothyroidism, unspecified; Z79.899 Other long term (current) drug therapy; Z79.84 Long term (current) use of oral hypoglycemic drugs; Z79.01 Long term (current) use of anticoagulants; Z79.02 Long term (current) use of antithrombotics/antiplatelets; Z87.891 Personal history of nicotine dependence
CPT/HCPCS: 36415; 71046; 80048; 80076; 83880; 84443; 84484; 85025; 85379; 85610; 85730; 93005; 99284; 99285

== ENCOUNTER → 2024-11-03 11:27 | Outpatient (BNV) | payer OTHER, SELFPAY | PROVIDERS: Emergency Provider Emergency Medicine Emergency Medical Services; PCP Nurse Practitioner Family; Visit Provider Internal Medicine | DX: R07.9 Chest pain, unspecified (principal); R94.31 Abnormal electrocardiogram [ECG] [EKG] | CPT/HCPCS: 93010 ==

== ENCOUNTER 2024-11-23 10:33 | Outpatient (REF) | payer OTHER, SELFPAY ==
--- NOTE | ~2024-11-23 | CT_ITS ---
EXAMINATION: CT HEAD WITHOUT CONTRAST CLINICAL INFORMATION: Headache COMPARISON: None available. TECHNIQUE: Contiguous axial imaging was performed from the skull base to vertex without intravenous administration of contrast. This CT examination was performed using dose optimization techniques as appropriate, variously including the following: *Automated exposure control *Adjustment of mA and/or kV according to patient size (this includes techniques or standardized protocols for targeted exams where dose is matched to indication/reason for exam; i.e. extremities or head) *Use of iterative reconstruction technique FINDINGS: No acute intra-axial, extra-axial bleed, masses or midline shift. There is no acute infarction evolution. There is no edema. The lovett to white matter differentiation is maintained normal. The lateral ventricles are symmetrical in size and configuration without enlargement. Bone windows reveal no calvarial abnormality. There is mild mucoperiosteal thickening bilateral maxillary sinuses. Rest of paranasal sinuses and mastoid air cells are well-aerated. CT/CT head/brain wo IV con IMPRESSION: No acute intracranial process seen. Minimal bilateral maxillary sinus inflammatory changes Electronically signed by: Hesham Castellano MD 11/23/2024 12:26 PM [facility]
== END 2024-11-23 10:34 | disposition home or self-care (01) ==
LOC: HO.CT 10:33
PROVIDERS: PCP Nurse Practitioner Family; Visit Provider Nurse Practitioner Family
DX: R51.9 Headache, unspecified (principal)
CPT/HCPCS: 70450

== ENCOUNTER → 2024-11-23 10:34 | Outpatient (BNV) | payer OTHER, SELFPAY | PROVIDERS: PCP Nurse Practitioner Family; Visit Provider Radiology Diagnostic Radiology | DX: R51.9 Headache, unspecified (principal) | CPT/HCPCS: 70450 ==

== ENCOUNTER 2025-02-20 10:31 | Outpatient (AMB) | payer OTHER, SELFPAY ==
[2025-02-20 10:45] VITALS: BP 136/60; PULSE 75
--- NOTE | 2025-02-20 10:45 | MHC.OFFVIS ---
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: No Accompanied by: Self / Same As Patient Allergies moxifloxacin [From AVELOX] Allergy (Severe, Verified 11/03/24 11:49) PINS AND NEEDLE FEET AND PALMS- SWELLING oxycodone [Percocet] Allergy (Intermediate, Verified 11/03/24 11:49) Vomiting vancomycin [Vancomycin] Allergy (Intermediate, Verified 11/03/24 11:49) SWELLING/HIVES/THROAT CLOSING SENSATION codeine [Codeine] Allergy (Mild, Verified 11/03/24 11:49) HIVES Penicillins Allergy (Mild, Verified 11/03/24 11:49) HIVES propoxyphene [From Darvon] Allergy (Mild, Verified 11/03/24 11:49) FELT LIKE CHEST CLOSING UP / HIVES Sulfa (Sulfonamide Antibiotics) [Sulfa (Sulfonamides)] Allergy (Mild, Verified 11/03/24 11:49) HIVES dexamethasone Adverse Reaction (Intermediate, Verified 11/03/24 11:49) muscle aches hydroxychloroquine [Plaquenil] Adverse Reaction (Mild, Verified 11/03/24 11:49) hair loss Iodinated Contrast Media [IV Contrast Dye] Adverse Reaction (Verified 11/03/24 11:49) Hives Medication List - Last Reconciled 02/20/25 by Aries Phillips MD apixaban (Eliquis) 5 mg PO BID atorvastatin 40 mg PO BEDTIME carvedilol 6.25 mg PO BID lancets (OneTouch Delica Plus Lancet) Test blood sugar 3 times per day metformin ER 500 mg PO DAILY OneTouch Verio Flex meter (blood-glucose meter) As directed NS OneTouch Verio Meter (blood-glucose meter) TID testing NS OneTouch Verio test strips (blood sugar diagnostic) Test blood sugar 3 times per day NS ticagrelor (Brilinta) 90 mg PO BID Unithroid (levothyroxine) 175 mcg PO DAILY NS HPI Comments Details: Guadalupe requested an urgent appointment today. She states that she has not been feeling good since last seen. Nonspecific complaints. When she woke up in the morning, she feels as though she is walking on one side. She feels dizzy. Has been having some back pain. However, not having any chest pain or left arm pain or jaw pain or anything along those lines. Somewhat sweaty. Breathing seems okay. She has no other complaints like slurring of speech, tingling, numbness, extremity weakness or any stroke sounding symptoms. To recall, she had inferior STEMI in 2023. Sent to [facility]- underwent PCI to RCA/LAD. She was doing okay, but she had a hospitalization to [place] with atrial fibrillation and rapid ventricular response. She converted to sinus rhythm and then her Coreg dose has been increased. She is also on anticoagulation. History of obesity, diabetes, hypertension. [facility] Medical History Pneumonitis Atrial fibrillation with RVR Ascending aorta dilatation SLE (systemic lupus erythematosus) PMR (polymyalgia rheumatica) Osteoarthritis of knees, bilateral Lichen planus Psoriasis Polyarthralgia NEELAM positive COVID-19 vaccine series completed History of lupus LILLI (obstructive sleep apnea) Dyslipidemia Morbid obesity Vitamin D deficiency Primary thyroid cancer Diabetes type 2, uncontrolled Post-surgical hypothyroidism Surgical History Hx of vascular surgery Hx of knee surgery History of medial meniscus repair of left knee History of thumb surgery History of foot surgery Hx of colonoscopy Hx of arthroscopy of right knee Hx of thyroidectomy Hx of cholecystectomy History of carpal tunnel release of both wrists Family History Father Diabetes Hypertension Colon cancer Mother Hypertension Thyroid disease Bile duct carcinoma Social History Housing: House Are you a primary career services assistant to a significant other at home: No Do you presently have visiting nurse or other home services: No Alcohol intake: never Patient Tobacco Use Status: Former Tobacco user Tobacco use type: Cigarette Years Smoked: 5 years ago e-Cigarette/Vaping Use: Never Used Second Hand Smoke Exposure: Yes service: No Current occupational status: employed 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 Cognitive needs: No Hearing needs: No Vision needs: No Review of Systems Const Denies chills, Denies fatigue, Denies fever(s), Denies weight gain and Denies weight loss ENT Reports dizziness Card Denies chest pain, Denies leg edema, Denies lightheadedness, Denies palpitations, Reports dyspnea, Denies dyspnea on exertion, Denies orthopnea and Denies other Resp Denies cough, Reports dyspnea and Denies dyspnea on exertion GI Denies hematochezia and Denies change in stool character Musc Denies abnormal gait, Reports back pain, Denies muscle weakness, Denies numbness, Denies radiating pain into limb and Denies tingling Neuro Denies abnormal gait, Reports dizziness, Denies numbness and Denies tingling Endo Denies fatigue and Denies palpitations Physical Exam Vital Signs: Last Vital Signs Pulse 75 02/20/25 10:45 BP 136/60 02/20/25 10:45 Const General: comfortable and no acute distress Orientation/consciousness: patient oriented x3 HEENT Other: Unremarkable Head: Yes normal to inspection Neck Neck: Yes normal visual inspection Chest Chest palpation & inspection: normal inspection of the chest Resp Auscultation: clear to auscultation bilaterally Cardio Palpation: normal PMI Heart sounds: S1 normal heart sound present, S2 normal heart sound present, no gallops, no murmurs and no rubs GI Palpation (GI): Soft to palpation Back/Spine/Pelvis Other: unremarkable Skin General skin exam: no rashes or lesions noted Neuro General: patient oriented x3 Extrem General: Yes normal to inspection Psych Mental Status: mental status grossly normal Office Procedures EKG Details: EKG with underlying sinus rhythm at 75/Min; very subtle ST elevation in the inferior and anterolateral leads. This is similar to the EKG at the time of AR. EKGs after that have shown subtle changes. [id number], Complete Assessment & Plan Assessment & Plan (1) Atherosclerotic cardiovascular disease: Code(s): I25.10 - Atherosclerotic heart disease of [place] coronary artery without angina pectoris Category: Medical Plan: At the current time, symptoms are very nonspecific and difficult to ascertain definitive etiology. We will do labs including CBC, CMP and troponin level. We discussed about ER evaluation but she would rather avoid that if possible. Advised her to rest further they and keep us posted of any changes in her symptoms and she agrees with that. She will take the rest of the day off. Prior cardiac studies- Echocardiogram with LVEF of 60-65%; basal inferior/inferolateral akinesis. Moderate mitral annular calcification. Cardiac catheterization showed acute thrombotic occlusion of the mid RCA; severe mid LAD stenosis. Status post PCI of RCA as culprit for STEMI and PCI of severe LAD with drug-eluting stents. She is free of angina. Continue Brilinta for 1 year. Continue statins. Last LDL cholesterol 53 mg/dL. (2) Paroxysmal atrial fibrillation: Code(s): I48.0 - Paroxysmal atrial fibrillation Category: Medical Plan: Last Holter shows underlying sinus rhythm without any atrial fibrillation. On beta-blockers and anticoagulation. Orders: Orders Complete Blood Count no Diff Today Z95.5 - Presence of coronary angioplasty implant and graft Comprehensive Met. Panel Today I48.0 - Paroxysmal atrial fibrillation, Z95.5 - Presence of coronary angioplasty implant and graft Troponin-I High Sensitivity Today Z95.5 - Presence of coronary angioplasty implant and graft Coding Level of Care Code Est Pt Level 4 (10307) Complex EM visit Add On G2211 Diagnoses Atherosclerotic cardiovascular disease I25.10 Paroxysmal atrial fibrillation I48.0 CPT Codes EKG - CPT: 78886-[id number], Complete ([id number])
== END 2025-02-20 11:03 | disposition home or self-care (01) ==
PROVIDERS: PCP Nurse Practitioner Family; Visit Provider Internal Medicine
DX: I25.10 Atherosclerotic heart disease of native coronary artery without angina pectoris (principal); I48.0 Paroxysmal atrial fibrillation
CPT/HCPCS: 93010; 99214

== ENCOUNTER 2025-02-20 10:31 | Outpatient (REF) | payer OTHER, SELFPAY ==
[2025-02-20 12:24] LABS: Hematocrit 36.9 % (37.0-47.0); Hemoglobin 11.4 g/dl (12.0-16.0); Mean Corpuscular HGB Conc 30.9 g/dl (31.0-35.0); Mean Corpuscular Hemoglobin 23.8 pg (27.0-33.0); Mean Platelet Volume 10.1 fL (9.4-12.3); Platelet Count 264 X10*3/uL (160-400); Red Blood Count 4.79 X10*6/uL (4.20-5.50); Red Cell Distribution Width 15.2 % (11.0-16.0); White Blood Count 7.6 X10*3/uL (4.8-10.8)
[2025-02-20 12:55] LABS: Troponin-I High Sensitivity 3.2 ng/L (<3.5-17.0)
[2025-02-20 12:56] LABS: Alanine Aminotransferase 29 U/L (0-31); Alkaline Phosphatase 90 U/L (39-117); Anion Gap 9 (12-20); Aspartate Amino Transferase 23 U/L (5-31); Bilirubin Direct 0.2 mg/dL (0.0-0.5); Bilirubin Total 0.4 mg/dL (0.0-1.0); Blood Urea Nitrogen 16 mg/dL (9-16); Calcium 9.6 mg/dL (8.4-10.2); Carbon Dioxide 23 mmol/L (22-29); Chloride 111 mmol/L (96-108); Cholesterol 116 mg/dL (<200); Estimated Glomerular Filt Rate > 60; Glucose Random 129 mg/dL (60-115); HDL Cholesterol 43 mg/dL (>40); LDL Cholesterol Calculated 48 mg/dL (<100); Potassium 4.1 mmol/L (3.3-5.1); Sodium 139 mmol/L (135-145); Total Protein 6.7 g/dL (6.5-8.0); Triglycerides 126 mg/dL (<150)
[2025-02-20 13:18] LABS: Free T4 (Free Thyroxine) 1.51 ng/dL (0.71-1.85); Thyroid Stimulating Hormone 0.49 uIU/mL (0.32-4.0)
[2025-02-21 06:22] LABS: Triiodothyronine T3 Free 2.8 pg/mL (2.3-4.2)
[2025-02-23 06:43] LABS: Thyroglobulin Antibody <1 IU/mL (<=1); Thyroglobulin Level <0.1 ng/mL
== END 2025-02-20 10:32 | disposition home or self-care (01) ==
LOC: HO.LAB 10:31
PROVIDERS: Absent Provider Internal Medicine Endocrinology, Diabetes & Metabolism; PCP Nurse Practitioner Family; Visit Provider Internal Medicine
DX: I48.0 Paroxysmal atrial fibrillation (principal); E78.5 Hyperlipidemia, unspecified; Z95.5 Presence of coronary angioplasty implant and graft; I25.10 Atherosclerotic heart disease of native coronary artery without angina pectoris; C73 Malignant neoplasm of thyroid gland
CPT/HCPCS: 36415; 80053; 80061; 82248; 84432; 84439; 84443; 84481; 84484; 85027; 86800; 93005

== ENCOUNTER 2025-03-29 15:28 | Outpatient (REF) | payer OTHER, SELFPAY | END 2025-03-29 15:29 | disposition home or self-care (01) | LOC: HO.BBR 15:28 | PROVIDERS: PCP Nurse Practitioner Family; Visit Provider Internal Medicine Medical Oncology | DX: D75.1 Secondary polycythemia (principal) | CPT/HCPCS: 85014; 85018; 99195 ==

== ENCOUNTER → 2025-04-04 08:03 | Outpatient (REF) | payer OTHER, SELFPAY ==
--- NOTE | 2025-04-04 08:36 | CA_ITS ---
Transthoracic Echocardiogram Patient (Last, First, Middle): Guadalupe Hook, Gender: Female Date of : 1960 Age: 64 Procedure Date: 04/04/2025 Procedure Type: Transthoracic Echocardiogram Location: OP Height: 167.64 cm Weight: 112.95 kg BSA: 2.20 m2 Heart Rate: bpm BP: 120 / 68 mmHg Ammonia Still Operator: TO Referring MD: Aries Phillips MD Electronics Recycler: Kimani Puente MD Symptoms: I48.91 - Unspecified atrial fibrillation Study Quality: Fair, pt declines contrast ECG Rhythm: Sinus Conclusions: - 1. Normal LV ejection fraction 55-60% with impaired relaxation filling pattern 2. Moderate mitral annular calcification with normal cardiac valvular Doppler 3. No gross pericardial effusion Findings Procedure Information The patient declines contrast. Left Ventricle Normal left ventricular size, thickness, and systolic function. The visually estimated ejection fraction is between 55-60%. Spectral Doppler is indicative of an impaired relaxation filling pattern. E/E prime ratio is between 8 and 15 consistent with indeterminate filling pressures. There is mild septal asymmetric hypertrophy. Right Ventricle The right ventricle was not well visualized. Normal right ventricular cavity size. Atria The left atrium is likely dilated. There is lipomatous hypertrophy of the interatrial septum. Interatrial shunt cannot be excluded. The right atrium was not well visualized. Aortic Valve The aortic valve was not well visualized. There is mild calcification of the aortic valve. There is no aortic valve stenosis. There is no aortic valve regurgitation. Mitral Valve There is mild anterior and moderate posterior mitral leaflet thickening. There is moderate mitral annular calcification. There is trace mitral valve regurgitation. There is no mitral valve stenosis. Pulmonic Valve The pulmonic valve was not well visualized. Tricuspid Valve The tricuspid valve was not well visualized. Great Vessels All visible segments of the aorta are normal in size. The pulmonary artery was not well visualized. There is no dilatation of the ascending aorta measuring 3.40 cm. Venous The inferior vena cava is normal in size and collapses greater than 50% with inspiration. Pericardium/Pleural There is no evidence of pericardial effusion. Prior Study Comparison No significant change compared to prior study dated: 04/02/2024. Measurements 2D Linear Measurements IVSd: 1.11 0.6-0.9/0.6-1.0 cm LVIDd: 4.03 3.9-5.3/4.2-5.9 cm LVIDd Index: 1.83 2.4-3.2/2.2-3.1 cm/m2 LVIDs: 2.87 2.0-3.6 cm LVPWd: 0.97 0.7-1.1 cm LA Diam: 3.70 2.7-3.8/3.0-4.0 cm LAIDs Index: 1.68 1.5-2.3 cm/m2 LV Mass: 169.27 67-162/88-224 g LV Mass Index: 76.94 43-95/49-115 g/m2 LVOT Diam: 2.20 3.0+(-)1.3 cm 2D Systolic Function EF 4C: 57.80 >55% Mitral Valve MV VTI: 0.40 MV Pk Richie: 1.45 MV Mn Richie: 0.86 MV Pk Grad: 8.00 MV Mn Grad: 3.00 MV Pk E: 0.94 MV PK A: 1.06 MV Decel Time: 216.00 E/A: 0.90 E'Lateral: 8.27 E'Medial: 5.11 E/E' Med: 18.40 E/E' Lat: 11.30 PHT: 63.00 MVA PHT: 3.49 MVA Continuity: 2.40 Decel Wilson: 4.34 Aortic Valve AoV Pk Richie: 1.62 AoV Mn Richie: 1.07 AoV VTI: 0.38 AoV Pk Grad: 10.00 Aov Mn Grad: 5.00 SHU Cont.VTI: 2.53 LVOT LVOT Pk Richie: 1.21 LVOT Mn Richie: 0.86 LVOT VTI: 0.25 LVOT Pk Grad: 6.00 LVOT Mn Grad: 3.00 LVOT Diam: 2.20 LVOT Area: 3.80 Diastolic Function MV Pk E: 0.94 MV Pk A: 1.06 E/A: 0.90 E'Medial: 5.11 E/E' Med: 18.40 E' Laterial: 8.27 E/E' Lat: 11.30 Right Ventricle TAPSE (mm): 21.70 TVS' Richie: 13.90 Tricuspid Valve RA Press: 3.00 Great Vessels Aorta Sinus of Valsalva: 3.22 2.0-3.5 cm Ao Asc: 3.40 2.1-3.4 cm Updated in Other Vendor System with Status of Final Kimani Puente MD electronically signed on 04/04/2025 2:56:16 PM with status of Final
== END ==
LOC: HO.CARD 08:03
PROVIDERS: PCP Nurse Practitioner Family; Visit Provider Nurse Practitioner Family
DX: I25.10 Atherosclerotic heart disease of native coronary artery without angina pectoris (principal); I21.19 ST elevation (STEMI) myocardial infarction involving other coronary artery of inferior wall; I48.91 Unspecified atrial fibrillation
CPT/HCPCS: 93306

== ENCOUNTER → 2025-04-04 08:36 | Outpatient (BNV) | payer OTHER, SELFPAY | PROVIDERS: PCP Nurse Practitioner Family; Visit Provider Internal Medicine Cardiovascular Disease | DX: I42.2 Other hypertrophic cardiomyopathy (principal); I35.8 Other nonrheumatic aortic valve disorders; I34.81 Nonrheumatic mitral (valve) annulus calcification | CPT/HCPCS: 93306 ==

== ENCOUNTER 2025-04-17 08:02 | Outpatient (AMB) | payer OTHER, SELFPAY ==
[2025-04-17 08:21] VITALS: BP 150/68; PULSE 79; O2SAT 98; BMI 42.0
--- NOTE | 2025-04-17 08:21 | A.OFFVIS_ITS ---
Vital Signs 04/17/25 08:21 Height 5 ft 6 in Weight 260 lb 2.327 oz BMI 42.0 BP 150/68 H Blood Pressure Location Lt brachial Position Sitting Pulse 79 Pulse Source Pulse Oximeter Pulse Oximetry (%) 98 Oxygen Delivery Method Room Air Intake Visit Reasons: f/u thyroid cancer Intake Note: Patient present today for Thyroid cancer follow up visit. Lan Analyst Required: No Accompanied by: Self / Same As Patient Allergies moxifloxacin [From AVELOX] Allergy (Severe, Verified 04/17/25 08:24) PINS AND NEEDLE FEET AND PALMS- SWELLING oxycodone [Percocet] Allergy (Intermediate, Verified 04/17/25 08:24) Vomiting vancomycin [Vancomycin] Allergy (Intermediate, Verified 04/17/25 08:24) SWELLING/HIVES/THROAT CLOSING SENSATION codeine [Codeine] Allergy (Mild, Verified 04/17/25 08:24) HIVES Penicillins Allergy (Mild, Verified 04/17/25 08:24) HIVES propoxyphene [From Darvon] Allergy (Mild, Verified 04/17/25 08:24) FELT LIKE CHEST CLOSING UP / HIVES Sulfa (Sulfonamide Antibiotics) [Sulfa (Sulfonamides)] Allergy (Mild, Verified 04/17/25 08:24) HIVES dexamethasone Adverse Reaction (Intermediate, Verified 04/17/25 08:24) muscle aches hydroxychloroquine [Plaquenil] Adverse Reaction (Mild, Verified 04/17/25 08:24) hair loss Iodinated Contrast Media [IV Contrast Dye] Adverse Reaction (Verified 04/17/25 08:24) Hives Medication List - Last Reconciled 04/17/25 by Jef Palomino MD apixaban (Eliquis) 5 mg PO BID atorvastatin 40 mg PO BEDTIME carvedilol 6.25 mg PO BID lancets (OneTouch Delica Plus Lancet) Test blood sugar 3 times per day metformin ER 500 mg PO DAILY OneTouch Verio Flex meter (blood-glucose meter) As directed NS OneTouch Verio Meter (blood-glucose meter) TID testing NS OneTouch Verio test strips (blood sugar diagnostic) Test blood sugar 3 times per day NS ticagrelor (Brilinta) 90 mg PO BID Unithroid (levothyroxine) 175 mcg PO DAILY NS HPI Comments Details: 64 yo female today for fup visit, she was last seen on01/12/21 for PTC post surgical hypothyroidism. denies nervousness, no insomnia, weight stable, heat intolerance, sweating. She has very rarely nocturia, denies polydipsia, denies polyuria. 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 She has other PMH of non-positional vertigo, IBS, vitamin D deficiency, obesity, SLE. She had US guided FNA on 06/05/15. The left lobe nodule cytology was FLUS, She had total thyroidectomy on 09/02/15, surgery was performed by Dr. Caruso. 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 The tumor measured 1.38 cm in greatest dimension. tumor present in right lobe, Capsular invasion Is Absent. Lymphovascular invasion is absent. There is no extrathyroidal extension identified. She was been fup By Dr Sellers, last seen 04/18/17 She has had negative antibodies and TG level less than 1. She is currently on LT 4 200 mcg daily. 100 % compliant, good method of administration. 01/24/18 US neck, no residual tissue or LN. 12/06/18 TSH 1.57 miu/ml Vit D 29.5 ng/dl. Last year, thyroid ultrasound showed except for abnormal left level 4. Last year, thyroglobulin was detectabbut low aboratory Tests. repeat neck ultrasound showed normal lymph nodes 07/13/19 07/13/19 07/13/19 08:23 09:30 10:30 Hgb Hct Sodium Potassium BUN Creatinine Est GFR (Non-Af Amer) POC Glucose Random Glucose Fasting Glucose Glucose 1 Hour 317 Glucose 2 Hour 295 Estimat Average Glucose 160 Hemoglobin A1c 7.2 Calcium AST ALT Albumin Triglycerides Cholesterol LDL Cholesterol Direct LDL Cholesterol, Calc HDL Cholesterol Vitamin B12 Free T4 Thyroglobulin TSH 3rd Generation Ur Random Microalbumin Microalb/Creat Ratio Thyroglobulin Antibody 08/30/19 08/30/19 08/30/19 08:04 08:10 08:10 Hgb Hct Sodium Potassium BUN Creatinine Est GFR (Non-Af Amer) POC Glucose Random Glucose Fasting Glucose Glucose 1 Hour Glucose 2 Hour Estimat Average Glucose Hemoglobin A1c Calcium AST ALT Albumin Triglycerides 195 D Cholesterol 224 LDL Cholesterol Direct LDL Cholesterol, Calc 146 HDL Cholesterol 39 D Vitamin B12 322 Free T4 Thyroglobulin TSH 3rd Generation Ur Random Microalbumin 8.0 Microalb/Creat Ratio 6.4 Thyroglobulin Antibody 08/30/19 09/13/19 09/13/19 08:10 08:20 08:20 Hgb 15.9 Hct 48.0 H Sodium Potassium BUN Creatinine Est GFR (Non-Af Amer) POC Glucose Random Glucose 144 H D Fasting Glucose Glucose 1 Hour Glucose 2 Hour Estimat Average Glucose Hemoglobin A1c Calcium AST 19 ALT 32 H Albumin 4.1 Triglycerides Cholesterol LDL Cholesterol Direct 172 H LDL Cholesterol, Calc HDL Cholesterol Vitamin B12 Free T4 Thyroglobulin TSH 3rd Generation Ur Random Microalbumin Microalb/Creat Ratio Thyroglobulin Antibody 12/20/19 12/20/19 01/04/20 09:06 09:06 09:05 Hgb Hct Sodium 139 Potassium 4.6 BUN 17 H Creatinine 0.73 Est GFR (Non-Af Amer) > 60 POC Glucose 157 H Random Glucose Fasting Glucose 114 H D Glucose 1 Hour Glucose 2 Hour Estimat Average Glucose Hemoglobin A1c Calcium 9.2 AST ALT Albumin Triglycerides Cholesterol LDL Cholesterol Direct LDL Cholesterol, Calc HDL Cholesterol Vitamin B12 Free T4 1.23 Thyroglobulin <0.1 TSH 3rd Generation 0.68 Ur Random Microalbumin Microalb/Creat Ratio Thyroglobulin Antibody <1 currently on 175 mcg of Unithroid. The patient is a 64-year-old female presenting with persistent fatigue. Despite her thyroid levels being within the normal range while taking Unithroid, she reports exhaustion that has not improved with this current medication compared to her previous treatment with levothyroxine. Insurance complications led to medication changes, impacting her symptomatology. In her medical history, she experienced a myocardial infarction and subsequent stent placement in July, necessitating medications such as Carvedilol, Brilinta, and Eliquis. Her past treatment for thyroid cancer included radioactive iodine, and her follow-ups have indicated successful remission. The patient also has mild sleep apnea but finds CPAP uncomfortable. Additionally, her rheumatoid arthritis presents a challenge due to a positive NEELAM screen, yet avoids related treatments to prevent side effects. [facility] Medical History Pneumonitis Atrial fibrillation with RVR Ascending aorta dilatation SLE (systemic lupus erythematosus) PMR (polymyalgia rheumatica) Osteoarthritis of knees, bilateral Lichen planus Psoriasis Polyarthralgia NEELAM positive COVID-19 vaccine series completed History of lupus LILLI (obstructive sleep apnea) Dyslipidemia Morbid obesity Vitamin D deficiency Primary thyroid cancer Diabetes type 2, uncontrolled Post-surgical hypothyroidism Surgical History Hx of vascular surgery Hx of knee surgery History of medial meniscus repair of left knee History of thumb surgery History of foot surgery Hx of colonoscopy Hx of arthroscopy of right knee Hx of thyroidectomy Hx of cholecystectomy History of carpal tunnel release of both wrists Family History Father Diabetes Hypertension Colon cancer Mother Hypertension Thyroid disease Bile duct carcinoma Social History Housing: House Are you a primary family day care provider to a significant other at home: No Do you presently have visiting nurse or other home services: No Alcohol intake: never Patient Tobacco Use Status: Former Tobacco user Tobacco use type: Cigarette Years Smoked: 5 years ago e-Cigarette/Vaping Use: Never Used Second Hand Smoke Exposure: Yes service: No Current occupational status: employed 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 there is no cervical adenopathy palpated Assessment & Plan Assessment & Plan (1) Primary thyroid cancer: Code(s): C73 - Malignant neoplasm of thyroid gland Category: Medical Plan: Status post total thyroidectomy with radioactive iodine therapy. Currently be replaced on 175 mcg Unithyroid . Neck ultrasound last year showed abnormal left level 3 lymph node repeat ultrasound showed normal lymph nodes. thyroglobulin levels undetectable. Patient appears to be clinically and biochemically euthyroid Plan is to continue the current therapy. We will have patient follow up with Dr. Deleon an director of alumni relations in our practice with expertise in neck ultrasound. 1. Post-surgical hypothyroidism The current Unithroid management maintains normal thyroid levels; no adjustments needed at this visit. 2. Fatigue Discussed links with myocardial infarction recovery and medication effects, emphasizing revisiting sleep apnea management. 4. Rheumatoid Arthritis with Positive NEELAM Screen Suggested follow-up with a investment specialist for further evaluation of energy levels and symptoms. I spent time discussing with the patient that her current thyroid levels are well managed with Unithroid, but fatigue continues to be an issue. Although past attempts to use Synthroid were preferred by the patient, her insurance did not cover this, leading me to highlight the importance of exploring other aspects of her health contributing to the fatigue. We reviewed her medications related to her cardiac incident, and I explained the association between beta-blockers and fatigue. Additionally, I discussed proactive management for her mild sleep apnea and the potential benefit of seeing a investment specialist to address autoimmune contributions to her fatigue. - Continue current thyroid hormone replacement with Unithroid as prescribed. - Try addressing sleep apnea discomfort with alternative CPAP masks or consult the sleep center for further options. - Consider follow-up with a investment specialist for rheumatoid arthritis management. - Follow up with Dr. Deleon for thyroid management and evaluation in six months. - Contact if new symptoms develop or symptoms worsen. The patient had an opportunity to ask questions regarding treatment plan. The patient expressed understanding and agreement with the above treatment plan. atient was informed and verbally consented to the use of an ambient scribe for clinic note documentation during this visit. Coding Level of Care Code Est Pt Level 3 (64929) Diagnoses Primary thyroid cancer C73
== END 2025-04-17 09:57 | disposition home or self-care (01) ==
LOC: HO.ENCR 08:03
PROVIDERS: PCP Nurse Practitioner Family; Visit Provider Internal Medicine Endocrinology, Diabetes & Metabolism
DX: C73 Malignant neoplasm of thyroid gland (principal)
CPT/HCPCS: 99213

== ENCOUNTER 2025-04-22 08:45 | Outpatient (AMB) | payer OTHER, SELFPAY ==
--- NOTE | 2025-04-22 08:54 | MHC.OFFVIS ---
Vital Signs 04/22/25 08:55 Height 5 ft 6 in Weight 255 lb 11.779 oz BMI 41.3 BP 120/76 Blood Pressure Location Lt brachial Position Sitting Pulse 80 Intake Visit Reasons: 6m follow up Intake Note: 6 month follow-up c/o fatigue Operations Superintendent Required: No Allergies moxifloxacin [From AVELOX] Allergy (Severe, Verified 04/17/25 08:24) PINS AND NEEDLE FEET AND PALMS- SWELLING oxycodone [Percocet] Allergy (Intermediate, Verified 04/17/25 08:24) Vomiting vancomycin [Vancomycin] Allergy (Intermediate, Verified 04/17/25 08:24) SWELLING/HIVES/THROAT CLOSING SENSATION codeine [Codeine] Allergy (Mild, Verified 04/17/25 08:24) HIVES Penicillins Allergy (Mild, Verified 04/17/25 08:24) HIVES propoxyphene [From Darvon] Allergy (Mild, Verified 04/17/25 08:24) FELT LIKE CHEST CLOSING UP / HIVES Sulfa (Sulfonamide Antibiotics) [Sulfa (Sulfonamides)] Allergy (Mild, Verified 04/17/25 08:24) HIVES dexamethasone Adverse Reaction (Intermediate, Verified 04/17/25 08:24) muscle aches hydroxychloroquine [Plaquenil] Adverse Reaction (Mild, Verified 04/17/25 08:24) hair loss Iodinated Contrast Media [IV Contrast Dye] Adverse Reaction (Verified 04/17/25 08:24) Hives Medication List - Last Reconciled 04/22/25 by Aries Phillips MD apixaban (Eliquis) 5 mg PO BID atorvastatin 40 mg PO BEDTIME carvedilol 6.25 mg PO BID lancets (OneTouch Delica Plus Lancet) Test blood sugar 3 times per day metformin ER 500 mg PO DAILY OneTouch Verio Flex meter (blood-glucose meter) As directed NS OneTouch Verio Meter (blood-glucose meter) TID testing NS OneTouch Verio test strips (blood sugar diagnostic) Test blood sugar 3 times per day NS ticagrelor (Brilinta) 90 mg PO BID Unithroid (levothyroxine) 175 mcg PO DAILY NS HPI Comments Details: Guadalupe returns for follow-up regarding coronary artery disease as well as atrial fibrillation. She states that she is generally feeling quite well apart from tiredness. No specific cardiac complaints like angina or shortness of breath. To recall, she had inferior STEMI in 2023. Sent to [facility]- underwent PCI to RCA/LAD. She was doing okay, but she had a hospitalization to [place] with atrial fibrillation and rapid ventricular response. She converted to sinus rhythm and then her Coreg dose has been increased. She is also on anticoagulation. History of obesity, diabetes, hypertension. Overall, nonspecific tiredness but otherwise fine. [facility] Medical History (Updated 04/22/25 @ 09:19 by Aries Phillips MD) Pneumonitis Atrial fibrillation with RVR Ascending aorta dilatation SLE (systemic lupus erythematosus) PMR (polymyalgia rheumatica) Osteoarthritis of knees, bilateral Lichen planus Psoriasis Polyarthralgia NEELAM positive COVID-19 vaccine series completed History of lupus LILLI (obstructive sleep apnea) Dyslipidemia Morbid obesity Vitamin D deficiency Primary thyroid cancer Diabetes type 2, uncontrolled Post-surgical hypothyroidism Surgical History Hx of vascular surgery Hx of knee surgery History of medial meniscus repair of left knee History of thumb surgery History of foot surgery Hx of colonoscopy Hx of arthroscopy of right knee Hx of thyroidectomy Hx of cholecystectomy History of carpal tunnel release of both wrists Family History Father Diabetes Hypertension Colon cancer Mother Hypertension Thyroid disease Bile duct carcinoma Social History Housing: House Are you a primary transitions rn care coordinator to a significant other at home: No Do you presently have visiting nurse or other home services: No Alcohol intake: never Patient Tobacco Use Status: Former Tobacco user Tobacco use type: Cigarette Years Smoked: 5 years ago e-Cigarette/Vaping Use: Never Used Second Hand Smoke Exposure: Yes service: No Current occupational status: employed 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 Cognitive needs: No Hearing needs: No Vision needs: No Review of Systems Const Denies chills, Denies fatigue, Denies fever(s), Denies frequent falls, Denies weakness, Denies weight gain and Denies weight loss ENT Denies dizziness Card Denies chest pain, Denies leg edema, Denies lightheadedness, Denies palpitations, Denies dyspnea, Denies dyspnea on exertion, Denies orthopnea and Denies other (loss of consciousness) Resp Denies cough, Denies dyspnea and Denies dyspnea on exertion GI Denies hematochezia and Denies change in stool character Musc Denies abnormal gait, Denies muscle weakness, Denies numbness, Denies radiating pain into limb and Denies tingling Neuro Denies abnormal gait, Denies dizziness, Denies frequent falls, Denies numbness, Denies tingling and Denies weakness Endo Denies fatigue and Denies palpitations Physical Exam Vital Signs: Last Vital Signs Pulse 80 04/22/25 08:55 BP 120/76 04/22/25 08:55 BMI result Body Mass Index 41.3 Const General: comfortable and no acute distress Orientation/consciousness: patient oriented x3 HEENT Other: Unremarkable Head: Yes normal to inspection Neck Neck: Yes normal visual inspection Chest Chest palpation & inspection: normal inspection of the chest Resp Auscultation: clear to auscultation bilaterally Cardio Palpation: normal PMI Heart sounds: S1 normal heart sound present, S2 normal heart sound present, no gallops, no murmurs and no rubs GI Palpation (GI): Soft to palpation Back/Spine/Pelvis Other: unremarkable Skin General skin exam: no rashes or lesions noted Neuro General: patient oriented x3 Extrem General: Yes normal to inspection Psych Mental Status: mental status grossly normal Assessment & Plan Assessment & Plan (1) Atherosclerotic cardiovascular disease: Code(s): I25.10 - Atherosclerotic heart disease of [place] coronary artery without angina pectoris Category: Medical Plan: Has been stable in this regard. Continue Brilinta for one year from time of stent. Continue statins. Last LDL 48 mg/dL and triglycerides 126 mg/dL. Prior cardiac studies- Echocardiogram with LVEF of 60-65%; basal inferior/inferolateral akinesis. Moderate mitral annular calcification. Cardiac catheterization showed acute thrombotic occlusion of the mid RCA; severe mid LAD stenosis. Status post PCI of RCA as culprit for STEMI and PCI of severe LAD with drug-eluting stents. (2) Paroxysmal atrial fibrillation: Code(s): I48.0 - Paroxysmal atrial fibrillation Category: Medical Plan: Last Holter shows underlying sinus rhythm without any atrial fibrillation. On beta-blockers and anticoagulation. (3) LILLI (obstructive sleep apnea): Code(s): G47.33 - Obstructive sleep apnea (adult) (pediatric) Category: Medical Plan: Intermittent CPAP use. To use more regularly. Plan Discussion Notes During the visit, we discussed the continuation of Brilinta and the potential shift to aspirin therapy pending next cardiovascular assessment. The importance of continuous CPAP usage for sleep apnea was reinforced, considering its effect on cardiac stress. Follow-up was planned around the one-year franyk from stent to review her cardiovascular status and medication regimen, ensuring patient understanding of the management and treatment course, without any immediate changes to her current therapeutic strategy. Patient was informed and verbally consented to the use of an ambient scribe for clinic note documentation during this visit. Patient Instructions: - Continue taking Brilinta as prescribed. - Plan for a possible switch to aspirin during your next review. - Use your CPAP machine regularly. - Report any new or worsening symptoms immediately. Coding Level of Care Code Est Pt Level 4 (89221) Complex EM visit Add On G2211 Diagnoses Atherosclerotic cardiovascular disease I25.10 Paroxysmal atrial fibrillation I48.0 LILLI (obstructive sleep apnea) G47.33
[2025-04-22 08:55] VITALS: BP 120/76; PULSE 80; BMI 41.3
== END 2025-04-22 09:10 | disposition home or self-care (01) ==
LOC: HO.HCS 08:45
PROVIDERS: PCP Nurse Practitioner Family; Visit Provider Internal Medicine
DX: I25.10 Atherosclerotic heart disease of native coronary artery without angina pectoris (principal); I48.0 Paroxysmal atrial fibrillation; G47.33 Obstructive sleep apnea (adult) (pediatric)
CPT/HCPCS: 99214

== ENCOUNTER 2025-08-02 14:25 | Outpatient (REF) | payer OTHER, SELFPAY ==
--- NOTE | ~2025-08-02 | MR_ITS ---
EXAMINATION: MRI of the left hip was performed without contrast TECHNIQUE: Multiplanar multisequence MR imaging through a lower extremity joints was performed without intra-articular contrast INDICATION: Constant left hip pain radiating into the thigh but, difficulty walking or lying on left hip, greater than 10 years, injury 14 years ago Prior: None FINDINGS: Labrum: There is a tear of the anterosuperior labrum at 10:00 paralabral cyst possible intraosseous extension versus adjacent degenerative cystic change in the acetabulum. Articular Cartilage/Joint fluid: Partial thickness articular cartilage defect is present involving posterior femoral head at 2:00. There is no joint effusion. Ligament/Muscle/Tendon: Ligamentum teres is intact. There is peritendinous fluid signal around distal left gluteus medias and minimus tendons. There is also a small volume of fluid in the trochanteric bursa. There is trace fluid signal in proximal left hamstring tendon. Neurovascular: Major neurovascular structures are unremarkable and symmetrical. Deep and superficial soft tissues: There is no intrapelvic mass or ascites. Visualized bowel is grossly unremarkable. Subcutaneous soft tissues are within normal limits. There is no adenopathy. Bones/Marrow: Bone marrow signal is physiologic. SI joints are symmetrical without erosions, or ankylosis. Pubic symphysis joint is degenerated with marginal osteophytes and capsular hypertrophy.. MR/MR hip LT wo con IMPRESSION: There is a tear of the anterosuperior labrum at 10:00. There is an adjacent paralabral cyst. Partial tear and degeneration of the distal left gluteus medias greater than gluteus minimus tendons. Small left greater trochanteric bursal effusion. Focal grade 3 chondromalacia in the posterior left femoral head at 2:00. Electronically signed by: Sumeet Cervantes MD 08/02/2025 03:40 PM EDT
== END 2025-08-02 14:26 | disposition home or self-care (01) ==
LOC: HO.MRI 14:25
PROVIDERS: Visit Provider Nurse Practitioner Family
DX: G89.29 Other chronic pain (principal); M16.12 Unilateral primary osteoarthritis, left hip
CPT/HCPCS: 73721

== ENCOUNTER → 2025-08-02 14:31 | Outpatient (BNV) | payer OTHER, SELFPAY | PROVIDERS: Visit Provider Radiology Diagnostic Radiology | DX: S76.012A Strain of muscle, fascia and tendon of left hip, initial encounter (principal) | CPT/HCPCS: 73721 ==

== ENCOUNTER 2025-08-20 08:45 | Outpatient (AMB) | payer OTHER, SELFPAY ==
--- OUTSIDE RECORDS SUMMARY | 2025-08-15 11:55 | XMS_ITS ---
Author Organization [facility] Address [address] [facility] [address] [place] [phone] Care Team Providers Care Tin Pourer Name Role Phone Zaida Jolly Primary Care Provider UnavailMatthew Mata Jr [phone] REASON FOR VISIT screening colonoscopy Encounters Encounter Location Date Provider Diagnosis [facility] [address] [place] [phone] 08/15/2025 Matthew Levi Jr Plan Of Treatment Next Appt Details Provider Name:Matthew oswald Jr, 09/02/2025 08:40:00 AM, [address] [place] [address], Suite [facility], [place], [phone], Progress Notes * JERMAINE EPPSDOB:0 1960 (65 yo F)Acc No.[id number]:08/15/2025 Progress Notes Patient: JERMAINE COLLAZO Provider: Maura Levi MD :1960 A ge:65 Y S ex:Female Date:08/15/2025 Address:[address] [place], [place] [phone] Pcp:Zaida Jolly Subjective: * Chief Complaints: * 1 . [...] MD Date: Generated for Nathalie jacobs/Linda/Scott on: 09:27 AM EDT
--- NOTE | 2025-08-20 08:48 | MHC.OFFVIS ---
Vital Signs 08/20/25 08:50 Height 5 ft 6 in Weight 260 lb 9.382 oz BMI 42.1 BP 130/62 Blood Pressure Location Lt brachial Position Sitting Pulse 79 Pulse Source Monitor Intake Visit Reasons: r/s-f/up Dopeman Required: No Accompanied by: Self / Same As Patient Allergies moxifloxacin (From AVELOX) Allergy (Severe, Verified 05/14/25 08:17) PINS AND NEEDLE FEET AND PALMS- SWELLING oxycodone (Percocet) Allergy (Intermediate, Verified 05/14/25 08:17) Vomiting vancomycin (Vancomycin) Allergy (Intermediate, Verified 05/14/25 08:17) SWELLING/HIVES/THROAT CLOSING SENSATION codeine (Codeine) Allergy (Mild, Verified 05/14/25 08:17) HIVES Penicillins Allergy (Mild, Verified 05/14/25 08:17) HIVES propoxyphene (From Darvon) Allergy (Mild, Verified 05/14/25 08:17) FELT LIKE CHEST CLOSING UP / HIVES Sulfa (Sulfonamide Antibiotics) (Sulfa (Sulfonamides)) Allergy (Mild, Verified 05/14/25 08:17) HIVES dexamethasone Adverse Reaction (Intermediate, Verified 05/14/25 08:17) muscle aches hydroxychloroquine (Plaquenil) Adverse Reaction (Mild, Verified 05/14/25 08:17) hair loss Iodinated Contrast Media (IV Contrast Dye) Adverse Reaction (Verified 05/14/25 08:17) Hives Medication List - Last Reconciled 08/20/25 by Aries Phillips MD apixaban (Eliquis) 5 mg PO BID aspirin (Adult Aspirin Regimen) 81 mg PO DAILY atorvastatin 40 mg PO BEDTIME carvedilol 6.25 mg PO BID lancets (OneTouch Delica Plus Lancet) Test blood sugar 3 times per day metformin ER 500 mg PO DAILY OneTouch Verio Flex meter (blood-glucose meter) As directed NS OneTouch Verio Meter (blood-glucose meter) TID testing NS OneTouch Verio test strips (blood sugar diagnostic) Test blood sugar 3 times per day NS Unithroid (levothyroxine) 175 mcg PO DAILY NS HPI Comments Details: Guadalupe returns for follow-up regarding coronary artery disease as well as atrial fibrillation. To recall, she had inferior STEMI in 2023. Sent to [facility]- underwent PCI to RCA/LAD. Few months later, had hospitalization to [place] with atrial fibrillation and rapid ventricular response. She converted to sinus rhythm and then her Coreg dose has been increased. Also started anticoagulation. Few days back, she was in [place] for vacation and again went back into atrial fibrillation rapid rate and was seen at local hospital. It seems that diltiazem was started but she felt as though there are lot of side effects and hence she has stopped taking that. Has nonspecific tiredness and fatigue. Today, EKG shows normal sinus rhythm. Comorbidities including obesity, diabetes, hypertension. [facility] Medical History Pneumonitis Atrial fibrillation with RVR Ascending aorta dilatation SLE (systemic lupus erythematosus) PMR (polymyalgia rheumatica) Osteoarthritis of knees, bilateral Lichen planus Psoriasis Polyarthralgia NEELAM positive COVID-19 vaccine series completed History of lupus LILLI (obstructive sleep apnea) Dyslipidemia Morbid obesity Vitamin D deficiency Primary thyroid cancer Diabetes type 2, uncontrolled Post-surgical hypothyroidism Surgical History Hx of vascular surgery Hx of knee surgery History of medial meniscus repair of left knee History of thumb surgery History of foot surgery Hx of colonoscopy Hx of arthroscopy of right knee Hx of thyroidectomy Hx of cholecystectomy History of carpal tunnel release of both wrists Family History Father Diabetes Hypertension Colon cancer Mother Hypertension Thyroid disease Bile duct carcinoma Social History Housing: House Are you a primary career and transition teacher to a significant other at home: No Do you presently have visiting nurse or other home services: No Alcohol intake: never Patient Tobacco Use Status: Former Tobacco user Tobacco use type: Cigarette Years Smoked: 5 years ago e-Cigarette/Vaping Use: Never Used Second Hand Smoke Exposure: Yes service: No Current occupational status: employed 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 Cognitive needs: No Hearing needs: No Vision needs: No Review of Systems Const Denies chills, Denies fatigue, Denies fever(s), Denies frequent falls, Denies weakness, Denies weight gain and Denies weight loss ENT Denies dizziness Card Denies chest pain, Denies leg edema, Denies lightheadedness, Denies palpitations, Reports dyspnea and Reports dyspnea on exertion Resp Denies cough, Reports dyspnea and Reports dyspnea on exertion GI Denies hematochezia Musc Denies abnormal gait, Denies muscle weakness, Denies numbness, Denies radiating pain into limb and Denies tingling Neuro Denies abnormal gait, Denies dizziness, Denies frequent falls, Denies numbness, Denies tingling and Denies weakness Endo Denies fatigue and Denies palpitations Physical Exam Vital Signs: Last Vital Signs Pulse 79 08/20/25 08:50 BP 130/62 08/20/25 08:50 BMI result Body Mass Index 42.1 Const General: comfortable and no acute distress Orientation/consciousness: patient oriented x3 HEENT Other: Unremarkable Head: Yes normal to inspection Neck Neck: Yes normal visual inspection Chest Chest palpation & inspection: normal inspection of the chest Resp Auscultation: clear to auscultation bilaterally Cardio Palpation: normal PMI Heart sounds: S1 normal heart sound present, S2 normal heart sound present, no gallops, no murmurs and no rubs GI Palpation (GI): Soft to palpation Back/Spine/Pelvis Other: unremarkable Skin General skin exam: no rashes or lesions noted Neuro General: patient oriented x3 Extrem General: Yes normal to inspection Psych Mental Status: mental status grossly normal Office Procedures EKG Details: EKG with underlying sinus rhythm at 79/Min; no ischemic changes; [place]. [id number], Complete Assessment & Plan Assessment & Plan (1) Atherosclerotic cardiovascular disease: Code(s): I25.10 - Atherosclerotic heart disease of [place] coronary artery without angina pectoris Category: Medical Plan: No recent anginal issues. We can stop the Brilinta and just take low-dose aspirin. Continue statins. Last LDL 48 mg/dL and triglycerides 126 mg/dL. Prior cardiac studies- Echocardiogram with LVEF of 60-65%; basal inferior/inferolateral akinesis. Moderate mitral annular calcification. Cardiac catheterization showed acute thrombotic occlusion of the mid RCA; severe mid LAD stenosis. Status post PCI of RCA as culprit for STEMI and PCI of severe LAD with drug-eluting stents. (2) Paroxysmal atrial fibrillation: Code(s): I48.0 - Paroxysmal atrial fibrillation Category: Medical Plan: Most recent episode in [place] last week where she had to go to local hospital. On carvedilol. Did not like the effects of diltiazem. We will try short term Multaq and then refer to EP for ablation considerations. Otherwise main recommendation would be to lose weight. Continue with anticoagulation. Sleep study shows only very mild sleep apnea. (3) Morbid obesity: Code(s): E66.01 - Morbid (severe) obesity due to excess calories Category: Medical Plan: Again discussed about weight loss and implications on cardiovascular health. She understands that. Plan Discussion Notes I discussed with the patient the management of her atrial fibrillation, including the initiation of Multaq and the need for frequent EKG monitoring. We also considered the possibility of an ablation procedure if medication management proves inadequate. The patient was informed about discontinuing Brilinta and continuing with a baby aspirin and Eliquis for her coronary artery disease. Patient was informed and verbally consented to the use of an ambient scribe for clinic note documentation during this visit. Orders: Referrals Cardiac Electrophysiology Referral I48.0 - Paroxysmal atrial fibrillation Medications: New dronedarone (Multaq) must administer with a meal/food 400 mg PO BID 180 tabs 1RF 90 days Patient Instructions: - Start taking Multaq as prescribed. - Continue taking Eliquis and a baby aspirin daily. - Schedule EKGs to monitor heart rhythm. In 1 week and then every 3 months while on Multaq. - Follow up with the electrical doctor for potential ablation consultation. Coding Level of Care Code Est Pt Level 4 (73914) Complex EM visit Add On G2211 Diagnoses Atherosclerotic cardiovascular disease I25.10 Paroxysmal atrial fibrillation I48.0 Morbid obesity E66.01 CPT Codes EKG - CPT: 15541-[id number], Complete ([id number])
[2025-08-20 08:50] VITALS: BP 130/62; PULSE 79; BMI 42.1
--- OUTSIDE RECORDS SUMMARY | 2025-08-20 09:27 | XMS_ITS | Clinical Summary ---
Author Organization [address] Address [address] [place] [phone] Phone Care Team Providers Care Library Helper Name Role Phone Christian Robertson NP Primary Care Provider + Allergies Active Allergy Reactions Criticality Noted Date Comments Moxifloxacin Hives High 08/12/2025 Sulfamethoxazole-Trimethoprim Hives High 2024 Penicillins Hives High 08/12/2025 Sulfa (Sulfonamide Antibiotics) Hives High 07/16 Vancomycin Hives High 08/12/2025 Medications dilTIAZem (CARDIZEM) 90 mg immediate release tablet Take 1 tablet (90 mg total) by mouth 4 (four) times daily. 56 tablet 08/12/2025 Active Encounters Date Type Department Care Team Description 08/12/2025 1:11 AM EDT - 08/12/2025 4:13 AM EDT Emergency Emergency Department [address] [place] [phone] Delfino Guy MD Atrial fibrillation with rapid ventricular response (HC Code) (Primary Dx) Discharge Disposition: Home or Self Care 08/12/2025 Travel from Last 3 Months Social History Tobacco Use Types Packs/Day Years Used Date Smoking Tobacco: Never Assessed Interpersonal Safety Answer Date Record ed Is there anyone in your life that is hurting or threatening you in anyway? no 08/12/2025 Physical Indicators of Abuse No evidence of phys ical abuse 08/12/2025 Comments Unknown Sex and Gender Information Value Date Recorded Sex Assigned at Not on file Legal Sex Female 1:10 AM EDT Gender Identity Not on file Sexual Orientation Not on file Last Filed Vital Signs Vital Sign Reading Time Taken Comments Blood Pressure 112/67 08/12/2025 3:30 AM EDT Pulse 93 08/12/2025 4:00 AM EDT Temperature 37 C (98.6 F) 08/12/2025 1:14 AM EDT Respiratory Rate 16 08/12/2025 4:00 AM EDT Oxygen Saturation 98% 08/12/2025 3:12 AM EDT Inhaled Oxygen Concentration - - Weight 122 kg (268 lb 15.4 oz) 08/12/2025 1:14 A M EDT Height 167.6 cm (5' 6 ) 08/12/2025 1:14 AM EDT Body Mass Index 43.41 08/12/2025 1:14 AM EDT Plan of Treatment Health Maintenance Due Date Last Done Comments HIV screening 1974 Hepatitis C screening 1979 Tetanus adult (Td q 10,TDAP once) 1981 Cervical cancer screening 1982 Breast cancer screening 2001 Lipid disorder screening 2001 Colon cancer screening, Colonoscopy 2006 Pneumococcal Vaccine (50+ ye ars) (1 of 1 - PCV) 2011 Shingles vaccine (Shingrix) (1 of 2 - Shingrix (RZV) 2 Dose Standard Series) 2011 RSV Immunization (1 - Risk 6 0-74 years 1-dose series) 2021 Influenza vaccine 06/14/2025 Covid-19 vaccine series ( - season) 2025 Diabetes screening 08/12/2028 08/12/2025 Meningococcal B Vaccine Aged Out No l onger eligible based on patient's age to complete this topic Meningococcal Vaccine Aged Out No irving nate eligible based on patient's age to complete this topic Procedures Procedure Name Priority Date/Time Associated Diagnosis Comments TROPONIN T HIGH SENSITIVITY, 1 HOUR WITH REFLEX (BH GH LMW YH) STAT - Timed 08/12/2025 2:38 AM EDT CBC AND DIFFERENTIAL STAT 08/12/2025 1:32 AM EDT COMPREHENSIVE METABOLIC PANEL STAT 08/12/2025 1:32 AM EDT CBC WITH AUTO DIFFERENTIAL STAT 08/12/2025 1:32 AM EDT COMPREHENSIVE METABOLIC PANEL STAT 08/12/2025 1:32 AM EDT TROPONIN T HIGH SENSITIVITY, 0 HOUR BASELINE WITH REFLEX ( GH LMW YH) STAT 08/12/2025 1:32 AM EDT NT-PROBRAIN NATRIURETIC PEPTIDE STAT 08/12/2025 1:32 AM EDT EKG Routine 08/12/2025 1:15 AM EDT from Last 3 Months Results * Troponin T High Sensitivity, 1 Hour With Reflex ( GH LMW YH) (08/12/2025 2:38 AM EDT) [facility] High Sensitivity Troponin T 11 See Comment ng/L 08/12/2025 3:02 AM EDT [facility] Comment:High Sensitivity Tro ponin T levels should be interpreted in the context of the [facility] Care Signature pathway. 1 hour Delta from 0 Hour, HS-Troponin T 1 ng/L 08/12/2025 3:02 AM EDT [facility] Blood Venipuncture / Unknown 08/12/2025 2:38 AM EDT 08/12/2025 2:43 AM EDT Delfino Guy MD LAB BLOOD ORDERABLES [place] [address], [facility] [phone] * (ABNORMAL) Comprehensive metabolic panel (08/12/2025 1:32 AM EDT) [facility] Sodium 141 136 - 145 mmol/L 08/12/2025 2:13 AM EDT [facility] Potassium 3.6 3.5 - 5.1 mmol/L 08/12/2025 2:13 AM [facility] Chloride 109(H) 98 - 107 mmol/L 08/12/2025 2:13 AM [facility] CO2 25 21 - 32 mmol/L 08/12/2025 2:13 AM [facility] Anion Gap 7 5 - 15 mmol/L 08/12/2025 2:13 AM [facility] Glucose 182(H) 65 - 110 mg/dL 08/12/2025 2:13 AM [facility] Comment: Non-fastin-110 mg/dL Fasting (minimum 6 hrs): 65-99 mg/dL BUN 14 7 - 18 mg/dL 08/12/2025 2:13 AM [facility] Creatinine 0.77 0.55 - 1.02 mg/dL 08/12/2025 2:13 AM [facility] Calcium 8.8 8.5 - 10.1 mg/dL 08/12/2025 2:13 AM [facility] Total Protein 6.7 6.4 - 8.2 g/dL 08/12/2025 2:13 AM [facility] Albumin 3.4 3.4 - 5.0 g/dL 08/12/2025 2:13 AM [facility] Globulin 3.3 2.5 - 5.0 g/dL 08/12/2025 2:13 AM [facility] Total Bilirubin 0.4 0.2 - 1.0 mg/dL 08/12/2025 2:13 AM [facility] Comment:Use of this assay is not recommended for patients undergoing treatment with Eltrombopag due to the potential for falsely elevated results. Alkaline Phosphatase 93 45 - 117 U/L 08/12/2025 2:13 AM [facility] Alanine Aminotransferase (ALT) 29 12 - 78 U/L 08/12/2025 2:13 AM [facility] Aspartate Aminotransferase (AST) 13(L) 15 - 37 U/L 08/12/2025 2:13 AM [facility] eGFR (Creatinine) >60 >=60 mL/min/1. 73m2 08/12/2025 2:13 AM [facility] Comment: [facility] utilizes CKD-EPI Creatinine 2020 to report eGFR. Values < 60 mL/min/1.73 m2 may indicate CKD if present for more than three months AND creatinine is at steady state. The eGFR provides a rough estimate of kidney function. For further guidance, please refer to the CKD: Adult Adjunct Latin Professor Signature pathway. Creatinine Delta 08/12/20 2:13 AM EDT [facility] Comment:No previous creatini ne <5.00 mg/dL is available within the previous 12 months to calculate a delta creatinine. Blood Venipuncture / Unknown 08/12/2025 1:32 AM EDT 08/12/2025 1:35 AM EDT Delfino Guy MD LAB BLOOD ORDERABLES Final Resul t Performing Organization Address [facility] [place] [address], [facility] [phone] * Troponin T High Sensitivity, Emergency; 0 hour baseline AND 1 hour with reflex (3 hour) (:32 AM EDT) [facility] High Sensitivity Troponin T 10 See Comment ng/L 08/12/2025 2:00 AM EDT [facility] Comment:High Sensitivity Tro ponin T levels should be interpreted in the context of the [facility] Care Signature pathway. Blood Venipuncture / Unknown 08/12/2025 1:32 AM EDT 08/12/2025 1:35 AM EDT Delfino Guy MD LAB BLOOD ORDERABLES Final Resul t Performing Organization Address [facility] [place] [address], [facility] [phone] * NT-proBrain natriuretic peptide (08/12/2025 1:32 AM EDT) [facility] NT-proBNP 67.0 <125.0 pg/mL 08/12/2025 2:13 AM EDT [facility] Blood Venipuncture / Unknown 08/12/2025 1:32 AM EDT 08/12/2025 1:35 AM EDT us Delfino Guy MD LAB BLOOD ORDERABLES [place] [address], [facility] [phone] * (ABNORMAL) CBC auto differential (08/12/2025 1:32 AM EDT) WBC 7.8 4.0 - 11.0 x1000/ L 08/12/2025 1:37 AM [facility] RBC 4.89 4.00 - 6.00 M/ L 08/12/2025 1:37 AM [facility] Hemoglobin 11.2(L) 11.7 - 15.5 g/dL 08/12/2025 1:37 AM [facility] Hematocrit 36.80 35.00 - 45.00 % 08/12/2025 1:37 AM [facility] MCV 75.3(L) 80.0 - 100.0 fL 08/12/2025 1:37 AM [facility] MCH 22.9(L) 27.0 - 33.0 pg 08/12/2025 1:37 AM [facility] MCHC 30.4(L) 31.0 - 36.0 g/dL 08/12/2025 1:37 AM [facility] RDW-CV 17.0(H) 11.0 - 15.0 % 08/12/2025 1:37 AM [facility] Platelets 225 150 - 420 x1000/ L 08/12/2025 1:37 AM [facility] MPV 9.8 8.0 - 12.0 fL 08/12/2025 1:37 AM [facility] Neutrophils 64.9 39.0 - 72.0 % 08/12/2025 1:37 AM [facility] Lymphocytes 23.8 17.0 - 50.0 % 08/12/2025 1:37 AM [facility] Monocytes 7.7 4.0 - 12.0 % 08/12/2025 1:37 AM [facility] Eosinophils 2.6 0.0 - 5.0 % 08/12/2025 1:37 AM [facility] Basophil 0.6 0.0 - 1.4 % 08/12/2025 1:37 AM [facility] Immature Granulocytes 0.4 0.0 - 1.0 % 08/12/2025 1:37 AM [facility] nRBC 0.0 0.0 - 1.0 % 08/12/2025 1:37 AM [facility] Absolute Lymphocyte Count 1.85 0.60 - 3.70 x 1000/ L 08/12/2025 1:37 AM [facility] Monocyte Absolute Count 0.60 0.00 - 1.00 x 1000/ L 08/12/2025 1:37 AM [facility] Eosinophil Absolute Count 0.20 0.00 - 1.00 x 1000/ L 08/12/2025 1:37 AM [facility] Basophil Absolute Count 0.05 0.00 - 1.00 x 1000/ L 08/12/2025 1:37 AM [facility] Absolute Immature Granulocyte Count 0.03 0.00 - 0.30 x 1000/ L 08/12/2025 1:37 AM [facility] Absolute nRBC 0.00 0.00 - 1.00 x 1000/ L 08/12/2025 1:37 AM [facility] ANC (Abs Neutrophil Count) 5.04 2.00 - 7.60 x 1000/ L 08/12/2025 1:37 AM [facility] Blood Venipuncture / Unknown 08/12/2025 1:32 AM EDT 08/12/2025 1:35 AM EDT us Delfino Guy MD LAB BLOOD ORDERABLES Final Resul t [address] [address], [facility] [phone] * EKG (08/12/2025 1:15 AM EDT) Heart Rate 142 bpm [facility] EKG QRS Interval 103 ms [facility] EKG QT Interval 313 ms [facility] EKG QTC Interval 481 ms [facility] EKG P [place] 0 deg [facility] EKG QRS [place] 33 deg [facility] EKG T Wave [place] 7 deg [facility] EKG P-R Interval 0 msec [facility] EKG SEVERITY Abnormal ECG severity [facility] EKG Comment::Atrial fibrillation :Non specific ST-T wave abnormalities:No previous:Electronically Signed On 08-12-2025 13:03:48 EDT by Danial Julio MD OTHER / Unknown 08/12/2025 1 :15 AM EDT Delfino Guy MD ECG ORDERABLES Final Result [facility] EKG from Last [address] [place] [place] [address] ANGIEYURY GALE [id number] [facility] Care Teams Library Helper Relationship Specialty Start Date End Date Christian Robertson NP [address] [phone] PCP - General Family Medicine 08/12/25
--- OUTSIDE RECORDS SUMMARY | 2025-08-20 09:28 | XMS_ITS | Patient Health Record ---
Author Organization [facility] Address [address] [place] [phone] Care Team Providers Care Stock Roller Name Role Phone Zaida Jolly Primary Care Provider Matthew Hernandez Jr Unavailable [phone] Allergies Allergen (clinical drug ingredient) Drug/Non Drug Allergy documented on EMR Reaction Allergy Type Onset Date Status penicillamine Penicillamine Unknown Drug Allergy Active psyllium Metamucil Unknown Drug Allergy Active Darvon Unknown Drug Allergy Active Codeine Phosphate Unknown Drug Allergy Active moxifloxacin Avelox Unknown Drug Allergy Acti ve vancomycin Vancomycin HCl Unknown Drug Allergy A ctive Sulfacet-R Unknown Drug Allergy Active PredniSONE Unknown Drug Allergy Active Reason For Referral No Information Medications Medication SIG (Take, Route, Frequency, Duration) Notes Start Date End Date Status Aleve 220 MG 1 tablet with food o r milk as needed Orally every 12 hrs Active metFORMIN HCl 500 MG 1 tablet with a newton l Orally Once a day for 30 day(s) Active Vitamin D (Ergocalciferol) 1.25 MG (84142 UT) 1 capsule Orally for 30 day(s) Active MiraLax (colon prep) 8.3 ounce ((238) grams mixed with Gatorade or Crystal Light orally begin at 5:00 p.m. the day before the procedure for 1 day 10/17/2019 Active Levothyroxine Sodium 200 MCG 1 tablet in the morning on an empty stomach Orally Once a day Active Immunizations Vaccine Route Administration Date Status Comme nts Influenza Unknown 10/17/2019 Refused Social History Tobacco Use: Social History Observation Description Date Details (start date - stop date) Former Smoker NA - NA Tobacco Use/Smoking Question Answer Notes Patient is a former smoker How long has it been since you last smoked? 1-5 years Encounters Encounter Location Date Provider Diagnosis [facility] [address] [place] [address] 08/02/2025 Matthew Levi Jr Plan Of Treatment Future Test Test Name Order Date COLONOSCOPY 04/03/2014 COLONOSCOPY 10/17/2019 Next Appt Details Provider Name:Matthew oswald Jr, 09/02/2025 08:40:00 AM, [address], [address], [place], [phone], Insurance Providers Payer Name Payer Address Payer Phone Subscriber Number Group Number Insured Name Patient Relationship to Insured Coverage Start Date Coverage End Date [employer] [address] [address] [place] [address] [id number] JERMAINE EPPS Self - patient is the insured Medical (General) History Medical History History ICD Code colonoscopy 07/2014, negative for polyps, prior history of colon polyps, five-year followup recommended thyroid cancer 2014 lupus psoriasis essential thrombocytosis obstructive sleep apnea diabetes mellitus Surgical History Surgery Date(Month/Year) cholecystectomy tonsillectomy dysfunctional uterine bleeding, status p ost endometrial biopsy endometrial ablation arthroscopic knee surgery carpal tunnel release both hands left hand surgery thyroidectomy, complete 2014
== END 2025-08-20 09:28 | disposition home or self-care (01) ==
LOC: HO.HCS 08:45
PROVIDERS: PCP Nurse Practitioner Family; Visit Provider Internal Medicine
DX: I25.10 Atherosclerotic heart disease of native coronary artery without angina pectoris (principal); I48.0 Paroxysmal atrial fibrillation; E66.01 Morbid (severe) obesity due to excess calories
CPT/HCPCS: 93010; 99214

== ENCOUNTER → 2025-08-20 08:45 | Outpatient (BNVA) | payer OTHER, SELFPAY | PROVIDERS: PCP Nurse Practitioner Family; Visit Provider Internal Medicine | DX: I25.10 Atherosclerotic heart disease of native coronary artery without angina pectoris (principal); I48.0 Paroxysmal atrial fibrillation; I10 Essential (primary) hypertension; E66.01 Morbid (severe) obesity due to excess calories; Z68.41 Body mass index [BMI] 40.0-44.9, adult | CPT/HCPCS: 93005 ==

== ENCOUNTER 2025-09-16 13:40 | Outpatient (REF) | payer OTHER, SELFPAY ==
--- NOTE | ~2025-09-16 | XR_ITS ---
EXAMINATION: XR CHEST 2 VIEWS HISTORY: R05.9 - Cough, unspecified COMPARISON: Comparison is made with the prior examination dated 11/03/2024. FINDINGS: PA and lateral views of the chest are submitted. The lungs are expanded and clear. There is no pleural effusion, pneumothorax, or pulmonary vascular congestion. The heart is normal in size. There is degenerative disc disease of the spine. XR/XR chest 2V IMPRESSION: No acute cardiopulmonary abnormality. Electronically signed by: Jef Villeda MD 09/16/2025 03:33 PM JONI
== END 2025-09-16 13:41 | disposition home or self-care (01) ==
LOC: HO.XRAY 13:40
PROVIDERS: PCP Nurse Practitioner Family; Visit Provider Nurse Practitioner Family
DX: R05.9 Cough, unspecified (principal); J98.9 Respiratory disorder, unspecified
CPT/HCPCS: 71046

== ENCOUNTER → 2025-09-16 15:08 | Outpatient (BNV) | payer OTHER, SELFPAY | PROVIDERS: PCP Nurse Practitioner Family; Visit Provider Radiology Diagnostic Radiology | DX: R05.9 Cough, unspecified (principal) | CPT/HCPCS: 71046 ==

== ENCOUNTER 2025-09-19 16:03 | Outpatient (AMB) | payer OTHER, SELFPAY ==
--- OUTSIDE RECORDS SUMMARY | 2025-08-15 10:55 | XMS_ITS ---
Author Organization [facility] Address [address] [facility] [address] [place] [phone] Care Team Providers Care Cable Maintainer Name Role Phone PARISA SORENSEN Primary Care Provider Matthew Olivas Jr REASON FOR VISIT screening colonoscopy Encounters Encounter Location Date Provider Diagnosis [facility] [address] [facility] [address] [place] [phone] 08/15/2025 Matthew Levi Jr Plan Of Treatment Next Appt Details Provider Name:Matthew oswald Jr, 01/17/2026 07:30:00 AM, [address] [place] [address] , [place], [place], [phone], Progress Notes * JERMAINE EPPSDOB:0 1960 (65 yo F)Acc No.[id number]:08/15/2025 Progress Notes Patient: GENET COLLAZOBERLY Provider: Maura Levi MD :1960 A ge:65 Y S ex:Female Date:08/15/2025 Address:[address] [place], [place] [phone] Pcp:PARISA SORENSEN Subjective: * Chief Complaints: * 1 . Screening colonoscopy. * Medical History: Objective: * Vitals: Assessment: Plan: * Treatment: * * The named appointment provid er may or may not be the originator of this progress note, and it is not deemed complete until electronically signed by the appointment provider. Sign off status: Pending * Provider: Maura Levi MD Date: Generated for Nathalie jacobs/Linda/Scott on: 11/19/2024 06:32 PM EST
--- OUTSIDE RECORDS SUMMARY | 2025-09-02 03:40 | XMS_ITS ---
Author Organization [facility] Address [address] [place] [phone] Care Team Providers Care Hand Woven Carpet And Rug Mender Name Role Phone PARISA SORENSEN Primary Care Provider Matthew Olivas Jr Unavailable [phone] Allergies Allergen (clinical drug ingredient) Drug/Non Drug Allergy documented on EMR Reaction Allergy Type Onset Date Status PredniSONE Unknown Drug Allergy Active penicillamine Penicillamine Unknown Drug Allergy Active psyllium Metamucil Unknown Drug Allergy Active Darvon Unknown Drug Allergy Active Codeine Phosphate Unknown Drug Allergy Active moxifloxacin Avelox Unknown Drug Allergy Acti ve vancomycin Vancomycin HCl Unknown Drug Allergy A ctive Sulfacet-R Unknown Drug Allergy Active REASON FOR VISIT [...] Status W/U Status Risk Notes Problem Bronchitis (89739812) Bronchitis (J40) Active confirmed Problem Screening for malignant neoplasm of colon (413477092) Encounter for screening for malignant neoplasm of colon (Z12.11) Active confirmed Vital Signs Temperature 98.4 degrees Fahrenheit 09/02/20 25 Blood pressure systolic 001 mm Hg 09/02/20 25 Blood pressure diastolic 01 mm Hg 025 Height 66.5 in 09/02/2025 Weight 266.6 lbs 09/02/2025 BMI 42.38 kg/m2 09/02/2025 Encounters Encounter Location Date Provider Diagnosis [facility] 10 [facility] [address] [place] [phone] 09/02/2025 Matthew Levi Jr Bronchitis J40 and [...] Provider Name:Matthew oswald Jr, 01/17/2026 07:30:00 AM, [address] [place] [address] , [place], [place], [phone], Progress Notes * THANH EPPS:0 1960 (65 yo F)Acc No.[id number]:09/02/2025 Progress Notes Patient: JERMAINE COLLAZO Provider: Maura Levi MD :1960 A ge:65 Y S ex:Female Date:09/02/2025 Address:[address] [place], [place] [phone] Pcp:PARISA SORENSEN Subjective: * Chief Complaints: * [...] M iscellaneous: M arital status: . Occupation: [employer] [place] [employer]. * Medications: T aking Aspirin 81 MG [...] , Discontinued Vitamin D (Ergocalciferol) 1.25 MG (68077 UT) Capsule 1 capsule Orally , Discontinued [...] ietary management education, guidance, and counseling, B [place] management provided Y es. * * The named appointment provid er may or may not be the originator of this progress note, and it is not deemed complete until electronically signed by the appointment provider. Sign off status: Pending * Provider: Maura Levi MD Date: Generated for Nathalie jacobs/Linda/Kennyitting on: 11/19/2024 06:32 PM EST
--- NOTE | 2025-09-19 16:08 | A.OFFPC_ITS ---
Vital Signs 09/19/25 16:09 Height 5 ft 6 in Weight 268 lb BMI 43.3 BP 130/72 Blood Pressure Location Lt brachial Position Sitting Pulse 86 Pulse Source Pulse Oximeter Pulse Oximetry (%) 100 Oxygen Delivery Method Room Air Intake Visit Reasons: Annual PE Laborer Shaft Sinking Required: No Accompanied by: Self / Same As Patient Allergies moxifloxacin (From AVELOX) Allergy (Severe, Verified 09/19/25 16:09) PINS AND NEEDLE FEET AND PALMS- SWELLING oxycodone (Percocet) Allergy (Intermediate, Verified 09/19/25 16:09) Vomiting vancomycin (Vancomycin) Allergy (Intermediate, Verified 09/19/25 16:09) SWELLING/HIVES/THROAT CLOSING SENSATION codeine (Codeine) Allergy (Mild, Verified 09/19/25 16:09) HIVES Penicillins Allergy (Mild, Verified 09/19/25 16:09) HIVES propoxyphene (From Darvon) Allergy (Mild, Verified 09/19/25 16:09) FELT LIKE CHEST CLOSING UP / HIVES Sulfa (Sulfonamide Antibiotics) (Sulfa (Sulfonamides)) Allergy (Mild, Verified 09/19/25 16:09) HIVES dexamethasone Adverse Reaction (Intermediate, Verified 09/19/25 16:09) muscle aches hydroxychloroquine (Plaquenil) Adverse Reaction (Mild, Verified 09/19/25 16:09) hair loss Iodinated Contrast Media (IV Contrast Dye) Adverse Reaction (Verified 09/19/25 16:09) Hives Medication List - Last Reconciled 09/19/25 by Christian Robertson, FLYING TEACHER- albuterol sulfate 90 mcg/actuation (Ventolin HFA) 1 inh inhalation QID PRN apixaban (Eliquis) 5 mg PO BID aspirin (Adult Aspirin Regimen) 81 mg PO DAILY atorvastatin 40 mg PO BEDTIME azithromycin For 250 mg dose pack: take 500 mg today (day 1), then 250 mg for 4 days (days 2-5) PO 5 days carvedilol 6.25 mg PO BID dronedarone (Multaq) 400 mg PO BID 90 days lancets (Web Designed RoomsTouch Delica Plus Lancet) Test blood sugar 3 times per day metformin ER 500 mg PO DAILY OneTouch Verio Flex meter (blood-glucose meter) As directed NS OneTouch Verio Meter (blood-glucose meter) TID testing NS OneTouch Verio test strips (blood sugar diagnostic) Test blood sugar 3 times per day NS Unithroid (levothyroxine) 175 mcg PO DAILY NS Tobacco use date assessed: 09/19/25 Fall risk assessment: No Falls in past year Last assessed Fall Risk: 09/19/25 Dental Screening Dental Screen Date: 10/17/24 Did you have a dental visit in the last 12 months?: Yes Did you have a dental problem in the last 6 months where you did not have access to dental care?: No Was dental information given to patient?: Patient has dentist [facility] Medical History Pneumonitis Atrial fibrillation with RVR Ascending aorta dilatation SLE (systemic lupus erythematosus) PMR (polymyalgia rheumatica) Osteoarthritis of knees, bilateral Lichen planus Psoriasis Polyarthralgia NEELAM positive COVID-19 vaccine series completed History of lupus LILLI (obstructive sleep apnea) Dyslipidemia Morbid obesity Vitamin D deficiency Primary thyroid cancer Diabetes type 2, uncontrolled Post-surgical hypothyroidism Surgical History Hx of vascular surgery Hx of knee surgery History of medial meniscus repair of left knee History of thumb surgery History of foot surgery Hx of colonoscopy Hx of arthroscopy of right knee Hx of thyroidectomy Hx of cholecystectomy History of carpal tunnel release of both wrists Family History Father Diabetes Hypertension Colon cancer Mother Hypertension Thyroid disease Bile duct carcinoma Social History Housing: House Are you a primary career transition specialist to a significant other at home: No Do you presently have visiting nurse or other home services: No Alcohol intake: never Patient Tobacco Use Status: Former Tobacco user Tobacco use type: Cigarette Years Smoked: 5 years ago e-Cigarette/Vaping Use: Never Used Second Hand Smoke Exposure: Yes service: No Current occupational status: employed 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 1. Little interest or pleasure in doing things: not at all 2. Feeling down, depressed, or hopeless: not at all 3. Trouble falling or staying asleep, or sleeping too much: not at all 4. Feeling tired or having little energy: not at all 5. Poor appetite or overeating: not at all 6. Feeling bad about yourself - or that you are a failure or have let yourself or your family down: not at all 7. Trouble concentrating on things, such as reading the newspaper or watching television: not at all 8. Moving or speaking so slowly that other people could have noticed. Or the opposite - being so fidgety or restless that you have been moving around a lot more than usual: not at all 9. Thoughts that you would be better off or of hurting yourself in some way: not at all Total score: 0 Depression Screening Interpretation: Negative Depression Screening Done: Yes 88140 - PHQ-9 Billing: Patient declined-do not bill Source: Developed by Drs. Jef Cardona, Priscilla Stallings, Tito Lyons and colleagues, with an educational srinath from [employer]. Thrive Questionnaire Date Thrive assessed: 08/28/24 I am a: Patient What is your living situation today?: I have a steady place to live Within the past 12 months, did the food you bought not last and you didn't have the money to get more?: Never true Within the past 12 months, did you worry whether your food would run out before you got money to buy more?: Never true Do you have trouble paying for medicines?: No Do you have trouble getting transportation to medical appointments?: No Do you have trouble paying your heating and electricity bill?: No Do you have trouble taking care of your child, family member or friend?: No Do you have trouble with day-to-day activities such as bathing, preparing meals, shopping, managing finances, etc.?: No Are you currently unemployed and looking for a job?: No Are you interested in more education?: No Please select the resources that you would like help with: None Currently or been in a relationship where the following occur: No concerns reported THRIVE Score: 0 AUDIT C Alcohol Use Questionnaire (AUDIT-C) 1. How often do you have a drink containing alcohol?: Never Total Score: 0 JADYN-7 AMB Questionnaire JADYN-7 Date JADYN - 7 assessed: 09/19/25 Feeling nervous, anxious, or on edge: 0 = Not at all Not being able to stop or control worryin = Not at all Worrying too much about different things: 0 = Not at all Trouble relaxin = Not at all Being so restless that it is hard to sit still: 0 = Not at all Becoming easily annoyed or irritable: 0 = Not at all Feeling afraid as if something awful might happen: 0 = Not at all Total JADYN-7 score (0-4 normal; 5-9 mild; 10-14 moderate; 15-21 severe): 0 Source: Developed by Drs. Jef Cardona, Priscilla Stallings, Tito Lyons and colleagues, with an educational srinath from [employer]. JADYN-7 Assessment Billing JADYN-7 Assessment Tool: JADYN-7 Assessment 48628 Physical exam (Primary Care) Vital Signs: Last Vital Signs Pulse 86 09/19/25 16:09 BP 130/72 09/19/25 16:09 Pulse Ox 100 09/19/25 16:09 Oxygen Delivery Method Room Air 09/19/25 16:09 BMI result Body Mass Index 43.3 Tobacco/Smoking Status: Tobacco use Status Tobacco use date assessed 09/19/25 09/19/25 16:14 Patient Tobacco Use Status Former Tobacco user 09/19/25 16:14 Tobacco use type Cigarette 09/19/25 16:14 e-Cigarette/Vaping Use Never Used 09/19/25 16:14 PHQ-9: PHQ-9 Score PHQ-9: Total score 0 09/19/25 16:14 Depression Screening Interpretation: Negative Thrive Assessment: Date of Thrive Assessment Date Thrive assessed 08/28/24 09/19/25 16:14 Currently or been in a relationship where the following occur: No concerns reported Results AMB Hemoglobin A1c AMB Hemoglobin A1c 6.0 % Last Edit by Jasmyne Nicholas MA on 09/19/25 16:32 Results Reviewed Results Reviewed: Laboratory Last Values Hgb A1c (Clinic) 6.0 % (4.0-6.0) 09/19/25 16:31 Coding Level of Care Code Est Pt Level 3 (60609) Est Pt Prev Care 40-64y(90247) Diagnoses Lung nodule R91.1 Diabetes E11.9 Encounter for routine adult physical exam with abnormal findings Z00. Vitamin D deficiency E55.9 Additional Codes JADYN-7 Assessment Billing - JADYN-7 Assessment Tool: JADYN-7 Assessment 73877 ([id number]) Assessment & Plan Assessment & Plan (1) Lung nodule: Code(s): R91.1 - Solitary pulmonary nodule Category: Medical (2) Diabetes: Code(s): E11.9 - Type 2 diabetes mellitus without complications Category: Medical (3) Encounter for routine adult physical exam with abnormal findings: Code(s): Z00.01 - Encounter for general adult medical examination with abnormal findings Category: Medical (4) Vitamin D deficiency: Code(s): E55.9 - Vitamin D deficiency, unspecified Category: Medical Plan . Orders: Orders AMB Hemoglobin A1c Today E11.9 - Type 2 diabetes mellitus without complications Complete Blood Count Auto Diff Today E11.9 - Type 2 diabetes mellitus without complications, Z00.01 - Encounter for general adult medical examination with abnormal findings UA CC w/rflx Micro + Cult Today E11.9 - Type 2 diabetes mellitus without complications, Z00.01 - Encounter for general adult medical examination with abnormal findings Lipid Panel Today E11.9 - Type 2 diabetes mellitus without complications, Z00.01 - Encounter for general adult medical examination with abnormal findings Microalbumin, Random (w Creat) Today E11.9 - Type 2 diabetes mellitus without complications CT chest wo IV con Today R91.1 - Solitary pulmonary nodule Comprehensive [place]. Panel Fast Today E11.9 - Type 2 diabetes mellitus without complications, Z00.01 - Encounter for general adult medical examination with abnormal findings TSH reflex Free T4 Today E11.9 - Type 2 diabetes mellitus without complications, Z00.01 - Encounter for general adult medical examination with abnormal findings Vitamin D 25-OH Total Today E55.9 - Vitamin D deficiency, unspecified
[2025-09-19 16:09] VITALS: BP 130/72; PULSE 86; O2SAT 100; BMI 43.3
--- OUTSIDE RECORDS SUMMARY | 2025-09-19 18:33 | XMS_ITS | Patient Health Record ---
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 Machine Servicer Name Role Phone PARISA SORENSEN Primary Care Provider Matthew Olivas Jr Unavailable [phone] Allergies Allergen (clinical drug ingredient) Drug/Non Drug [...] A ctive Sulfacet-R Unknown Drug Allergy Active Reason For Referral No Information Medications Medication SIG (Take, Route, Frequency, Duration) Notes Start Date End Date Status Zithromax Z-Stanley 250 MG as directed Orall y daily; Duration: 5 days 09/02/2025 Active Aspirin 81 MG 1 tablet Orally Once a day Active Multi Complete - as directed Orally Active Multaq 400 MG 1 tablet with meals Orally Twice a day Active Eliquis 5 MG as directed Orally Active Atorvastatin Calcium 40 MG 1 tablet Oral ly Once a day Active Levothyroxine Sodium 200 MCG 1 tablet in the morning on an empty stomach Orally Once a day Active Carvedilol 6.25 MG 1 tablet with food Orally Twice a day Active metFORMIN HCl 500 MG 1 tablet with a newton l Orally Once a day; Duration: 30 day(s) Active Immunizations Vaccine Route Administration Date Status Comme nts Influenza Unknown 10/17/2019 Refused Influenza Unknown 09/02/2025 Refused Social History Tobacco Use: Social History Observation Description Date Details (start date - stop date) Former Smoker NA - NA Tobacco Use/Smoking Question Answer Notes Patient is a former smoker How long has it been since you last smoked? 1-5 years Problems Problem Type SNOMED Code ICD Code Onset Dates Problem Status W/U Status Risk Notes Problem Screening for malignant neoplasm of colon (834697832) Encounter for screening for malignant neoplasm of colon (Z12.11) Active confirmed Problem Bronchitis (73059334) Bronchitis (J40) Active confirmed Vital Signs Temperature 98.4 degrees Fahrenheit 09/02/2025 Blood pressure diastolic 01 mm Hg 09/02/2025 Height 66.5 in 09/02/2025 Blood pressure systolic 001 mm Hg 09/02/2025 Weight 266.6 lbs 09/02/2025 BMI 42.38 kg/m2 09/02/2025 Encounters Encounter Location Date Provider Diagnosis [facility] [address] [place] [phone] 09/02/2025 Matthew Levi Jr Bronchitis J40 and Encounter for screening for malignant neoplasm of colon Z12.11 [facility] [address] [place] [phone] 08/02/2025 Matthew Levi Jr Assessments Encounter Date Diagnosis (ICD Code) Assessment Notes Treatment Notes Treatment Clinical Notes Section Notes 09/02/2025 Encounter for screening for malignant neoplasm of colon (ICD-10 - Z12.11) We discussed her symptoms today. We recommended treatment with azithromycin. She will call if she is no better. She is due for colorectal cancer screening. This will be arranged. She understands risks and benefits and agrees to proceed. Undue 09/02/2025 Bronchitis (ICD-10 - J40) We discussed her symptoms today. We recommended treatment with azithromycin. She will call if she is no better. She is due for colorectal cancer screening. This will be arranged. She understands risks and benefits and agrees to proceed. Undue Plan Of Treatment Future Test Test Name Order Date COLONOSCOPY 04/03/2014 COLONOSCOPY 10/17/2019 COLONOSCOPY 09/02/2025 Next Appt Details Provider Name:Matthew oswald Jr, 01/17/2026 07:30:00 AM, [address] [place] [address] , [place], [place], [phone], Insurance Providers Payer Name Payer Address Payer Phone Subscriber Number Group Number Insured Name Patient Relationship to Insured Coverage Start Date Coverage End Date [employer] [address] [address] [place] [address] [id number] JERMAINE EPPS Self - patient is the insured Medical (General) History Medical History History ICD Code colonoscopy 07/2014, negative for polyps, prior history of colon polyps, five-year followup recommended thyroid cancer 2014 lupus psoriasis essential thrombocytosis obstructive sleep apnea diabetes mellitus heart attack Surgical History Surgery Date(Month/Year) stents in heart thyroidectomy, complete 2014 left hand surgery carpal tunnel release both hands arthroscopic knee surgery endometrial ablation dysfunctional uterine bleeding, status p ost endometrial biopsy tonsillectomy cholecystectomy
--- OUTSIDE RECORDS SUMMARY | 2025-09-19 18:33 | XMS_ITS | Clinical Summary ---
Author Organization [address] Address [address] [place] [phone] Phone Care Team Providers Care Subway Guard Name Role Phone Christian Robertson NP Primary [...] 08/12/2025 4:13 AM EDT Emergency Emergency Department [address] [place] [address] [phone] Delfino Guy MD Atrial fibrillation with rapid [...] ars) (1 of 1 - PCV) 2011 RSV Immunization (1 - Risk 5 0-74 years 1-dose series) 2011 Shingles vaccine (Shingrix) (1 of 2 - Shingrix (RZV) 2 Dose Standard Series) 2011 Influenza vaccine 06/14/2025 Covid-19 vaccine series ( [...] GH LMW YH) (08/12/2025 2:38 AM EDT) [facility] High Sensitivity Troponin T 11 See Comment ng/L 08/12/2025 3:02 AM EDT [facility] Comment:High Sensitivity Tro ponin T levels should be interpreted in the context of the [facility] Care Signature pathway. 1 hour Delta from 0 Hour, HS-Troponin T 1 ng/L 08/12/2025 3:02 AM EDT [facility] Blood Venipuncture / Unknown 08/12/2025 2:38 AM EDT 08/12/2025 2:43 AM EDT Delfino Guy MD LAB [place] [address], [facility] [phone] * (ABNORMAL) Comprehensive metabolic panel (08/12/2025 1:32 AM EDT) [facility] Sodium 141 136 - 145 mmol/L 08/12/2025 2:13 AM EDT [facility] Potassium 3.6 3.5 - 5.1 mmol/L 08/12/2025 2:13 AM [facility] Chloride 109(H) 98 - 107 mmol/L 08/12/2025 2:13 AM [facility] CO2 25 21 - 32 mmol/L 08/12/2025 2:13 AM [facility] Anion Gap 7 5 - 15 mmol/L 08/12/2025 2:13 AM [facility] Glucose 182(H) 65 - 110 mg/dL 08/12/2025 2:13 AM [facility] Comment: Non-fastin-110 mg/dL Fasting (minimum 6 hrs): 65-99 mg/dL BUN 14 7 - 18 mg/dL 08/12/2025 2:13 AM [facility] Creatinine 0.77 0.55 - 1.02 mg/dL 08/12/2025 2:13 AM [facility] Calcium 8.8 8.5 - 10.1 mg/dL 08/12/2025 2:13 AM [facility] Total Protein 6.7 6.4 - 8.2 g/dL 08/12/2025 2:13 AM [facility] Albumin 3.4 3.4 - 5.0 g/dL 08/12/2025 2:13 AM [facility] Globulin 3.3 2.5 - 5.0 g/dL 08/12/2025 2:13 AM [facility] Total Bilirubin 0.4 0.2 - 1.0 mg/dL 08/12/2025 2:13 AM [facility] Comment:Use of this assay is not recommended for patients undergoing treatment with Eltrombopag due to the potential for falsely elevated results. Alkaline Phosphatase 93 45 - 117 U/L 08/12/2025 2:13 AM [facility] Alanine Aminotransferase (ALT) 29 12 - 78 U/L 08/12/2025 2:13 AM [facility] Aspartate Aminotransferase (AST) 13(L) 15 - 37 U/L 08/12/2025 2:13 AM [facility] eGFR (Creatinine) >60 >=60 mL/min/1. 73m2 08/12/2025 2:13 AM [facility] Comment: [facility] utilizes CKD-EPI Creatinine 2020 to report eGFR. Values < 60 mL/min/1.73 m2 may indicate CKD if present for more than three months AND creatinine is at steady state. The eGFR provides a rough estimate of kidney function. For further guidance, please refer to the CKD: Adult Manager Of Drilling Signature pathway. Creatinine Delta 08/12/20 2:13 AM EDT [facility] Comment:No previous creatini ne <5.00 mg/dL is available within the previous 12 months to calculate a delta creatinine. Blood Venipuncture / Unknown 08/12/2025 1:32 AM EDT 08/12/2025 1:35 AM EDT Delfino Guy MD LAB BLOOD ORDERABLES Final Resul t Performing Organization Address City/[facility] [place] [address], [facility] [phone] * Troponin T High Sensitivity, Emergency; 0 hour baseline AND 1 hour with reflex (3 hour) (:32 AM EDT) [facility] High Sensitivity Troponin T 10 See Comment ng/L 08/12/2025 2:00 AM EDT [facility] Comment:High Sensitivity Tro ponin T levels should be interpreted in the context of the [facility] Care Signature pathway. Blood Venipuncture / Unknown 08/12/2025 1:32 AM EDT 08/12/2025 1:35 AM EDT Delfino Guy MD LAB BLOOD ORDERABLES Final Resul t Performing Organization Address City/[facility] [place] [address], [facility] [phone] * NT-proBrain natriuretic peptide (08/12/2025 1:32 AM EDT) [facility] NT-proBNP 67.0 <125.0 pg/mL 08/12/2025 2:13 AM EDT [facility] Blood Venipuncture / Unknown 08/12/2025 1:32 AM EDT 08/12/2025 1:35 AM EDT us Delfino Guy MD LAB BLOOD ORDERABLES Final Resul t [place] [id number], [facility] [phone] * (ABNORMAL) CBC auto differential (08/12/2025 1:32 AM EDT) WBC 7.8 4.0 - 11.0 x1000/ L 08/12/2025 1:37 AM [facility] RBC 4.89 4.00 - 6.00 M/ L 08/12/2025 1:37 AM [facility] Hemoglobin 11.2(L) 11.7 - 15.5 g/dL 08/12/2025 1:37 AM [facility] Hematocrit 36.80 35.00 - 45.00 % 08/12/2025 1:37 AM [facility] MCV 75.3(L) 80.0 - 100.0 fL 08/12/2025 1:37 AM [facility] MCH 22.9(L) 27.0 - 33.0 pg 08/12/2025 1:37 AM [facility] MCHC 30.4(L) 31.0 - 36.0 g/dL 08/12/2025 1:37 AM [facility] RDW-CV 17.0(H) 11.0 - 15.0 % 08/12/2025 1:37 AM [facility] Platelets 225 150 - 420 x1000/ L 08/12/2025 1:37 AM [facility] MPV 9.8 8.0 - 12.0 fL 08/12/2025 1:37 AM [facility] Neutrophils 64.9 39.0 - 72.0 % 08/12/2025 1:37 AM [facility] Lymphocytes 23.8 17.0 - 50.0 % 08/12/2025 1:37 AM [facility] Monocytes 7.7 4.0 - 12.0 % 08/12/2025 1:37 AM [facility] Eosinophils 2.6 0.0 - 5.0 % 08/12/2025 1:37 AM [facility] Basophil 0.6 0.0 - 1.4 % 08/12/2025 1:37 AM [facility] Immature Granulocytes 0.4 0.0 - 1.0 % 08/12/2025 1:37 AM [facility] nRBC 0.0 0.0 - 1.0 % 08/12/2025 1:37 AM [facility] Absolute Lymphocyte Count 1.85 0.60 - 3.70 x 1000/ L 08/12/2025 1:37 AM [facility] Monocyte Absolute Count 0.60 0.00 - 1.00 x 1000/ L 08/12/2025 1:37 AM [facility] Eosinophil Absolute Count 0.20 0.00 - 1.00 x 1000/ L 08/12/2025 1:37 AM [facility] Basophil Absolute Count 0.05 0.00 - 1.00 x 1000/ L 08/12/2025 1:37 AM [facility] Absolute Immature Granulocyte Count 0.03 0.00 - 0.30 x 1000/ L 08/12/2025 1:37 AM [facility] Absolute nRBC 0.00 0.00 - 1.00 x 1000/ L 08/12/2025 1:37 AM [facility] ANC (Abs Neutrophil Count) 5.04 2.00 - 7.60 x 1000/ L 08/12/2025 1:37 AM [facility] Blood Venipuncture / Unknown 08/12/2025 1:32 AM EDT 08/12/2025 1:35 AM EDT us Delfino Guy MD LAB BLOOD ORDERABLES Final Resul t [place] [id number], [facility] [phone] * EKG (08/12/2025 1:15 AM EDT) Heart Rate 142 bpm [facility] EKG QRS Interval 103 ms [facility] EKG QT Interval 313 ms [facility] EKG QTC Interval 481 ms [facility] EKG P [place] 0 deg [facility] EKG QRS [place] 33 deg [facility] EKG T Wave [place] 7 deg [facility] EKG P-R Interval 0 msec [facility] EKG SEVERITY Abnormal ECG severity [facility] EKG Comment::Atrial fibrillation :Non specific ST-T wave abnormalities:No previous:Electronically Signed On 08-12-2025 13:03:48 EDT by Danial Julio MD OTHER / Unknown 08/12/2025 1 :15 AM EDT Delfino Guy MD ECG ORDERABLES Final Result [facility] EKG from Last 3 Months Insurance [employer] [id number] [facility] Care Teams Subway Guard Relationship Specialty Start Date End Date Christian Robertson NP [address] [place] [phone] PCP - General Family Medicine 08/12/25
== END 2025-09-19 17:09 | disposition home or self-care (01) ==
LOC: HO.HMCC 16:04
PROVIDERS: PCP Nurse Practitioner Family; Visit Provider Nurse Practitioner Family
DX: Z00.01 Encounter for general adult medical examination with abnormal findings (principal); R91.1 Solitary pulmonary nodule; E11.9 Type 2 diabetes mellitus without complications; E55.9 Vitamin D deficiency, unspecified

== ENCOUNTER → 2025-09-19 16:03 | Outpatient (BNVA) | payer OTHER, SELFPAY | PROVIDERS: PCP Nurse Practitioner Family; Visit Provider Nurse Practitioner Family | DX: Z00.01 Encounter for general adult medical examination with abnormal findings (principal); Z00.00 Encounter for general adult medical examination without abnormal findings; E11.9 Type 2 diabetes mellitus without complications; I48.91 Unspecified atrial fibrillation; I25.2 Old myocardial infarction; E66.9 Obesity, unspecified; R91.1 Solitary pulmonary nodule; R60.0 Localized edema; E55.9 Vitamin D deficiency, unspecified; Z68.41 Body mass index [BMI] 40.0-44.9, adult | CPT/HCPCS: 83036; 96127 ==

== ENCOUNTER 2025-09-27 09:24 | Outpatient (REF) | payer OTHER, SELFPAY ==
--- OUTSIDE RECORDS SUMMARY | 2025-08-15 10:55 | XMS_ITS ---
Author Organization [facility] Address [address] [facility] [address] [place] [phone] Care Team Providers Care Provider Relations Consultant Name Role Phone PARISA SORENSEN Primary Care Provider Matthew Olivas Jr REASON FOR VISIT screening colonoscopy Encounters Encounter Location Date Provider Diagnosis [facility] [address] [facility] [address] [place] [phone] 08/15/2025 Matthew Levi Jr Plan Of Treatment Next Appt Details Provider Name:Matthew oswald Jr, 01/17/2026 07:30:00 AM, [address] [place] [address] , [place], [place], [phone], Progress Notes * JERMAINE EPPSDOB:0 1960 (65 yo F)Acc No.[id number]:08/15/2025 Progress Notes Patient: GENET COLLAZOBERLY Provider: Maura Levi MD :1960 A ge:65 Y S ex:Female Date:08/15/2025 Address:[address] [place], [place] [phone] Pcp:PARISA SORENSEN Subjective: * Chief Complaints: * [...] Maura Levi MD Date: 1 Generated for Nathalie jacobs/Linda/Scott on: 11/27/2024 10:24 AM EST
--- OUTSIDE RECORDS SUMMARY | 2025-09-02 03:40 | XMS_ITS ---
Author Organization [facility] Address [address] [place] [phone] Care Team Providers Care Engineering Designer Name Role Phone PARISA SORENSEN Primary Care [...] Allergy Active PredniSONE Unknown Drug Allergy Active REASON FOR VISIT Patient presents today for colonoscopy screening Medications Medication SIG (Take, Route, Frequency, Duration) Notes Start Date End Date Status Levothyroxine Sodium 200 MCG 1 tablet in the morning on an empty stomach Orally Once a day Active metFORMIN HCl 500 MG 1 tablet with a newton l Orally Once a day; Duration: 30 day(s) Active Multi Complete - as directed Orally Active Multaq 400 MG 1 tablet with meals Orally Twice a day Active Eliquis 5 MG as directed Orally Active Atorvastatin Calcium 40 MG 1 tablet Oral ly Once a day Active Carvedilol 6.25 MG 1 tablet with food Orally Twice a day Active Zithromax Z-Stanley 250 MG as directed Orall y daily; Duration: 5 days 09/02/2025 Active Aspirin 81 MG 1 tablet Orally Once a day Active Immunizations Vaccine Route Administration Date Status Comme nts Influenza Unknown 09/02/2025 Refused Social History Tobacco Use: Social History Observation Description Date Details (start date - stop date) Former Smoker NA - NA Tobacco Use/Smoking Question Answer Notes Patient is a former smoker How long has it been since you last smoked? 1-5 years Problems Problem Type SNOMED Code ICD Code Onset Dates Problem Status W/U Status Risk Notes Problem Bronchitis (66293319) Bronchitis (J40) Active confirmed Problem Screening for malignant neoplasm of colon (380222980) Encounter for screening for malignant neoplasm of colon (Z12.11) Active confirmed Vital Signs Temperature 98.4 degrees Fahrenheit 09/02/20 25 Blood pressure systolic 001 mm Hg 09/02/20 25 Blood pressure diastolic 01 mm Hg 025 Height 66.5 in 09/02/2025 Weight 266.6 lbs 09/02/2025 BMI 42.38 kg/m2 09/02/2025 Encounters Encounter Location Date Provider Diagnosis [facility] 10 [facility] [address] [place] [phone] 09/02/2025 Matthew Levi Jr Bronchitis J40 and [...] Stop Date Notes Zithromax Z-Stanley 250 MG as directed Orall y daily; Duration: 5 days 09/02/2025 Future Test Test Name Order Date COLONOSCOPY 09/02/2025 Next Appt Details Provider Name:Matthew oswald Jr, 01/17/2026 07:30:00 AM, [address] [place] [address] , [place], [place], [phone], Progress Notes * THANH EPPS:0 1960 (65 yo F)Acc No.[id number]:09/02/2025 Progress Notes Patient: JERMAINE COLLAZO Provider: Maura Levi MD :1960 A ge:65 Y S ex:Female Date:09/02/2025 Address:[address] [place], [place] [id number] Pcp:PARISA SORENSEN Subjective: * Chief Complaints: * 1 . Patient presents today for colonoscopy screening. * Medical History: C olonoscopy 07/2014, negative for polyps, prior history of colon polyps, five-year followup recommended, Thyroid cancer 2014, Lupus, Psoriasis, Essential thrombocytosis, Obstructive sleep apnea, Diabetes mellitus, Heart attack. * Surgical History: c holecystectomy , tonsillectomy , dysfunctional uterine bleeding, status post endometrial biopsy , endometrial ablation , arthroscopic knee surgery , carpal tunnel release both hands , left hand surgery , thyroidectomy, complete 2014, stents in heart . * Family History: F ather: , colon and small intestines removed, diagnosed with Colon cancer. M other: . mother bile duct ca father colon ca no liver ca family hx. * Social History: T obacco Use: T obacco Use/Smoking P atient is a f ormer smoker, H ow long has it been since you last smoked? 1 -5 years. D rugs/Alcohol: A lcohol Screen P oints: 0, Interpretation: Negative. M iscellaneous: M arital status: . [place] [employer] [place] [employer]. * Medications: T aking Aspirin 81 MG Tablet Chewable 1 tablet Orally Once a day , Taking Multaq 400 MG Tablet 1 tablet with meals Orally Twice a day , Taking Multi Complete - Capsule as directed Orally , Taking Atorvastatin Calcium 40 MG Tablet 1 tablet Orally Once a day , Taking Eliquis 5 MG Tablet as directed Orally , Taking Carvedilol 6.25 MG Tablet 1 tablet with food Orally Twice a day , Taking Levothyroxine Sodium 200 MCG Tablet 1 tablet in the morning on an empty stomach Orally Once a day , Taking metFORMIN HCl 500 MG Tablet 1 tablet with a meal Orally Once a day , Discontinued Aleve 220 MG Tablet 1 tablet with food or milk as needed Orally every 12 hrs , Discontinued Vitamin D (Ergocalciferol) 1.25 MG (88639 UT) Capsule 1 capsule Orally , Discontinued MiraLax (colon prep) 8.3 ounce ((238) grams mixed with Gatorade or Crystal Light orally begin at 5:00 p.m. the day before the procedure , Medication List reviewed and reconciled with the patient * Allergies: D arvon, Codeine Phosphate, Penicillamine, Sulfacet-R, Vancomycin HCl, PredniSONE, Metamucil, Avelox. Objective: * Vitals: W t: 266.6 lbs, Ht: 66.5 in, BMI:42.38Index, BP: 001/01 mm Hg, Temp: 98.4, Wt-k.93. Assessment: * Assessment: 1. B miroslava - [...] ietary management education, guidance, and counseling, B NM management provided Y es. * * The named appointment provid er may or may not be the originator of this progress note, and it is not deemed complete until electronically signed by the appointment provider. Sign off status: Pending * Provider: Maura Levi MD Date: Generated for Nathalie jacobs/Linda/Kennyitting on: 11/27/2024 10:25 AM EST
--- NOTE | ~2025-09-27 | CT_ITS ---
EXAMINATION: CT HEAD WITHOUT CONTRAST CLINICAL INFORMATION: Unspecified headache COMPARISON: None available. TECHNIQUE: Contiguous axial imaging was performed from the skull base to vertex without intravenous administration of contrast. This CT examination was performed using dose optimization techniques as appropriate, variously including the following: *Automated exposure control *Adjustment of mA and/or kV according to patient size (this includes techniques or standardized protocols for targeted exams where dose is matched to indication/reason for exam; i.e. extremities or head) *Use of iterative reconstruction technique FINDINGS: There is no evidence of acute intracranial hemorrhage or edematous large vessel territorial infarction. No abnormal mass effect or midline shift is seen. Mckeon to white matter differentiation is well preserved. No abnormal extra-axial fluid collections are identified. The ventricles are normal in size. No abnormal attenuation in the brain parenchyma. The cerebellar tonsils are appropriately positioned. No acute calvarial fracture.. The globes appear unremarkable. Paranasal sinuses and mastoid air cells are well-aerated. CT/CT head/brain wo IV con IMPRESSION: No acute intracranial process seen.. Cause of the patient's symptoms has not been determined. Electronically signed by: Leonardo Anthony MD 09/27/2025 10:16 AM [facility]
--- OUTSIDE RECORDS SUMMARY | 2025-09-27 10:24 | XMS_ITS | Clinical Summary ---
Author Organization [address] Address [address] [place] [phone] Phone Care Team Providers Care Director Perioperative Name Role Phone Christian Robertson NP Primary [...] 08/12/2025 4:13 AM EDT Emergency Emergency Department [address] [place] [address] [phone] Delfino Guy MD Atrial fibrillation with rapid [...] GH LMW YH) (08/12/2025 2:38 AM EDT) [facility] High Sensitivity Troponin T 11 See Comment ng/L 08/12/2025 3:02 AM EDT [facility] Comment:High Sensitivity Tro ponin T levels should be interpreted in the context of the [facility] Care Signature pathway. 1 hour Delta from 0 Hour, HS-Troponin T 1 ng/L 08/12/2025 3:02 AM EDT [facility] Blood Venipuncture / Unknown 08/12/2025 2:38 AM EDT 08/12/2025 2:43 AM EDT Delfino Guy MD LAB BLOOD ORDERAB[place] [address], [facility] [phone] * (ABNORMAL) Comprehensive metabolic panel (08/12/2025 1:32 AM EDT) [facility] Sodium 141 136 - 145 mmol/L 08/12/2025 2:13 AM EDT [facility] Potassium 3.6 3.5 - 5.1 mmol/L 08/12/2025 2:13 AM [facility] Chloride 109(H) 98 - 107 mmol/L 08/12/2025 2:13 AM [facility] CO2 25 21 - 32 mmol/L 08/12/2025 2:13 AM [facility] Anion Gap 7 5 - 15 mmol/L 08/12/2025 2:13 AM [facility] Glucose 182(H) 65 - 110 mg/dL 08/12/2025 2:13 AM [facility] Comment: Non-fastin-110 mg/dL Fasting (minimum 6 hrs): 65-99 mg/dL BUN 14 7 - 18 mg/dL 08/12/2025 2:13 AM [facility] Creatinine 0.77 0.55 - 1.02 mg/dL 08/12/2025 2:13 AM [facility] Calcium 8.8 8.5 - 10.1 mg/dL 08/12/2025 2:13 AM [facility] Total Protein 6.7 6.4 - 8.2 g/dL 08/12/2025 2:13 AM [facility] Albumin 3.4 3.4 - 5.0 g/dL 08/12/2025 2:13 AM [facility] Globulin 3.3 2.5 - 5.0 g/dL 08/12/2025 2:13 AM [facility] Total Bilirubin 0.4 0.2 - 1.0 mg/dL 08/12/2025 2:13 AM [facility] Comment:Use of this assay is not recommended for patients undergoing treatment with Eltrombopag due to the potential for falsely elevated results. Alkaline Phosphatase 93 45 - 117 U/L 08/12/2025 2:13 AM [facility] Alanine Aminotransferase (ALT) 29 12 - 78 U/L 08/12/2025 2:13 AM [facility] Aspartate Aminotransferase (AST) 13(L) 15 - 37 U/L 08/12/2025 2:13 AM [facility] eGFR (Creatinine) >60 >=60 mL/min/1. 73m2 08/12/2025 2:13 AM [facility] Comment: [facility] utilizes CKD-EPI Creatinine 2020 to report eGFR. Values < 60 mL/min/1.73 m2 may indicate CKD if present for more than three months AND creatinine is at steady state. The eGFR provides a rough estimate of kidney function. For further guidance, please refer to the CKD: Adult Customs Brokerage Manager Signature pathway. Creatinine Delta 08/12/20 2:13 AM EDT [facility] Comment:No previous creatini ne <5.00 mg/dL is available within the previous 12 months to calculate a delta creatinine. Blood Venipuncture / Unknown 08/12/2025 1:32 AM EDT 08/12/2025 1:35 AM EDT Delfino Guy MD LAB BLOOD ORDERABLES Final Resul t Performing Organization Address City/[facility] [place] [address], [facility] [phone] * Troponin T High Sensitivity, Emergency; 0 hour baseline AND 1 hour with reflex (3 hour) (:32 AM EDT) [facility] High Sensitivity Troponin T 10 See Comment ng/L 08/12/2025 2:00 AM EDT [facility] Comment:High Sensitivity Tro ponin T levels should be interpreted in the context of the [facility] Care Signature pathway. Blood Venipuncture / Unknown 08/12/2025 1:32 AM EDT 08/12/2025 1:35 AM EDT Delfino Guy MD LAB BLOOD ORDERABLES Final Resul t Performing Organization Address City/[facility] [place] [address], [facility] [phone] * NT-proBrain natriuretic peptide (08/12/2025 1:32 AM EDT) [facility] NT-proBNP 67.0 <125.0 pg/mL 08/12/2025 2:13 AM EDT [facility] Blood Venipuncture / Unknown 08/12/2025 1:32 AM EDT 08/12/2025 1:35 AM EDT us Delfino Guy MD LAB BLOOD ORDERABLES Final Resul t [place] [id number], [facility] [phone] * (ABNORMAL) CBC auto differential (08/12/2025 1:32 AM EDT) WBC 7.8 4.0 - 11.0 x1000/ L 08/12/2025 1:37 AM [facility] RBC 4.89 4.00 - 6.00 M/ L 08/12/2025 1:37 AM [facility] Hemoglobin 11.2(L) 11.7 - 15.5 g/dL 08/12/2025 1:37 AM [facility] Hematocrit 36.80 35.00 - 45.00 % 08/12/2025 1:37 AM [facility] MCV 75.3(L) 80.0 - 100.0 fL 08/12/2025 1:37 AM [facility] MCH 22.9(L) 27.0 - 33.0 pg 08/12/2025 1:37 AM [facility] MCHC 30.4(L) 31.0 - 36.0 g/dL 08/12/2025 1:37 AM [facility] RDW-CV 17.0(H) 11.0 - 15.0 % 08/12/2025 1:37 AM [facility] Platelets 225 150 - 420 x1000/ L 08/12/2025 1:37 AM [facility] MPV 9.8 8.0 - 12.0 fL 08/12/2025 1:37 AM [facility] Neutrophils 64.9 39.0 - 72.0 % 08/12/2025 1:37 AM [facility] Lymphocytes 23.8 17.0 - 50.0 % 08/12/2025 1:37 AM [facility] Monocytes 7.7 4.0 - 12.0 % 08/12/2025 1:37 AM [facility] Eosinophils 2.6 0.0 - 5.0 % 08/12/2025 1:37 AM [facility] Basophil 0.6 0.0 - 1.4 % 08/12/2025 1:37 AM [facility] Immature Granulocytes 0.4 0.0 - 1.0 % 08/12/2025 1:37 AM [facility] nRBC 0.0 0.0 - 1.0 % 08/12/2025 1:37 AM [facility] Absolute Lymphocyte Count 1.85 0.60 - 3.70 x 1000/ L 08/12/2025 1:37 AM [facility] Monocyte Absolute Count 0.60 0.00 - 1.00 x 1000/ L 08/12/2025 1:37 AM [facility] Eosinophil Absolute Count 0.20 0.00 - 1.00 x 1000/ L 08/12/2025 1:37 AM [facility] Basophil Absolute Count 0.05 0.00 - 1.00 x 1000/ L 08/12/2025 1:37 AM [facility] Absolute Immature Granulocyte Count 0.03 0.00 - 0.30 x 1000/ L 08/12/2025 1:37 AM [facility] Absolute nRBC 0.00 0.00 - 1.00 x 1000/ L 08/12/2025 1:37 AM [facility] ANC (Abs Neutrophil Count) 5.04 2.00 - 7.60 x 1000/ L 08/12/2025 1:37 AM [facility] Blood Venipuncture / Unknown 08/12/2025 1:32 AM EDT 08/12/2025 1:35 AM EDT us Delfino Guy MD LAB BLOOD ORDERABLES Final Resul t [place] [id number], [facility] [phone] * EKG (08/12/2025 1:15 AM EDT) Heart Rate 142 bpm [facility] EKG QRS Interval 103 ms [facility] EKG QT Interval 313 ms [facility] EKG QTC Interval 481 ms [facility] EKG P [place] 0 deg [facility] EKG QRS [place] 33 deg [facility] EKG T Wave [place] 7 deg [facility] EKG P-R Interval 0 msec [facility] EKG SEVERITY Abnormal ECG severity [facility] EKG Comment::Atrial fibrillation :Non specific ST-T wave abnormalities:No previous:Electronically Signed On 08-12-2025 13:03:48 EDT by Danial Julio MD OTHER / Unknown 08/12/2025 1 :15 AM EDT Delfino Guy MD ECG ORDERABLES Final Result [facility] EKG from Last 3 Months Insurance [employer] [id number] [facility] Care Teams Director Perioperative Relationship Specialty Start Date End Date Christian Robertson NP [address] [place] [phone] PCP - General Family Medicine 08/12/25
== END 2025-09-27 09:25 | disposition home or self-care (01) ==
LOC: HO.CT 09:24
PROVIDERS: PCP Nurse Practitioner Family; Visit Provider Nurse Practitioner Family
DX: R51.9 Headache, unspecified (principal)
CPT/HCPCS: 70450

== ENCOUNTER → 2025-09-27 09:26 | Outpatient (BNV) | payer OTHER, SELFPAY | PROVIDERS: PCP Nurse Practitioner Family; Visit Provider Radiology Diagnostic Ultrasound | DX: R51.9 Headache, unspecified (principal) | CPT/HCPCS: 70450 ==

== ENCOUNTER 2025-10-22 08:08 | Outpatient (REF) | payer OTHER, SELFPAY ==
--- NOTE | ~2025-10-22 | MM_ITS ---
EXAMINATION: MM SCREENING DIGITAL BREAST TOMOSYNTHESIS, BILATERAL CLINICAL INFORMATION: Screening. Asymptomatic. COMPARISON: Mammography: Comparison is made with available priors TECHNIQUE: Digital breast mammography with tomosynthesis is performed in both the craniocaudal and mediolateral oblique views along with computer-aided detection (CAD). FINDINGS: There are scattered areas of fibroglandular density. There are no significant masses, abnormal calcifications, or other abnormalities. MM/MM tomosynthesis screening BI IMPRESSION: No mammographic evidence of malignancy. ASSESSMENT: BI-RADS Category 1: Negative RECOMMENDATION: Routine annual mammography screening. 1 year F/U This examination should not preclude the clinical evaluation of a suspicious palpable abnormality. This patient's information was entered into a reminder system with a target due date for their next mammogram. Electronically signed by: Julissa Newsome DO 10/24/2025 08:21 AM [facility]
== END 2025-10-22 08:09 | disposition home or self-care (01) ==
LOC: HO.MAMMO 08:08
PROVIDERS: PCP Nurse Practitioner Family; Visit Provider Nurse Practitioner Family
DX: Z12.31 Encounter for screening mammogram for malignant neoplasm of breast (principal)
CPT/HCPCS: 77063; 77067

== ENCOUNTER → 2025-10-22 08:15 | Outpatient (BNV) | payer OTHER, SELFPAY | PROVIDERS: PCP Nurse Practitioner Family; Visit Provider Internal Medicine | DX: Z12.31 Encounter for screening mammogram for malignant neoplasm of breast (principal) | CPT/HCPCS: 77063; 77067 ==

== ENCOUNTER 2025-11-11 11:10 | Inpatient (IN) | payer OTHER, SELFPAY ==
--- OUTSIDE RECORDS SUMMARY | 2025-08-15 10:55 | XMS_ITS ---
Author Organization [facility] Address [address] [facility] [address] [place] [phone] Care Team Providers Care Supervisor Park Workers Name Role Phone PARISA SORENSEN Primary Care Provider Matthew Olivas Jr [phone] REASON FOR VISIT screening colonoscopy Encounters Encounter Location Date Provider Diagnosis [facility] [address] [facility] [address] [place] [phone] 08/15/2025 Matthew Levi Jr Plan Of Treatment Next Appt Details Provider Name:Matthew oswald Jr, 01/17/2026 07:30:00 AM, [address] [place] [address] , [place], [place], [phone], Progress Notes * JERMAINE EPPSDOB:0 1960 (65 yo F)Acc No.[id number]:08/15/2025 Progress Notes Patient: Maura BONILLA JERMAINE Provider: Maura Levi MD :1960 A ge:65 Y S ex:Female Date:08/15/2025 Address:[address] [place], [place] [phone] Pcp:PARISA SORENSEN Subjective: * Chief Complaints: * S creening colonoscopy * The named appointment provid er may or may not be the originator of this progress note, and it is not deemed complete until electronically signed by the appointment provider. Sign off status: Pending * Provider: Maura Levi MD Date: 1 Generated for Printi ng/Linda/Scott on: 1 03:41 PM EST
--- OUTSIDE RECORDS SUMMARY | 2025-09-02 03:40 | XMS_ITS ---
Author Organization [facility] Address [address] [place] [phone] Care Team Providers Care Systems Test Technician Name Role Phone PARISA SORENSEN Primary Care Provider Matthew Olivas Jr Unavailable Allergies Allergen (clinical drug ingredient) Drug/Non Drug Allergy documented on EMR Reaction Allergy Type Onset Date Status moxifloxacin Avelox Unknown Drug Allergy Acti ve Codeine Phosphate Unknown Drug Allergy Active Darvon Unknown Drug Allergy Active psyllium Metamucil Unknown Drug Allergy Active penicillamine Penicillamine Unknown Drug Allergy Active PredniSONE Unknown Drug Allergy Active Sulfacet-R Unknown Drug Allergy Active vancomycin Vancomycin HCl Unknown Drug Allergy A ctive REASON FOR VISIT Patient presents today for colonoscopy screening Medications Medication SIG (Take, Route, Frequency, Duration) Notes Start Date End Date Status Levothyroxine Sodium 200 MCG Tablet 1 tablet in the morning on an empty stomach Orally Once a day Active metFORMIN HCl 500 MG Tablet 1 tablet wit h a meal Orally Once a day; Duration: 30 day(s) Active Multi Complete - Capsule as directed Orally Active Multaq 400 MG Tablet 1 tablet with meals Orally Twice a day Active Eliquis 5 MG Tablet as directed Orally Active Atorvastatin Calcium 40 MG Tablet 1 tablet Orally Once a day Active Carvedilol 6.25 MG Tablet 1 tablet with food Orally Twice a day Active Zithromax Z-Stanley 250 MG Tablet as directed Orally daily; Duration: 5 days 09/02/2025 Active Aspirin 81 MG Tablet Chewable 1 tablet Orally Once a day Active Immunizations Vaccine Route Administration Date Status Comme nts Influenza Unknown 09/02/2025 Refused Social History Tobacco Use: Social History Observation Description Date Details (start date - stop date) Former Smoker NA - NA Social History Tobacco Use: Social Info Question Answer Notes Tobacco Use/Smoking Patient is a former smoker How long has it been since you last smoked? 1-5 years Additional Details Category Social Info Options Details Miscellaneous: Marital status: Occupation: [employer] - [employer] Problems Problem Type SNOMED Code ICD Code Onset Dates Problem Status W/U Status Risk Notes Problem Bronchitis (36269894) Bronchitis (J40) Active confirmed Problem Screening for malignant neoplasm of colon (602629206) Encounter for screening for malignant neoplasm of colon (Z12.11) Active confirmed Vital Signs Temperature 98.4 degrees Fahrenheit 09/02/20 25 Blood pressure systolic 001 mm Hg 09/02/20 25 Blood pressure diastolic 01 mm Hg 025 Height 66.5 in 09/02/2025 Weight 266.6 lbs 09/02/2025 BMI 42.38 kg/m2 09/02/2025 Encounters Encounter Location Date Provider Diagnosis [facility] [address] [facility] [address] [place] [phone] 09/02/2025 Matthew Levi Jr Bronchitis J40 and Encounter for screening for malignant neoplasm of colon Z12.11 Assessments Encounter Date Diagnosis (ICD Code) Assessment Notes Treatment Notes Treatment Clinical Notes Section Notes 09/02/2025 Bronchitis (ICD-10 - J40) We discussed her symptoms today. We recommended treatment with azithromycin. She will call if she is no better. She is due for colorectal cancer screening. This will be arranged. She understands risks and benefits and agrees to proceed. Undue 09/02/2025 Encounter for screening for malignant neoplasm of colon (ICD-10 - Z12.11) We discussed her symptoms today. We recommended treatment with azithromycin. She will call if she is no better. She is due for colorectal cancer screening. This will be arranged. She understands risks and benefits and agrees to proceed. Undue Plan Of Treatment Medication Medication Name Sig Start Date Stop Date Notes Zithromax Z-Stanley 250 MG Tablet as directe d Orally daily; Duration: 5 days 09/02/2025 Future Test Test Name Order Date COLONOSCOPY 09/02/2025 Next Appt Details Provider Name:Matthew oswald Jr, 01/17/2026 07:30:00 AM, [address] [place] [address] , [place], [place], [phone], Progress Notes * JERMAINE EPPSDOB:0 1960 (65 yo F)Acc No.[id number]:09/02/2025 Progress Notes Patient: JERMAINE COLLAZO Provider: Maura Levi MD :1960 A ge:65 Y S ex:Female Date:09/02/2025 [address] [place], [place] [id number] Pcp:PARISA SORENSEN Subjective: * Chief Complaints: * Marquez neff presents today for colonoscopy screening * Medical History: Colonoscopy 07/2014, negative for polyps, prior history of colon polyps, five- year followup recommended Thyroid cancer 2014 Lupus Psoriasis Essential thrombocytosis Obstructive sleep apnea Diabetes mellitus Heart attack Medical History Verified * Surgical History: cholecystectomy tonsillectomy dysfunctional uterine bleeding, status post endometrial biopsy endometrial ablation arthroscopic knee surgery carpal tunnel release both hands left hand surgery thyroidectomy, complete 2014 stents in heart * Hospitalization/Major Diagno stic Procedure: No Hospitalization Documented. Hospitalization Verified. * Family History: F ather: , colon and small intestines removed, diagnosed with Colon cancer. M other: . F amily History Verified.. mother bile duct ca father colon ca no liver ca family hx. * Social History: T obacco Use: T obacco Use/Smoking P aishwarya is a f ormer smoker, H ow long has it been since you last smoked? 1 -5 years. D rugs/Alcohol: A lcohol Screen P oints: 0, Interpretation: Negative. M iscellaneous: M arital status: . Occupation: [employer] - [email or web address]. Social History Verified. * Medications: T akingAspirin 81 MG Tablet Chewable 1 tablet Orally Once a day Multaq 400 MG Tablet 1 tablet with meals Orally Twice a day Multi Complete - Capsule as directed Orally Atorvastatin Calcium 40 MG Tablet 1 tablet Orally Once a day Eliquis 5 MG Tablet as directed Orally Carvedilol 6.25 MG Tablet 1 tablet with food Orally Twice a day Levothyroxine Sodium 200 MCG Tablet 1 tablet in the morning on an empty stomach Orally Once a day metFORMIN HCl 500 MG Tablet 1 tablet with a meal Orally Once a day Taking Aspirin 81 MG Tablet Chewable 1 tablet Orally Once a day Taking Multaq 400 MG Tablet 1 tablet with meals Orally Twice a day Taking Multi Complete - Capsule as directed Orally Taking Atorvastatin Calcium 40 MG Tablet 1 tablet Orally Once a day Taking Eliquis 5 MG Tablet as directed Orally Taking Carvedilol 6.25 MG Tablet 1 tablet with food Orally Twice a day Taking Levothyroxine Sodium 200 MCG Tablet 1 tablet in the morning on an empty stomach Orally Once a day Taking metFORMIN HCl 500 MG Tablet 1 tablet with a meal Orally Once a day DiscontinuedAleve 220 MG Tablet 1 tablet with food or milk as needed Orally every 12 hrs Vitamin D (Ergocalciferol) 1.25 MG (16493 UT) Capsule 1 capsule Orally MiraLax (colon prep) 8.3 ounce ((238) grams mixed with Gatorade or Crystal Light orally begin at 5:00 p.m. the day before the procedure Medication List reviewed and reconciled with the patientDiscontinued Aleve 220 MG Tablet 1 tablet with food or milk as needed Orally every 12 hrs Discontinued Vitamin D (Ergocalciferol) 1.25 MG (85621 UT) Capsule 1 capsule Orally Discontinued MiraLax (colon prep) 8.3 ounce ((238) grams mixed with Gatorade or Crystal Light orally begin at 5:00 p.m. the day before the procedure Medication List reviewed and reconciled with the patient * Allergies: D arvonCodeine PhosphatePenicillamineSulfacet-RVancomycin HClPredniSONEMetamucilAveloxyesAllergies Verified. Objective: * Vitals: W t: 266.6 lbs, Ht: 66.5 in, BMI:42.38Index, BP: 001/01 mm Hg, Temp: 98.4 F, Wt- k.93 kg. Assessment: * Assessment: 1. B miroslava - J40 (Primary) 2 . E ncounter for screening for malignant neoplasm of colon - Z12.11 We discussed her symptoms to day. We recommended treatment with azithromycin. She will call if she is no better. She is due for colorectal cancer screening. This will be arranged. She understands risks and benefits and agrees to proceed. Undue Plan: * Treatment: 2. E ncounter for screening for malignant neoplasm of colon P rocedure: COLONOSCOPY (Ordered for 09/02/2025) * Immunizations: Influenza (Not administered - Refused: Patient decision) * Preventive Medicine: Counseling: C are goal follow-up plan: A daniela Normal BMI Follow-up D ietary management education, guidance, and counseling, B MD management provided Y es. * The named appointment provid er may or may not be the originator of this progress note, and it is not deemed complete until electronically signed by the appointment provider. Sign off status: Pending * Provider: Maura Levi MD Date: 1 Generated for Nathalie jacobs/Linda/Mohinismitting on: 03:42 PM EST
[2025-11-11] VITALS (12 sets, daily range): BP systolic 105–172; BP diastolic 30–85; PULSE 61–80; RESP 11–19; TEMP 36.6–36.9; O2SAT 95–98; BMI 43.5; BMI 42.3
--- NOTE | ~2025-11-11 | US_ITS ---
EXAMINATION: US TRIPLEX LOWER EXTREMITY, LEFT CLINICAL INFORMATION: Examination: Left leg pain and swelling. COMPARISON: Ultrasound bilateral lower extremity venous Doppler exam 11/05/2022 TECHNIQUE: Color-flow triplex imaging with spectral analysis and compression Doppler were performed on the left lower extremity. FINDINGS: There is normal compression, color flow and waveform visualized in bilateral common femoral, superficial femoral, popliteal, posterior tibial veins. The peroneal vein is not well-visualized due to body habitus. The soft tissues are normal. There is no Styles's cyst. Patient refused to evaluate right common femoral vein US/US venous duplex LE LT IMPRESSION: No evidence of deep venous thrombosis involving the left lower extremity. Electronically signed by: Hesham Castellano MD 11/11/2025 01:12 PM [facility]
--- NOTE | ~2025-11-11 | XR_ITS ---
EXAMINATION: XR CHEST 1 VIEW HISTORY: dyspnea COMPARISON: Comparison is made with the prior examination dated 09/16/2025. FINDINGS: A single AP portable view of the chest performed at 12:00 PM is submitted. There are low lung volumes. Increased markings bilaterally may be related to low lung volumes and AP portable technique. There are no focal airspace opacities. There is no pleural effusion, pneumothorax, or pulmonary vascular congestion. The heart is normal in size. There is degenerative disc disease of the spine. XR/XR chest 1V IMPRESSION: Low lung volumes. No acute cardiopulmonary abnormality. Electronically signed by: Jef Villeda MD 11/11/2025 12:12 PM [facility]
--- NOTE | 2025-11-11 11:13 | ECG_ITS ---
Test Reason : NEAR SNYCOPE Blood Pressure : */* mmHG Vent. Rate : 72 BPM Atrial Rate : 72 BPM P-R Int : 152 ms QRS Dur : 90 ms QT Int : 388 ms P-R-T Axes : 55 29 30 degrees QTcB Int : 424 ms Normal sinus rhythm Normal ECG When compared with ECG of 03-Nov-2024 11:36, No significant change was found Referred By: Gloria Pride Electronically Signed By: BRANDON GARNER
[2025-11-11 11:56] LABS: MANUAL DIFF FLAG NO
--- NOTE | 2025-11-11 11:56 | ED.ARRPALP ---
HPI - Arrhythmia/Palpitations General Chief Complaint: Dizziness Stated Complaint: feels like passing out Time Seen by Provider: 11/11/25 11:22 Source: patient and old records reviewed Mode of arrival: ambulatory Limitations: no limitations History of Present Illness ED Provider: NONI MACK narrative: 65-year-old female with past medical history of inferior STEMI in 2023 she had a PCI to RCA/lad she then developed AFib she has been on Multaq and Eliquis she has been compliant. She notes she has gone in and out and is likely going to have an ablation next month. For the past week she feels short of breath she feels dizzy with standing she has no chest pain. She notes she feels her heart rate going up and down it wakes her sleep. She denies any recent infections. She states she is compliant with all medications. They also recently increased her carvedilol. She has increased her pill usage by 1 as well. She denies any GI bleed symptoms she wears a watch but has not caught any AFib MD complaint: palpitations and atrial fibrillation Onset (ago): week(s) (1) Duration: intermittent Severity: moderate Context: occurred during rest and occurred during exertion Arrhythmia history: atrial fibrillation Associated symptoms: shortness of breath and other (Weakness) Related Data Home Medications ?Medication ?Instructions ?Recorded ?Confirmed aspirin 81 mg tablet,delayed 81 mg PO DAILY 08/20/25 09/19/25 release (Adult Aspirin Regimen) Previous Rx's ?Medication ?Instructions ?Recorded metformin 500 mg tablet,extended 500 mg PO DAILY #90 tabs 05/15/25 release 24 hr Unithroid 175 mcg tablet 175 mcg PO DAILY #30 tabs 07/24/25 (levothyroxine) apixaban 5 mg tablet (Eliquis) 5 mg PO BID #180 tabs 08/05/25 dronedarone 400 mg tablet (Multaq) 400 mg PO BID 90 days #180 tabs 08/20/25 albuterol sulfate 90 mcg/actuation 1 inh inhalation QID PRN shortness 09/04/25 aerosol inhaler (Ventolin HFA) of breath or wheezing #8.5 grams azithromycin 250 mg tablet See Rx Instructions PO .COMPLEX 5 09/10/25 days #6 tabs Accu-Chek Guide Glucose Meter #1 ea 09/20/25 (blood-glucose meter) Accu-Chek Guide test strips (blood #100 ea 09/20/25 sugar diagnostic) Accu-Chek Softclix Lancets #100 ea 09/20/25 (lancets) atorvastatin 40 mg tablet 40 mg PO BEDTIME #90 ea 09/24/25 carvedilol 12.5 mg tablet 12.5 mg PO BID 30 days #60 tabs 11/05/25 Allergies Allergy/AdvReac Type Severity Reaction Status Date / Time moxifloxacin (From AVELOX) Allergy Severe PINS AND Verified 11/11/25 11:19 NEEDLE FEET AND PALMS- SWELLING oxycodone (Percocet) Allergy Intermediate Vomiting Verified 11/11/25 11:19 vancomycin (Vancomycin) Allergy Intermediate SWELLING/HIVES/THROAT Verified 11/11/25 11:19 CLOSING SENSATION codeine (Codeine) Allergy Mild HIVES Verified 11/11/25 11:19 Penicillins Allergy Mild HIVES Verified 11/11/25 11:19 propoxyphene (From Darvon) Allergy Mild FELT LIKE Verified 11/11/25 11:19 CHEST CLOSING UP / HIVES Sulfa (Sulfonamide Allergy Mild HIVES Verified 11/11/25 11:19 Antibiotics) (Sulfa (Sulfonamides)) dexamethasone AdvReac Intermediate muscle Verified 11/11/25 11:19 aches hydroxychloroquine AdvReac Mild hair loss Verified 11/11/25 11:19 (Plaquenil) Iodinated Contrast Media (IV AdvReac Hives Verified 11/11/25 11:19 Contrast Dye) Review of Systems Review of Systems: Yes all other systems are reviewed and are negative [facility] Past Medical History Attestation statement: The following information was validated with the patient. Source: old records reviewed Medical History Pneumonitis Atrial fibrillation with RVR Ascending aorta dilatation SLE (systemic lupus erythematosus) PMR (polymyalgia rheumatica) Osteoarthritis of knees, bilateral Lichen planus Psoriasis Polyarthralgia NEELAM positive COVID-19 vaccine series completed History of lupus LILLI (obstructive sleep apnea) Dyslipidemia Morbid obesity Vitamin D deficiency Primary thyroid cancer Diabetes type 2, uncontrolled Post-surgical hypothyroidism Surgical History Hx of vascular surgery Hx of knee surgery History of medial meniscus repair of left knee History of thumb surgery History of foot surgery Hx of colonoscopy Hx of arthroscopy of right knee Hx of thyroidectomy Hx of cholecystectomy History of carpal tunnel release of both wrists Family History Family History Father Diabetes Hypertension Colon cancer Mother Hypertension Thyroid disease Bile duct carcinoma Social History Social History Housing: House Are you a primary respiratory care faculty to a significant other at home: No Do you presently have visiting nurse or other home services: No Alcohol intake: never Patient Tobacco Use Status: Former Tobacco user Tobacco use type: Cigarette Years Smoked: 5 years ago Smoked in Last 30 Days: No e-Cigarette/Vaping Use: Never Used Second Hand Smoke Exposure: Yes Use of substances other than those prescribed or required for medical reasons: No Advance Directives: Yes Advance Directives on File: Yes Advance Directives Date on File: 11/24/15 Do you have a plan to hurt others: No Plan Patient : No service: No Current occupational status: employed 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 Oriented X3. No acute distress. Eyes: Pupils equal, round and reactive to light. ENT: Pharynx normal. Neck: Normal inspection. Neck supple. CVS: Normal heart rate and rhythm. Pulses normal. Respiratory: No respiratory distress. Breath sounds rales on exam Abdomen: Soft and nontender. Skin: Skin warm and dry. Pale skin color. Normal skin turgor. Extremities: 1+ symmetric pitting edema in lower extremities Neuro: Oriented X 3. No motor deficit. No sensory deficit. CN2-12 intact Medical Decision Making Medical Decision Making MDM Narrative: 65-year-old female with past medical history of inferior STEMI in 2023 she had a PCI to RCA/lad she then developed AFib she has been on Multaq and Eliquis who presents with palpitations as well as shortness of breath and overall not feeling well. She has no chest pain. She denies any GI bleed symptoms or infections. She does have some rales on exam and lower extremity edema. I am going to obtain labs, chest x-ray, EKG, DVT study. We will continue to monitor on tele for any signs of AFib with RVR she has a history of this. Differential Diagnosis Differential Diagnoses: The differential diagnosis associated with the presentation includes Arrhythmia, anemia, VIC on CKD, CHF Admission/Observation Consideration of admission/observation: Escalation of care including admission/observation considered Unexplained anemia this is new she is having symptoms due to this at this time I am going to transfuse 1 unit and admit she can follow up with GI as an inpatient she follows with Dr. Oneal Consult Healthcare Provider Management of the patient was discussed with: Hospitalist (Will admit) Lab Data MDM Lab Attestation statement: I reviewed the patient's lab results. 11/11/25 11:50 11/11/25 11:50 Labs: Lab Results 11/11/25 11/11/25 Range/Units 11:50 13:32 WBC 6.4 (4.8-10.8) X10*3/uL RBC 3.74 L D (4.20-5.50) X10*6/uL Hgb 7.5 L D (12.0-16.0) g/dl Hct 26.5 L D (37.0-47.0) % MCV 70.9 L (80.0-98.0) fL MCH 20.1 L (27.0-33.0) pg MCHC 28.3 L (31.0-35.0) g/dl RDW 17.1 H (11.0-16.0) % Plt Count 213 (160-400) X10*3/uL MPV 9.9 (9.4-12.3) fL Immature Gran % (Auto) 0.5 H (0.0-0.4) % Neut % (Auto) 69.4 (45-73) % Lymph % (Auto) 19.9 L (20-40) % Jack % (Auto) 6.2 (2-11) % Eos % (Auto) 3.4 (0-4) % Baso % (Auto) 0.6 (0-2) % Lymph # (Auto) 1.3 (1.2-4.9) X10*3/uL Jack # (Auto) 0.4 (0.1-1.2) X10*3/uL Eos # (Auto) 0.2 (0.0-0.4) X10*3/uL Baso # (Auto) 0.0 (0.0-0.2) X10*3/uL Abs Immat Gran (auto) 0.03 (0.00-0.03) X10*3/uL Absolute Neuts (auto) 4.5 (2.0-8.3) x10*3/uL Absolute Nucleated RBC 0.000 (0.0-0.012) X10*3/uL Nucleated RBC % (auto) 0.0 (0.0-0.2) /100WBC Sodium 140 (135-145) mmol/L Potassium 4.2 (3.3-5.1) mmol/L Chloride 111 H (96-108) mmol/L Carbon Dioxide 26 (22-29) mmol/L Anion Gap 7 L (12-20) BUN 13 (9-16) mg/dL Creatinine 0.76 (0.5-1.4) mg/dL Estim Creat Clear Calc 103.1 Estimated GFR > 60 Random Glucose 180 H (60-115) mg/dL Calcium 8.8 D (8.4-10.2) mg/dL Magnesium 1.7 (1.6-2.6) mg/dL Total Bilirubin 0.3 (0.0-1.0) mg/dL AST 22 (5-31) U/L ALT 27 (0-31) U/L Alkaline Phosphatase 76 (39-117) U/L Troponin I High Sens < 2.7 (<3.5-17.0) ng/L NT-Pro-B Natriuret Pep 195.1 (<300) pg/mL Total Protein 5.9 L (6.5-8.0) g/dL Albumin 3.9 (3.5-5.0) g/dL Lipase 32 (8-78) U/L TSH 1.18 (0.32-4.0) uIU/mL Urine Color Yellow Urine Appearance Clear Urine pH 6.0 (5.0-9.0) Ur Specific [place] 1.010 (1.005-1.025) Urine Protein Negative (Neg-Trace) mg/dL Urine Glucose (UA) Negative (Negative) mg/dL Urine Ketones Negative (Negative) mg/dL Urine Blood Negative (Negative) Urine Nitrite Negative (Negative) Ur Leukocyte Esterase Negative (Negative) Stool Occult Blood NEGATIVE (NEGATIVE) Influenza Type A (PCR) NEGATIVE (Negative) Influenza Type B (PCR) NEGATIVE (Negative) RSV RNA Qual (PCR) NEGATIVE (Negative) SARS-CoV-2 RNA (RT-PCR) NEGATIVE (Negative) Independent Interpretation I performed an independent interpretation of an: EKG, Plain X-Ray (No edema) and Ultrasound (No DVT) Interpretation: Rate: 72 Rhythm: 72 normal sinus rhythm [place]: Normal Normal P waves. Normal DAVIN. Normal QRS complex. ST T wave : No ST-elevation she does have an inverted T-wave in V1 qTC: 424 prior studies: No significant change from prior The study has been interpreted contemporaneously by me. . Radiology Impression Discussion of test interpretation with radiology: I have reviewed the radiologist's reading. Independent Historian Clinical information obtained from an independent historian. History obtained from or confirmed by: Friend External Record Review External record reviewed: Inpatient record, Outpatient record, Prior outpatient labs and Prior outpatient radiology Discharge Plan Discharge Clinical Impression: Acute anemia Patient Disposition: Admitted As Inpatient Print Language: Tajik
[2025-11-11 11:57] LABS: Hematocrit 26.5 % (37.0-47.0); Hemoglobin 7.5 g/dl (12.0-16.0); Imm Gran Abs Auto 0.03 X10*3/uL (0.00-0.03); Imm Gran Pct Auto 0.5 % (0.0-0.4); Lymphocytes Absolute Auto 1.3 X10*3/uL (1.2-4.9); Mean Corpuscular HGB Conc 28.3 g/dl (31.0-35.0); Mean Corpuscular Hemoglobin 20.1 pg (27.0-33.0); Mean Corpuscular Volume 70.9 fL (80.0-98.0); NRBC Abs Auto 0.000 X10*3/uL (0.0-0.012); NRBC Pct Auto 0.0 /100WBC (0.0-0.2); Platelet Count 213 X10*3/uL (160-400); Red Blood Count 3.74 X10*6/uL (4.20-5.50); White Blood Count 6.4 X10*3/uL (4.8-10.8)
[2025-11-11 12:15] LABS: NT Pro B Type Natriuretic Pept 195.1 pg/mL (<300)
[2025-11-11 12:17] LABS: Troponin-I High Sensitivity < 2.7 ng/L (<3.5-17.0)
[2025-11-11 12:19] LABS: Alanine Aminotransferase 27 U/L (0-31); Albumin Level 3.9 g/dL (3.5-5.0); Alkaline Phosphatase 76 U/L (39-117); Anion Gap 7 (12-20); Aspartate Amino Transferase 22 U/L (5-31); Blood Urea Nitrogen 13 mg/dL (9-16); Calcium 8.8 mg/dL (8.4-10.2); Carbon Dioxide 26 mmol/L (22-29); Chloride 111 mmol/L (96-108); Creatinine Clr Calc Pharmacy 103.1; Estimated Glomerular Filt Rate > 60; Lipase 32 U/L (8-78); Magnesium 1.7 mg/dL (1.6-2.6); Potassium 4.2 mmol/L (3.3-5.1); Sodium 140 mmol/L (135-145); Total Protein 5.9 g/dL (6.5-8.0)
[2025-11-11 12:38] LABS: Resp Syncy Virus RNA Qual PCR NEGATIVE (Negative); SARS COV2 PCR INHOUSE NEGATIVE (Negative)
[2025-11-11 13:43] LABS: OBS Int Ctl Valid YES; OBS1 NEGATIVE (NEGATIVE)
[2025-11-11 13:44] LABS: Appearance Urine Clear; Glucose Urine UA Negative (Negative); PH 6.0 (5.0-9.0); Specific Gravity - Urine 1.010 (1.005-1.025)
[2025-11-11 14:29] LABS: Iron 19 mcg/dL (30-160); Percent Iron Saturation 5 % (15-50); Total Iron Binding Capacity 357 mcg/dL (228-428); Unsaturated Iron Binding 338 ug/dL
--- NOTE | 2025-11-11 15:10 | PHA.MEDREC ---
Pharmacy Consult ? Medication Reconciliation Pharmacy has completed the medication reconciliation.Med rec complete, spoke to patient and compared with pharmacy claims history.
[2025-11-11 15:38] LABS: Folate 13.7 ng/mL (> or = 4.0); Vitamin B12 418 pg/mL (200-900)
--- OUTSIDE RECORDS SUMMARY | 2025-11-11 15:42 | XMS_ITS | Clinical Summary ---
Author Organization [address] Address [address] [place] [phone] Phone Care Team Providers Care Creel Hand Name Role Phone Christian Robertson NP Primary [...] 08/12/2025 4:13 AM EDT Emergency Emergency Department [address] [place] [address] [phone] Delfino Guy MD Atrial fibrillation with rapid [...] GH LMW YH) (08/12/2025 2:38 AM EDT) [facility] High Sensitivity Troponin T 11 See Comment ng/L 08/12/2025 3:02 AM EDT [facility] Comment:High Sensitivity Tro ponin T levels should be interpreted in the context of the [facility] Care Signature pathway. 1 hour Delta from 0 Hour, HS-Troponin T 1 ng/L 08/12/2025 3:02 AM EDT [facility] Blood Venipuncture / Unknown 08/12/2025 2:38 AM EDT 08/12/2025 2:43 AM EDT Delfino Guy MD LAB BLOOD [place] [address], [facility] [phone] * (ABNORMAL) Comprehensive metabolic panel (08/12/2025 1:32 AM EDT) [facility] Sodium 141 136 - 145 mmol/L 08/12/2025 2:13 AM EDT [facility] Potassium 3.6 3.5 - 5.1 mmol/L 08/12/2025 2:13 AM [facility] Chloride 109(H) 98 - 107 mmol/L 08/12/2025 2:13 AM [facility] CO2 25 21 - 32 mmol/L 08/12/2025 2:13 AM [facility] Anion Gap 7 5 - 15 mmol/L 08/12/2025 2:13 AM [facility] Glucose 182(H) 65 - 110 mg/dL 08/12/2025 2:13 AM [facility] Comment: Non-fastin-110 mg/dL Fasting (minimum 6 hrs): 65-99 mg/dL BUN 14 7 - 18 mg/dL 08/12/2025 2:13 AM [facility] Creatinine 0.77 0.55 - 1.02 mg/dL 08/12/2025 2:13 AM [facility] Calcium 8.8 8.5 - 10.1 mg/dL 08/12/2025 2:13 AM [facility] Total Protein 6.7 6.4 - 8.2 g/dL 08/12/2025 2:13 AM [facility] Albumin 3.4 3.4 - 5.0 g/dL 08/12/2025 2:13 AM [facility] Globulin 3.3 2.5 - 5.0 g/dL 08/12/2025 2:13 AM [facility] Total Bilirubin 0.4 0.2 - 1.0 mg/dL 08/12/2025 2:13 AM [facility] Comment:Use of this assay is not recommended for patients undergoing treatment with Eltrombopag due to the potential for falsely elevated results. Alkaline Phosphatase 93 45 - 117 U/L 08/12/2025 2:13 AM [facility] Alanine Aminotransferase (ALT) 29 12 - 78 U/L 08/12/2025 2:13 AM [facility] Aspartate Aminotransferase (AST) 13(L) 15 - 37 U/L 08/12/2025 2:13 AM [facility] eGFR (Creatinine) >60 >=60 mL/min/1. 73m2 08/12/2025 2:13 AM [facility] Comment: [facility] utilizes CKD-EPI Creatinine 2020 to report eGFR. Values < 60 mL/min/1.73 m2 may indicate CKD if present for more than three months AND creatinine is at steady state. The eGFR provides a rough estimate of kidney function. For further guidance, please refer to the CKD: Adult [employer] Signature pathway. Creatinine Delta 08/12/20 2:13 AM EDT [facility] Comment:No previous creatini ne <5.00 mg/dL is available within the previous 12 months to calculate a delta creatinine. Blood Venipuncture / Unknown 08/12/2025 1:32 AM EDT 08/12/2025 1:35 AM EDT Delfino Guy MD LAB BLOOD ORDERABLES Final Resul t Performing Organization Address City/[facility] [place] [address], [facility] [phone] * Troponin T High Sensitivity, Emergency; 0 hour baseline AND 1 hour with reflex (3 hour) (:32 AM EDT) [facility] High Sensitivity Troponin T 10 See Comment ng/L 08/12/2025 2:00 AM EDT [facility] Comment:High Sensitivity Tro ponin T levels should be interpreted in the context of the [facility] Care Signature pathway. Blood Venipuncture / Unknown 08/12/2025 1:32 AM EDT 08/12/2025 1:35 AM EDT Delfino Guy MD LAB BLOOD ORDERABLES Final Resul t Performing Organization Address City/[facility] [place] [address], [facility] [phone] * NT-proBrain natriuretic peptide (08/12/2025 1:32 AM EDT) [facility] NT-proBNP 67.0 <125.0 pg/mL 08/12/2025 2:13 AM EDT [facility] Blood Venipuncture / Unknown 08/12/2025 1:32 AM EDT 08/12/2025 1:35 AM EDT us Delfino Guy MD LAB BLOOD ORDERABLES Final Resul t [place] [id number], [facility] [phone] * (ABNORMAL) CBC auto differential (08/12/2025 1:32 AM EDT) WBC 7.8 4.0 - 11.0 x1000/ L 08/12/2025 1:37 AM [facility] RBC 4.89 4.00 - 6.00 M/ L 08/12/2025 1:37 AM [facility] Hemoglobin 11.2(L) 11.7 - 15.5 g/dL 08/12/2025 1:37 AM [facility] Hematocrit 36.80 35.00 - 45.00 % 08/12/2025 1:37 AM [facility] MCV 75.3(L) 80.0 - 100.0 fL 08/12/2025 1:37 AM [facility] MCH 22.9(L) 27.0 - 33.0 pg 08/12/2025 1:37 AM [facility] MCHC 30.4(L) 31.0 - 36.0 g/dL 08/12/2025 1:37 AM [facility] RDW-CV 17.0(H) 11.0 - 15.0 % 08/12/2025 1:37 AM [facility] Platelets 225 150 - 420 x1000/ L 08/12/2025 1:37 AM [facility] MPV 9.8 8.0 - 12.0 fL 08/12/2025 1:37 AM [facility] Neutrophils 64.9 39.0 - 72.0 % 08/12/2025 1:37 AM [facility] Lymphocytes 23.8 17.0 - 50.0 % 08/12/2025 1:37 AM [facility] Monocytes 7.7 4.0 - 12.0 % 08/12/2025 1:37 AM [facility] Eosinophils 2.6 0.0 - 5.0 % 08/12/2025 1:37 AM [facility] Basophil 0.6 0.0 - 1.4 % 08/12/2025 1:37 AM [facility] Immature Granulocytes 0.4 0.0 - 1.0 % 08/12/2025 1:37 AM [facility] nRBC 0.0 0.0 - 1.0 % 08/12/2025 1:37 AM [facility] Absolute Lymphocyte Count 1.85 0.60 - 3.70 x 1000/ L 08/12/2025 1:37 AM [facility] Monocyte Absolute Count 0.60 0.00 - 1.00 x 1000/ L 08/12/2025 1:37 AM [facility] Eosinophil Absolute Count 0.20 0.00 - 1.00 x 1000/ L 08/12/2025 1:37 AM [facility] Basophil Absolute Count 0.05 0.00 - 1.00 x 1000/ L 08/12/2025 1:37 AM [facility] Absolute Immature Granulocyte Count 0.03 0.00 - 0.30 x 1000/ L 08/12/2025 1:37 AM [facility] Absolute nRBC 0.00 0.00 - 1.00 x 1000/ L 08/12/2025 1:37 AM [facility] ANC (Abs Neutrophil Count) 5.04 2.00 - 7.60 x 1000/ L 08/12/2025 1:37 AM [facility] Blood Venipuncture / Unknown 08/12/2025 1:32 AM EDT 08/12/2025 1:35 AM EDT us Delfino Guy MD LAB BLOOD ORDERABLES Final Resul t [place] [id number], [facility] [phone] * EKG (08/12/2025 1:15 AM EDT) Heart Rate 142 bpm [facility] EKG QRS Interval 103 ms [facility] EKG QT Interval 313 ms [facility] EKG QTC Interval 481 ms [facility] EKG P [place] 0 deg [facility] EKG QRS [place] 33 deg [facility] EKG T Wave [place] 7 deg [facility] EKG P-R Interval 0 msec [facility] EKG SEVERITY Abnormal ECG severity [facility] EKG Comment::Atrial fibrillation :Non specific ST-T wave abnormalities:No previous:Electronically Signed On 08-12-2025 13:03:48 EDT by Danial Julio MD OTHER / Unknown 08/12/2025 1 :15 AM EDT Delfino Guy MD ECG ORDERABLES Final Result [facility] EKG from Last 3 Months Insurance [employer] [id number] [facility] Care Teams Creel Hand Relationship Specialty Start Date End Date Christian Robertson NP [address] [place] [phone] PCP - General Family Medicine 08/12/25
--- OUTSIDE RECORDS SUMMARY | 2025-11-11 15:42 | XMS_ITS | Patient Health Record ---
Author Organization [facility] Address [address] [place] [phone] Care Team Providers Care Agents' Records Clerk Name Role Phone PARISA SORENSEN Primary Care [...] Vancomycin HCl Unknown Drug Allergy A ctive Reason For Referral No Information Medications Medication SIG (Take, Route, Frequency, Duration) Notes Start Date End Date Status Zithromax Z-Stanley 250 MG Tablet as directed Orally daily; Duration: 5 days 09/02/2025 Active Aspirin 81 MG Tablet Chewable 1 tablet Orally Once a day Active Multi Complete - Capsule as directed Orally Active Multaq 400 MG Tablet 1 tablet with meals Orally Twice a day Active Eliquis 5 MG Tablet as directed Orally Active Atorvastatin Calcium 40 MG Tablet 1 tablet Orally Once a day Active Levothyroxine Sodium 200 MCG Tablet 1 tablet [...] Info Options Details Miscellaneous: Marital status: 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 - MRI Problems Problem Type SNOMED Code ICD Code Onset Dates Problem Status W/U Status Risk Notes Problem Screening for malignant neoplasm of colon (079707512) Encounter for screening for malignant neoplasm of colon (Z12.11) Active confirmed Problem Bronchitis (29725022) Bronchitis (J40) Active confirmed Vital Signs Temperature 98.4 degrees Fahrenheit 09/02/2025 Blood pressure diastolic 01 mm Hg 09/02/2025 Height 66.5 in 09/02/2025 Blood pressure systolic 001 mm Hg 09/02/2025 Weight 266.6 lbs 09/02/2025 BMI 42.38 kg/m2 09/02/2025 Encounters Encounter Location Date Provider Diagnosis [facility] [address] [place] [phone] 09/02/2025 Matthew Levi Jr Bronchitis J40 and Encounter for screening for malignant neoplasm of colon Z12.11 [facility] [address] [place] [phone] 08/02/2025 Matthew Levi Jr Assessments Encounter Date [...] Provider Name:Matthew oswald Jr, 01/17/2026 07:30:00 AM, [address] [place], [place] [address], [place], [phone], Insurance Providers Payer Name Payer Address Payer Phone Subscriber Number Group Number Insured Name Patient Relationship to Insured Coverage Start Date Coverage End Date [employer] [address] [address] [place] [address] [id number] JERMAINE EPPS Self - patient is the insured Medical (General) History Medical History History ICD Code colonoscopy 07/2014, negative for polyps, prior history of colon polyps, five-year followup recommended thyroid cancer 2014 lupus psoriasis essential thrombocytosis obstructive sleep apnea diabetes mellitus heart attack Surgical History Surgery Date(Month/Year) cholecystectomy tonsillectomy dysfunctional uterine bleeding, status p ost endometrial biopsy endometrial ablation arthroscopic knee surgery carpal tunnel release both hands left hand surgery thyroidectomy, complete 2014 stents in heart
--- NOTE | 2025-11-11 16:05 | PM.IMHP ---
History of Present Illness Date of Service: 11/11/25 Attending physician on admission: Queta Parisi Chief Complaint: dizziness 65y/o F With pmhx of inferior STEMI in 2023 she had a PCI to RCA/lad she then developed AFib she has been on Multaq and Eliquis she has been compliant. She notes she has gone in and out and is likely going to have an ablation next month-her Coreg was recently adjusted to 12.5 b.i.d.(For the past week she feels short of breath she feels dizzy with standing she has no chest pain. She notes she feels her heart rate going up and down it wakes her sleep), recently increased her carvedilol. She has increased her pill usage by 1 as well. Patient says that initially she used to have erythrocytosis with and used to get phlebotomy outpatient, was since June seems like she has developing slowly anemia as per Hematology note question of iron deficiency-referred to GI for further workup , further as above patient has started to feeling dizzy so decided to come to the hospital. Patient denies any chest pain or shortness of breath or fever or chills or nausea vomiting or any black tarry stools or vomiting any blood or any gross bleeding. Does not have any rashes Lab imaging reviewed: H&H 7.5/26.5 dropped above her previous h/h 11.5/36.6(may/2025), LFT normal, BNP also fine. Patient has microcytic anemia, with low iron and iron saturation, TIBC normal as well as unsaturated iron binding. B12 and folate normal, TSH normal FOBT negative Venous duplex:No evidence of deep venous thrombosis involving the left lower extremity. Chest x-ray :negative ekg:Normal sinus rhythm Review of Systems Review of Systems: As above. Yes all other systems are reviewed and are negative [facility] Medical History Pneumonitis Atrial fibrillation with RVR Ascending aorta dilatation SLE (systemic lupus erythematosus) PMR (polymyalgia rheumatica) Osteoarthritis of knees, bilateral Lichen planus Psoriasis Polyarthralgia NEELAM positive COVID-19 vaccine series completed History of lupus LILLI (obstructive sleep apnea) Dyslipidemia Morbid obesity Vitamin D deficiency Primary thyroid cancer Diabetes type 2, uncontrolled Post-surgical hypothyroidism Family History Father Diabetes Hypertension Colon cancer Mother Hypertension Thyroid disease Bile duct carcinoma Surgical History Hx of vascular surgery Hx of knee surgery History of medial meniscus repair of left knee History of thumb surgery History of foot surgery Hx of colonoscopy Hx of arthroscopy of right knee Hx of thyroidectomy Hx of cholecystectomy History of carpal tunnel release of both wrists Social History Household Members: Spouse Housing: House Are you a primary child care aide to a significant other at home: No Do you presently have visiting nurse or other home services: No Alcohol intake: never Patient Tobacco Use Status: Former Tobacco user Tobacco use type: Cigarette Years Smoked: 5 years ago Smoked in Last 30 Days: No e-Cigarette/Vaping Use: Never Used Second Hand Smoke Exposure: Yes Use of substances other than those prescribed or required for medical reasons: No Currently Displaying Signs/Symptoms of Drug Intoxication Withdrawal: No Have you been hit, kicked, punched, or otherwise hurt by someone within the past year? 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 Cognitive needs: No Hearing needs: No Vision needs: No Meds Allergies Allergy/AdvReac Type Severity Reaction Status Date / Time moxifloxacin (From AVELOX) Allergy Severe PINS AND Verified 11/11/25 11:19 NEEDLE FEET AND PALMS- SWELLING oxycodone (Percocet) Allergy Intermediate Vomiting Verified 11/11/25 11:19 vancomycin (Vancomycin) Allergy Intermediate SWELLING/HIVES/THROAT Verified 11/11/25 11:19 CLOSING SENSATION codeine (Codeine) Allergy Mild HIVES Verified 11/11/25 11:19 Penicillins Allergy Mild HIVES Verified 11/11/25 11:19 propoxyphene (From Darvon) Allergy Mild FELT LIKE Verified 11/11/25 11:19 CHEST CLOSING UP / HIVES Sulfa (Sulfonamide Allergy Mild HIVES Verified 11/11/25 11:19 Antibiotics) (Sulfa (Sulfonamides)) dexamethasone AdvReac Intermediate muscle Verified 11/11/25 11:19 aches hydroxychloroquine AdvReac Mild hair loss Verified 11/11/25 11:19 (Plaquenil) Iodinated Contrast Media (IV AdvReac Hives Verified 11/11/25 11:19 Contrast Dye) Active Medications: Current Medications Acetaminophen (Acetaminophen 325 Mg Tablet) 650 mg PO Q6H PRN PRN Reason: Pain, Mild 1-3,fever,headache Calcium Carbonate (Calcium Carbonate 750 Mg Tab.Chew) 750 mg PO Q4H PRN PRN Reason: Heartburn Magnesium Hydroxide (Milk Of Magnesia 30 Ml Oral.Susp) 30 ml PO DAILY PRN PRN Reason: Constipation Melatonin (Melatonin 3 Mg Tablet) 6 mg PO BEDTIME PRN PRN Reason: Insomnia Sodium Chloride (0.9 % Sodium Chloride Flush 3 Ml Syringe) [facility] Medications ?Medication ?Instructions ?Recorded ?Confirmed ?Last Taken ?Type aspirin 81 mg tablet,delayed 81 mg PO DAILY 08/20/25 11/11/25 11/11/25 09:30 History release (Adult Aspirin Regimen) metformin 500 mg tablet,extended 500 mg PO BEDTIME 11/11/25 11/11/25 11/10/25 History release 24 hr thyiabke-xucq-zffe 8 mg-folic 400 1 tab PO DAILY 11/11/25 11/11/25 11/11/25 09:30 History mcg-K 50 mcg-lutein 300 mcg tablet (Centrum Silver Women) Physical Exam Vital Signs and Narrative: Vital Signs: Last Vital Signs Temp 98.0 F 11/11/25 15:11 Pulse 64 11/11/25 15:11 Resp 14 11/11/25 15:11 BP 105/42 L 11/11/25 15:11 Pulse Ox 97 11/11/25 15:11 O2 Del Method Room Air 11/11/25 15:11 BMI result Body Mass Index 43.5 Appearance: Alert.? Oriented X3.? cvs: rrr, [id number] , no murmur res: clear to auscultation ,no rhonchii or wheezing abd: no rebound or guarding ,nt, bs present. ext pulses present , no cyanosis . neuro: axo3 , nonfocal. Results Labs 11/11/25 23:29 11/11/25 11:50 Labs: Laboratory Results - last 24 hr 11/11/25 11/11/25 11/11/25 11:50 13:32 14:32 MCV 70.9 L MCH 20.1 L MCHC 28.3 L RDW 17.1 H Plt Count 213 MPV 9.9 Immature Gran % (Auto) 0.5 H Neut % (Auto) 69.4 Lymph % (Auto) 19.9 L [place] % (Auto) 6.2 Eos % (Auto) 3.4 Baso % (Auto) 0.6 Lymph # (Auto) 1.3 [place] # (Auto) 0.4 Eos # (Auto) 0.2 Baso # (Auto) 0.0 Abs Immat Gran (auto) 0.03 Absolute Neuts (auto) 4.5 Absolute Nucleated RBC 0.000 Nucleated RBC % (auto) 0.0 Anion Gap 7 L Estim Creat Clear Calc 103.1 Estimated GFR > 60 Random Glucose 180 H Calcium 8.8 D Magnesium 1.7 Iron 19 L TIBC 357 % Saturation 5 L Unsat Iron Binding 338 Total Bilirubin 0.3 AST 22 ALT 27 Alkaline Phosphatase 76 Troponin I High Sens < 2.7 NT-Pro-B Natriuret Pep 195.1 Total Protein 5.9 L Albumin 3.9 Lipase 32 Vitamin B12 418 Folate 13.7 TSH 1.18 Urine Color Yellow Urine Appearance Clear Urine pH 6.0 Ur Specific [place] 1.010 Urine Protein Negative Urine Glucose (UA) Negative Urine Ketones Negative Urine Blood Negative Urine Nitrite Negative Ur Leukocyte Esterase Negative Stool Occult Blood NEGATIVE Influenza Type A (PCR) NEGATIVE Influenza Type B (PCR) NEGATIVE RSV RNA Qual (PCR) NEGATIVE SARS-CoV-2 RNA (RT-PCR) NEGATIVE Blood Type B Positive Antibody Screen NEGATIVE Crossmatch See Detail Imaging Radiologist's Impressions: Impressions Chest X-Ray 11/11/25 12:00 IMPRESSION: Low lung volumes. No acute cardiopulmonary abnormality. Electronically signed by: Jef Villeda MD 11/11/2025 12:12 PM [facility] Venous Duplex 11/11/25 12:18 IMPRESSION: No evidence of deep venous thrombosis involving the left lower extremity. Electronically signed by: Hesham Castellano MD 11/11/2025 01:12 PM [facility] Assessment and Plan (1) Anemia: Qualifiers: Anemia type: unspecified type Qualified Code(s): D64.9 - Anemia, unspecified Status: Acute Plan 65y/o F With pmhx of inferior STEMI in 2023 she had a PCI to RCA/lad she then developed AFib she has been on Multaq and Eliquis she has been compliant. She notes she has gone in and out and is likely going to have an ablation next month Symptomatic anemia unclear etiology Seem iron-deficiency anemia question? H&H is 7.5 Added PRBC and 1 unit per ED Fecal occult is negative Plan: IV ppi, hold Eliquis/antiplatelets GI evaluation paf: Currently is normal sinus rhythm Blood pressures softer side Continue Multaq, hold Eliquis dm: Fingerstick with sliding scale coverage, hold metformin, avoid coverage below 200 mg/dl cad:hx of inferior STEMI in 2023 she had a PCI to RCA/lad ( more than 1 year) Hold aspirin, continue statin We will slowly introduce back Coreg once the blood pressure more acceptable. Hypothyroidism: Continue thyroid replacement therapy DVT prophylaxis SCD due to anemia. Ongoing need of stay: Symptomatic anemia-need IV transfusions, close monitoring of H&H, ppi, GI evaluation/hematology evaluation Patient will benefit from at least 2 midnight stay symptomatic anemia and workup, patient understand above and in agreement with the above plan, time spent 70 minute. Patiently full code Quality Stroke Does the patient have a stroke diagnosis?: No VTE Prior VTE?: No VTE Risk Level:: Medical - moderate - high VTE Device Contraindication: N/A - Device Ordered VTE Drug Contraindication: N/A - Med Ordered
[2025-11-11 17:57] LABS: Glucose, Whole Blood 92 mg/dL (60-115)
--- NOTE | 2025-11-11 22:16 | PC.NURSE ---
pt refusing insulin at this time, pt states i do not take insulin , pt also refused POC at this time. pt transported upstairs at this time
[2025-11-11] MEDS: 0.9 % Sodium Chloride Flush 3 ML SYRINGE IVFLUSH (22:55)
[2025-11-11 23:44] LABS: Hematocrit 28.7 % (37.0-47.0); Hemoglobin 8.4 g/dl (12.0-16.0); Mean Corpuscular HGB Conc 29.3 g/dl (31.0-35.0); Mean Corpuscular Hemoglobin 20.6 pg (27.0-33.0); Mean Corpuscular Volume 70.5 fL (80.0-98.0); NRBC Abs Auto 0.000 X10*3/uL (0.0-0.012); NRBC Pct Auto 0.0 /100WBC (0.0-0.2); Platelet Count 215 X10*3/uL (160-400); Red Blood Count 4.07 X10*6/uL (4.20-5.50); White Blood Count 7.0 X10*3/uL (4.8-10.8)
[2025-11-12 04:00] VITALS: BP 149/65; PULSE 61; RESP 20; TEMP 36.2; O2SAT 95
[2025-11-12 07:44] VITALS: BP 147/61; PULSE 66; RESP 18; TEMP 36.7; O2SAT 98
[2025-11-12 08:42] LABS: Glucose, Whole Blood 133 mg/dL (60-115)
--- NOTE | 2025-11-12 09:08 | PM.HEMONCCN ---
Subjective - Subjective Chief complaint: Weakness/dizziness Patient: known to practice within the last 3 years Consult date: 11/12/25 Requesting Physician: Dr. 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 She has been on apixaban and Brilinta since her stent and diagnosis of atrial fibrillation. She carries a diagnosis of secondary erythrocytosis, her hemoglobin intermittently has been as high as 16.9 g per dL. She was on therapeutic phlebotomy under the care of Dr. Reilly, she thinks her last phlebotomy was around March of 2025. She was rendered quite anemic from the therapeutic phlebotomy, iron-deficiency for which she was taking multivitamin with iron but no iron tablets per se. She was suspected of occult GI bleeding in referred to a GI. She has been scheduled for colonoscopy next year. She presented on 11/11 with complaints of weakness and dizziness. Labs revealed a hemoglobin of 7.5 gram/dL, 11.5 gram/dL in May 2025. Iron studies were low. FOBT was negative. She received 1 unit blood transfusion. She denies any history of hematochezia, melena, abdominal pain, loss of appetite or unexplained weight loss. No symptoms of GERD or reflux. Family significant for colon cancer in her father and biliary cancer in her mother. She is up-to-date with screening colonoscopies. Review of Systems - Constitutional Reports as per HPI, Reports fatigue, Reports malaise, Reports weight gain - Cardiovascular Reports no additional cardiovascular complaints - Respiratory Reports no additional respiratory complaints - Gastrointestinal Reports no additional gastrointestinal complaints [facility] Medical History: Medical History (Last Reviewed 11/11/25 @ 16:18 by Queta Parisi MD) NEELAM positive Ascending aorta dilatation Atrial fibrillation with RVR COVID-19 vaccine series completed Diabetes type 2, uncontrolled Dyslipidemia History of lupus Lichen planus Morbid obesity LILLI (obstructive sleep apnea) Osteoarthritis of knees, bilateral PMR (polymyalgia rheumatica) Pneumonitis Polyarthralgia Post-surgical hypothyroidism Primary thyroid cancer Psoriasis SLE (systemic lupus erythematosus) Vitamin D deficiency Family History: Family History (Last Reviewed 11/11/25 @ 16:18 by Queta Parisi MD) Father Diabetes Hypertension Colon cancer Mother Hypertension Thyroid disease Bile duct carcinoma Surgical History: Surgical History (Last Reviewed 11/11/25 @ 16:18 by Queta Parisi MD) History of carpal tunnel release of both wrists History of foot surgery History of medial meniscus repair of left knee History of thumb surgery Hx of arthroscopy of right knee Hx of cholecystectomy Hx of colonoscopy Hx of knee surgery Hx of thyroidectomy Hx of vascular surgery Social History: Social History (Last Reviewed 11/11/25 @ 16:18 by Queta Parisi MD) Living Situation History: Household Members: Spouse Housing: House Are you a primary college and career counselor to a significant other at home: No Do you presently have visiting nurse or other home services: No Alcohol History Details: 1. How often do you have a drink containing alcohol?: a. Never 3. How often do you have six or more drinks on one occasion?: a. Never AUDIT-C Alcohol total score: 0 Currently Displaying Signs/Symptoms of Alcohol Withdrawal: No Tobacco History: Patient Tobacco Use Status: Former Tobacco user Tobacco use type: Cigarette Years Smoked: 5 years ago Smoked in Last 30 Days: No e-Cigarette/Vaping Use: Never Used Second Hand Smoke Exposure: Yes Substance Use History: Use of substances other than those prescribed or required for medical reasons: No Currently Displaying Signs/Symptoms of Drug Intoxication Withdrawal: No Domestic Abuse History: Have you been hit, kicked, punched, or otherwise hurt by someone within the past year? If so, by whom?: No Do you feel safe in your current relationship?: Yes Is there a partner from a previous relationship who is making you feel unsafe now?: No Are you made to feel afraid or neglected: No Advance Directives: Advance Directives: Yes Advance Directives on File: Yes Advance Directives Date on File: 11/24/15 Homicidal Assessment: Do you have a plan to hurt others: No Plan Nutrition Assessment: Recently lost weight without trying: No Eating poorly because of decreased appetite: No Nutrition Risks: No Nutritional Risk Patient : No Occupation Assessmet: service: No Current occupational status: employed Current occupation: [employer] 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 Home Medications and Allergies Current Medications: Current Medications Acetaminophen (Acetaminophen 325 Mg Tablet) 650 mg PO Q6H PRN PRN Reason: Pain, Mild 1-3,fever,headache Albuterol Sulfate (Albuterol Sulfate 90 Mcg 8 Gm Inhaler) 1 puff INHALE QID PRN PRN Reason: shortness of breath or wheezing Atorvastatin Calcium (Atorvastatin Calcium 40 Mg Tablet) 40 mg PO BEDTIME [facility] Last Admin: 11/11/25 21:51 Dose: 40 mg Calcium Carbonate (Calcium Carbonate 750 Mg Tab.Chew) 750 mg PO Q4H PRN PRN Reason: Heartburn Dextrose (Dextrose 50 % 25 Gm/50 Ml Syringe) 25 gm IVPUSH Q15M PRN; Protocol PRN Reason: per Hypoglycemia Standing Ord. Dronedarone (Dronedarone Hcl 400 Mg Tablet) 400 mg PO BID [facility] Last Admin: 11/11/25 22:12 Dose: 400 mg Glucose (Glucose Gel 15 Gm Gel..Gram.) 15 gm PO Q15M PRN; Protocol PRN Reason: per Hypoglycemia Standing Ord. Insulin Human Lispro (Insulin Lispro 100 Unit/Ml 3 Ml Vial) 0 unit SUBCUT QIDACHS [facility]; Protocol Last Admin: 11/12/25 08:49 Dose: Not Given Levothyroxine Sodium (Levothyroxine Sodium 175 Mcg Tablet) 175 mcg PO DAILY@0600 [facility] Last Admin: 11/12/25 07:25 Dose: 175 mcg Magnesium Hydroxide (Milk Of Magnesia 30 Ml Oral.Susp) 30 ml PO DAILY PRN PRN Reason: Constipation Melatonin (Melatonin 3 Mg Tablet) 6 mg PO BEDTIME PRN PRN Reason: Insomnia Multivitamins/Vitamin C (Multivitamin Tablet) 1 tab PO DAILY [facility] Last Admin: 11/11/25 16:49 Dose: Not Given Pantoprazole Sodium (Pantoprazole Sodium 40 Mg/10 Ml Vial) 40 mg IVPUSH BID@0630,1630 [facility] Last Admin: 11/12/25 07:35 Dose: Not Given Sodium Chloride (0.9 % Sodium Chloride Flush 3 Ml Syringe) [facility] Last Admin: 11/11/25 22:55 Dose: 3 ml Home Medications ?Medication ?Instructions ?Recorded ?Confirmed ?Type aspirin 81 mg tablet,delayed 81 mg PO DAILY 08/20/25 11/11/25 History release (Adult Aspirin Regimen) Held on 11/12/25. Instructions: Resume on 10/18/25. metformin 500 mg tablet,extended 500 mg PO BEDTIME 11/11/25 11/11/25 History release 24 hr fuaovwod-elnk-dewt 8 mg-folic 400 1 tab PO DAILY 11/11/25 11/11/25 History mcg-K 50 mcg-lutein 300 mcg tablet (Centrum Silver Women) Allergies Allergy/AdvReac Type Severity Reaction Status Date / Time moxifloxacin (From AVELOX) Allergy Severe PINS AND Verified 11/11/25 11:19 NEEDLE FEET AND PALMS- SWELLING oxycodone (Percocet) Allergy Intermediate Vomiting Verified 11/11/25 11:19 vancomycin (Vancomycin) Allergy Intermediate SWELLING/HIVES/THROAT Verified 11/11/25 11:19 CLOSING SENSATION codeine (Codeine) Allergy Mild HIVES Verified 11/11/25 11:19 Penicillins Allergy Mild HIVES Verified 11/11/25 11:19 propoxyphene (From Darvon) Allergy Mild FELT LIKE Verified 11/11/25 11:19 CHEST CLOSING UP / HIVES Sulfa (Sulfonamide Allergy Mild HIVES Verified 11/11/25 11:19 Antibiotics) (Sulfa (Sulfonamides)) dexamethasone AdvReac Intermediate muscle Verified 11/11/25 11:19 aches hydroxychloroquine AdvReac Mild hair loss Verified 11/11/25 11:19 (Plaquenil) Iodinated Contrast Media (IV AdvReac Hives Verified 11/11/25 11:19 Contrast Dye) Physical Exam Vital signs: Vital Signs Temp 98.0 F 11/12/25 07:44 Pulse 66 11/12/25 07:44 Resp 18 11/12/25 07:44 BP 147/61 H 11/12/25 07:44 Pulse Ox 98 11/12/25 07:44 O2 Del Method Room Air 11/12/25 07:44 Intake & Output 11/11/25 11/12/25 11/12/25 18:59 06:59 18:59 Intake Total 350 / 730 380 / 730 Balance 350 / 730 380 / 730 Intake: Intake, Oral Amount 380 / 380 Intake (Blood Product) Amount 350 / 350 Red Blood Cells (E0336) Unit 350 / 350 [id number] Other: Number of Unmeasured Voids 1 Urine Bathroom Last Bowel Movement 11/09/25 Weight 126.1 kg 122.5 kg Weight 122.5 kg - Constitutional Present: no acute distress - Routine HEENT Exam Head: Present: normal inspection Eye: Present: EOMI, conjunctivae pale, PERRL - Routine Neck Exam Absent: lymphadenopathy - Routine Respiratory Exam Present: CTAB. Absent: accessory muscle use - Routine Cardiovascular Exam Cardiovascular: Present: S1, S2 - Routine Extremities Exam Present: pulses intact. Absent: pedal edema Hem/Onc Consult Result - Labs CBC & Chem 7: 11/12/25 09:41 11/12/25 09:41 Labs: Short CBC 11/11/25 11/11/25 Range/Units 11:50 23:29 WBC 6.4 7.0 (4.8-10.8) X10*3/uL Hgb 7.5 L D 8.4 L (12.0-16.0) g/dl Hct 26.5 L D 28.7 L (37.0-47.0) % Plt Count 213 215 (160-400) X10*3/uL BMP 11/11/25 11:50 Sodium 140 Potassium 4.2 Chloride 111 H Carbon Dioxide 26 BUN 13 Creatinine 0.76 Calcium 8.8 D Liver Function 11/11/25 Range/Units 11:50 Total Bilirubin 0.3 (0.0-1.0) mg/dL AST 22 (5-31) U/L ALT 27 (0-31) U/L Alkaline Phosphatase 76 (39-117) U/L Albumin 3.9 (3.5-5.0) g/dL Urine 11/11/25 Range/Units 13:32 Urine Color Yellow Urine Appearance Clear Urine pH 6.0 (5.0-9.0) Ur Specific [place] 1.010 (1.005-1.025) Urine Protein Negative (Neg-Trace) mg/dL Urine Glucose (UA) Negative (Negative) mg/dL Assessment and Plan Patient Active problem list reviewed?: Yes (1) Anemia Status: Acute Assessment and plan: 1. This is a 65-year-old woman with multiple medical problems as detailed above who is presenting with acute on chronic iron-deficiency anemia. She is on anticoagulation with Eliquis for atrial fibrillation as well as Brilinta after stent placement in 2023. Blood indices indicate microcytic anemia, iron studies consistent with this. She has normal vitamin B12 and folate levels, normal kidney functions, no evidence of hemolysis. LDH and haptoglobin normal. She responded appropriately to 1 unit blood transfusion. Recommend iron supplementation with ferrous sulfate 325 mg p.o. b.i.d. with vitamin-C to enhance absorption. EGD/colonoscopy as per GI recommendations. Follow up with Hematology upon discharge. Thank you for the consultation. - Time Spent With Patient Time Spent with Patient (in minutes): 20 Additional Coding: - Additional E/M codes Complex E/M visit Add On: CPT G2211
[2025-11-12 10:05] LABS: Hematocrit 29.9 % (37.0-47.0); Hemoglobin 8.8 g/dl (12.0-16.0); Mean Corpuscular HGB Conc 29.4 g/dl (31.0-35.0); Mean Corpuscular Hemoglobin 20.9 pg (27.0-33.0); Mean Corpuscular Volume 70.9 fL (80.0-98.0); NRBC Abs Auto 0.000 X10*3/uL (0.0-0.012); NRBC Pct Auto 0.0 /100WBC (0.0-0.2); Platelet Count 215 X10*3/uL (160-400); Red Blood Count 4.22 X10*6/uL (4.20-5.50); White Blood Count 5.9 X10*3/uL (4.8-10.8)
[2025-11-12 10:18] LABS: Anion Gap 10 (12-20); Blood Urea Nitrogen 9 mg/dL (9-16); Calcium 8.8 mg/dL (8.4-10.2); Carbon Dioxide 25 mmol/L (22-29); Chloride 110 mmol/L (96-108); Creatinine Clr Calc Pharmacy 101.4; Estimated Glomerular Filt Rate > 60; Potassium 4.4 mmol/L (3.3-5.1); Sodium 141 mmol/L (135-145)
[2025-11-12 10:54] VITALS: BP 145/65; PULSE 60; O2SAT 96
--- NOTE | 2025-11-12 10:54 | MHC.CM.PN ---
Patient lives in a house with her Son/HCP/Andres and her and home/self care is her goal (she works here in [employer]). CM has initiated and will follow for dc planning. PCP is Dr. Christian Robertson and Son will transport at dc.
[2025-11-12] MEDS: 0.9 % Sodium Chloride Flush 3 ML SYRINGE IVFLUSH (10:57)
[2025-11-12 11:15] LABS: Glucose, Whole Blood 146 mg/dL (60-115)
[2025-11-12 11:37] LABS: Folate 13.8 ng/mL (> or = 4.0); Vitamin B12 527 pg/mL (200-900)
--- NOTE | 2025-11-12 12:05 | PM.DS ---
DS: Providers Provider Date of admission: 11/11/25 14:08 Date of discharge: 11/12/25 Primary care physician: KATIE Hernandez Consults: 11/11/25 15:56 Consult to Gastroenterology Routine Consulting Provider: Matthew Levi Reason for consultation: Anemia iron def- unclear etiology Has provider been notified: No 11/11/25 15:59 Consult to Hematology / Oncology Routine Consulting Provider: [facility] Reason for consultation: Anemia (iron def) - unclear etiology Has provider been notified: No 11/12/25 10:20 Consult to Cardiology Routine Consulting Provider: [facility] Reason for consultation: Dizziness , afib hx , awaiting ablation Has provider been notified: No Attending physician on discharge: Queta Parisi Discharging clinician: Queta Parisi DS: Summary Hospital Course Hospital Course: HPI:65y/o F With pmhx of inferior STEMI in 2023 she had a PCI to RCA/lad she then developed AFib she has been on Multaq and Eliquis she has been compliant. She notes she has gone in and out and is likely going to have an ablation next month-her Coreg was recently adjusted to 12.5 b.i.d.(For the past week she feels short of breath she feels dizzy with standing she has no chest pain. She notes she feels her heart rate going up and down it wakes her sleep), recently increased her carvedilol. She has increased her pill usage by 1 as well. Patient says that initially she used to have erythrocytosis with and used to get phlebotomy outpatient, was since June seems like she has developing slowly anemia as per Hematology note question of iron deficiency-referred to GI for further workup , further as above patient has started to feeling dizzy so decided to come to the hospital. Patient denies any chest pain or shortness of breath or fever or chills or nausea vomiting or any black tarry stools or vomiting any blood or any gross bleeding. Does not have any rashes Lab imaging reviewed: H&H 7.5/26.5 dropped above her previous h/h 11.5/36.6(may/2025), LFT normal, BNP also fine. Patient has microcytic anemia, with low iron and iron saturation, TIBC normal as well as unsaturated iron binding. B12 and folate normal, TSH normal FOBT negative Venous duplex:No evidence of deep venous thrombosis involving the left lower extremity. Chest x-ray :negative ekg:Normal sinus rhythm Hospital course: Patient was admitted for acute on chronic microcytic anemia: symptomatic anemia-transfuse 1 PRBC H&H stable around 8.8/29.9, seen by GI-H&H stable, Monitor CBC outpatient, patient currently defer her endoscopic studies outpatient with GI, discussed with GI they are going to move her appointment earlier in November and recommended to hold off on Eliquis for 3 days. Repeat CBC in 1 week time. from Hematology note looks like patient has possible iron-deficiency anemia. Consider outpatient hematology follow-up. Also patient is aware that she needs to follow up with GI for further plan of Eliquis because she has appointment for ambulation in the end of . Patient is to follow up with GI and monitor CBC outpatient. She was advised to follow up with Cardiology outpatient also, in case her anticoagulation not started after 3-4 days -she understand that her ablation appointment might need to be postponed. PAF:Continue Multaq, patient says that she takes only Coreg 6.25 mg b.i.d. at home and insists to keep that way.hold eliquis for 3 days as well as aspirin. Currently patient is NSR, no new symptoms, tele seems no significant issues. Above was discussed with the Cardiology and GI in detail length. plan: added omeprazole 20 mg po bid until endoscopy done -further use outpatient per gi. Hold antiplatelets and anticoagulation for 3 days. Monitor CBC, BMP outpatient Follow up with GI Dr. Levi office as well as hematology office outpatient. Consider cardiology follow up outpatient. If patient has new sign of bleeding or new symptoms go to nearest emergency room for further evaluation. Above management discussed with the patient detail length she understand and in agreement with the above plan, time spent 45 minute. Staff witnessed the conversation. Time Attestation Total time managing care of this patient today: 45 mintues. Discharge Coordination Time (in mins): 45 min Quality: Safe Use of Opioids Does Pt have an Active Cancer Diagnosis on the Problem List?: No Quality: Stroke Does the patient have a stroke diagnosis?: No Physical Exam Exam: Exam: Appearance: Alert.? Oriented X3.? cvs: rrr, [id number] . res: clear to auscultation ,no rhonchii or wheezing abd: no rebound or guarding ,nt, bs present. ext pulses present , no cyanosis . neuro: axo3 , nonfocal. Vital Signs: Vital Signs: Last Vital Signs Temp 98.0 F 11/12/25 07:44 Pulse 60 11/12/25 10:54 Resp 18 11/12/25 07:44 BP 145/65 H 11/12/25 10:54 Pulse Ox 96 11/12/25 10:54 O2 Del Method Room Air 11/12/25 10:54 BMI result Body Mass Index 42.3 DS: Data Data Completed and Pending Labs on day of discharge: Laboratory Results - last 24 hr 11/11/25 11/11/25 11/11/25 11:50 13:32 14:32 WBC RBC Hgb Hct MCV MCH MCHC RDW Plt Count MPV Absolute Nucleated RBC Nucleated RBC % (auto) Sodium 140 Potassium 4.2 Chloride 111 H Carbon Dioxide 26 Anion Gap 7 L BUN 13 Creatinine 0.76 Estim Creat Clear Calc 103.1 Estimated GFR > 60 POC Glucose Random Glucose 180 H Haptoglobin Calcium 8.8 D Magnesium 1.7 Iron 19 L TIBC 357 % Saturation 5 L Unsat Iron Binding 338 Total Bilirubin 0.3 AST 22 ALT 27 Alkaline Phosphatase 76 Lactate Dehydrogenase Troponin I High Sens < 2.7 NT-Pro-B Natriuret Pep 195.1 Total Protein 5.9 L Albumin 3.9 Lipase 32 Vitamin B12 418 Folate 13.7 TSH 1.18 Urine Color Yellow Urine Appearance Clear Urine pH 6.0 Ur Specific [place] 1.010 Urine Protein Negative Urine Glucose (UA) Negative Urine Ketones Negative Urine Blood Negative Urine Nitrite Negative Ur Leukocyte Esterase Negative Stool Occult Blood NEGATIVE Influenza Type A (PCR) NEGATIVE Influenza Type B (PCR) NEGATIVE RSV RNA Qual (PCR) NEGATIVE SARS-CoV-2 RNA (RT-PCR) NEGATIVE Blood Type B Positive Antibody Screen NEGATIVE Crossmatch See Detail 11/11/25 11/11/25 11/12/25 17:51 23:29 07:40 WBC 7.0 RBC 4.07 L Hgb 8.4 L Hct 28.7 L MCV 70.5 L MCH 20.6 L MCHC 29.3 L RDW 18.1 H Plt Count 215 MPV 9.4 Absolute Nucleated RBC 0.000 Nucleated RBC % (auto) 0.0 Sodium Potassium Chloride Carbon Dioxide Anion Gap BUN Creatinine Estim Creat Clear Calc Estimated GFR POC Glucose 92 133 H Random Glucose Haptoglobin Calcium Magnesium Iron TIBC % Saturation Unsat Iron Binding Total Bilirubin AST ALT Alkaline Phosphatase Lactate Dehydrogenase Troponin I High Sens NT-Pro-B Natriuret Pep Total Protein Albumin Lipase Vitamin B12 Folate TSH Urine Color Urine Appearance Urine pH Ur Specific [place] Urine Protein Urine Glucose (UA) Urine Ketones Urine Blood Urine Nitrite Ur Leukocyte Esterase Stool Occult Blood Influenza Type A (PCR) Influenza Type B (PCR) RSV RNA Qual (PCR) SARS-CoV-2 RNA (RT-PCR) Blood Type Antibody Screen Crossmatch 11/12/25 11/12/25 11/12/25 09:41 10:27 11:09 WBC 5.9 RBC 4.22 Hgb 8.8 L Hct 29.9 L MCV 70.9 L MCH 20.9 L MCHC 29.4 L RDW 18.0 H Plt Count 215 MPV 10.3 Absolute Nucleated RBC 0.000 Nucleated RBC % (auto) 0.0 Sodium 141 Potassium 4.4 Chloride 110 H Carbon Dioxide 25 Anion Gap 10 L BUN 9 Creatinine 0.76 Estim Creat Clear Calc 101.4 Estimated GFR > 60 POC Glucose 146 H Random Glucose 137 H Haptoglobin 236 Calcium 8.8 Magnesium Iron TIBC % Saturation Unsat Iron Binding Total Bilirubin AST ALT Alkaline Phosphatase Lactate Dehydrogenase 182 Troponin I High Sens NT-Pro-B Natriuret Pep Total Protein Albumin Lipase Vitamin B12 527 Folate 13.8 TSH Urine Color Urine Appearance Urine pH Ur Specific [place] Urine Protein Urine Glucose (UA) Urine Ketones Urine Blood Urine Nitrite Ur Leukocyte Esterase Stool Occult Blood Influenza Type A (PCR) Influenza Type B (PCR) RSV RNA Qual (PCR) SARS-CoV-2 RNA (RT-PCR) Blood Type Antibody Screen Crossmatch Imaging Chest x-ray: Radiologist's impression: ITS Impressions Chest X-Ray 11/11/25 12:00 IMPRESSION: Low lung volumes. No acute cardiopulmonary abnormality. Venous Duplex 11/11/25 12:18 IMPRESSION: No evidence of deep venous thrombosis involving the left lower extremity. Discharge Plan Discharge Anticipated Discharge Date/Time: 11/12/25 11:43 Patient Disposition: Home, Self-Care Discharge Diagnosis: Acute on chronic anemia symptomatic. Referrals: Matthew Levi MD [Physician, Gastroenterology] - 1 Week Glogowski,Natanael, [employer] LO[employer]ER-BC [Primary Care Provider, Internal Medicine] - 1 Week Discharge Medications: New omeprazole 20 mg capsule,delayed release(DR/EC) 20 mg PO BID Qty: 60 0RF Continued levothyroxine [Unithroid] 175 mcg tablet 175 mcg PO DAILY Qty: 30 5RF albuterol sulfate [Ventolin HFA] 90 mcg/actuation HFA aerosol inhaler 1 inh inhalation QID PRN (Reason: shortness of breath or wheezing) Qty: 8.5 2RF (DME) blood-glucose meter [Accu-Chek Guide Glucose Meter] Misc See Rx Instructions .ROUTE .MEDSUPPLY Qty: 1 0RF Rx Instructions: As directed (DME) Accu-Chek Guide test strips Strip See Rx Instructions .ROUTE .MEDSUPPLY Qty: 100 1RF Rx Instructions: Test blood sugar once a day (DME) lancets [Accu-Chek Softclix Lancets] Misc See Rx Instructions .ROUTE .MEDSUPPLY Qty: 100 1RF Rx Instructions: Test blood sugar once a day atorvastatin 40 mg tablet 40 mg PO BEDTIME Qty: 90 1RF metformin 500 mg tablet extended release 24 hr 500 mg PO BEDTIME Centrum Silver Women 8 mg iron-400 mcg-50 mcg Tablet 1 tab PO DAILY Multaq 400 mg tablet 400 mg PO BID 90 Days Qty: 180 1RF Rx Instructions: must administer with a meal/food Changed carvedilol 12.5 mg tablet 6.25 mg PO BID 30 Days Qty: 60 3RF Rx Instructions: must administer with a meal/food Held Eliquis 5 mg tablet 5 mg PO BID Qty: 180 3RF Hold Instructions: Resume on 11/16/25. aspirin [Adult Aspirin Regimen] 81 mg tablet,delayed release (DR/EC) 81 mg PO DAILY Hold Instructions: Resume on 10/18/25. Discharge Orders: Discharge Order (Routine); Ordered 11/12/25 Ordered By: Queta Parisi Diet: Advance to usual diet Activity on Discharge: As tolerated Stand Alone Forms: Patient Portal Discharge page, Work/School Release Print Language: Andorran Other Ambulatory Orders: Basic Metabolic Panel (Routine) Timeframe: 1 Week Facility: [facility] - Location: Laboratory Ordered By: Queta Parisi Complete Blood Count no Diff (Routine) Timeframe: 1 Week Facility: [facility] - Location: Laboratory Ordered By: Queta Parisi Care Plan Goals: see below. Health Concerns: Hold antiplatelets and anticoagulation for 3 days. Continue home iron med. Monitor CBC, BMP outpatient Follow up with GI Dr. Levi office. Consider cardiology follow up outpatient. Plan of Treatment: As above. Assessment: as above.
--- NOTE | 2025-11-12 12:07 | CONS_ITS ---
DATE OF SERVICE: 11/12/2025 REFERRING PHYSICIAN: Dr. Parisi REASON FOR CONSULTATION: Iron deficiency anemia. HISTORY OF PRESENT ILLNESS: The patient is a pleasant 65-year-old woman, well known to me from prior evaluation. She has a history of iron-deficiency anemia and was scheduled for outpatient colonoscopy in December. She was evaluated in the emergency department yesterday after she called her snapper on with complaints of shortness of breath and dizziness. She has noted increased heart rates. She has been treated with Multaq and Eliquis for atrial fibrillation and has a history of coronary disease with an STEMI in 2023 and stent placement. She was evaluated in the emergency department with laboratory studies, which showed iron-deficiency anemia with a hematocrit of 26.5, which was down from 36.6 in May of this year. She does have a history of previous treatment of erythrocytosis with multi phlebotomies, but has not had to require 1 since earlier in the year. Additional diagnostic studies documented a serum iron level of 19 on November 11 with a saturation of 5, consistent with iron deficiency anemia. Stool occult blood testing has been negative. Milli denies any obvious rectal bleeding or upper GI blood loss with no history of melena. She has had some increasing reflux symptoms over the past several weeks. PAST MEDICAL HISTORY: 1. Paroxysmal atrial fibrillation. 2. Coronary artery disease with history of MN and PCI as above. 3. Pneumonitis. 4. Ascending aorta dilation. 5. Lupus. 6. Polymyalgia rheumatica. 7. Osteoarthritis. 8. Lichen planus and psoriasis. 9. Obstructive sleep apnea. 10. Elevated body mass index. 11. Thyroid cancer. 12. Vitamin D deficiency. 13. Diabetes type 2, uncontrolled. CURRENT MEDICATIONS: Current medication list is reviewed in the chart. ALLERGIES: MULTIPLE MEDICATION ALLERGIES ARE REVIEWED. FAMILY HISTORY: This is reviewed with the patient and is noncontributory. SOCIAL HISTORY: There is no current tobacco, alcohol, or substance abuse. REVIEW OF SYSTEMS: SKIN: No pruritus. HEENT: Negative. CARDIOPULMONARY: No shortness of breath or chest pain. GASTROINTESTINAL: As above. GENITOURINARY: Negative. NEUROPSYCHIATRIC: Negative. PHYSICAL EXAMINATION: GENERAL: Shows a pleasant female, lying comfortably in bed. VITAL SIGNS: Reviewed in the electronic medical record and are stable. SKIN: Anicteric. HEENT: Shows no scleral icterus. NECK: Without lymphadenopathy or thyromegaly. LUNGS: Clear. HEART: Shows a regular rate and rhythm. S1, S2. No murmur. ABDOMEN: Soft without focal masses or tenderness. Bowel sounds are present. No organomegaly is noted. EXTREMITIES: Without edema. LABORATORY DATA AND IMAGING STUDIES: Reviewed. IMPRESSION: Iron deficiency anemia. She does not have Hemoccult-positive stools at this time and does not appear to be actively bleeding. She still will require colonoscopy, and I would recommend she undergo upper endoscopy at the same time. We have discussed risks and benefits of the procedures today. She understands these and agrees to proceed. This will be scheduled as an outpatient at her convenience. Thanks for asking me to see her. I will follow her in the hospital with you. I agree with monitoring her H and H and transfusing p.r.n. MD DANIEL Delvalle/TANVI / [phone]
--- NOTE | 2025-11-12 12:10 | MHC.CM.PN ---
Patient has been medically cleared for dc to home today, self care.
== END 2025-11-12 14:28 | disposition home or self-care (01) | DRG 663 ==
LOC: HO.ED 14:05 → HO.EDOVER 14:21 → HO.IMC 21:21
PROVIDERS: Internal Medicine; Physician Assistant Medical; Admitting Provider Internal Medicine; Emergency Provider Emergency Medicine; PCP Nurse Practitioner Family; Visit Provider Internal Medicine
DX: D50.9 Iron deficiency anemia, unspecified (principal); M32.9 Systemic lupus erythematosus, unspecified; E89.0 Postprocedural hypothyroidism; I25.10 Atherosclerotic heart disease of native coronary artery without angina pectoris; I48.0 Paroxysmal atrial fibrillation; M35.3 Polymyalgia rheumatica; Z20.822 Contact with and (suspected) exposure to COVID-19; Z95.5 Presence of coronary angioplasty implant and graft; Z79.01 Long term (current) use of anticoagulants; Z87.891 Personal history of nicotine dependence; Z79.84 Long term (current) use of oral hypoglycemic drugs; Z79.899 Other long term (current) drug therapy
CPT/HCPCS: 36415; 71045; 80048; 80053; 81003; 82272; 82607; 82746; 82947; 83010; 83540; 83615; 83690; 83735; 83880; 84443; 84484; 85025; 85027; 86850; 86900; 86901; 86923; 87637; 93005; 93971; 99285; J2470; P9016

== ENCOUNTER → 2025-11-11 11:13 | Outpatient (BNV) | payer OTHER, SELFPAY | PROVIDERS: Admitting Provider Internal Medicine; Emergency Provider Emergency Medicine; PCP Nurse Practitioner Family; Visit Provider Internal Medicine | DX: R55 Syncope and collapse (principal) | CPT/HCPCS: 93010 ==

== ENCOUNTER → 2025-11-11 11:32 | Outpatient (BNV) | payer OTHER, SELFPAY | PROVIDERS: Emergency Provider Emergency Medicine; PCP Nurse Practitioner Family; Visit Provider Radiology Diagnostic Radiology | DX: R22.42 Localized swelling, mass and lump, left lower limb (principal); M79.662 Pain in left lower leg; J98.4 Other disorders of lung | CPT/HCPCS: 71045; 93971 ==

== ENCOUNTER → 2025-11-11 14:08 | Outpatient (BNV) | payer OTHER, SELFPAY | PROVIDERS: Admitting Provider Internal Medicine; Emergency Provider Emergency Medicine; PCP Nurse Practitioner Family; Visit Provider Internal Medicine | DX: D50.9 Iron deficiency anemia, unspecified (principal) | CPT/HCPCS: 99222 ==

== ENCOUNTER → 2025-11-11 14:08 | Outpatient (BNV) | payer OTHER, SELFPAY | PROVIDERS: Admitting Provider Internal Medicine; Emergency Provider Emergency Medicine; PCP Nurse Practitioner Family; Visit Provider Internal Medicine | DX: D64.9 Anemia, unspecified (principal) | CPT/HCPCS: 99222; 99239 ==